=== PATIENT | male | born 1950 | race African-American/Black ===

== ENCOUNTER → 2016-12-09 | Outpatient (CLI) | payer OTHER ==
--- NOTE | 2016-12-09 14:09 | NM ---
EXAMINATION TYPE: NM bone 3 phase DATE OF EXAM: 12/09/2016 COMPARISON: NONE HISTORY: Necrotic ulcer right ankle, L 97.303 Triple phase bone scintigraphy was performed following the injection of26.1 mCi Tc 99m MDP. Immediat e images and 5.5 hours post injection images acquired. FINDINGS: Mild increased flow to the right ankle as compared to the left may be technical. Blood pool also show s asymmetric uptake to the right foot as compared to the left. Uptake within the mid tarsal regions r ight greater than left may be due to arthropathy. There is uptake in the metatarsophalangeal joint le vels of the first digits bilaterally. Uptake is also noted in the lateral aspect of the left is mild. IMPRESSION: Findings may be due to degenerative changes rather than infection within the tarsal bone regions of t he feet, first digits fifth digit. Plain film correlation may be of benefit. Consider foot MRI as ind icated.
== END | disposition home or self-care (01) ==
LOC: RADNMMAIN 07:20
PROVIDERS: ATTEND Family Medicine
DX: L97.313 Non-pressure chronic ulcer of right ankle with necrosis of muscle (principal)
CPT/HCPCS: 78315; A9503

== ENCOUNTER → 2016-12-18 | Outpatient (CLI) | payer MEDICARE, OTHER ==
--- NOTE | 2016-12-18 21:29 | US ---
EXAMINATION TYPE: US venous doppler duplex LE BI DATE OF EXAM: 12/18/2016 3:04 PM COMPARISON: 12/06/2013 CLINICAL HISTORY: M79.604, M79.605 PAIN IN RT AND LT LEG. Pain bilateral legs, wound right foot and a nkle, wound left foot LOWER EXTREMITY VENOUS INSUFFICIENCY SIDE PERFORMED: bilateral 1) Color flow is present and patency is documented in the following vessels. No DVT or SVT is noted . EIV Common Femoral Vein Deep Femoral Vein Femoral Vein Popliteal Vein Proximal Calf Veins Greater Saph Vein Upper Small Saph Vein 2) There is venous reflux noted at the following venous levels: right EIV, right CFV, right deep fe moral vein, right femoral vein mid and lower, right popliteal vein upper, mid and lower, left EIV, IMPRESSION: 1. Venous reflux within the right lower extremity and left lower extremity as discussed above.
--- NOTE | 2016-12-23 12:37 | P.ARTDOP ---
Arterial Doppler LOWER EXTREMITY ARTERIAL DOPPLER: DATE OF SERVICE: 12/18/2016 Reason for study: Bilateral foot ulcers. Doppler waveforms: Multiphasic throughout bilaterally Pulse volume recording: Normal configuration. Pressure gradients: Only at the foot level. Ankle-brachial indices: Greater than 1 bilaterally. Toe pressures: 44 on the right, 56 on the left Impression: Normal study proximally. Decreased toe pressures either related to vasoconstriction or less likely to very distal disease. Perfusion probably adequate for healing..
== END | disposition home or self-care (01) ==
LOC: RADUSWWP 14:21
PROVIDERS: ATTEND Family Medicine
DX: I87.2 Venous insufficiency (chronic) (peripheral) (principal); E13.621 Other specified diabetes mellitus with foot ulcer
CPT/HCPCS: 93923; 93970

== ENCOUNTER → 2017-11-25 | Outpatient (CLI) | payer MEDICARE, OTHER | END | disposition home or self-care (01) | LOC: LABWHC1 10:39 | PROVIDERS: ATTEND Dermatology | DX: L12.0 Bullous pemphigoid (principal) | CPT/HCPCS: 36415 ==

== ENCOUNTER 2017-12-19 11:26 | Inpatient (IN) | payer MEDICARE, OTHER ==
[2017-12-19] MEDS ORDERED: SODIUM CHLORIDE 0.9% 1,000 ML IV STA ×2 (11:46→15:12)
--- NOTE | 2017-12-19 11:51 | ED ---
General Adult HPI - General Chief complaint: Weakness Stated complaint: Weakness Time Seen by Provider: 12/19/17 11:29 Source: patient, EMS, Caregiver Mode of arrival: EMS Limitations: altered mental status - History of Present Illness Initial comments: Patient is a pleasant 67-year-old male presenting to the emergency department with weakness. Patient is a poor historian. Patient does have a caregiver who arrives who just became caregiver couple of weeks ago secondary to patient having new problems. Patient has been secretive regarding his history however did state that he had some sort of recent blood infection. Patient admits to having leg sores for the past few weeks. Patient states he does not feel well. Patient reportedly has been eating and drinking normally. Patient reportedly has not been walking around much the past couple of days. No reported emesis. - Related Data Home Medications Medication Instructions Recorded Confirmed Carvedilol [Coreg*] 12.5 mg PO BID 12/06/13 12/19/17 Doxazosin [Cardura] 4 mg PO HS 12/06/13 12/19/17 Isosorbide Mononitrate ER [Imdur] 30 mg PO DAILY 12/06/13 12/19/17 Lisinopril 40 mg PO DAILY 12/06/13 12/19/17 Torsemide [Demadex] 100 mg PO BID 12/06/13 12/19/17 Spironolact/Hydrochlorothiazid 1 tab PO DAILY 12/10/16 12/19/17 [Aldactazide 25-25 MG] Allopurinol [Zyloprim] 100 mg PO DAILY 12/19/17 12/19/17 Colchicine [Colcrys] 0.6 mg PO TID 12/19/17 12/19/17 Doxycycline Hyclate 100 mg PO BID 12/19/17 12/19/17 Niacin 500 mg PO BID 12/19/17 12/19/17 Potassium Chloride [Klor-Con 20] 20 meq PO DAILY 12/19/17 12/19/17 Allergies Allergy/AdvReac Type Severity Reaction Status Date / Time No Known Allergies Allergy Verified 12/19/17 12:28 Review of Systems ROS Statement: Those systems with pertinent positive or pertinent negative responses have been documented in the HPI. ROS Other: All systems not noted in ROS Statement are negative. Constitutional: Denies: fever Eyes: Denies: eye pain ENT: Denies: ear pain Respiratory: Denies: cough Cardiovascular: Denies: chest pain Endocrine: Reports: fatigue Gastrointestinal: Denies: abdominal pain, vomiting Genitourinary: Denies: dysuria Musculoskeletal: Denies: back pain Skin: Denies: rash Neurological: Reports: weakness. Denies: headache, confusion Past Medical History Past Medical History: Atrial Fibrillation, Heart Failure, COPD, Diabetes Mellitus, Hypertension, Renal Disease Additional Past Medical History / Comment(s): gout, CHF History of Any Multi-Drug Resistant Organisms: None Reported Past Surgical History: Appendectomy Past Psychological History: No Psychological Hx Reported Smoking Status: Never smoker Past Alcohol Use History: Occasional Past Drug Use History: None Reported - Past Family History Father Family Medical History: Diabetes Mellitus Mother History Unknown: Yes General Exam Limitations: altered mental status, physical limitation General appearance: alert, other (Patient is drowsy but easily arouses to voice. Patient is able to follow commands however limited effort.) Head exam: Present: atraumatic Eye exam: Present: normal appearance, PERRL ENT exam: Present: mucous membranes dry Neck exam: Present: normal inspection Respiratory exam: Present: normal lung sounds bilaterally Cardiovascular Exam: Present: tachycardia, irregular rhythm GI/Abdominal exam: Present: soft. Absent: tenderness Rectal exam: Present: normal inspection, other (Minimal stool is present). Absent: bloody stool Extremities exam: Present: other (Lower leg wounds) Neurological exam: Present: alert, altered Expanded Neurological exam: Present: protecting the airway Patient oriented to: Present: person, place. Absent: time Cranial nerves: EOM's Intact: Normal Motor strength exam: RUE: 5, LUE: 5, RLE: 5, LLE: 5 Eye Response: (4) open spontaneously Motor Response: (6) obeys commands Verbal Response: (4) confused conversation Psychiatric exam: Present: normal affect, normal mood Skin exam: Present: other (Patient has multiple lower leg wounds bilaterally, more so near the right foot and ankle. These appear to be bullous type lesions that have opened. There is some clear drainage.) Course Vital Signs 12/19/17 12/19/17 12/19/17 11:28 11:56 12:23 Temperature 96.4 F L Pulse Rate 131 H 122 H 114 H Respiratory 28 H 27 H 28 H Rate Blood Pressure 72/48 78/73 64/41 O2 Sat by Pulse 96 94 L Oximetry 12/19/17 12/19/17 12/19/17 13:13 13:25 13:36 Temperature Pulse Rate 121 H 115 H 115 H Respiratory 24 22 24 Rate Blood Pressure 66/44 85/40 79/41 O2 Sat by Pulse 99 99 99 Oximetry 12/19/17 12/19/17 12/19/17 13:44 13:46 14:15 Temperature Pulse Rate 109 H 113 H 115 H Respiratory 26 H 26 H 25 H Rate Blood Pressure 81/62 71/46 68/32 O2 Sat by Pulse 99 98 98 Oximetry 12/19/17 12/19/17 14:51 15:32 Temperature Pulse Rate 116 H 118 H Respiratory 25 H 25 H Rate Blood Pressure 114/53 87/60 O2 Sat by Pulse 98 98 Oximetry - Reevaluation(s) Reevaluation #1: 12/19/17 13:23 Patient does have leg wounds and there is concern for infection and sepsis. Patient does meet criteria for septic shock diagnosed at 1300. Blood culture and lactic acid and IV antibiotics have been ordered. 12/19/17 13:26 Patient was reevaluated. Sepsis evaluation completed. Case was discussed with Dr. zarate, who will admit for Dr. Oconnell. Family was updated. 12/19/17 14:48 Patient again reevaluated 12/19/17 15:18 Case was discussed in detail with Dr. Palm, who will consult. He does recommend consult with Dr. Cartagena as well. Dr. Cartagena has been paged. 12/19/17 15:52 Case was discussed with Dr. Cartagena, who will consult. EKG Findings - EKG Comments: EKG Findings:: A. fib with RVR, rate 125. QRS 158. QT 382. QTC 551. Normal axis. Left bundle branch block. Nonspecific T waves. Procedures - Central Line Placement Right SC Consent Obtained: written consent, emergent situation Time Out Performed: Yes Patient Placed on Monitor/Pulse Ox: Yes MD Prep: mask, gown, gloves Central Line Prep: Chlorhexidine scrub Amount of Anesthesia Used (mls): 2 Ultrasound Used for Placement: No Complications: none, other (Unable to fully advance guidewire and therefore procedure was not continued.) Left SC Consent Obtained: written consent, emergent situation Time Out Performed: Yes Patient Placed on Monitor/Pulse Ox: Yes MD Prep: mask, gown, gloves Central Line Prep: Chlorhexidine scrub Local Anesthesia Used: Lidocaine 1% Amount of Anesthesia Used (mls): 2 Ultrasound Used for Placement: No Central Line Lumen Inserted: triple Bloods Obtained for Lab: Yes Central Line Position: good blood return, all ports aspirated, flushed, capped, sutured in place with 3-0 nylon Dressing Applied: Tegaderm Post Procedure X-Ray: tip of catheter in good position Patient Tolerated Procedure: well, no complications Complications: none - Sepsis Sepsis Focused Exam #1 Time Sepsis Criteria Met: 13:00 Sepsis Focused Exam Date: 12/19/17 Sepsis Focused Exam Time: 13:23 Sepsis Focused Exam Complete: Yes Vital Signs & RN Notes Reviewed: Yes Capillary Refill: < 2 Seconds: Fingers, Toes Peripheral Pulses: Weak: Radial (R), Radial (L) Skin Color: Normal for Patient (Leg wounds are present) Respiratory Exam: normal lung sounds Cardiovascular Exam: tachycardia, irregular rhythm Medical Decision Making - Lab Data Result diagrams: 12/19/17 11:50 12/19/17 11:50 Lab Results 12/19/17 12/19/17 12/19/17 Range/Units 11:32 11:50 11:50 WBC 14.6 H (3.8-10.6) k/uL RBC 1.42 L (4.30-5.90) m/uL Hgb 4.0 L* (13.0-17.5) gm/dL Hct 14.0 L* (39.0-53.0) % MCV 99.1 (80.0-100.0) fL MCH 28.0 (25.0-35.0) pg MCHC 28.2 L (31.0-37.0) g/dL RDW 17.5 H (11.5-15.5) % Plt Count 220 (150-450) k/uL Neutrophils % 88 % Lymphocytes % 6 % Monocytes % 5 % Eosinophils % 0 % Basophils % 0 % Neutrophils # 12.8 H (1.3-7.7) k/uL Lymphocytes # 0.8 L (1.0-4.8) k/uL Monocytes # 0.8 (0-1.0) k/uL Eosinophils # 0.0 (0-0.7) k/uL Basophils # 0.1 (0-0.2) k/uL Hypochromasia Marked Poikilocytosis Moderate Anisocytosis Slight Macrocytosis Slight PT (9.0-12.0) sec INR (<1.2) APTT (22.0-30.0) sec Sodium (137-145) mmol/L Potassium (3.5-5.1) mmol/L Chloride (98-107) mmol/L Carbon Dioxide (22-30) mmol/L Anion Gap mmol/L BUN (9-20) mg/dL Creatinine (0.66-1.25) mg/dL Est GFR (CKD-EPI)AfAm (>60 ml/min/1.73 sqM) Est GFR (CKD-EPI)NonAf (>60 ml/min/1.73 sqM) Glucose (74-99) mg/dL POC Glucose (mg/dL) 221 H (75-99) mg/dL POC Glu Director Of [employer] Systems ID CarmenitDariela espinosa Lactic Ac Sepsis Rflx Plasma Lactic Acid [place] (0.7-2.0) mmol/L Calcium (8.4-10.2) mg/dL Magnesium (1.6-2.3) mg/dL Total Bilirubin (0.2-1.3) mg/dL AST (17-59) U/L ALT (21-72) U/L Alkaline Phosphatase (38-126) U/L Total Creatine Kinase <20 L (55-170) U/L CK-MB (CK-2) 1.7 (0.0-2.4) ng/mL CK-MB (CK-2) Rel Index Troponin I <0.012 (0.000-0.034) ng/mL Total Protein (6.3-8.2) g/dL Albumin (3.5-5.0) g/dL Urine Color Urine Appearance (Clear) Urine pH (5.0-8.0) Ur Specific [place] (1.001-1.035) Urine Protein (Negative) Urine Glucose (UA) (Negative) Urine Ketones (Negative) Urine Blood (Negative) Urine Nitrite (Negative) Urine Bilirubin (Negative) Urine Urobilinogen (<2.0) mg/dL Ur Leukocyte Esterase (Negative) Urine RBC (0-5) /hpf Ur Squamous Epith Cells (0-4) /hpf Urine Bacteria (None) /hpf Urine Mucus (None) /hpf Stool Occult Blood (Negative) Blood Type Blood Type Recheck Antibody Screen Crossmatch Spec Expiration Date 12/19/17 12/19/17 12/19/17 Range/Units 11:50 11:50 11:50 WBC (3.8-10.6) k/uL RBC (4.30-5.90) m/uL Hgb (13.0-17.5) gm/dL Hct (39.0-53.0) % MCV (80.0-100.0) fL MCH (25.0-35.0) pg MCHC (31.0-37.0) g/dL RDW (11.5-15.5) % Plt Count (150-450) k/uL Neutrophils % % Lymphocytes % % Monocytes % % Eosinophils % % Basophils % % Neutrophils # (1.3-7.7) k/uL Lymphocytes # (1.0-4.8) k/uL Monocytes # (0-1.0) k/uL Eosinophils # (0-0.7) k/uL Basophils # (0-0.2) k/uL Hypochromasia Poikilocytosis Anisocytosis Macrocytosis PT 13.2 H (9.0-12.0) sec INR 1.4 H (<1.2) APTT 23.7 (22.0-30.0) sec Sodium 138 (137-145) mmol/L Potassium 5.6 H (3.5-5.1) mmol/L Chloride 107 (98-107) mmol/L Carbon Dioxide 8 L* (22-30) mmol/L Anion Gap 23 mmol/L BUN 185 H* (9-20) mg/dL Creatinine 4.20 H (0.66-1.25) mg/dL Est GFR (CKD-EPI)AfAm 16 (>60 ml/min/1.73 sqM) Est GFR (CKD-EPI)NonAf 14 (>60 ml/min/1.73 sqM) Glucose 174 H (74-99) mg/dL POC Glucose (mg/dL) (75-99) mg/dL POC Glu Director Of Healthcare Systems ID Lactic Ac Sepsis Rflx Plasma Lactic Acid [place] 8.3 H* (0.7-2.0) mmol/L Calcium 9.0 (8.4-10.2) mg/dL Magnesium 2.6 H (1.6-2.3) mg/dL Total Bilirubin 0.4 (0.2-1.3) mg/dL AST 15 L (17-59) U/L ALT 22 (21-72) U/L Alkaline Phosphatase 56 (38-126) U/L Total Creatine Kinase (55-170) U/L CK-MB (CK-2) (0.0-2.4) ng/mL CK-MB (CK-2) Rel Index Troponin I (0.000-0.034) ng/mL Total Protein 5.3 L (6.3-8.2) g/dL Albumin 2.4 L (3.5-5.0) g/dL Urine Color Urine Appearance (Clear) Urine pH (5.0-8.0) Ur Specific [place] (1.001-1.035) Urine Protein (Negative) Urine Glucose (UA) (Negative) Urine Ketones (Negative) Urine Blood (Negative) Urine Nitrite (Negative) Urine Bilirubin (Negative) Urine Urobilinogen (<2.0) mg/dL Ur Leukocyte Esterase (Negative) Urine RBC (0-5) /hpf Ur Squamous Epith Cells (0-4) /hpf Urine Bacteria (None) /hpf Urine Mucus (None) /hpf Stool Occult Blood (Negative) Blood Type Blood Type Recheck Antibody Screen Crossmatch Spec Expiration Date 12/19/17 12/19/17 12/19/17 Range/Units 11:50 12:07 12:15 WBC (3.8-10.6) k/uL RBC (4.30-5.90) m/uL Hgb (13.0-17.5) gm/dL Hct (39.0-53.0) % MCV (80.0-100.0) fL MCH (25.0-35.0) pg MCHC (31.0-37.0) g/dL RDW (11.5-15.5) % Plt Count (150-450) k/uL Neutrophils % % Lymphocytes % % Monocytes % % Eosinophils % % Basophils % % Neutrophils # (1.3-7.7) k/uL Lymphocytes # (1.0-4.8) k/uL Monocytes # (0-1.0) k/uL Eosinophils # (0-0.7) k/uL Basophils # (0-0.2) k/uL Hypochromasia Poikilocytosis Anisocytosis Macrocytosis PT (9.0-12.0) sec INR (<1.2) APTT (22.0-30.0) sec Sodium (137-145) mmol/L Potassium (3.5-5.1) mmol/L Chloride (98-107) mmol/L Carbon Dioxide (22-30) mmol/L Anion Gap mmol/L BUN (9-20) mg/dL Creatinine (0.66-1.25) mg/dL Est GFR (CKD-EPI)AfAm (>60 ml/min/1.73 sqM) Est GFR (CKD-EPI)NonAf (>60 ml/min/1.73 sqM) Glucose (74-99) mg/dL POC Glucose (mg/dL) (75-99) mg/dL POC Glu Director Of Healthcare Systems ID Lactic Ac Sepsis Rflx Plasma Lactic Acid [place] (0.7-2.0) mmol/L Calcium (8.4-10.2) mg/dL Magnesium (1.6-2.3) mg/dL Total Bilirubin (0.2-1.3) mg/dL AST (17-59) U/L ALT (21-72) U/L Alkaline Phosphatase (38-126) U/L Total Creatine Kinase (55-170) U/L CK-MB (CK-2) (0.0-2.4) ng/mL CK-MB (CK-2) Rel Index Troponin I (0.000-0.034) ng/mL Total Protein (6.3-8.2) g/dL Albumin (3.5-5.0) g/dL Urine Color Yellow Urine Appearance Cloudy (Clear) Urine pH 5.0 (5.0-8.0) Ur Specific [place] 1.012 (1.001-1.035) Urine Protein Negative (Negative) Urine Glucose (UA) Negative (Negative) Urine Ketones Negative (Negative) Urine Blood Negative (Negative) Urine Nitrite Negative (Negative) Urine Bilirubin Negative (Negative) Urine Urobilinogen <2.0 (<2.0) mg/dL Ur Leukocyte Esterase Negative (Negative) Urine RBC 1 (0-5) /hpf Ur Squamous Epith Cells 1 (0-4) /hpf Urine Bacteria Rare H (None) /hpf Urine Mucus Rare H (None) /hpf Stool Occult Blood Positive (Negative) Blood Type O Positive Blood Type Recheck No Antibody Screen NEGATIVE Crossmatch See Detail Spec Expiration Date 12/22/2017234912/19/17 Range/Units 12:23 WBC (3.8-10.6) k/uL RBC (4.30-5.90) m/uL Hgb (13.0-17.5) gm/dL Hct (39.0-53.0) % MCV (80.0-100.0) fL MCH (25.0-35.0) pg MCHC (31.0-37.0) g/dL RDW (11.5-15.5) % Plt Count (150-450) k/uL Neutrophils % % Lymphocytes % % Monocytes % % Eosinophils % % Basophils % % Neutrophils # (1.3-7.7) k/uL Lymphocytes # (1.0-4.8) k/uL Monocytes # (0-1.0) k/uL Eosinophils # (0-0.7) k/uL Basophils # (0-0.2) k/uL Hypochromasia Poikilocytosis Anisocytosis Macrocytosis PT (9.0-12.0) sec INR (<1.2) APTT (22.0-30.0) sec Sodium (137-145) mmol/L Potassium (3.5-5.1) mmol/L Chloride (98-107) mmol/L Carbon Dioxide (22-30) mmol/L Anion Gap mmol/L BUN (9-20) mg/dL Creatinine (0.66-1.25) mg/dL Est GFR (CKD-EPI)AfAm (>60 ml/min/1.73 sqM) Est GFR (CKD-EPI)NonAf (>60 ml/min/1.73 sqM) Glucose (74-99) mg/dL POC Glucose (mg/dL) (75-99) mg/dL POC Glu Director Of Healthcare Systems ID Lactic Ac Sepsis Rflx Y Plasma Lactic Acid [place] (0.7-2.0) mmol/L Calcium (8.4-10.2) mg/dL Magnesium (1.6-2.3) mg/dL Total Bilirubin (0.2-1.3) mg/dL AST (17-59) U/L ALT (21-72) U/L Alkaline Phosphatase (38-126) U/L Total Creatine Kinase (55-170) U/L CK-MB (CK-2) (0.0-2.4) ng/mL CK-MB (CK-2) Rel Index Troponin I (0.000-0.034) ng/mL Total Protein (6.3-8.2) g/dL Albumin (3.5-5.0) g/dL Urine Color Urine Appearance (Clear) Urine pH (5.0-8.0) Ur Specific [place] (1.001-1.035) Urine Protein (Negative) Urine Glucose (UA) (Negative) Urine Ketones (Negative) Urine Blood (Negative) Urine Nitrite (Negative) Urine Bilirubin (Negative) Urine Urobilinogen (<2.0) mg/dL Ur Leukocyte Esterase (Negative) Urine RBC (0-5) /hpf Ur Squamous Epith Cells (0-4) /hpf Urine Bacteria (None) /hpf Urine Mucus (None) /hpf Stool Occult Blood (Negative) Blood Type Blood Type Recheck Antibody Screen Crossmatch Spec Expiration Date - Radiology Data Radiology results: report reviewed (Computed tomography scan of brain shows no acute abnormality. Old left infarct.), image reviewed (Chest x-ray shows cardiomegaly.) Critical Care Time Critical Care Time: Yes Total Critical Care Time: 50 Disposition Clinical Impression: Acute renal failure, Cellulitis, Septic shock, GI hemorrhage Disposition: ADMITTED IP TO THIS [facility] Condition: Critical Is patient prescribed a controlled substance at d/c from ED?: No Decision Time: 14:49
[2017-12-19 12:04] LABS: Glucose,Whole Blood 221 mg/dL (75-99)
[2017-12-19 12:04] LABS: Anisocytosis Slight; Basophils # (A) 0.1 k/uL (0-0.2); Basophils % (A) 0 %; Eosinophils % (A) 0 %; Hypochromasia Marked; Lymphocytes # (A) 0.8 k/uL (1.0-4.8); Lymphocytes % (A) 6 %; MCHC 28.2 g/dL (31.0-37.0); MCV 99.1 fL (80.0-100.0); Macrocytosis Slight; Mean Platelet Volume 8.2; Monocytes # (A) 0.8 k/uL (0-1.0); Monocytes % (A) 5 %; Neutrophils # (A) 12.8 k/uL (1.3-7.7); Neutrophils % (A) 88 %; Platelet Count 220 k/uL (150-450); Poikilocytosis Moderate; RBC 1.42 m/uL (4.30-5.90); RDW 17.5 % (11.5-15.5); WBC 14.6 k/uL (3.8-10.6)
[2017-12-19 12:11] LABS: INR 1.4 (<1.2); Partial Thromboplastin Time 23.7 sec (22.0-30.0); Prothrombin Time 13.2 sec (9.0-12.0)
[2017-12-19 12:12] LABS: Albumin 2.4 g/dL (3.5-5.0); Magnesium 2.6 mg/dL (1.6-2.3); Potassium 5.6 mmol/L (3.5-5.1); Total Bilirubin 0.4 mg/dL (0.2-1.3); Total Protein 5.3 g/dL (6.3-8.2)
[2017-12-19] MEDS ORDERED: PANTOPRAZOLE 40 MG/10 ML VIAL IVP STA (12:12)
[2017-12-19] MEDS ORDERED: SODIUM CHLORIDE 0.9% 1,000 ML IV ONE (12:18)
[2017-12-19 12:21] LABS: Creatine Kinase <20 U/L (55-170)
[2017-12-19] MEDS ORDERED: SODIUM CHLORIDE 0.9% 500 ML IV STA (12:23)
[2017-12-19 12:30] LABS: Appearance,Urine Cloudy (Clear); Bacteria,Urine Rare /hpf; Bilirubin,Urine Negative (Negative); Blood,Urine Negative (Negative); Color,Urine Yellow; Glucose,Urine (UA) Negative (Negative); Ketones,Urine Negative (Negative); Leukocyte Esterase,Urine Negative (Negative); Mucus,Urine Rare /hpf; Nitrite,Urine Negative (Negative); Protein,Urine Negative (Negative); RBC,Urine 1 /hpf (0-5); Specific Gravity,Urine 1.012 (1.001-1.035); Squamous Epithelial Cell,Urine 1 /hpf (0-4); Urobilinogen,Urine <2.0 mg/dL (<2.0)
[2017-12-19] MEDS ORDERED: PIPERACILLIN-TAZOBACTAM 3.375 GM in DEXTROSE/WATER 1 50ML.BAG IVPB STA (12:31)
[2017-12-19 12:34] LABS: Creatine Kinase MB 1.7 ng/mL (0.0-2.4); Troponin I <0.012 ng/mL (0.000-0.034)
--- NOTE | 2017-12-19 12:55 | CT ---
EXAMINATION TYPE: CT brain wo con DATE OF EXAM: 12/19/2017 COMPARISON: NONE HISTORY: weakness CT DLP: 1106.3 mGycm Automated exposure control for dose reduction was used. FINDINGS: There has been a previous left occipital infarct. There are generalized changes of sulcal prominence and ventriculomegaly, compatible with atrophic marquis nges. There is diffuse periventricular white matter lucency, compatible with chronic white matter isc hemic change. There is no acute focal lesion, mass effect or midline shift identified. I do not see e vidence of intracranial blood. Visualized portions of the paranasal sinuses and mastoids are clear. The bony calvarium is intact. IMPRESSION: 1. NO ACUTE INTRACRANIAL ABNORMALITY. 2. OLD LEFT OCCIPITAL INFARCT. 3. DEGENERATIVE CHANGE.
--- NOTE | 2017-12-19 13:01 | XR ---
EXAMINATION TYPE: XR chest 2V DATE OF EXAM: 12/19/2017 HISTORY: Weakness. REFERENCE: Previous study dated 04/24/2010. FINDINGS: There is multichamber cardiac enlargement. Lungs are clear. Pleural spaces are clear. IMPRESSION: CARDIOMEGALY.
[2017-12-19] MEDS ORDERED: NOREPINEPHRINE 16 MG in SODIUM CHLORIDE 0.9% 250 ML IV ONE (14:31)
[2017-12-19] MEDS ORDERED: LORazepam 2 MG/ML INJ IM STA (14:37)
--- NOTE | 2017-12-19 15:15 | XR ---
EXAMINATION TYPE: XR chest 1V portable DATE OF EXAM: 12/19/2017 COMPARISON: Chest radiograph 12/19/2017 HISTORY: Central line placement TECHNIQUE: Single frontal view of the chest is obtained. FINDINGS: Interval placement of a left sided subclavian central line with the distal tip residing in the mid SVC. No evidence of pneumothorax. The heart remains enlarged. There remains no evidence of fo haile consolidation or pleural effusion. Osseous structures remain intact. IMPRESSION: Interval placement of a left subclavian central line with the tip residing in the mid SVC . No pneumothorax.
[2017-12-19] MEDS ORDERED: NALOXONE 0.4 MG/ML 1 ML VIAL IV PRN (15:29)
[2017-12-19] MEDS ORDERED: VANCOMYCIN IV PER PHARMACY 1 EACH MISC MISCELLANE PRN (15:33)
[2017-12-19] MEDS ORDERED: VANCOMYCIN 1,250 MG in SODIUM CHLORIDE 0.9% 250 ML IVPB ONE (16:00)
[2017-12-19 16:27] LABS: Glucose,Whole Blood 161 mg/dL (75-99)
[2017-12-19] MEDS: NOREPINEPHRINE 16 MG in SODIUM CHLORIDE 0.9% 250 ML IV SCH (16:30)
[2017-12-19] MEDS: SODIUM CHLORIDE 0.9% 1,000 ML IV SCH (16:48)
[2017-12-19 17:35] LABS: Anisocytosis Slight; Basophils % (A) 0 %; Eosinophils % (A) 0 %; HCT 22.5 % (39.0-53.0); Hypochromasia Marked; Lymphocytes # (A) 0.7 k/uL (1.0-4.8); Lymphocytes % (A) 6 %; MCH 28.5 pg (25.0-35.0); MCHC 30.3 g/dL (31.0-37.0); MCV 94.2 fL (80.0-100.0); Mean Platelet Volume 8.2; Monocytes # (A) 0.7 k/uL (0-1.0); Monocytes % (A) 6 %; Neutrophils # (A) 11.2 k/uL (1.3-7.7); Neutrophils % (A) 88 %; Platelet Count 172 k/uL (150-450); Poikilocytosis Moderate; RBC 2.39 m/uL (4.30-5.90); RDW 16.3 % (11.5-15.5); WBC 12.8 k/uL (3.8-10.6)
[2017-12-19 17:37] LABS: HGB 6.8 gm/dL (13.0-17.5)
[2017-12-19 18:08] LABS: Albumin 2.5 g/dL (3.5-5.0); Calcium 8.6 mg/dL (8.4-10.2); Magnesium 2.4 mg/dL (1.6-2.3); Potassium 5.4 mmol/L (3.5-5.1); Total Bilirubin 0.8 mg/dL (0.2-1.3); Total Protein 5.3 g/dL (6.3-8.2)
--- NOTE | 2017-12-19 18:20 | P.CONS ---
History of Present Illness - Reason for Consult Consult date: 12/19/17 - Chief Complaint Altered mental status - History of Present Illness 67-year-old male who has altered mental status is brought to the emergency center by a caregiver who apparently has a friend because of the significant declining status that was noted. The caregiver relates that he's been secretive about his overall health. The patient however does follow with a primary care physician Dr. Oconnell and was evaluated in the office on 2017 antibiotic therapy with doxycycline was given for the problems to his legs. No evidence of any topical therapy can be found in the bags of medicine that were brought to hospital. The patient himself is agitated and has difficulty answering questions. He however on direct questioning denies headache, denies chest pain, denies abdominal pain, denies dysuria, denies diarrhea but does complain of pain to his legs. The patient's sister is present relates that although she does see her brother occasionally she does not know much about his medical history. Review of Systems ROS unobtainable: due to mental status Past Medical History Past Medical History: Atrial Fibrillation, Heart Failure, COPD, Diabetes Mellitus, Hypertension, Renal Disease Additional Past Medical History / Comment(s): gout, CHF History of Any Multi-Drug Resistant Organisms: None Reported Past Surgical History: Appendectomy Past Psychological History: No Psychological Hx Reported Additional Psychological History / Comment(s): Patient's sister relates the patient does drink alcohol likely daily, history of tobacco use. She relates that he has difficulties with his heart, diabetes that he does not control well , and gout that gives him some discomfort at times. She does not relate that he has service, travel, or animal exposures. Does utilize marijuana she is not aware of other recreational drugs. Smoking Status: Never smoker Past Alcohol Use History: Occasional Past Drug Use History: None Reported - Past Family History Father Family Medical History: Diabetes Mellitus Mother History Unknown: Yes Medications and Allergies Home Medications and Allergies Comment(s): Current Medications Piperacillin/Tazobactam/ (Dextrose 3.375 gm/ IV Solution) 50 mls @ 12.5 mls/hr IVPB Q12HR [facility] Sodium Chloride (Saline 0.9%) 1,000 mls @ 125 mls/hr IV .Q8H [facility] Last Admin: 12/19/17 16:48 Dose: 125 mls/hr Vancomycin HCl 1,000 mg/ (Sodium Chloride) 250 mls @ 125 mls/hr IVPB ONCE ONE Stop: 12/20/17 10:59 Norepinephrine Bitartrate 16 (mg/ Sodium Chloride) 250 mls @ 0 mls/hr IV .Q0M [facility]; Protocol Miscellaneous Information (Pharmacy To Dose Iv Vancomycin) 1 each MISCELLANE DIRECTED PRN PRN Reason: Per Protocol Naloxone HCl (Narcan) 0.2 mg IV Q2M PRN PRN Reason: Opioid Reversal Pantoprazole Sodium (Protonix) 40 mg IV BID [facility] Home Medications Medication Instructions Recorded Confirmed Type Carvedilol [Coreg*] 12.5 mg PO BID 12/06/13 12/19/17 History Doxazosin [Cardura] 4 mg PO HS 12/06/13 12/19/17 History Isosorbide Mononitrate ER [Imdur] 30 mg PO DAILY 12/06/13 12/19/17 History Lisinopril 40 mg PO DAILY 12/06/13 12/19/17 History Torsemide [Demadex] 100 mg PO BID 12/06/13 12/19/17 History Spironolact/Hydrochlorothiazid 1 tab PO DAILY 12/10/16 12/19/17 History [Aldactazide 25-25 MG] Allopurinol [Zyloprim] 100 mg PO DAILY 12/19/17 12/19/17 History Colchicine [Colcrys] 0.6 mg PO TID 12/19/17 12/19/17 History Doxycycline Hyclate 100 mg PO BID 12/19/17 12/19/17 History Naproxen 500 mg PO 12/19/17 History Naproxen [Naprosyn] 500 mg PO BID PRN 12/19/17 12/19/17 History Niacin 500 mg PO BID 12/19/17 12/19/17 History Potassium Chloride [Klor-Con 20] 20 meq PO DAILY 12/19/17 12/19/17 History Allergies Allergy/AdvReac Type Severity Reaction Status Date / Time No Known Allergies Allergy Verified 12/19/17 12:28 Physical Exam Vitals: Vital Signs Temp Pulse Resp BP Pulse Ox 12/19/17 17:11 24 12/19/17 17:00 115 H 22 82/51 12/19/17 16:45 121 H 29 H 68/49 12/19/17 16:30 95.1 F L 121 H 22 71/51 12/19/17 16:22 0 L 12/19/17 15:32 118 H 25 H 87/60 98 12/19/17 14:51 116 H 25 H 114/53 98 12/19/17 14:15 115 H 25 H 68/32 98 12/19/17 13:46 113 H 26 H 71/46 98 12/19/17 13:44 109 H 26 H 81/62 99 12/19/17 13:36 115 H 24 79/41 99 12/19/17 13:25 115 H 22 85/40 99 12/19/17 13:13 121 H 24 66/44 99 12/19/17 12:23 114 H 28 H 64/41 12/19/17 11:56 122 H 27 H 78/73 94 L 12/19/17 11:28 96.4 F L 131 H 28 H 72/48 96 Intake and Output 12/19/17 12/19/17 12/19/17 06:59 14:59 22:59 Intake Total 930 1250 Output Total 100 160 Balance 830 1090 Intake: IV 1250 Sodium Chloride 0.9% 1, 250 000 ml @ 125 mls/hr IV . Q8H [facility] Rx#:[id number] Sodium Chloride 0.9% 500 1000 ml @ 999 mls/hr IV .Q31M [facility] Rx#:[id number] Blood Product 930 Rc As-1 Unit 310 [id number] Rc As-1 Unit 310 [id number] Rc As-1 Unit 310 [id number] Output: Urine 100 160 Uretheral (Huang) 100 Other: Weight 68.039 kg HEENT: Anicteric conjunctiva are very pale, there is general pallor. No oral lesions or thrush but dentition is very poor Neck: The neck is supple without significant lymphadenopathy or thyromegaly. Lungs: There is symmetrical air entry with expiratory wheezes scattered no leah bronchial sounds no dullness Heart: Very tachycardic with a rate of 141 no abnormal sounds were detected Abdomen: Positive bowel sounds soft and nontender without palpable masses or organomegaly. There was no guarding or rebound. Extremities: Upper extremities are intact without lesions. Lower extremities show evidence of the chronic bilateral lower extremity edema, evidence of some dried bulla especially on the left leg are seen. Some ulcerations are seen on the right lower extremity. Nursing photography will further help define locations. There is some minimal drainage to the right leg. The legs are very tender. Neuro: The patient is awake and alert attempts to answer questions but is agitated and does not answer questions well. He overs able to easily move all extremities at this time but is guarding to his legs because they give him pain. Results CBC & Chem 7: 12/19/17 17:22 12/19/17 11:50 Labs: Abnormal Lab Results - Last 24 Hours (Table) 12/19/17 12/19/17 12/19/17 Range/Units 11:32 11:50 11:50 WBC 14.6 H (3.8-10.6) k/uL RBC 1.42 L (4.30-5.90) m/uL Hgb 4.0 L* (13.0-17.5) gm/dL Hct 14.0 L* (39.0-53.0) % MCHC 28.2 L (31.0-37.0) g/dL RDW 17.5 H (11.5-15.5) % Neutrophils # 12.8 H (1.3-7.7) k/uL Lymphocytes # 0.8 L (1.0-4.8) k/uL PT (9.0-12.0) sec INR (<1.2) Potassium (3.5-5.1) mmol/L Carbon Dioxide (22-30) mmol/L BUN (9-20) mg/dL Creatinine (0.66-1.25) mg/dL Glucose (74-99) mg/dL POC Glucose (mg/dL) 221 H (75-99) mg/dL Plasma Lactic Acid [place] (0.7-2.0) mmol/L Magnesium (1.6-2.3) mg/dL AST (17-59) U/L Total Creatine Kinase <20 L (55-170) U/L Total Protein (6.3-8.2) g/dL Albumin (3.5-5.0) g/dL Urine Bacteria (None) /hpf Urine Mucus (None) /hpf Crossmatch 08/26/18 08/26/18 08/26/18 Range/Units 11:50 11:50 11:50 WBC (3.8-10.6) k/uL RBC (4.30-5.90) m/uL Hgb (13.0-17.5) gm/dL Hct (39.0-53.0) % MCHC (31.0-37.0) g/dL RDW (11.5-15.5) % Neutrophils # (1.3-7.7) k/uL Lymphocytes # (1.0-4.8) k/uL PT 13.2 H (9.0-12.0) sec INR 1.4 H (<1.2) Potassium 5.6 H (3.5-5.1) mmol/L Carbon Dioxide 8 L* (22-30) mmol/L BUN 185 H* (9-20) mg/dL Creatinine 4.20 H (0.66-1.25) mg/dL Glucose 174 H (74-99) mg/dL POC Glucose (mg/dL) (75-99) mg/dL Plasma Lactic Acid [place] 8.3 H* (0.7-2.0) mmol/L Magnesium 2.6 H (1.6-2.3) mg/dL AST 15 L (17-59) U/L Total Creatine Kinase (55-170) U/L Total Protein 5.3 L (6.3-8.2) g/dL Albumin 2.4 L (3.5-5.0) g/dL Urine Bacteria (None) /hpf Urine Mucus (None) /hpf Crossmatch 12/19/17 12/19/17 12/19/17 Range/Units 11:50 12:07 16:23 WBC (3.8-10.6) k/uL RBC (4.30-5.90) m/uL Hgb (13.0-17.5) gm/dL Hct (39.0-53.0) % MCHC (31.0-37.0) g/dL RDW (11.5-15.5) % Neutrophils # (1.3-7.7) k/uL Lymphocytes # (1.0-4.8) k/uL PT (9.0-12.0) sec INR (<1.2) Potassium (3.5-5.1) mmol/L Carbon Dioxide (22-30) mmol/L BUN (9-20) mg/dL Creatinine (0.66-1.25) mg/dL Glucose (74-99) mg/dL POC Glucose (mg/dL) 161 H (75-99) mg/dL Plasma Lactic Acid [place] (0.7-2.0) mmol/L Magnesium (1.6-2.3) mg/dL AST (17-59) U/L Total Creatine Kinase (55-170) U/L Total Protein (6.3-8.2) g/dL Albumin (3.5-5.0) g/dL Urine Bacteria Rare H (None) /hpf Urine Mucus Rare H (None) /hpf Crossmatch See Detail 12/19/17 12/19/17 Range/Units 17:22 17:22 WBC 12.8 H (3.8-10.6) k/uL RBC 2.39 L (4.30-5.90) m/uL Hgb 6.8 L* D (13.0-17.5) gm/dL Hct 22.5 L (39.0-53.0) % MCHC 30.3 L (31.0-37.0) g/dL RDW 16.3 H (11.5-15.5) % Neutrophils # 11.2 H (1.3-7.7) k/uL Lymphocytes # 0.7 L (1.0-4.8) k/uL PT (9.0-12.0) sec INR (<1.2) Potassium (3.5-5.1) mmol/L Carbon Dioxide (22-30) mmol/L BUN (9-20) mg/dL Creatinine (0.66-1.25) mg/dL Glucose (74-99) mg/dL POC Glucose (mg/dL) (75-99) mg/dL Plasma Lactic Acid Orlando 3.9 H* (0.7-2.0) mmol/L Magnesium (1.6-2.3) mg/dL AST (17-59) U/L Total Creatine Kinase (55-170) U/L Total Protein (6.3-8.2) g/dL Albumin (3.5-5.0) g/dL Urine Bacteria (None) /hpf Urine Mucus (None) /hpf Crossmatch Microbiology - Last 24 Hours (Table) 12/19/17 11:48 Wound Culture - Preliminary Foot - Right 12/19/17 12:07 Urine Culture - Preliminary Urine,Catheterized Laboratory Results WBC 12.8 k/uL (3.8-10.6) H 12/19/17 17:22 RBC 2.39 m/uL (4.30-5.90) L 12/19/17 17:22 Hgb 6.8 gm/dL (13.0-17.5) L* D 12/19/17 17:22 Hct 22.5 % (39.0-53.0) L 12/19/17 17:22 MCV 94.2 fL (80.0-100.0) 12/19/17 17:22 MCH 28.5 pg (25.0-35.0) 12/19/17 17:22 MCHC 30.3 g/dL (31.0-37.0) L 12/19/17 17:22 RDW 16.3 % (11.5-15.5) H 12/19/17 17:22 Plt Count 172 k/uL (150-450) 12/19/17 17:22 Neutrophils % 88 % 12/19/17 17:22 Lymphocytes % 6 % 12/19/17 17:22 Monocytes % 6 % 12/19/17 17:22 Eosinophils % 0 % 12/19/17 17:22 Basophils % 0 % 12/19/17 17:22 Neutrophils # 11.2 k/uL (1.3-7.7) H 12/19/17 17:22 Lymphocytes # 0.7 k/uL (1.0-4.8) L 12/19/17 17:22 Monocytes # 0.7 k/uL (0-1.0) 12/19/17 17:22 Eosinophils # 0.0 k/uL (0-0.7) 12/19/17 17:22 Basophils # 0.0 k/uL (0-0.2) 12/19/17 17:22 Hypochromasia Marked 12/19/17 17:22 Poikilocytosis Moderate 12/19/17 17:22 Anisocytosis Slight 12/19/17 17:22 Macrocytosis Slight 12/19/17 11:50 PT 13.2 sec (9.0-12.0) H 12/19/17 11:50 INR 1.4 (<1.2) H 12/19/17 11:50 APTT 23.7 sec (22.0-30.0) 12/19/17 11:50 Sodium 139 mmol/L (137-145) 12/19/17 17:22 Potassium 5.4 mmol/L (3.5-5.1) H 12/19/17 17:22 Chloride 112 mmol/L (98-107) H 12/19/17 17:22 Carbon Dioxide 11 mmol/L (22-30) L 12/19/17 17:22 Anion Gap 16 mmol/L 12/19/17 17:22 BUN mg/dL (9-20) 12/19/17 17:22 Creatinine 3.60 mg/dL (0.66-1.25) H 12/19/17 17:22 Est GFR (CKD-EPI)AfAm 19 (>60 ml/min/1.73 sqM) 12/19/17 17:22 Est GFR (CKD-EPI)NonAf 16 (>60 ml/min/1.73 sqM) 12/19/17 17:22 Glucose 145 mg/dL (74-99) H 12/19/17 17:22 POC Glucose (mg/dL) 161 mg/dL (75-99) H 12/19/17 16:23 POC Glu Brick Tester ID Caroline Moses 12/19/17 16:23 Lactic Ac Sepsis Rflx Y 12/19/17 12:23 Plasma Lactic Acid Orlando 3.9 mmol/L (0.7-2.0) H* 12/19/17 17:22 Calcium 8.6 mg/dL (8.4-10.2) 12/19/17 17:22 Phosphorus 6.0 mg/dL (2.5-4.5) H 12/19/17 17:22 Magnesium 2.4 mg/dL (1.6-2.3) H 12/19/17 17:22 Total Bilirubin 0.8 mg/dL (0.2-1.3) 12/19/17 17:22 AST 18 U/L (17-59) 12/19/17 17:22 ALT 24 U/L (21-72) 12/19/17 17:22 Alkaline Phosphatase 55 U/L (38-126) 12/19/17 17:22 Total Creatine Kinase <20 U/L (55-170) L 12/19/17 11:50 CK-MB (CK-2) 1.7 ng/mL (0.0-2.4) 12/19/17 11:50 CK-MB (CK-2) Rel Index 12/19/17 11:50 Troponin I <0.012 ng/mL (0.000-0.034) 12/19/17 11:50 Total Protein 5.3 g/dL (6.3-8.2) L 12/19/17 17:22 Albumin 2.5 g/dL (3.5-5.0) L 12/19/17 17:22 Urine Color Yellow 12/19/17 12:07 Urine Appearance Cloudy (Clear) 12/19/17 12:07 Urine pH 5.0 (5.0-8.0) 12/19/17 12:07 Ur Specific Trent 1.012 (1.001-1.035) 12/19/17 12:07 Urine Protein Negative (Negative) 12/19/17 12:07 Urine Glucose (UA) Negative (Negative) 12/19/17 12:07 Urine Ketones Negative (Negative) 12/19/17 12:07 Urine Blood Negative (Negative) 12/19/17 12:07 Urine Nitrite Negative (Negative) 12/19/17 12:07 Urine Bilirubin Negative (Negative) 12/19/17 12:07 Urine Urobilinogen <2.0 mg/dL (<2.0) 12/19/17 12:07 Ur Leukocyte Esterase Negative (Negative) 12/19/17 12:07 Urine RBC 1 /hpf (0-5) 12/19/17 12:07 Ur Squamous Epith Cells 1 /hpf (0-4) 12/19/17 12:07 Urine Bacteria Rare /hpf (None) H 12/19/17 12:07 Urine Mucus Rare /hpf (None) H 12/19/17 12:07 Stool Occult Blood Positive (Negative) 12/19/17 12:15 Blood Type O Positive 12/19/17 11:50 Blood Type Recheck No 12/19/17 11:50 Antibody Screen NEGATIVE 12/19/17 11:50 Crossmatch See Detail 12/19/17 11:50 Spec Expiration Date 12/22/2017 1640 12/19/17 11:50 Chest x-ray: image reviewed (Cardiomegaly without volume overload) Assessment and Plan (1) Septic shock Narrative/Plan: 67-year-old male presents to Hospital with prompting of a caregiver because of altered mental status. Upon arrival to the hospital patient is evidence of hypothermia, leukocytosis, hemoglobin of 4 and evidence of shock. There is concerns of septic shock given the patient's leukocytosis and open wounds to the lower extremities. The patient's hypotension and lactic acidosis can also be complicated by his profound anemia, with hemoglobin of 4 the patient likely has some component of chronic anemia to be able to be functional at this time. Local wound care will be utilized with Silvadene cream and wraps that can be done twice a day over this will be soothing and improve his level of discomfort Critical care is following and is receiving blood transfusions to improve his oxygen transport and has hypotension Antibiotic therapy will be addressed. He has evidence of acute renal failure with his creatinine of 4.2 at admission. Would avoid further vancomycin therapy and will change to daptomycin for now. He does need gram-negative therapy and with the current profound anemia would avoid piperacillin tazobactam given the difficulties with hematochezia anemia can be caused, utilize cefepime for now . Multiple cultures are already in process will further help direct therapy. The patient was on doxycycline therapy as an outpatient. Patient does have some laboratories from earlier this month the reveal evidence of hemoglobin 11.7 and a creatinine as low as 2.05 Consequently there is evidence of acute on chronic renal failure at this time. The patient has a heart rate of 141 which appears to be directly related to his septic shock. With fluid resuscitation and further blood transfusion should improve. Patient's sister relates that there is a history of alcohol use and must be monitored closely. Current Visit: Yes Status: Acute Code(s): A41.9 - SEPSIS, UNSPECIFIED ORGANISM; R65.21 - SEVERE SEPSIS WITH SEPTIC SHOCK SNOMED Code(s): 98735939 (2) Acute on chronic blood loss anemia Current Visit: Yes Status: Acute Code(s): D60.0 - CHRONIC ACQUIRED PURE RED CELL APLASIA SNOMED Code(s): 108783353 (3) Venous stasis ulcer of both lower extremities without varicose veins Current Visit: Yes Status: Acute Code(s): I87.2 - VENOUS INSUFFICIENCY ( CHRONIC) (PERIPHERAL); L97.919 - NON-PRS CHRONIC ULC UNSP PRT OF R LOW LEG W UNSP SEVERITY; L97.929 - NON-PRS CHRONIC ULC UNSP PRT OF L LOW LEG W UNSP SEVERITY SNOMED Code(s): 302799728
[2017-12-19 18:57] LABS: Glucose,Whole Blood 182 mg/dL (75-99)
[2017-12-19 19:21] LABS: Amphetamine Screen,Urine Not Detected (NotDetected); Barbiturate Screen,Urine Not Detected (NotDetected); Benzodiazepines Screen,Urine Not Detected (NotDetected); Cocaine Screen,Urine Detected (NotDetected); Methadone Screen, Urine Not Detected (NotDetected); Opiate Screen,Urine Not Detected (NotDetected); Oxycodone Screen, Urine Not Detected (NotDetected); Phencyclidine Screen,Urine Not Detected (NotDetected); Tricyclic Antidepressant,Urine Not Detected (NotDetected); Urn Cannabinoid Scrn Not Detected (NotDetected)
[2017-12-19] MEDS: INSULIN ASPART 100 UNIT/ML 1 ML 10 ML VIAL SQ SCH (19:42)
--- NOTE | 2017-12-19 19:47 | P.HPIM ---
History of Present Illness H&P Date: 12/19/17 Chief Complaint: Altered mental status Mr. Miller is a 67-year-old male with a past medical history of atrial fibrillation, heart failure, COPD, diabetes mellitus, hypertension brought in by his friend for altered mental status changes. Patient follows with Dr. Oconnell, who is his PCP. Patient does not discuss his medical issues with any of his family members or friends. As per the history by the caregiver, the patient has been not feeling well for the past couple of days as he was not himself. The patient himself states that he has been having dark-colored stool for almost 5 weeks. He states that he takes naproxen for his gouty attacks. He also mentions that he was on antibiotics for his lower extremity ulcers recently. Patient denies having any chest pain, difficulty in breathing, abdominal pain nausea vomiting. He complains of dark-colored stools for 5 weeks. He smokes marijuana and drinks alcohol occasionally. No history of illicit drug use. Patient mentions that he has chronic bilateral lower extremity ulcers. At the time of admission - Patient was found to be hypotensive with a low hemoglobin of 4 and elevated lactic acid at 8.3. He is admitted to the ICU for further management. His sister is at the bedside, mentions that she does not know much of his medical conditions. But yesterday she was called, that he was not feeling well. Review of Systems REVIEW OF SYSTEMS: NEURO:No c/o weakness of the extremties, No facial droop, No speech abnormalities. VASCULAR: Bilateral lower extremity ulcers HEMATOLOGIC: No history of easy bleeding and bruising . No recent infections . RESPIRATORY: No cough, No SOB, No chest discomfort. OPHTHALMOLOGIC: No blurry vision and no eye discharge : No dysuria or hematuria CARDIAC: No chest pain , shortness of breath , paroxysmal nocturnal dyspnea MUSCULOSKELETAL : History of gout GI: Dark colored stool stool for 5 weeks Past Medical History Past Medical History: Atrial Fibrillation, Heart Failure, COPD, Diabetes Mellitus, Hypertension, Renal Disease Additional Past Medical History / Comment(s): gout, CHF History of Any Multi-Drug Resistant Organisms: None Reported Past Surgical History: Appendectomy Past Psychological History: No Psychological Hx Reported Additional Psychological History / Comment(s): Patient's sister relates the patient does drink alcohol likely daily, history of tobacco use. She relates that he has difficulties with his heart, diabetes that he does not control well , and gout that gives him some discomfort at times. She does not relate that he has service, travel, or animal exposures. Does utilize marijuana she is not aware of other recreational drugs. Smoking Status: Never smoker Past Alcohol Use History: Occasional Past Drug Use History: None Reported - Past Family History Father Family Medical History: Diabetes Mellitus Mother History Unknown: Yes Medications and Allergies Home Medications Medication Instructions Recorded Confirmed Type Carvedilol [Coreg*] 12.5 mg PO BID 12/06/13 12/19/17 History Doxazosin [Cardura] 4 mg PO HS 12/06/13 12/19/17 History Isosorbide Mononitrate ER [Imdur] 30 mg PO DAILY 12/06/13 12/19/17 History Lisinopril 40 mg PO DAILY 12/06/13 12/19/17 History Torsemide [Demadex] 100 mg PO BID 12/06/13 12/19/17 History Spironolact/Hydrochlorothiazid 1 tab PO DAILY 12/10/16 12/19/17 History [Aldactazide 25-25 MG] Allopurinol [Zyloprim] 100 mg PO DAILY 12/19/17 12/19/17 History Colchicine [Colcrys] 0.6 mg PO TID 12/19/17 12/19/17 History Doxycycline Hyclate 100 mg PO BID 12/19/17 12/19/17 History Naproxen 500 mg PO 12/19/17 History Naproxen [Naprosyn] 500 mg PO BID PRN 12/19/17 12/19/17 History Niacin 500 mg PO BID 12/19/17 12/19/17 History Potassium Chloride [Klor-Con 20] 20 meq PO DAILY 12/19/17 12/19/17 History Allergies Allergy/AdvReac Type Severity Reaction Status Date / Time No Known Allergies Allergy Verified 12/19/17 12:28 Physical Exam Vitals: Vital Signs Temp Pulse Resp BP Pulse Ox 12/19/17 19:00 132 H 29 H 85/49 100 12/19/17 18:45 130 H 27 H 84/55 98 12/19/17 18:30 139 H 34 H 95 12/19/17 18:15 131 H 27 H 85/59 97 12/19/17 18:00 144 H 27 H 74/56 12/19/17 17:45 129 H 15 91/56 12/19/17 17:30 127 H 29 H 79/56 12/19/17 17:15 124 H 25 H 83/54 12/19/17 17:11 24 12/19/17 17:00 115 H 22 82/51 12/19/17 16:45 121 H 29 H 68/49 12/19/17 16:30 95.1 F L 121 H 22 71/51 12/19/17 16:22 0 L 12/19/17 15:32 118 H 25 H 87/60 98 12/19/17 14:51 116 H 25 H 114/53 98 12/19/17 14:15 115 H 25 H 68/32 98 12/19/17 13:46 113 H 26 H 71/46 98 12/19/17 13:44 109 H 26 H 81/62 99 12/19/17 13:36 115 H 24 79/41 99 12/19/17 13:25 115 H 22 85/40 99 12/19/17 13:13 121 H 24 66/44 99 12/19/17 12:23 114 H 28 H 64/41 12/19/17 11:56 122 H 27 H 78/73 94 L 12/19/17 11:28 96.4 F L 131 H 28 H 72/48 96 Intake and Output 12/19/17 12/19/17 12/19/17 06:59 14:59 22:59 Intake Total 930 1550 Output Total 100 355 Balance 830 1195 Intake: IV 1550 Sodium Chloride 0.9% 1, 550 000 ml @ 150 mls/hr IV . Q6H40M [facility] Rx#:[id number] Sodium Chloride 0.9% 500 1000 ml @ 999 mls/hr IV .Q31M STA Rx#:[id number] Blood Product 930 Rc As-1 Unit 310 [id number] Rc As-1 Unit 310 [id number] Rc As-1 Unit 310 [id number] Output: Urine 100 355 Uretheral (Huang) 100 Other: Weight 68.039 kg GENERAL EXAM GEN. APPEARANCE: alert , oriented to name and place HEAD EXAM: atraumatic, normocephalic, normal inspection EYE EXAM: Positive for pallor. No icterus ENT EXAM: Mucous membranes dry NECK EXAM: normal inspection. Absent: tenderness, meningismus, full ROM, lymphadenopathy RESPIRATORY EXAM: normal lung sounds bilaterally. Bilateral wheezing CARDIOVASCULAR EXAM: Tachycardia GI/ABDOMINAL EXAM: soft, normal bowel sounds. Absent: distended, tenderness, guarding, rebound, rigid EXTREMITIES EXAM: Bilateral lower extremities ulcers in various stages of healing , right side worse than left. NEUROLOGICAL EXAM: No focal deficits Results CBC & Chem 7: 12/19/17 17:22 12/19/17 17:22 Labs: Abnormal Lab Results - Last 24 Hours (Table) 12/19/17 12/19/17 12/19/17 Range/Units 11:32 11:50 11:50 WBC 14.6 H (3.8-10.6) k/uL RBC 1.42 L (4.30-5.90) m/uL Hgb 4.0 L* (13.0-17.5) gm/dL Hct 14.0 L* (39.0-53.0) % MCHC 28.2 L (31.0-37.0) g/dL RDW 17.5 H (11.5-15.5) % Neutrophils # 12.8 H (1.3-7.7) k/uL Lymphocytes # 0.8 L (1.0-4.8) k/uL PT (9.0-12.0) sec INR (<1.2) Potassium (3.5-5.1) mmol/L Chloride (98-107) mmol/L Carbon Dioxide (22-30) mmol/L BUN (9-20) mg/dL Creatinine (0.66-1.25) mg/dL Glucose (74-99) mg/dL POC Glucose (mg/dL) 221 H (75-99) mg/dL Plasma Lactic Acid [place] (0.7-2.0) mmol/L Phosphorus (2.5-4.5) mg/dL Magnesium (1.6-2.3) mg/dL AST (17-59) U/L Total Creatine Kinase <20 L (55-170) U/L Total Protein (6.3-8.2) g/dL Albumin (3.5-5.0) g/dL Urine Bacteria (None) /hpf Urine Mucus (None) /hpf Urine Cocaine Screen (NotDetected) Crossmatch 12/19/17 12/19/17 12/19/17 Range/Units 11:50 11:50 11:50 WBC (3.8-10.6) k/uL RBC (4.30-5.90) m/uL Hgb (13.0-17.5) gm/dL Hct (39.0-53.0) % MCHC (31.0-37.0) g/dL RDW (11.5-15.5) % Neutrophils # (1.3-7.7) k/uL Lymphocytes # (1.0-4.8) k/uL PT 13.2 H (9.0-12.0) sec INR 1.4 H (<1.2) Potassium 5.6 H (3.5-5.1) mmol/L Chloride (98-107) mmol/L Carbon Dioxide 8 L* (22-30) mmol/L BUN 185 H* (9-20) mg/dL Creatinine 4.20 H (0.66-1.25) mg/dL Glucose 174 H (74-99) mg/dL POC Glucose (mg/dL) (75-99) mg/dL Plasma Lactic Acid [place] 8.3 H* (0.7-2.0) mmol/L Phosphorus (2.5-4.5) mg/dL Magnesium 2.6 H (1.6-2.3) mg/dL AST 15 L (17-59) U/L Total Creatine Kinase (55-170) U/L Total Protein 5.3 L (6.3-8.2) g/dL Albumin 2.4 L (3.5-5.0) g/dL Urine Bacteria (None) /hpf Urine Mucus (None) /hpf Urine Cocaine Screen (NotDetected) Crossmatch 12/19/17 12/19/17 12/19/17 Range/Units 11:50 12:07 16:23 WBC (3.8-10.6) k/uL RBC (4.30-5.90) m/uL Hgb (13.0-17.5) gm/dL Hct (39.0-53.0) % MCHC (31.0-37.0) g/dL RDW (11.5-15.5) % Neutrophils # (1.3-7.7) k/uL Lymphocytes # (1.0-4.8) k/uL PT (9.0-12.0) sec INR (<1.2) Potassium (3.5-5.1) mmol/L Chloride (98-107) mmol/L Carbon Dioxide (22-30) mmol/L BUN (9-20) mg/dL Creatinine (0.66-1.25) mg/dL Glucose (74-99) mg/dL POC Glucose (mg/dL) 161 H (75-99) mg/dL Plasma Lactic Acid [place] (0.7-2.0) mmol/L Phosphorus (2.5-4.5) mg/dL Magnesium (1.6-2.3) mg/dL AST (17-59) U/L Total Creatine Kinase (55-170) U/L Total Protein (6.3-8.2) g/dL Albumin (3.5-5.0) g/dL Urine Bacteria Rare H (None) /hpf Urine Mucus Rare H (None) /hpf Urine Cocaine Screen (NotDetected) Crossmatch See Detail 12/19/17 12/19/17 12/19/17 Range/Units 17:22 17:22 17:22 WBC 12.8 H (3.8-10.6) k/uL RBC 2.39 L (4.30-5.90) m/uL Hgb 6.8 L* D (13.0-17.5) gm/dL Hct 22.5 L (39.0-53.0) % MCHC 30.3 L (31.0-37.0) g/dL RDW 16.3 H (11.5-15.5) % Neutrophils # 11.2 H (1.3-7.7) k/uL Lymphocytes # 0.7 L (1.0-4.8) k/uL PT (9.0-12.0) sec INR (<1.2) Potassium 5.4 H (3.5-5.1) mmol/L Chloride 112 H (98-107) mmol/L Carbon Dioxide 11 L (22-30) mmol/L BUN 176 H* (9-20) mg/dL Creatinine 3.60 H (0.66-1.25) mg/dL Glucose 145 H (74-99) mg/dL POC Glucose (mg/dL) (75-99) mg/dL Plasma Lactic Acid [place] 3.9 H* (0.7-2.0) mmol/L Phosphorus 6.0 H (2.5-4.5) mg/dL Magnesium 2.4 H (1.6-2.3) mg/dL AST (17-59) U/L Total Creatine Kinase (55-170) U/L Total Protein 5.3 L (6.3-8.2) g/dL Albumin 2.5 L (3.5-5.0) g/dL Urine Bacteria (None) /hpf Urine Mucus (None) /hpf Urine Cocaine Screen (NotDetected) Crossmatch 12/19/17 12/19/17 Range/Units 18:50 18:55 WBC (3.8-10.6) k/uL RBC (4.30-5.90) m/uL Hgb (13.0-17.5) gm/dL Hct (39.0-53.0) % MCHC (31.0-37.0) g/dL RDW (11.5-15.5) % Neutrophils # (1.3-7.7) k/uL Lymphocytes # (1.0-4.8) k/uL PT (9.0-12.0) sec INR (<1.2) Potassium (3.5-5.1) mmol/L Chloride (98-107) mmol/L Carbon Dioxide (22-30) mmol/L BUN (9-20) mg/dL Creatinine (0.66-1.25) mg/dL Glucose (74-99) mg/dL POC Glucose (mg/dL) 182 H (75-99) mg/dL Plasma Lactic Acid [place] (0.7-2.0) mmol/L Phosphorus (2.5-4.5) mg/dL Magnesium (1.6-2.3) mg/dL AST (17-59) U/L Total Creatine Kinase (55-170) U/L Total Protein (6.3-8.2) g/dL Albumin (3.5-5.0) g/dL Urine Bacteria (None) /hpf Urine Mucus (None) /hpf Urine Cocaine Screen Detected H (NotDetected) Crossmatch Microbiology - Last 24 Hours (Table) 12/19/17 11:48 Wound Culture - Preliminary Foot - Right 12/19/17 12:07 Urine Culture - Preliminary Urine,Catheterized Assessment and Plan Assessment: ASSESSMENT Septic shock Acute on chronic blood loss anemia Anion gap metabolic acidosis - secondary to septic shock Severe malnutrition Acute kidney injury UDS positive for cocaine Elevated INR Chronic bilateral lower extremity ulcers History of diabetes mellitus Atrial fibrillation -rapid ventricular rate ? Heart failure Plan: Patient received 3 L of IV fluids but still hypotensive so started on pressor support for a MAP greater than 60. He was transfused 3 units of PRBCs and current hemoglobin is 6.8. He has been empirically started on daptomycin and cefepime pending blood, urine, wound cultures. He is on a bicarbonate drip for his acute kidney injury. Overall prognosis is guarded. Patient being monitored in the ICU. Treatment plan was discussed with the patient and his sister who is at the bedside in detail. Further recommendations to follow depending on the progress of the patient.
[2017-12-19] MEDS ORDERED: DEXTROSE 5% IV ONE (21:00)
[2017-12-19] MEDS ORDERED: SODIUM BICARB IV ONE (21:00)
[2017-12-19] MEDS ORDERED: WATER IV ONE (21:00)
[2017-12-19] MEDS ORDERED: PIPERACILLIN-TAZOBACTAM 3.375 GM in DEXTROSE/WATER 1 50ML.BAG IVPB SCH (21:00)
[2017-12-19] MEDS ORDERED: DEXTROSE 5% IN WATER 250 ML with AMIODARONE 300 MG IV ONE (21:20)
[2017-12-19] MEDS: DEXTROSE 5% IV ONE ×2 (21:30→23:37)
[2017-12-19] MEDS: SODIUM BICARB IV ONE ×2 (21:30→23:37)
[2017-12-19] MEDS: WATER IV ONE ×2 (21:30→23:37)
[2017-12-19] MEDS: CEFEPIME 2 GM in SODIUM CHLORIDE 0.9% 50 ML IVPB SCH (21:32)
[2017-12-19] MEDS: PANTOPRAZOLE 40 MG/10 ML VIAL IV SCH (21:42)
[2017-12-19] MEDS: SILVER sulfADIAZINE Cream 400 GM 1 APPLIC APPLIC TOPICAL SCH (21:43)
[2017-12-20] MEDS: SODIUM CHLORIDE 0.9% 1,000 ML IV SCH ×4 (00:39→19:30)
[2017-12-20 01:04] LABS: Glucose,Whole Blood 164 mg/dL (75-99)
[2017-12-20 01:15] LABS: Anisocytosis Slight; HCT 23.5 % (39.0-53.0); HGB 7.6 gm/dL (13.0-17.5); Hypochromasia Moderate; MCH 28.7 pg (25.0-35.0); MCHC 32.1 g/dL (31.0-37.0); Mean Platelet Volume 8.1; Platelet Count 177 k/uL (150-450); Poikilocytosis Marked; RBC 2.64 m/uL (4.30-5.90); RDW 16.5 % (11.5-15.5); WBC 15.4 k/uL (3.8-10.6)
[2017-12-20] MEDS: INSULIN ASPART 100 UNIT/ML 1 ML 10 ML VIAL SQ SCH ×5 (01:17→23:18)
[2017-12-20 01:18] LABS: MCV 89.2 fL (80.0-100.0)
[2017-12-20 01:31] LABS: Albumin 2.3 g/dL (3.5-5.0); Calcium 8.4 mg/dL (8.4-10.2); Total Bilirubin 1.1 mg/dL (0.2-1.3)
[2017-12-20 05:40] LABS: Anisocytosis Slight; Basophils % (A) 0 %; Eosinophils % (A) 0 %; HCT 23.8 % (39.0-53.0); HGB 7.8 gm/dL (13.0-17.5); Hypochromasia Moderate; Lymphocytes # (A) 0.5 k/uL (1.0-4.8); Lymphocytes % (A) 3 %; MCH 29.4 pg (25.0-35.0); MCHC 32.6 g/dL (31.0-37.0); MCV 89.9 fL (80.0-100.0); Monocytes # (A) 1.2 k/uL (0-1.0); Monocytes % (A) 7 %; Neutrophils # (A) 14.2 k/uL (1.3-7.7); Neutrophils % (A) 88 %; Platelet Count 186 k/uL (150-450); Poikilocytosis Marked; RBC 2.65 m/uL (4.30-5.90); RDW 16.8 % (11.5-15.5); WBC 16.2 k/uL (3.8-10.6)
[2017-12-20] MEDS: NOREPINEPHRINE 16 MG in SODIUM CHLORIDE 0.9% 250 ML IV SCH ×2 (05:43→18:37)
[2017-12-20 05:48] LABS: INR 1.3 (<1.2); Prothrombin Time 12.6 sec (9.0-12.0)
[2017-12-20 05:50] LABS: Albumin 2.4 g/dL (3.5-5.0); Calcium 8.7 mg/dL (8.4-10.2); Magnesium 2.2 mg/dL (1.6-2.3); Phosphorus 4.8 mg/dL (2.5-4.5); Total Protein 5.2 g/dL (6.3-8.2)
[2017-12-20 05:51] LABS: Glucose,Whole Blood 132 mg/dL (75-99)
[2017-12-20] MEDS: DAPTOmycin 500 MG in SODIUM CHLORIDE 0.9% 50 ML IVPB SCH (06:57)
[2017-12-20] MEDS: PANTOPRAZOLE 40 MG/10 ML VIAL IV SCH ×2 (08:28→20:49)
[2017-12-20] MEDS ORDERED: VANCOMYCIN 1,000 MG in SODIUM CHLORIDE 0.9% 250 ML IVPB ONE (09:00)
[2017-12-20] MEDS ORDERED: WATER IV ONE (09:55)
[2017-12-20] MEDS ORDERED: DEXTROSE 5% IV ONE (09:55)
[2017-12-20] MEDS ORDERED: AMIODARONE IV ONE (09:55)
--- NOTE | 2017-12-20 10:05 | ECHOF ---
Referral Reason:afib MEASUREMENTS -------- HEIGHT: 182.9 cm WEIGHT: 72.6 kg BP: 95/59 RVIDd: 3.2 cm (< 3.3) IVSd: 1.2 cm (0.6 - 1.1) LVIDd: 7.7 cm (3.9 - 5.3) LVPWd: 1.2 cm (0.6 - 1.1) IVSs: 1.3 cm LVIDs: 7.4 cm LVPWs: 1.5 cm LAESV Index (A-L): 117.94 ml/m Ao Diam: 3.4 cm (2.0 - 3.7) AV Cusp: 2.1 cm (1.5 - 2.6) LA Diam: 4.7 cm (2.7 - 3.8) EPSS: 2.2 cm MV E Michael: 1.45 m/s MV DecT: 101 ms MV A Michael: 0.00 m/s MV E/A Ratio: 659.80 RAP: 15.00 mmHg RVSP: 66.76 mmHg MV EF SLOPE: 202.70 mm/s (70 - 150) MV EXCURSION: 1.84 cm (> 18.000) FINDINGS -------- Atrial fibrillation. This was a technically good study. The left ventricle is severely dilated. There is mild concentric left ventricular hypertrophy. Th ere is severe global hypokinesis of LV . Overall left ventricular systolic function is severely imp aired with, an EF < 20%. The right ventricle is mildly enlarged. LA is severely dilated >40 ml/m2 The right atrium is markedly enlarged. The aortic valve is trileaflet, and appears structurally normal. No aortic stenosis or regurgitation. There is no evidence of aortic regurgitation. There is no evidence of aortic stenosis. The mitral valve leaflets are mildly thickened. Severe mitral regurgitation is present. Severe tricuspid regurgitation present. There is severe pulmonary hypertension. The right ventric ular systolic pressure, as measured by Doppler, is 66.76mmHg. Trace/mild (physiologic) pulmonic regurgitation. The aortic root size is normal. The inferior vena cava is dilated with poor inspiratory collapse which is consistent with estimated r ight atrial pressure of 20 mmHg. There is no pericardial effusion. CONCLUSIONS -------- 1. Atrial fibrillation. 2. This was a technically good study. 3. The left ventricle is severely dilated. 4. There is mild concentric left ventricular hypertrophy. 5. There is severe global hypokinesis of LV . 6. Overall left ventricular systolic function is severely impaired with, an EF < 20%. 7. The right ventricle is mildly enlarged. 8. LA is severely dilated >40 ml/m2 9. The right atrium is markedly enlarged. 10. The aortic valve is trileaflet, and appears structurally normal. No aortic stenosis or regurgitat ion. 11. The mitral valve leaflets are mildly thickened. 12. Severe mitral regurgitation is present. 13. Severe tricuspid regurgitation present. 14. There is severe pulmonary hypertension. 15. Trace/mild (physiologic) pulmonic regurgitation. 16. The aortic root size is normal. 17. The inferior vena cava is dilated with poor inspiratory collapse which is consistent with estimat ed right atrial pressure of 20 mmHg. 18. There is no pericardial effusion. SUPPORT TEAM MEMBER: Manuel Meneses RDCS
[2017-12-20] MEDS: SILVER sulfADIAZINE Cream 400 GM 1 APPLIC APPLIC TOPICAL SCH ×2 (10:22→20:49)
[2017-12-20] MEDS: AMIODARONE 450 MG in DEXTROSE 5% IN WATER 250 ML IV SCH ×4 (10:40→17:48)
[2017-12-20 11:28] LABS: Hemoglobin A1C 5.2 % (4.0-6.0)
--- NOTE | 2017-12-20 11:49 | P.CRDCN ---
History of Present Illness Consult date: 12/20/17 History of present illness: This is a 67-year-old gentleman was admitted to the hospital after he was brought to the emergency room by caregiver with complaints of altered mental status. Patient is unable to give any detailed history. Most of the information is From the Chart and Talking to the Nurses. It Appears That Patient Has Cardiac Issues in the past and Was Following with Analytical Lead, but We Don't Have Any Details. He has chronic ulcers in the leg and was hypothermic and hypotensive with a significant anemia on admission. The possibility of sepsis was considered. Patient continues to be on vasopressors. He was also extremely anemic. Hemoglobin of about 4. He received blood transfusions. His is also in atrial flutter with rapid ventricular response. He was given IV amiodarone. His heart rate is still 110 range. His echo Cardigan showed severely impaired LV function with an ejection fraction about 10 -15% with the moderate to severe mitral and tricuspid regurgitation. White count continue his amiodarone to control his heart rate. We'll continue with vasopressors for blood pressure support. Patient also has acute renal failure with creatinine of 4. We'll get consult the livestock buyer. ID is following the patient. Overall this patient's prognosis is poor Review of Systems Not obtained Past Medical History Past Medical History: Atrial Fibrillation, Heart Failure, COPD, Diabetes Mellitus, Hypertension, Renal Disease Additional Past Medical History / Comment(s): gout, CHF History of Any Multi-Drug Resistant Organisms: None Reported Past Surgical History: Appendectomy Past Psychological History: No Psychological Hx Reported Additional Psychological History / Comment(s): Patient's sister relates the patient does drink alcohol likely daily, history of tobacco use. She relates that he has difficulties with his heart, diabetes that he does not control well , and gout that gives him some discomfort at times. She does not relate that he has service, travel, or animal exposures. Does utilize marijuana she is not aware of other recreational drugs. Smoking Status: Never smoker Past Alcohol Use History: Occasional Past Drug Use History: None Reported - Past Family History Father Family Medical History: Diabetes Mellitus Mother History Unknown: Yes Medications and Allergies Home Medications Medication Instructions Recorded Confirmed Type Carvedilol [Coreg*] 12.5 mg PO BID 12/06/13 12/19/17 History Doxazosin [Cardura] 4 mg PO HS 12/06/13 12/19/17 History Isosorbide Mononitrate ER [Imdur] 30 mg PO DAILY 12/06/13 12/19/17 History Lisinopril 40 mg PO DAILY 12/06/13 12/19/17 History Torsemide [Demadex] 100 mg PO BID 12/06/13 12/19/17 History Spironolact/Hydrochlorothiazid 1 tab PO DAILY 12/10/16 12/19/17 History [Aldactazide 25-25 MG] Allopurinol [Zyloprim] 100 mg PO DAILY 12/19/17 12/19/17 History Colchicine [Colcrys] 0.6 mg PO TID 12/19/17 12/19/17 History Doxycycline Hyclate 100 mg PO BID 12/19/17 12/19/17 History Naproxen 500 mg PO 12/19/17 History Naproxen [Naprosyn] 500 mg PO BID PRN 12/19/17 12/19/17 History Niacin 500 mg PO BID 12/19/17 12/19/17 History Potassium Chloride [Klor-Con 20] 20 meq PO DAILY 12/19/17 12/19/17 History Allergies Allergy/AdvReac Type Severity Reaction Status Date / Time No Known Allergies Allergy Verified 12/19/17 12:28 Physical Exam Vitals: Vital Signs Temp Pulse Resp BP Pulse Ox 12/20/17 10:15 132 H 21 98 12/20/17 10:00 138 H 24 98 12/20/17 09:45 133 H 27 H 96 12/20/17 09:30 140 H 25 H 97 12/20/17 09:15 132 H 25 H 94 L 12/20/17 09:00 133 H 29 H 97 12/20/17 08:45 122 H 24 100 12/20/17 08:30 126 H 23 93 L 12/20/17 08:15 128 H 22 92 L 12/20/17 08:00 98.7 F 132 H 23 100 12/20/17 07:45 130 H 22 98 12/20/17 07:30 130 H 22 99 12/20/17 06:30 146 H 34 H 96 12/20/17 06:00 113 H 22 98 12/20/17 05:00 136 H 23 95/63 100 12/20/17 04:00 97.7 F 137 H 23 95/63 98 12/20/17 03:00 135 H 30 H 99 12/20/17 02:00 131 H 28 H 97 12/20/17 01:00 134 H 31 H 87/59 100 12/20/17 00:00 97.9 F 135 H 31 H 87/59 100 12/19/17 23:22 124 H 32 H 100 12/19/17 23:00 135 H 28 H 100 12/19/17 22:24 97.8 F 135 H 22 96/35 12/19/17 22:00 135 H 28 H 83/70 12/19/17 21:00 133 H 26 H 83/70 12/19/17 20:28 98.0 F 132 H 28 H 103/68 100 12/19/17 20:00 97.9 F 154 H 24 103/59 12/19/17 19:58 97.9 F 152 H 22 93/70 12/19/17 19:48 142 H 26 H 103/59 90 L 12/19/17 19:44 98.1 F 133 H 30 H 97/75 99 12/19/17 19:00 132 H 29 H 85/49 100 12/19/17 18:45 130 H 27 H 84/55 98 12/19/17 18:30 139 H 34 H 95 12/19/17 18:15 131 H 27 H 85/59 97 12/19/17 18:00 144 H 27 H 74/56 12/19/17 17:45 129 H 15 91/56 12/19/17 17:30 127 H 29 H 79/56 12/19/17 17:15 124 H 25 H 83/54 12/19/17 17:11 24 12/19/17 17:00 115 H 22 82/51 12/19/17 16:45 121 H 29 H 68/49 12/19/17 16:30 95.1 F L 121 H 22 71/51 12/19/17 16:22 0 L 12/19/17 15:32 118 H 25 H 87/60 98 12/19/17 14:51 116 H 25 H 114/53 98 12/19/17 14:15 115 H 25 H 68/32 98 12/19/17 13:46 113 H 26 H 71/46 98 12/19/17 13:44 109 H 26 H 81/62 99 12/19/17 13:36 115 H 24 79/41 99 12/19/17 13:25 115 H 22 85/40 99 12/19/17 13:13 121 H 24 66/44 99 12/19/17 12:23 114 H 28 H 64/41 12/19/17 11:56 122 H 27 H 78/73 94 L Intake and Output 12/19/17 12/20/17 12/20/17 22:59 06:59 14:59 Intake Total 2565.444 1777.806 450 Output Total 725 760 435 Balance 0085.127 5227.806 15 Intake: IV 2150 1300 450 Cefepime 2 gm In Sodium 50 Chloride 0.9% 50 ml @ 100 mls/hr IVPB DAILY@2000 [facility] Rx#:[id number] Dextrose 5% in Water 100 100 100 ml @ 150 mls/hr IV .Q1H ONE with Sodium Bicarb (1 Meq/ml) 50 ml Rx#: [id number] Sodium Chloride 0.9% 1, 1000 1200 450 000 ml @ 150 mls/hr IV . Q6H40M [facility] Rx#:[id number] Sodium Chloride 0.9% 500 1000 ml @ 999 mls/hr IV .Q31M [facility] Rx#:[id number] Intake, IV Titration 105.444 167.806 Amount Norepinephrine 16 mg In 105.444 167.806 Sodium Chloride 0.9% 250 ml @ Titrate IV .Q0M [facility] Rx#:[id number] Blood Product 310 310 Rc As-1 Unit 310 [id number] Output: Urine 725 760 435 Uretheral (Huang) 100 Other: Voiding Method Indwelling Catheter Indwelling Catheter Indwelling Catheter # Emeses 1 Weight 68.039 kg 73 kg ABP, PAP, CO, CI - Last 8 Hours Arterial Blood Pressure 92/56 Arterial Blood Pressure 103/59 Arterial Blood Pressure 89/52 Arterial Blood Pressure 99/60 Arterial Blood Pressure 97/59 Arterial Blood Pressure 101/55 Arterial Blood Pressure 103/55 Arterial Blood Pressure 95/59 Arterial Blood Pressure 99/57 Arterial Blood Pressure 95/61 Arterial Blood Pressure 102/58 Arterial Blood Pressure 98/60 Arterial Blood Pressure 102/65 Arterial Blood Pressure 101/57 Arterial Blood Pressure 94/56 Arterial Blood Pressure 97/56 GENERAL EXAM: Patient is alert but unable to give any meaningful history. HEENT: Normocephalic. Normal reaction of pupils, equal size, normal range of extraocular motion. No erythema or exudates in the throat. NECK: No masses, no nuchal rigidity. CHEST: No chest wall deformity. LUNGS: Equal air entry with no crackles or wheeze. HEART: S1 and S2 normal with no audible mumurs or gallops. Regular rhythm, femorals equal on both sides.. ABDOMEN: Soft SKIN: No rashes CENTRAL NERVOUS SYSTEM: Deferred EXTREMITIES: Chronic ulcers Results 12/20/17 05:10 12/20/17 05:10 Cardiac Enzymes 12/19/17 12/19/17 12/19/17 Range/Units 11:50 11:50 17:22 AST 15 L 18 (17-59) U/L CK-MB (CK-2) 1.7 (0.0-2.4) ng/mL Troponin I <0.012 (0.000-0.034) ng/mL 12/20/17 12/20/17 Range/Units 00:55 05:10 AST 24 26 (17-59) U/L CK-MB (CK-2) (0.0-2.4) ng/mL Troponin I (0.000-0.034) ng/mL Coagulation 12/19/17 12/20/17 Range/Units 11:50 05:10 PT 13.2 H 12.6 H (9.0-12.0) sec APTT 23.7 24.0 (22.0-30.0) sec CBC 12/19/17 12/19/17 12/20/17 Range/Units 11:50 17:22 00:55 WBC 14.6 H 12.8 H 15.4 H (3.8-10.6) k/uL RBC 1.42 L 2.39 L 2.64 L (4.30-5.90) m/uL Hgb 4.0 L* 6.8 L* D 7.6 L (13.0-17.5) gm/dL Hct 14.0 L* 22.5 L 23.5 L (39.0-53.0) % Plt Count 220 172 177 (150-450) k/uL 12/20/17 Range/Units 05:10 WBC 16.2 H (3.8-10.6) k/uL RBC 2.65 L (4.30-5.90) m/uL Hgb 7.8 L (13.0-17.5) gm/dL Hct 23.8 L (39.0-53.0) % Plt Count 186 (150-450) k/uL Comprehensive Metabolic Panel 12/19/17 12/19/17 12/20/17 Range/Units 11:50 17:22 00:55 Sodium 138 139 139 (137-145) mmol/L Potassium 5.6 H 5.4 H 5.0 (3.5-5.1) mmol/L Chloride 107 112 H 115 H (98-107) mmol/L Carbon Dioxide 8 L* 11 L 14 L (22-30) mmol/L BUN 185 H* 176 H* 165 H* (9-20) mg/dL Creatinine 4.20 H 3.60 H 3.20 H (0.66-1.25) mg/dL Glucose 174 H 145 H 155 H (74-99) mg/dL Calcium 9.0 8.6 8.4 (8.4-10.2) mg/dL AST 15 L 18 24 (17-59) U/L ALT 22 24 28 (21-72) U/L Alkaline Phosphatase 56 55 46 (38-126) U/L Total Protein 5.3 L 5.3 L 5.0 L (6.3-8.2) g/dL Albumin 2.4 L 2.5 L 2.3 L (3.5-5.0) g/dL 12/20/17 Range/Units 05:10 Sodium 141 (137-145) mmol/L Potassium 5.0 (3.5-5.1) mmol/L Chloride 116 H (98-107) mmol/L Carbon Dioxide 13 L (22-30) mmol/L BUN 161 H* (9-20) mg/dL Creatinine 3.30 H (0.66-1.25) mg/dL Glucose 127 H (74-99) mg/dL Calcium 8.7 (8.4-10.2) mg/dL AST 26 (17-59) U/L ALT 26 (21-72) U/L Alkaline Phosphatase 47 (38-126) U/L Total Protein 5.2 L (6.3-8.2) g/dL Albumin 2.4 L (3.5-5.0) g/dL Current Medications Generic Name Dose Route Start Last Admin Trade Name Freq PRN Reason Stop Dose Admin Sodium Chloride 1,000 mls @ 150 mls/hr 12/19/17 15:30 12/20/17 05:55 Saline 0.9% IV 150 mls/hr .Q6H40M [facility] Administration Norepinephrine Bitartrate 16 250 mls @ 0 mls/hr 12/19/17 17:15 12/20/17 06:45 mg/ Sodium Chloride IV 22 mcg/min .Q0M [facility] 20.62 mls/hr Titration Protocol Titrate Cefepime HCl 2 gm/ Sodium 50 mls @ 100 mls/hr 12/19/17 20:00 12/19/17 21:32 Chloride IVPB 100 mls/hr DAILY@1999 [facility] Administration Daptomycin 500 mg/ Sodium 50 mls @ 100 mls/hr 12/20/17 07:00 12/20/17 06:57 Chloride IVPB 100 mls/hr Q48H [facility] Administration Protocol Amiodarone HCl 450 mg/ 250 mls @ 33.33 mls/hr 12/20/17 09:56 12/20/17 10:40 Dextrose/Water IV 12/21/17 09:56 1 mg/min .Q7H31M [facility] 33.33 mls/hr Administration Protocol 1 MG/MIN Insulin Aspart 0 unit 12/19/17 19:00 12/20/17 05:52 Novolog SQ 1 unit Q6HR [facility] Administration Protocol Naloxone HCl 0.2 mg 12/19/17 15:29 Narcan IV Q2M PRN Opioid Reversal Pantoprazole Sodium 40 mg 12/19/17 21:00 12/20/17 08:28 Protonix IV 40 mg BID [facility] Administration Silver Sulfadiazine 1 applic 12/19/17 21:00 12/20/17 10:22 Silvadene Cream TOPICAL 1 applic BID [facility] Administration Intake and Output 12/19/17 12/20/17 12/20/17 22:59 06:59 14:59 Intake Total 2565.444 1777.806 450 Output Total 725 760 435 Balance 6097.535 5056.806 15 Intake: IV 2150 1300 450 Cefepime 2 gm In Sodium 50 Chloride 0.9% 50 ml @ 100 mls/hr IVPB DAILY@1999 [facility] Rx#:[id number] Dextrose 5% in Water 100 100 100 ml @ 150 mls/hr IV .Q1H ONE with Sodium Bicarb (1 Meq/ml) 50 ml Rx#: [id number] Sodium Chloride 0.9% 1, 1000 1200 450 000 ml @ 150 mls/hr IV . Q6H40M [facility] Rx#:[id number] Sodium Chloride 0.9% 500 1000 ml @ 999 mls/hr IV .Q31M [facility] Rx#:[id number] Intake, IV Titration 105.444 167.806 Amount Norepinephrine 16 mg In 105.444 167.806 Sodium Chloride 0.9% 250 ml @ Titrate IV .Q0M [facility] Rx#:[id number] Blood Product 310 310 Rc As-1 Unit 310 [id number] Output: Urine 725 760 435 Uretheral (Huang) 100 Other: Voiding Method Indwelling Catheter Indwelling Catheter Indwelling Catheter # Emeses 1 Weight 68.039 kg 73 kg 12/20/17 05:10 12/20/17 05:10 EKG Interpretations (text) Atrial fibrillation with a left bundle branch block pattern Assessment and Plan (1) Atrial fibrillation with RVR Current Visit: Yes Status: Acute Code(s): I48.91 - UNSPECIFIED ATRIAL FIBRILLATION SNOMED Code(s): 764331384146478 (2) Acute on chronic blood loss anemia Current Visit: Yes Status: Acute Code(s): D60.0 - CHRONIC ACQUIRED PURE RED CELL APLASIA SNOMED Code(s): 088712625 (3) Acute renal failure Current Visit: Yes Status: Acute Code(s): N17.9 - ACUTE KIDNEY FAILURE, UNSPECIFIED SNOMED Code(s): 12528354 (4) GI hemorrhage Current Visit: Yes Status: Acute Code(s): K92.2 - GASTROINTESTINAL HEMORRHAGE, UNSPECIFIED SNOMED Code(s): 68351855 (5) Venous stasis ulcer of both lower extremities without varicose veins Current Visit: Yes Status: Acute Code(s): I87.2 - VENOUS INSUFFICIENCY ( CHRONIC) (PERIPHERAL); L97.919 - NON-PRS CHRONIC ULC UNSP PRT OF R LOW LEG W UNSP SEVERITY; L97.929 - NON-PRS CHRONIC ULC UNSP PRT OF L LOW LEG W UNSP SEVERITY SNOMED Code(s): 390165833 (6) Cardiomyopathy Current Visit: Yes Status: Acute Code(s): I42.9 - CARDIOMYOPATHY, UNSPECIFIED SNOMED Code(s): 40450529 (7) Chronic systolic CHF (congestive heart failure) Current Visit: Yes Status: Acute Code(s): I50.22 - CHRONIC SYSTOLIC ( CONGESTIVE) HEART FAILURE SNOMED Code(s): 424196741 Plan: Continue with vasopressors. We'll continue with IV amiodarone for rate control. Nephrology consult and ID consult. Overall prognosis is guarded. Once patient blood pressure stable we'll switch to beta blockers, diuretics and probably hydralazine. Prognosis is poor
[2017-12-20 12:08] LABS: Glucose,Whole Blood 163 mg/dL (75-99)
--- NOTE | 2017-12-20 12:51 | P.CNPUL ---
History of Present Illness Consult date: 12/20/17 Requesting physician: Carmelita Che Reason for consult: other (Acute sepsis and septic shock, profound anemia and GI bleeding) Chief complaint: Altered mental status History of present illness: This is a 67-year-old white male with history of multiple medical problems including chronic atrial fibrillation, COPD, congestive heart failure, diabetes , patient was brought in by his caregiver who is a friend of his, and he has been noticing significant decline in his status. Patient has been very secretive about his overall health condition, does not share his health issues with any of his friends or family members. Apparently he normally sees Dr. Oconnell and has been treated recently with doxycycline for what seems to be significant areas of cellulitis involving both legs. Patient was brought into the ER mostly with chief complaint of altered mental status, and has been noticing dark colored stools for the last 5 weeks. Patient is normally on Naprosyn for gout, and has been taking doxycycline for ulcers involving his legs. The patient himself is a very poor historian, much of the information was obtained from the chart. Upon arrival to the ER, patient was noted to be hypotensive, his lactic acid was elevated, and his hemoglobin was only 4. Patient was given so far at least 4 units of packed RBCs, and his hemoglobin now is 7.8. He was also given significant amount of fluid boluses, and his lactic acid came down from 8-0.8 to this morning. His renal profile is showing slight improvement with BUN coming down from 176-161 and his creatinine coming down from 3.60-3.30. Patient was empirically placed on antibiotics by Dr. Cartagena, and his urine was positive for cocaine. Chest x-ray showed no evidence of active disease. Patient was also noted to have atrial fibrillation with RVR , hypotensive on 20 g of norepinephrine, he was seen by cardiology, and his echocardiogram showed a significantly impaired left ventricle, ejection fraction of less than 20%. His atrial fibrillation is being treated with amiodarone. Nephrology was consulted for his renal failure. The patient himself is a very poor historian, and he seems to be quite slow with definite altered mental status. Review of Systems ROS unobtainable: due to mental status Past Medical History Past Medical History: Atrial Fibrillation, Heart Failure, COPD, Diabetes Mellitus, Hypertension, Renal Disease Additional Past Medical History / Comment(s): gout, CHF History of Any Multi-Drug Resistant Organisms: None Reported Past Surgical History: Appendectomy Past Psychological History: No Psychological Hx Reported Additional Psychological History / Comment(s): Patient's sister relates the patient does drink alcohol likely daily, history of tobacco use. She relates that he has difficulties with his heart, diabetes that he does not control well , and gout that gives him some discomfort at times. She does not relate that he has service, travel, or animal exposures. Does utilize marijuana she is not aware of other recreational drugs. Smoking Status: Never smoker Past Alcohol Use History: Occasional Past Drug Use History: None Reported - Past Family History Father Family Medical History: Diabetes Mellitus Mother History Unknown: Yes Medications and Allergies Home Medications Medication Instructions Recorded Confirmed Type Carvedilol [Coreg*] 12.5 mg PO BID 12/06/13 12/19/17 History Doxazosin [Cardura] 4 mg PO HS 12/06/13 12/19/17 History Isosorbide Mononitrate ER [Imdur] 30 mg PO DAILY 12/06/13 12/19/17 History Lisinopril 40 mg PO DAILY 12/06/13 12/19/17 History Torsemide [Demadex] 100 mg PO BID 12/06/13 12/19/17 History Spironolact/Hydrochlorothiazid 1 tab PO DAILY 12/10/16 12/19/17 History [Aldactazide 25-25 MG] Allopurinol [Zyloprim] 100 mg PO DAILY 12/19/17 12/19/17 History Colchicine [Colcrys] 0.6 mg PO TID 12/19/17 12/19/17 History Doxycycline Hyclate 100 mg PO BID 12/19/17 12/19/17 History Naproxen 500 mg PO 12/19/17 History Naproxen [Naprosyn] 500 mg PO BID PRN 12/19/17 12/19/17 History Niacin 500 mg PO BID 12/19/17 12/19/17 History Potassium Chloride [Klor-Con 20] 20 meq PO DAILY 12/19/17 12/19/17 History Allergies Allergy/AdvReac Type Severity Reaction Status Date / Time No Known Allergies Allergy Verified 12/19/17 12:28 Physical Exam Vitals: Vital Signs Temp Pulse Resp BP Pulse Ox 12/20/17 11:45 123 H 19 99 12/20/17 11:30 124 H 21 94 L 12/20/17 11:15 139 H 26 H 98 12/20/17 11:00 134 H 27 H 97 12/20/17 10:45 137 H 23 100 12/20/17 10:30 127 H 26 H 100 12/20/17 10:15 132 H 21 98 12/20/17 10:00 138 H 24 98 12/20/17 09:45 133 H 27 H 96 12/20/17 09:30 140 H 25 H 97 12/20/17 09:15 132 H 25 H 94 L 12/20/17 09:00 133 H 29 H 97 12/20/17 08:45 122 H 24 100 12/20/17 08:30 126 H 23 93 L 12/20/17 08:15 128 H 22 92 L 12/20/17 08:00 98.7 F 132 H 23 100 12/20/17 07:45 130 H 22 98 12/20/17 07:30 130 H 22 99 12/20/17 06:30 146 H 34 H 96 12/20/17 06:00 113 H 22 98 12/20/17 05:00 136 H 23 95/63 100 12/20/17 04:00 97.7 F 137 H 23 95/63 98 12/20/17 03:00 135 H 30 H 99 12/20/17 02:00 131 H 28 H 97 12/20/17 01:00 134 H 31 H 87/59 100 12/20/17 00:00 97.9 F 135 H 31 H 87/59 100 12/19/17 23:22 124 H 32 H 100 12/19/17 23:00 135 H 28 H 100 12/19/17 22:24 97.8 F 135 H 22 96/35 12/19/17 22:00 135 H 28 H 83/70 12/19/17 21:00 133 H 26 H 83/70 12/19/17 20:28 98.0 F 132 H 28 H 103/68 100 12/19/17 20:00 97.9 F 154 H 24 103/59 12/19/17 19:58 97.9 F 152 H 22 93/70 12/19/17 19:48 142 H 26 H 103/59 90 L 12/19/17 19:44 98.1 F 133 H 30 H 97/75 99 12/19/17 19:00 132 H 29 H 85/49 100 12/19/17 18:45 130 H 27 H 84/55 98 12/19/17 18:30 139 H 34 H 95 12/19/17 18:15 131 H 27 H 85/59 97 12/19/17 18:00 144 H 27 H 74/56 12/19/17 17:45 129 H 15 91/56 12/19/17 17:30 127 H 29 H 79/56 12/19/17 17:15 124 H 25 H 83/54 12/19/17 17:11 24 12/19/17 17:00 115 H 22 82/51 12/19/17 16:45 121 H 29 H 68/49 12/19/17 16:30 95.1 F L 121 H 22 71/51 12/19/17 16:22 0 L 12/19/17 15:32 118 H 25 H 87/60 98 12/19/17 14:51 116 H 25 H 114/53 98 12/19/17 14:15 115 H 25 H 68/32 98 12/19/17 13:46 113 H 26 H 71/46 98 12/19/17 13:44 109 H 26 H 81/62 99 12/19/17 13:36 115 H 24 79/41 99 12/19/17 13:25 115 H 22 85/40 99 12/19/17 13:13 121 H 24 66/44 99 Intake and Output 12/19/17 12/20/17 12/20/17 22:59 06:59 14:59 Intake Total 2565.444 1777.806 600 Output Total 725 760 490 Balance 5166.797 0337.806 110 Intake: IV 2150 1300 600 Cefepime 2 gm In Sodium 50 Chloride 0.9% 50 ml @ 100 mls/hr IVPB DAILY@2000 [facility] Rx#:[id number] Dextrose 5% in Water 100 100 100 ml @ 150 mls/hr IV .Q1H ONE with Sodium Bicarb (1 Meq/ml) 50 ml Rx#: [id number] Sodium Chloride 0.9% 1, 1000 1200 600 000 ml @ 150 mls/hr IV . Q6H40M [facility] Rx#:[id number] Sodium Chloride 0.9% 500 1000 ml @ 999 mls/hr IV .Q31M [facility] Rx#:[id number] Intake, IV Titration 105.444 167.806 Amount Norepinephrine 16 mg In 105.444 167.806 Sodium Chloride 0.9% 250 ml @ Titrate IV .Q0M [facility] Rx#:[id number] Blood Product 310 310 Rc As-1 Unit 310 [id number] Output: Urine 725 760 490 Uretheral (Huang) 100 Other: Voiding Method Indwelling Catheter Indwelling Catheter Indwelling Catheter # Emeses 1 Weight 68.039 kg 73 kg ABP, PAP, CO, CI - Last 8 Hours Arterial Blood Pressure 102/55 Arterial Blood Pressure 101/62 Arterial Blood Pressure 107/62 Arterial Blood Pressure 88/55 Arterial Blood Pressure 87/50 Arterial Blood Pressure 94/56 Arterial Blood Pressure 92/56 Arterial Blood Pressure 103/59 Arterial Blood Pressure 89/52 Arterial Blood Pressure 99/60 Arterial Blood Pressure 97/59 Arterial Blood Pressure 101/55 Arterial Blood Pressure 103/55 Arterial Blood Pressure 95/59 Arterial Blood Pressure 99/57 Arterial Blood Pressure 95/61 Arterial Blood Pressure 102/58 Arterial Blood Pressure 98/60 Arterial Blood Pressure 102/65 Arterial Blood Pressure 101/57 Arterial Blood Pressure 94/56 GEN. APPEARANCE: Physical exam revealed a 67-year-old male in no distress, seems to be confused, but oriented to place only. HEAD EXAM: atraumatic, normocephalic, normal inspection EYE EXAM: Positive for pallor. No icterus. PERRLA, EOMI. ENT EXAM: Mucous membranes dry NECK EXAM: normal inspection. Absent: tenderness, meningismus, full ROM, no evidence of lymphadenopathy. RESPIRATORY EXAM: normal lung sounds bilaterally. Diminished breath sounds at the bases, no crackles or rhonchi or wheezes. CARDIOVASCULAR EXAM: Tachycardia. Normal S1 and S2, regular rhythm. 2/6 systolic murmur throughout the precordium. GI/ABDOMINAL EXAM: soft, normal bowel sounds. Absent: distended, tenderness, guarding, rebound, rigid EXTREMITIES EXAM: Bilateral lower extremities ulcers in various stages of healing , right side worse than left. NEUROLOGICAL EXAM: Confused, unable to give an adequate history, and quite slow. Otherwise no gross focal deficit. Results - Laboratory Findings CBC and BMP: 12/20/17 05:10 12/20/17 05:10 PT/INR, D-dimer PT 12.6 sec (9.0-12.0) H 12/20/17 05:10 INR 1.3 (<1.2) H 12/20/17 05:10 Abnormal lab findings: Abnormal Labs 12/19/17 12/19/17 12/19/17 11:32 11:50 11:50 WBC 14.6 H RBC 1.42 L Hgb 4.0 L* Hct 14.0 L* MCHC 28.2 L RDW 17.5 H Neutrophils # 12.8 H Lymphocytes # 0.8 L Monocytes # PT INR Potassium Chloride Carbon Dioxide BUN Creatinine Glucose POC Glucose (mg/dL) 221 H Plasma Lactic Acid [place] Phosphorus Magnesium AST Total Creatine Kinase <20 L Total Protein Albumin Urine Bacteria Urine Mucus Urine Cocaine Screen Crossmatch 12/19/17 12/19/17 12/19/17 11:50 11:50 11:50 WBC RBC Hgb Hct MCHC RDW Neutrophils # Lymphocytes # Monocytes # PT 13.2 H INR 1.4 H Potassium 5.6 H Chloride Carbon Dioxide 8 L* BUN 185 H* Creatinine 4.20 H Glucose 174 H POC Glucose (mg/dL) Plasma Lactic Acid [place] 8.3 H* Phosphorus Magnesium 2.6 H AST 15 L Total Creatine Kinase Total Protein 5.3 L Albumin 2.4 L Urine Bacteria Urine Mucus Urine Cocaine Screen Crossmatch 12/19/17 12/19/17 12/19/17 11:50 12:07 16:23 WBC RBC Hgb Hct MCHC RDW Neutrophils # Lymphocytes # Monocytes # PT INR Potassium Chloride Carbon Dioxide BUN Creatinine Glucose POC Glucose (mg/dL) 161 H Plasma Lactic Acid [place] Phosphorus Magnesium AST Total Creatine Kinase Total Protein Albumin Urine Bacteria Rare H Urine Mucus Rare H Urine Cocaine Screen Crossmatch See Detail 12/19/17 12/19/17 12/19/17 17:22 17:22 17:22 WBC 12.8 H RBC 2.39 L Hgb 6.8 L* D Hct 22.5 L MCHC 30.3 L RDW 16.3 H Neutrophils # 11.2 H Lymphocytes # 0.7 L Monocytes # PT INR Potassium 5.4 H Chloride 112 H Carbon Dioxide 11 L BUN 176 H* Creatinine 3.60 H Glucose 145 H POC Glucose (mg/dL) Plasma Lactic Acid [place] 3.9 H* Phosphorus 6.0 H Magnesium 2.4 H AST Total Creatine Kinase Total Protein 5.3 L Albumin 2.5 L Urine Bacteria Urine Mucus Urine Cocaine Screen Crossmatch 12/19/17 12/19/17 12/20/17 18:50 18:55 00:55 WBC RBC Hgb Hct MCHC RDW Neutrophils # Lymphocytes # Monocytes # PT INR Potassium Chloride 115 H Carbon Dioxide 14 L BUN 165 H* Creatinine 3.20 H Glucose 155 H POC Glucose (mg/dL) 182 H Plasma Lactic Acid [place] Phosphorus Magnesium AST Total Creatine Kinase Total Protein 5.0 L Albumin 2.3 L Urine Bacteria Urine Mucus Urine Cocaine Screen Detected H Crossmatch 12/20/17 12/20/17 12/20/17 00:55 01:01 05:10 WBC 15.4 H 16.2 H RBC 2.64 L 2.65 L Hgb 7.6 L 7.8 L Hct 23.5 L 23.8 L MCHC RDW 16.5 H 16.8 H Neutrophils # 14.2 H Lymphocytes # 0.5 L Monocytes # 1.2 H PT INR Potassium Chloride Carbon Dioxide BUN Creatinine Glucose POC Glucose (mg/dL) 164 H Plasma Lactic Acid [place] Phosphorus Magnesium AST Total Creatine Kinase Total Protein Albumin Urine Bacteria Urine Mucus Urine Cocaine Screen Crossmatch 12/20/17 12/20/17 12/20/17 05:10 05:10 05:49 WBC RBC Hgb Hct MCHC RDW Neutrophils # Lymphocytes # Monocytes # PT 12.6 H INR 1.3 H Potassium Chloride 116 H Carbon Dioxide 13 L BUN 161 H* Creatinine 3.30 H Glucose 127 H POC Glucose (mg/dL) 132 H Plasma Lactic Acid [place] Phosphorus 4.8 H Magnesium AST Total Creatine Kinase Total Protein 5.2 L Albumin 2.4 L Urine Bacteria Urine Mucus Urine Cocaine Screen Crossmatch 12/20/17 11:40 WBC RBC Hgb Hct MCHC RDW Neutrophils # Lymphocytes # Monocytes # PT INR Potassium Chloride Carbon Dioxide BUN Creatinine Glucose POC Glucose (mg/dL) 163 H Plasma Lactic Acid [place] Phosphorus Magnesium AST Total Creatine Kinase Total Protein Albumin Urine Bacteria Urine Mucus Urine Cocaine Screen Crossmatch - Diagnostic Findings Chest x-ray: image reviewed (Cardiomegaly, no evidence of active disease.) Assessment and Plan Assessment: Impression: 1 acute septic shock, most likely source is his cellulitis. 2 chronic cellulitis, and lower extremities ulcers 3 acute on iron gap metabolic acidosis secondary to sepsis. And secondary to septic shock. 4 acute kidney injury secondary to sepsis and suspect acute tubular necrosis. 5 severe cardiomyopathy and LV dysfunction 6 atrial fibrillation with RVR 7 acute GI bleeding, likely upper GI in nature secondary to gastritis or gastric ulcer disease most likely secondary to Naprosyn. And the use of nonsteroidal anti-inflammatory drugs. 8 history of diabetes. Recommendation: Fully agree with the present treatment plan including antibiotics, blood transfusion, amiodarone to control his atrial fibrillation, patient would have to be monitored closely for developing congestive heart failure. We'll continue to monitor in the ICU. Many consultants on seeing the patient including nephrology, infectious disease, gastroenterology, we will continue to follow. Critical care time is 45 minutes. Time with Patient: Greater than 30
[2017-12-20 14:44] LABS: Anisocytosis Slight; HCT 24.5 % (39.0-53.0); HGB 7.7 gm/dL (13.0-17.5); Hypochromasia Marked; MCH 28.9 pg (25.0-35.0); MCHC 31.3 g/dL (31.0-37.0); MCV 92.3 fL (80.0-100.0); Mean Platelet Volume 8.1; Platelet Count 185 k/uL (150-450); Poikilocytosis Marked; RBC 2.65 m/uL (4.30-5.90); RDW 17.1 % (11.5-15.5); WBC 20.2 k/uL (3.8-10.6)
--- NOTE | 2017-12-20 16:35 | P.CONS ---
History of Present Illness - Reason for Consult Consult date: 12/20/17 Anemia, stool positive for occult blood Requesting physician: Tommy Oconnell - Chief Complaint Altered mental status - History of Present Illness The patient is a 67-year-old male with multiple medical comorbidities including COPD, diabetes mellitus, hypertension, COPD and gout who presents to the emergency department due to complaints of altered mental status. Of note that he history has been taken in conversation with the patient, the ICU nursing team as well as on examination of the EMR as the patient is a poor historian. Per the history the patient had been not feeling well over the past few days and family had noticed a change in his mental status. The patient was brought to the emergency department where he was found to have RM on CKD, was hypotensive with a significant lactic acidosis and found to be in atrial fibrillation with RVR. In addition the patient was found on admission to have a hemoglobin of 4 which was subsequently transfused to 7.6 and is stable today at 7.8. The patient was found to be FOBT positive. He reports noticing darker stool over the past 5 weeks. He has been taking naproxen one to 2 times daily. He denies any prior history of peptic ulcer disease. He denies any previous endoscopic evaluation. Per discussion with the nursing staff the patient had an episode of vomiting after presentation which was significant for bright red blood. Since that time the patient has had no further nausea or vomiting and has had no bowel movements. Seen in the ICU this morning the patient is still on pressor support, continues to be in atrial fibrillation with RVR currently being treated with amiodarone. He is been seen by the pulmonology service, the cardiology service, and the nephrology service. Past endoscopic history: Denies any previous EGD or colonoscopy. Social history: History of tobacco abuse, patient does drink alcohol daily. Does use marijuana and cocaine found on drug screen. Family history: Positive for diabetes mellitus in the patient's father. Review of Systems REVIEW OF SYSTEMS: CARDIOPULMONARY: Denies chest pain or shortness of breath. GENITOURINARY: No dysuria or hematuria currently the patient has a Huang catheter in place. MUSCULOSKELETAL: Patient does report overall weakness. SKIN: Denies any new rashes or lesions, jaundice or pallor, but the patient has chronic ulcerations of his legs which are being treated at this time with antibiotics. PSYCHIATRIC: Denies any depression or anxiety. NEUROLOGY: Denies headache, denies any new focal deficits. EARS: No tinnitus, discharge or new hearing loss. NOSE: No discharge or congestion. EYES: No pain in eyes or change in vision. CONSTITUTIONAL: No recent weight loss. Lying in bed comfortably. No acute distress. Past Medical History Past Medical History: Atrial Fibrillation, Heart Failure, COPD, Diabetes Mellitus, Hypertension, Renal Disease Additional Past Medical History / Comment(s): gout, CHF History of Any Multi-Drug Resistant Organisms: None Reported Past Surgical History: Appendectomy Past Psychological History: No Psychological Hx Reported Additional Psychological History / Comment(s): Patient's sister relates the patient does drink alcohol likely daily, history of tobacco use. She relates that he has difficulties with his heart, diabetes that he does not control well , and gout that gives him some discomfort at times. She does not relate that he has service, travel, or animal exposures. Does utilize marijuana she is not aware of other recreational drugs. Smoking Status: Never smoker Past Alcohol Use History: Occasional Past Drug Use History: None Reported - Past Family History Father Family Medical History: Diabetes Mellitus Mother History Unknown: Yes Medications and Allergies Home Medications Medication Instructions Recorded Confirmed Type Carvedilol [Coreg*] 12.5 mg PO BID 12/06/13 12/19/17 History Doxazosin [Cardura] 4 mg PO HS 12/06/13 12/19/17 History Isosorbide Mononitrate ER [Imdur] 30 mg PO DAILY 12/06/13 12/19/17 History Lisinopril 40 mg PO DAILY 12/06/13 12/19/17 History Torsemide [Demadex] 100 mg PO BID 12/06/13 12/19/17 History Spironolact/Hydrochlorothiazid 1 tab PO DAILY 12/10/16 12/19/17 History [Aldactazide 25-25 MG] Allopurinol [Zyloprim] 100 mg PO DAILY 12/19/17 12/19/17 History Colchicine [Colcrys] 0.6 mg PO TID 12/19/17 12/19/17 History Doxycycline Hyclate 100 mg PO BID 12/19/17 12/19/17 History Naproxen 500 mg PO 12/19/17 History Naproxen [Naprosyn] 500 mg PO BID PRN 12/19/17 12/19/17 History Niacin 500 mg PO BID 12/19/17 12/19/17 History Potassium Chloride [Klor-Con 20] 20 meq PO DAILY 12/19/17 12/19/17 History Allergies Allergy/AdvReac Type Severity Reaction Status Date / Time No Known Allergies Allergy Verified 12/19/17 12:28 Physical Exam Vitals: Vital Signs Temp Pulse Resp BP Pulse Ox 12/20/17 16:00 98.4 F 124 H 22 94 L 12/20/17 15:45 119 H 24 97 12/20/17 15:30 127 H 21 98 12/20/17 15:15 121 H 20 97 12/20/17 15:00 138 H 22 96 12/20/17 14:45 124 H 24 93 L 12/20/17 14:30 122 H 28 H 95 12/20/17 14:15 125 H 25 H 93 L 12/20/17 14:00 133 H 26 H 95 12/20/17 13:45 123 H 25 H 94 L 12/20/17 13:30 113 H 23 90 L 12/20/17 13:15 121 H 23 94 L 12/20/17 13:00 130 H 27 H 94 L 12/20/17 12:45 130 H 22 98 12/20/17 12:30 139 H 25 H 97 12/20/17 12:15 130 H 23 97 12/20/17 12:00 98.1 F 124 H 27 H 96 12/20/17 11:45 123 H 19 99 12/20/17 11:30 124 H 21 94 L 12/20/17 11:15 139 H 26 H 98 12/20/17 11:00 134 H 27 H 97 12/20/17 10:45 137 H 23 100 12/20/17 10:30 127 H 26 H 100 12/20/17 10:15 132 H 21 98 12/20/17 10:00 138 H 24 98 12/20/17 09:45 133 H 27 H 96 12/20/17 09:30 140 H 25 H 97 12/20/17 09:15 132 H 25 H 94 L 12/20/17 09:00 133 H 29 H 97 12/20/17 08:45 122 H 24 100 12/20/17 08:30 126 H 23 93 L 12/20/17 08:15 128 H 22 92 L 12/20/17 08:00 98.7 F 132 H 23 100 12/20/17 07:45 130 H 22 98 12/20/17 07:30 130 H 22 99 12/20/17 06:30 146 H 34 H 96 12/20/17 06:00 113 H 22 98 12/20/17 05:00 136 H 23 95/63 100 12/20/17 04:00 97.7 F 137 H 23 95/63 98 12/20/17 03:00 135 H 30 H 99 12/20/17 02:00 131 H 28 H 97 12/20/17 01:00 134 H 31 H 87/59 100 12/20/17 00:00 97.9 F 135 H 31 H 87/59 100 12/19/17 23:22 124 H 32 H 100 12/19/17 23:00 135 H 28 H 100 12/19/17 22:24 97.8 F 135 H 22 96/35 12/19/17 22:00 135 H 28 H 83/70 12/19/17 21:00 133 H 26 H 83/70 12/19/17 20:28 98.0 F 132 H 28 H 103/68 100 12/19/17 20:00 97.9 F 154 H 24 103/59 12/19/17 19:58 97.9 F 152 H 22 93/70 12/19/17 19:48 142 H 26 H 103/59 90 L 12/19/17 19:44 98.1 F 133 H 30 H 97/75 99 12/19/17 19:00 132 H 29 H 85/49 100 12/19/17 18:45 130 H 27 H 84/55 98 12/19/17 18:30 139 H 34 H 95 12/19/17 18:15 131 H 27 H 85/59 97 12/19/17 18:00 144 H 27 H 74/56 12/19/17 17:45 129 H 15 91/56 12/19/17 17:30 127 H 29 H 79/56 12/19/17 17:15 124 H 25 H 83/54 12/19/17 17:11 24 12/19/17 17:00 115 H 22 82/51 12/19/17 16:45 121 H 29 H 68/49 12/19/17 16:30 95.1 F L 121 H 22 71/51 08/26/18 16:22 0 L Intake and Output 12/20/17 12/20/17 12/20/17 06:59 14:59 22:59 Intake Total 7891.409 8070.212 296.875 Output Total 760 725 75 Balance 1017.806 354.212 221.875 Intake: IV 1300 1050 150 Dextrose 5% in Water 100 100 ml @ 150 mls/hr IV .Q1H ONE with Sodium Bicarb (1 Meq/ml) 50 ml Rx#: [id number] Sodium Chloride 0.9% 1, 1200 1050 150 000 ml @ 150 mls/hr IV . Q6H40M [facility] Rx#:[id number] Intake, IV Titration 167.806 29.212 146.875 Amount Norepinephrine 16 mg In 167.806 29.212 146.875 Sodium Chloride 0.9% 250 ml @ Titrate IV .Q0M [facility] Rx#:[id number] Blood Product 310 Output: Urine 760 725 75 Other: Voiding Method Indwelling Catheter Indwelling Catheter Indwelling Catheter Weight 73 kg ABP, PAP, CO, CI - Last 8 Hours Arterial Blood Pressure 100/59 Arterial Blood Pressure 107/64 Arterial Blood Pressure 101/62 Arterial Blood Pressure 110/70 Arterial Blood Pressure 106/54 Arterial Blood Pressure 94/56 Arterial Blood Pressure 99/64 Arterial Blood Pressure 94/59 Arterial Blood Pressure 98/60 Arterial Blood Pressure 97/61 Arterial Blood Pressure 99/52 Arterial Blood Pressure 90/55 Arterial Blood Pressure 93/52 Arterial Blood Pressure 96/53 Arterial Blood Pressure 95/60 Arterial Blood Pressure 98/56 Arterial Blood Pressure 98/55 Arterial Blood Pressure 102/55 Arterial Blood Pressure 101/62 Arterial Blood Pressure 107/62 Arterial Blood Pressure 88/55 Arterial Blood Pressure 87/50 Arterial Blood Pressure 94/56 Arterial Blood Pressure 92/56 Arterial Blood Pressure 103/59 Arterial Blood Pressure 89/52 Arterial Blood Pressure 99/60 Arterial Blood Pressure 97/59 Arterial Blood Pressure 101/55 Arterial Blood Pressure 103/55 Arterial Blood Pressure 95/59 On physical examination, patient appears comfortable in no apparent distress. HEAD: Normocephalic, atraumatic. EYES: No scleral icterus. No conjunctival injection. MOUTH: No lesions, tongue midline, mucous membranes dry. NECK: Trachea midline, no gross abnormalities. CHEST: Decreased air entry in all lung hooker with no wheezing appreciated. HEART: Tachycardic with irregular rhythm. ABDOMEN: Soft. Bowel sounds are positive. No organomegaly. No guarding or rigidity. EXTREMITIES: Minimal pedal edema with bilateral ulcerations of the lower extremities. SKIN: No rashes, no jaundice, ulcerations as above. NEUROLOGIC: Alert and oriented to person. No focal deficits. Results CBC & Chem 7: 12/20/17 13:54 12/20/17 05:10 Labs: Abnormal Lab Results - Last 24 Hours (Table) 12/19/17 12/19/17 12/19/17 Range/Units 11:50 16:23 17:22 WBC (3.8-10.6) k/uL RBC (4.30-5.90) m/uL Hgb (13.0-17.5) gm/dL Hct (39.0-53.0) % MCHC (31.0-37.0) g/dL RDW (11.5-15.5) % Neutrophils # (1.3-7.7) k/uL Lymphocytes # (1.0-4.8) k/uL Monocytes # (0-1.0) k/uL PT (9.0-12.0) sec INR (<1.2) Potassium (3.5-5.1) mmol/L Chloride (98-107) mmol/L Carbon Dioxide (22-30) mmol/L BUN (9-20) mg/dL Creatinine (0.66-1.25) mg/dL Glucose (74-99) mg/dL POC Glucose (mg/dL) 161 H (75-99) mg/dL Plasma Lactic Acid Orlando 3.9 H* (0.7-2.0) mmol/L Phosphorus (2.5-4.5) mg/dL Magnesium (1.6-2.3) mg/dL Total Protein (6.3-8.2) g/dL Albumin (3.5-5.0) g/dL Urine Cocaine Screen (NotDetected) Crossmatch See Detail 12/19/17 12/19/17 12/19/17 Range/Units 17:22 17:22 18:50 WBC 12.8 H (3.8-10.6) k/uL RBC 2.39 L (4.30-5.90) m/uL Hgb 6.8 L* D (13.0-17.5) gm/dL Hct 22.5 L (39.0-53.0) % MCHC 30.3 L (31.0-37.0) g/dL RDW 16.3 H (11.5-15.5) % Neutrophils # 11.2 H (1.3-7.7) k/uL Lymphocytes # 0.7 L (1.0-4.8) k/uL Monocytes # (0-1.0) k/uL PT (9.0-12.0) sec INR (<1.2) Potassium 5.4 H (3.5-5.1) mmol/L Chloride 112 H (98-107) mmol/L Carbon Dioxide 11 L (22-30) mmol/L BUN 176 H* (9-20) mg/dL Creatinine 3.60 H (0.66-1.25) mg/dL Glucose 145 H (74-99) mg/dL POC Glucose (mg/dL) (75-99) mg/dL Plasma Lactic Acid [place] (0.7-2.0) mmol/L Phosphorus 6.0 H (2.5-4.5) mg/dL Magnesium 2.4 H (1.6-2.3) mg/dL Total Protein 5.3 L (6.3-8.2) g/dL Albumin 2.5 L (3.5-5.0) g/dL Urine Cocaine Screen Detected H (NotDetected) Crossmatch 12/19/17 12/20/17 12/20/17 Range/Units 18:55 00:55 00:55 WBC 15.4 H (3.8-10.6) k/uL RBC 2.64 L (4.30-5.90) m/uL Hgb 7.6 L (13.0-17.5) gm/dL Hct 23.5 L (39.0-53.0) % MCHC (31.0-37.0) g/dL RDW 16.5 H (11.5-15.5) % Neutrophils # (1.3-7.7) k/uL Lymphocytes # (1.0-4.8) k/uL Monocytes # (0-1.0) k/uL PT (9.0-12.0) sec INR (<1.2) Potassium (3.5-5.1) mmol/L Chloride 115 H (98-107) mmol/L Carbon Dioxide 14 L (22-30) mmol/L BUN 165 H* (9-20) mg/dL Creatinine 3.20 H (0.66-1.25) mg/dL Glucose 155 H (74-99) mg/dL POC Glucose (mg/dL) 182 H (75-99) mg/dL Plasma Lactic Acid [place] (0.7-2.0) mmol/L Phosphorus (2.5-4.5) mg/dL Magnesium (1.6-2.3) mg/dL Total Protein 5.0 L (6.3-8.2) g/dL Albumin 2.3 L (3.5-5.0) g/dL Urine Cocaine Screen (NotDetected) Crossmatch 12/20/17 12/20/17 12/20/17 Range/Units 01:01 05:10 05:10 WBC 16.2 H (3.8-10.6) k/uL RBC 2.65 L (4.30-5.90) m/uL Hgb 7.8 L (13.0-17.5) gm/dL Hct 23.8 L (39.0-53.0) % MCHC (31.0-37.0) g/dL RDW 16.8 H (11.5-15.5) % Neutrophils # 14.2 H (1.3-7.7) k/uL Lymphocytes # 0.5 L (1.0-4.8) k/uL Monocytes # 1.2 H (0-1.0) k/uL PT (9.0-12.0) sec INR (<1.2) Potassium (3.5-5.1) mmol/L Chloride 116 H (98-107) mmol/L Carbon Dioxide 13 L (22-30) mmol/L BUN 161 H* (9-20) mg/dL Creatinine 3.30 H (0.66-1.25) mg/dL Glucose 127 H (74-99) mg/dL POC Glucose (mg/dL) 164 H (75-99) mg/dL Plasma Lactic Acid [place] (0.7-2.0) mmol/L Phosphorus 4.8 H (2.5-4.5) mg/dL Magnesium (1.6-2.3) mg/dL Total Protein 5.2 L (6.3-8.2) g/dL Albumin 2.4 L (3.5-5.0) g/dL Urine Cocaine Screen (NotDetected) Crossmatch 12/20/17 12/20/17 12/20/17 Range/Units 05:10 05:49 11:40 WBC (3.8-10.6) k/uL RBC (4.30-5.90) m/uL Hgb (13.0-17.5) gm/dL Hct (39.0-53.0) % MCHC (31.0-37.0) g/dL RDW (11.5-15.5) % Neutrophils # (1.3-7.7) k/uL Lymphocytes # (1.0-4.8) k/uL Monocytes # (0-1.0) k/uL PT 12.6 H (9.0-12.0) sec INR 1.3 H (<1.2) Potassium (3.5-5.1) mmol/L Chloride (98-107) mmol/L Carbon Dioxide (22-30) mmol/L BUN (9-20) mg/dL Creatinine (0.66-1.25) mg/dL Glucose (74-99) mg/dL POC Glucose (mg/dL) 132 H 163 H (75-99) mg/dL Plasma Lactic Acid [place] (0.7-2.0) mmol/L Phosphorus (2.5-4.5) mg/dL Magnesium (1.6-2.3) mg/dL Total Protein (6.3-8.2) g/dL Albumin (3.5-5.0) g/dL Urine Cocaine Screen (NotDetected) Crossmatch 12/20/17 Range/Units 13:54 WBC 20.2 H (3.8-10.6) k/uL RBC 2.65 L (4.30-5.90) m/uL Hgb 7.7 L (13.0-17.5) gm/dL Hct 24.5 L (39.0-53.0) % MCHC (31.0-37.0) g/dL RDW 17.1 H (11.5-15.5) % Neutrophils # (1.3-7.7) k/uL Lymphocytes # (1.0-4.8) k/uL Monocytes # (0-1.0) k/uL PT (9.0-12.0) sec INR (<1.2) Potassium (3.5-5.1) mmol/L Chloride (98-107) mmol/L Carbon Dioxide (22-30) mmol/L BUN (9-20) mg/dL Creatinine (0.66-1.25) mg/dL Glucose (74-99) mg/dL POC Glucose (mg/dL) (75-99) mg/dL Plasma Lactic Acid [place] (0.7-2.0) mmol/L Phosphorus (2.5-4.5) mg/dL Magnesium (1.6-2.3) mg/dL Total Protein (6.3-8.2) g/dL Albumin (3.5-5.0) g/dL Urine Cocaine Screen (NotDetected) Crossmatch Microbiology - Last 24 Hours (Table) 12/19/17 11:50 Blood Culture - Preliminary Blood No Growth after 24 hours 12/19/17 12:07 Urine Culture - Preliminary Urine,Catheterized Group D Enterococcus 12/19/17 11:48 Gram Stain - Preliminary Foot - Right Wound Culture - Preliminary Gram Neg Bacilli CT Scan - head: report reviewed (No acute intracranial abnormality.) Assessment and Plan (1) GI hemorrhage Narrative/Plan: Patient presenting with altered mental status found to be anemic with a hemoglobin of 4 on presentation subsequently transfused to 7.6 and stable today at 7.8. The patient had FOBT positive, and reports dark stools over the past few weeks. In addition after admission to ICU he had 1 episode of hematemesis. No further episodes of hematemesis, coffee-ground emesis or vomiting. The patient has not had a bowel movement today. Hemoglobin has been stable. Current Visit: Yes Status: Acute Code(s): K92.2 - GASTROINTESTINAL HEMORRHAGE, UNSPECIFIED SNOMED Code(s): 16091709 (2) Normocytic anemia Narrative/Plan: Likely multifactorial secondary to anemia of chronic disease and blood loss. Current Visit: Yes Status: Acute Code(s): D64.9 - ANEMIA, UNSPECIFIED SNOMED Code(s): 937836767 Plan: Supportive care Continue ICU management Continue IV Protonix Nothing by mouth, okay for ice chips and meds with sips of water Appreciate recommendations from nephrology and cardiology Continue to monitor hemoglobin every 8 hours and transfuse as needed Plan on endoscopic evaluation when patient is stable from a cardiac and medical standpoint Thank you for allowing us to participate in the care of this patient, we will continue to follow
[2017-12-20 17:20] LABS: Glucose,Whole Blood 181 mg/dL (75-99)
--- NOTE | 2017-12-20 19:10 | P.NPCON ---
History of Present Illness - Reason for Consult Consult date: 12/20/17 acute renal failure - Chief Complaint Acute renal failure, chronic kidney disease with severe anemia and shock - History of Present Illness Mr. Miller is a 67-year-old male seen in consultation because of acute kidney injury and chronic kidney disease. His creatinine has been up in 2013 at 2.05, went up to 4.9 as of 12/21/2016 a year ago. He came in with a creatinine of 4.2. He came in with severe anemia hemoglobin was 4. He is a poor historian therefore is difficult to obtain any history from him. According to the history and physical dictated by the admitting physician, he is known with a past medical history of atrial fibrillation, heart failure, COPD, diabetes mellitus, hypertension brought in by his friend for altered mental status changes. Patient follows with Dr. Oconnell, who is his PCP. Patient does not discuss his medical issues with any of his family members or friends. As per the history by the caregiver, the patient has been not feeling well for the past couple of days as he was not himself. The patient himself states that he has been having dark-colored stool for almost 5 weeks. He states that he takes naproxen for his gouty attacks. He also mentions that he was on antibiotics for his lower extremity ulcers recently. Patient denies having any chest pain, difficulty in breathing, abdominal pain nausea vomiting. He complains of dark-colored stools for 5 weeks. He smokes marijuana and drinks alcohol occasionally. No history of illicit drug use. Patient mentions that he has chronic bilateral lower extremity ulcers. At the time of admission - Patient was found to be hypotensive with a low hemoglobin of 4 and elevated lactic acid at 8.3. He is admitted to the ICU for further management. His sister is at the bedside, mentions that she does not know much of his medical conditions. But yesterday she was called, that he was not feeling well. Past Medical History Past Medical History: Atrial Fibrillation, Heart Failure, COPD, Diabetes Mellitus, Hypertension, Renal Disease Additional Past Medical History / Comment(s): gout, CHF History of Any Multi-Drug Resistant Organisms: None Reported Past Surgical History: Appendectomy Past Psychological History: No Psychological Hx Reported Additional Psychological History / Comment(s): Patient's sister relates the patient does drink alcohol likely daily, history of tobacco use. She relates that he has difficulties with his heart, diabetes that he does not control well , and gout that gives him some discomfort at times. She does not relate that he has service, travel, or animal exposures. Does utilize marijuana she is not aware of other recreational drugs. Smoking Status: Never smoker Past Alcohol Use History: Occasional Past Drug Use History: None Reported - Past Family History Father Family Medical History: Diabetes Mellitus Mother History Unknown: Yes Medications and Allergies Home Medications Medication Instructions Recorded Confirmed Type Carvedilol [Coreg*] 12.5 mg PO BID 12/06/13 12/19/17 History Doxazosin [Cardura] 4 mg PO HS 12/06/13 12/19/17 History Isosorbide Mononitrate ER [Imdur] 30 mg PO DAILY 12/06/13 12/19/17 History Lisinopril 40 mg PO DAILY 12/06/13 12/19/17 History Torsemide [Demadex] 100 mg PO BID 12/06/13 12/19/17 History Spironolact/Hydrochlorothiazid 1 tab PO DAILY 12/10/16 12/19/17 History [Aldactazide 25-25 MG] Allopurinol [Zyloprim] 100 mg PO DAILY 12/19/17 12/19/17 History Colchicine [Colcrys] 0.6 mg PO TID 12/19/17 12/19/17 History Doxycycline Hyclate 100 mg PO BID 12/19/17 12/19/17 History Naproxen 500 mg PO 12/19/17 History Naproxen [Naprosyn] 500 mg PO BID PRN 12/19/17 12/19/17 History Niacin 500 mg PO BID 12/19/17 12/19/17 History Potassium Chloride [Klor-Con 20] 20 meq PO DAILY 12/19/17 12/19/17 History Allergies Allergy/AdvReac Type Severity Reaction Status Date / Time No Known Allergies Allergy Verified 12/19/17 12:28 Physical Exam Vitals: Vital Signs Temp Pulse Resp BP Pulse Ox 12/20/17 18:00 111 H 21 94 L 12/20/17 17:45 109 H 20 90 L 12/20/17 17:30 119 H 23 12/20/17 17:15 112 H 27 H 12/20/17 17:00 117 H 24 12/20/17 16:45 108 H 24 12/20/17 16:30 122 H 26 H 12/20/17 16:15 128 H 28 H 12/20/17 16:00 98.4 F 124 H 22 94 L 12/20/17 15:45 119 H 24 97 12/20/17 15:30 127 H 21 98 12/20/17 15:15 121 H 20 97 12/20/17 15:00 138 H 22 96 12/20/17 14:45 124 H 24 93 L 12/20/17 14:30 122 H 28 H 95 12/20/17 14:15 125 H 25 H 93 L 12/20/17 14:00 133 H 26 H 95 12/20/17 13:45 123 H 25 H 94 L 12/20/17 13:30 113 H 23 90 L 12/20/17 13:15 121 H 23 94 L 12/20/17 13:00 130 H 27 H 94 L 12/20/17 12:45 130 H 22 98 12/20/17 12:30 139 H 25 H 97 12/20/17 12:15 130 H 23 97 12/20/17 12:00 98.1 F 124 H 27 H 96 12/20/17 11:45 123 H 19 99 12/20/17 11:30 124 H 21 94 L 12/20/17 11:15 139 H 26 H 98 12/20/17 11:00 134 H 27 H 97 12/20/17 10:45 137 H 23 100 12/20/17 10:30 127 H 26 H 100 12/20/17 10:15 132 H 21 98 12/20/17 10:00 138 H 24 98 12/20/17 09:45 133 H 27 H 96 12/20/17 09:30 140 H 25 H 97 12/20/17 09:15 132 H 25 H 94 L 12/20/17 09:00 133 H 29 H 97 12/20/17 08:45 122 H 24 100 12/20/17 08:30 126 H 23 93 L 12/20/17 08:15 128 H 22 92 L 12/20/17 08:00 98.7 F 132 H 23 100 12/20/17 07:45 130 H 22 98 12/20/17 07:30 130 H 22 99 12/20/17 06:30 146 H 34 H 96 12/20/17 06:00 113 H 22 98 12/20/17 05:00 136 H 23 95/63 100 12/20/17 04:00 97.7 F 137 H 23 95/63 98 12/20/17 03:00 135 H 30 H 99 12/20/17 02:00 131 H 28 H 97 12/20/17 01:00 134 H 31 H 87/59 100 12/20/17 00:00 97.9 F 135 H 31 H 87/59 100 12/19/17 23:22 124 H 32 H 100 12/19/17 23:00 135 H 28 H 100 12/19/17 22:24 97.8 F 135 H 22 96/35 12/19/17 22:00 135 H 28 H 83/70 12/19/17 21:00 133 H 26 H 83/70 12/19/17 20:28 98.0 F 132 H 28 H 103/68 100 12/19/17 20:00 97.9 F 154 H 24 103/59 12/19/17 19:58 97.9 F 152 H 22 93/70 12/19/17 19:48 142 H 26 H 103/59 90 L 12/19/17 19:44 98.1 F 133 H 30 H 97/75 99 12/19/17 19:00 132 H 29 H 85/49 100 Intake and Output 12/20/17 12/20/17 12/20/17 06:59 14:59 22:59 Intake Total 4488.567 2269.212 1027.896 Output Total 760 725 570 Balance 1017.806 354.212 457.896 Intake: IV 1300 1050 600 Dextrose 5% in Water 100 100 ml @ 150 mls/hr IV .Q1H ONE with Sodium Bicarb (1 Meq/ml) 50 ml Rx#: [id number] Sodium Chloride 0.9% 1, 1200 1050 600 000 ml @ 150 mls/hr IV . Q6H40M [facility] Rx#:[id number] Intake, IV Titration 167.806 29.212 427.896 Amount Amiodarone 450 mg In 235.531 Dextrose 5% in Water 250 ml @ 1 MG/MIN 33.33 mls/ hr IV .Q7H31M [facility] Rx#: [id number] Norepinephrine 16 mg In 167.806 29.212 192.365 Sodium Chloride 0.9% 250 ml @ Titrate IV .Q0M [facility] Rx#:[id number] Blood Product 310 Output: Urine 760 725 570 Other: Voiding Method Indwelling Catheter Indwelling Catheter Indwelling Catheter Weight 73 kg ABP, PAP, CO, CI - Last 8 Hours Arterial Blood Pressure 94/53 Arterial Blood Pressure 97/58 Arterial Blood Pressure 98/40 Arterial Blood Pressure 99/57 Arterial Blood Pressure 96/60 Arterial Blood Pressure 103/64 Arterial Blood Pressure 104/66 Arterial Blood Pressure 100/59 Arterial Blood Pressure 100/59 Arterial Blood Pressure 107/64 Arterial Blood Pressure 101/62 Arterial Blood Pressure 110/70 Arterial Blood Pressure 106/54 Arterial Blood Pressure 94/56 Arterial Blood Pressure 99/64 Arterial Blood Pressure 94/59 Arterial Blood Pressure 98/60 Arterial Blood Pressure 97/61 Arterial Blood Pressure 99/52 Arterial Blood Pressure 90/55 Arterial Blood Pressure 93/52 Arterial Blood Pressure 96/53 Arterial Blood Pressure 95/60 Arterial Blood Pressure 98/56 Arterial Blood Pressure 98/55 Arterial Blood Pressure 102/55 Arterial Blood Pressure 101/62 Arterial Blood Pressure 107/62 Arterial Blood Pressure 88/55 His awake alert. Follows commands but has very poor memory off events. HEENT exam JVP is elevated, no lymph nodes, thyroid. No carotid bruit neck is supple no facial asymmetry Lungs are clear to auscultation good air entry bilaterally Heart sounds are remarkable for atrial fibrillation with a past medical response. Abdomen soft nontender no organomegaly status masses Extremity exam was both legs are wrapped in Jassi wraps up to the thighs there is some edema noted in his feet distally just outside of the bandages. Neurologically awake alert and oriented, follows commands but has poor memory. Results - Lab Results Most recent lab results Calcium 8.7 mg/dL (8.4-10.2) 12/20/17 05:10 Phosphorus 4.8 mg/dL (2.5-4.5) H 12/20/17 05:10 Magnesium 2.2 mg/dL (1.6-2.3) 12/20/17 05:10 12/20/17 13:54 12/20/17 05:10 Assessment and Plan Assessment: Impression 1. Acute kidney injury secondary to prerenal from severe anemia and hypotension. Creatinine is improved from 4.2 on admission to 3.3 with hydration. Part of the acute kidney injury could be from cocaine 2. Chronic kidney disease, urinalysis is no proteinuria therefore unlikely diabetic nephropathy likely nephrosclerosis possibility of renovascular disease is considered. 3. Cocaine abuse. 4. Severe anemia GI bleed likely, admitting hemoglobin was 4 has been transfused 4 units. Blood pressure remains low. 5. Atrial fibrillation on amiodarone. 6. Hyperkalemia secondary acute kidney injury and possible GI bleed resolved, admitting potassium was 5.6 currently is 5. 7. Severe gap acidosis secondary to lactic acidosis and acute kidney injury. Admitting bicarb was 8 and anion gap 23. Delta bicarb is 16 and delta gap is 11. Is an element of non-gap acidosis as well. This is all from renal failure and hypotension and lactic acidosis which is slightly better, with bicarb of 13 and gap is 12 which is completely reversed. 8. Hypotension on levo fed 9. Group B enterococcal b growing in urine but urinalysis has no wbc's therefore unlikely to be cystitis. This is basically colonization 10. Ulcers on his feet, possible ostial Recommendation. 1.. Agree with hydration with normal saline at 150 an hour. 2. Start sodium bicarb, we can start oral bicarb 650 mg, 4 times a day and see how he responds. he has large bicarbonate deficit that will not correct itself as there are no anion to convert to bicarb. 3. Will get ultrasound of the kidney. 4. Maintain blood pressure map at about 65, currently on levo fed
--- NOTE | 2017-12-20 20:16 | P.PN ---
Subjective Progress Note Date: 12/20/17 67-year-old male who has altered mental status is brought to the emergency center by a caregiver who apparently has a friend because of the significant declining status that was noted. The caregiver relates that he's been secretive about his overall health. The patient however does follow with a primary care physician Dr. Oconnell and was evaluated in the office on 2017 antibiotic therapy with doxycycline was given for the problems to his legs. No evidence of any topical therapy can be found in the bags of medicine that were brought to hospital. The patient himself is agitated and has difficulty answering questions. He however on direct questioning denies headache, denies chest pain, denies abdominal pain, denies dysuria, denies diarrhea but does complain of pain to his legs. The patient's sister is present relates that although she does see her brother occasionally she does not know much about his medical history. 12/20/2017 patient is improved today after the 4 units of PRBC some GI bleeding is noted and has been by gastroenterology. Once he is his vasopressor therapy will be taking the endoscopy suite for evaluation of therapeutic intervention. The patient is much more comfortable today. 2 sisters are present, relate that they do not know much about his health care because he does not relate to them. Patient is educated about his current level of the extensive illness including profound anemia, as well as shock that he has a infectious component to it. His response to this was " when do I get to go home.' Objective - Vital Signs Vital signs: Vital Signs Temp 98.4 F 12/20/17 16:00 Pulse 115 H 12/20/17 19:00 Resp 25 H 12/20/17 19:00 BP 95/63 12/20/17 05:00 Pulse Ox 94 L 12/20/17 18:00 Intake & Output 12/20/17 12/20/17 12/21/17 06:59 18:59 06:59 Intake Total 2925.219 2107.108 150 Output Total 1250 1295 100 Balance 1675.219 812.108 50 Weight 73 kg Intake: IV 2049 1650 150 Cefepime 2 gm In Sodium 50 Chloride 0.9% 50 ml @ 100 mls/hr IVPB DAILY@1999 [facility] Rx#:[id number] Dextrose 5% in Water 100 200 ml @ 150 mls/hr IV .Q1H ONE with Sodium Bicarb (1 Meq/ml) 50 ml Rx#: [id number] Sodium Chloride 0.9% 1, 1800 1650 150 000 ml @ 150 mls/hr IV . Q6H40M [facility] Rx#:[id number] Intake, IV Titration 255.219 457.108 Amount Amiodarone 450 mg In 235.531 Dextrose 5% in Water 250 ml @ 1 MG/MIN 33.33 mls/ hr IV .Q7H31M [facility] Rx#: [id number] Norepinephrine 16 mg In 255.219 221.577 Sodium Chloride 0.9% 250 ml @ Titrate IV .Q0M [facility] Rx#:[id number] Blood Product 620 Rc As-1 Unit 310 [id number] Output: Urine 1250 1295 100 Uretheral (Huang) 100 Other: Voiding Method Indwelling Catheter Indwelling Catheter # Emeses 1 ABP, PAP, CO, CI - Last Documented Arterial Blood Pressure 98/60 - Exam HEENT: Anicteric conjunctiva are less pale, improvement of the general pallor. No oral lesions or thrush but dentition is very poor Neck: The neck is supple without significant lymphadenopathy or thyromegaly. Lungs: There is symmetrical air entry with expiratory wheezes scattered no leah bronchial sounds no dullness Heart: Very tachycardic with a rate of 141 no abnormal sounds were detected Abdomen: Positive bowel sounds soft and nontender without palpable masses or organomegaly. There was no guarding or rebound. Extremities: Upper extremities are intact without lesions. Lower extremities show evidence of the chronic bilateral lower extremity edema, evidence of some dried bulla especially on the left leg are seen. Some ulcerations are seen on the right lower extremity. Nursing photography will further help define locations. There is some minimal drainage to the right leg. The legs are very tender. Neuro: The patient is awake and alert attempts to answer questions but is agitated and does not answer questions well. He overs able to easily move all extremities at this time but is guarding to his legs because they give him pain. - Labs CBC & Chem 7: 12/20/17 13:54 12/20/17 05:10 Labs: Abnormal Lab Results - Last 24 Hours (Table) 12/19/17 12/20/17 12/20/17 Range/Units 11:50 00:55 00:55 WBC 15.4 H (3.8-10.6) k/uL RBC 2.64 L (4.30-5.90) m/uL Hgb 7.6 L (13.0-17.5) gm/dL Hct 23.5 L (39.0-53.0) % RDW 16.5 H (11.5-15.5) % Neutrophils # (1.3-7.7) k/uL Lymphocytes # (1.0-4.8) k/uL Monocytes # (0-1.0) k/uL PT (9.0-12.0) sec INR (<1.2) Chloride 115 H (98-107) mmol/L Carbon Dioxide 14 L (22-30) mmol/L BUN 165 H* (9-20) mg/dL Creatinine 3.20 H (0.66-1.25) mg/dL Glucose 155 H (74-99) mg/dL POC Glucose (mg/dL) (75-99) mg/dL Phosphorus (2.5-4.5) mg/dL Total Protein 5.0 L (6.3-8.2) g/dL Albumin 2.3 L (3.5-5.0) g/dL Crossmatch See Detail 12/20/17 12/20/17 12/20/17 Range/Units 01:01 05:10 05:10 WBC 16.2 H (3.8-10.6) k/uL RBC 2.65 L (4.30-5.90) m/uL Hgb 7.8 L (13.0-17.5) gm/dL Hct 23.8 L (39.0-53.0) % RDW 16.8 H (11.5-15.5) % Neutrophils # 14.2 H (1.3-7.7) k/uL Lymphocytes # 0.5 L (1.0-4.8) k/uL Monocytes # 1.2 H (0-1.0) k/uL PT (9.0-12.0) sec INR (<1.2) Chloride 116 H (98-107) mmol/L Carbon Dioxide 13 L (22-30) mmol/L BUN 161 H* (9-20) mg/dL Creatinine 3.30 H (0.66-1.25) mg/dL Glucose 127 H (74-99) mg/dL POC Glucose (mg/dL) 164 H (75-99) mg/dL Phosphorus 4.8 H (2.5-4.5) mg/dL Total Protein 5.2 L (6.3-8.2) g/dL Albumin 2.4 L (3.5-5.0) g/dL Crossmatch 12/20/17 12/20/17 12/20/17 Range/Units 05:10 05:49 11:40 WBC (3.8-10.6) k/uL RBC (4.30-5.90) m/uL Hgb (13.0-17.5) gm/dL Hct (39.0-53.0) % RDW (11.5-15.5) % Neutrophils # (1.3-7.7) k/uL Lymphocytes # (1.0-4.8) k/uL Monocytes # (0-1.0) k/uL PT 12.6 H (9.0-12.0) sec INR 1.3 H (<1.2) Chloride (98-107) mmol/L Carbon Dioxide (22-30) mmol/L BUN (9-20) mg/dL Creatinine (0.66-1.25) mg/dL Glucose (74-99) mg/dL POC Glucose (mg/dL) 132 H 163 H (75-99) mg/dL Phosphorus (2.5-4.5) mg/dL Total Protein (6.3-8.2) g/dL Albumin (3.5-5.0) g/dL Crossmatch 12/20/17 12/20/17 Range/Units 13:54 17:18 WBC 20.2 H (3.8-10.6) k/uL RBC 2.65 L (4.30-5.90) m/uL Hgb 7.7 L (13.0-17.5) gm/dL Hct 24.5 L (39.0-53.0) % RDW 17.1 H (11.5-15.5) % Neutrophils # (1.3-7.7) k/uL Lymphocytes # (1.0-4.8) k/uL Monocytes # (0-1.0) k/uL PT (9.0-12.0) sec INR (<1.2) Chloride (98-107) mmol/L Carbon Dioxide (22-30) mmol/L BUN (9-20) mg/dL Creatinine (0.66-1.25) mg/dL Glucose (74-99) mg/dL POC Glucose (mg/dL) 181 H (75-99) mg/dL Phosphorus (2.5-4.5) mg/dL Total Protein (6.3-8.2) g/dL Albumin (3.5-5.0) g/dL Crossmatch Microbiology - Last 24 Hours (Table) 12/19/17 11:50 Blood Culture - Preliminary Blood No Growth after 24 hours 12/19/17 12:07 Urine Culture - Preliminary Urine,Catheterized Group D Enterococcus 12/19/17 11:48 Gram Stain - Preliminary Foot - Right Wound Culture - Preliminary Gram Neg Bacilli Laboratory Results WBC 20.2 k/uL (3.8-10.6) H 12/20/17 13:54 RBC 2.65 m/uL (4.30-5.90) L 12/20/17 13:54 Hgb 7.7 gm/dL (13.0-17.5) L 12/20/17 13:54 Hct 24.5 % (39.0-53.0) L 12/20/17 13:54 MCV 92.3 fL (80.0-100.0) 12/20/17 13:54 MCH 28.9 pg (25.0-35.0) 12/20/17 13:54 MCHC 31.3 g/dL (31.0-37.0) 12/20/17 13:54 RDW 17.1 % (11.5-15.5) H 12/20/17 13:54 Plt Count 185 k/uL (150-450) 12/20/17 13:54 Neutrophils % 88 % 12/20/17 05:10 Lymphocytes % 3 % 12/20/17 05:10 Monocytes % 7 % 12/20/17 05:10 Eosinophils % 0 % 12/20/17 05:10 Basophils % 0 % 12/20/17 05:10 Neutrophils # 14.2 k/uL (1.3-7.7) H 12/20/17 05:10 Lymphocytes # 0.5 k/uL (1.0-4.8) L 12/20/17 05:10 Monocytes # 1.2 k/uL (0-1.0) H 12/20/17 05:10 Eosinophils # 0.0 k/uL (0-0.7) 12/20/17 05:10 Basophils # 0.0 k/uL (0-0.2) 12/20/17 05:10 Hypochromasia Marked 12/20/17 13:54 Poikilocytosis Marked 12/20/17 13:54 Anisocytosis Slight 12/20/17 13:54 Macrocytosis Slight 12/19/17 11:50 PT 12.6 sec (9.0-12.0) H 12/20/17 05:10 INR 1.3 (<1.2) H 12/20/17 05:10 APTT 24.0 sec (22.0-30.0) 12/20/17 05:10 Sodium 141 mmol/L (137-145) 12/20/17 05:10 Potassium 5.0 mmol/L (3.5-5.1) 12/20/17 05:10 Chloride 116 mmol/L (98-107) H 12/20/17 05:10 Carbon Dioxide 13 mmol/L (22-30) L 12/20/17 05:10 Anion Gap 12 mmol/L 12/20/17 05:10 BUN 161 mg/dL (9-20) H* 12/20/17 05:10 Creatinine 3.30 mg/dL (0.66-1.25) H 12/20/17 05:10 Est GFR (CKD-EPI)AfAm 21 (>60 ml/min/1.73 sqM) 12/20/17 05:10 Est GFR (CKD-EPI)NonAf 18 (>60 ml/min/1.73 sqM) 12/20/17 05:10 Glucose 127 mg/dL (74-99) H 12/20/17 05:10 POC Glucose (mg/dL) 181 mg/dL (75-99) H 12/20/17 17:18 POC Glu Territory Account Executive ID 12/20/17 17:[address] Glu mg/dL 103 12/19/17 17:22 Hemoglobin A1c 5.2 % (4.0-6.0) 12/19/17 17:22 Lactic Ac Sepsis Rflx Y 12/19/17 12:23 Plasma Lactic Acid [place] 0.8 mmol/L (0.7-2.0) 12/19/17 22:29 Calcium 8.7 mg/dL (8.4-10.2) 12/20/17 05:10 Phosphorus 4.8 mg/dL (2.5-4.5) H 12/20/17 05:10 Magnesium 2.2 mg/dL (1.6-2.3) 12/20/17 05:10 Total Bilirubin 1.0 mg/dL (0.2-1.3) 12/20/17 05:10 AST 26 U/L (17-59) 12/20/17 05:10 ALT 26 U/L (21-72) 12/20/17 05:10 Alkaline Phosphatase 47 U/L (38-126) 12/20/17 05:10 Total Creatine Kinase <20 U/L (55-170) L 12/19/17 11:50 CK-MB (CK-2) 1.7 ng/mL (0.0-2.4) 12/19/17 11:50 CK-MB (CK-2) Rel Index 12/19/17 11:50 Troponin I <0.012 ng/mL (0.000-0.034) 12/19/17 11:50 Total Protein 5.2 g/dL (6.3-8.2) L 12/20/17 05:10 Albumin 2.4 g/dL (3.5-5.0) L 12/20/17 05:10 Urine Color Yellow 12/19/17 12:07 Urine Appearance Cloudy (Clear) 12/19/17 12:07 Urine pH 5.0 (5.0-8.0) 12/19/17 12:07 Ur Specific [place] 1.012 (1.001-1.035) 12/19/17 12:07 Urine Protein Negative (Negative) 12/19/17 12:07 Urine Glucose (UA) Negative (Negative) 12/19/17 12:07 Urine Ketones Negative (Negative) 12/19/17 12:07 Urine Blood Negative (Negative) 12/19/17 12:07 Urine Nitrite Negative (Negative) 12/19/17 12:07 Urine Bilirubin Negative (Negative) 12/19/17 12:07 Urine Urobilinogen <2.0 mg/dL (<2.0) 12/19/17 12:07 Ur Leukocyte Esterase Negative (Negative) 12/19/17 12:07 Urine RBC 1 /hpf (0-5) 12/19/17 12:07 Ur Squamous Epith Cells 1 /hpf (0-4) 12/19/17 12:07 Urine Bacteria Rare /hpf (None) H 12/19/17 12:07 Urine Mucus Rare /hpf (None) H 12/19/17 12:07 Stool Occult Blood Positive (Negative) 12/19/17 12:15 Urine Opiates Screen Not Detected (NotDetected) 12/19/17 18:50 Ur Oxycodone Screen Not Detected (NotDetected) 12/19/17 18:50 Urine Methadone Screen Not Detected (NotDetected) 12/19/17 18:50 Ur Propoxyphene Screen Not Detected (NotDetected) 12/19/17 18:50 Ur Barbiturates Screen Not Detected (NotDetected) 12/19/17 18:50 U Tricyclic Antidepress Not Detected (NotDetected) 12/19/17 18:50 Ur Phencyclidine Scrn Not Detected (NotDetected) 12/19/17 18:50 Ur Amphetamines Screen Not Detected (NotDetected) 12/19/17 18:50 U Methamphetamines Scrn Not Detected (NotDetected) 12/19/17 18:50 U Benzodiazepines Scrn Not Detected (NotDetected) 12/19/17 18:50 Urine Cocaine Screen Detected (NotDetected) H 12/19/17 18:50 U Marijuana (THC) Screen Not Detected (NotDetected) 12/19/17 18:50 Blood Type O Positive 12/19/17 11:50 Blood Type Recheck No 12/19/17 11:50 Antibody Screen NEGATIVE 12/19/17 11:50 Crossmatch See Detail 12/19/17 11:50 Spec Expiration Date 12/22/2017 - 79812/19/17 11:50 Microbiology 12/19/17 11:50 Blood Blood Culture - Preliminary No Growth after 24 hours 12/19/17 12:07 Urine,Catheterized Urine Culture - Preliminary Group D Enterococcus 12/19/17 11:48 Foot - Right Gram Stain - Preliminary 12/19/17 11:48 Foot - Right Wound Culture - Preliminary Gram Neg Bacilli Assessment and Plan (1) Septic shock Narrative/Plan: 67-year-old male presents to Hospital with prompting of a caregiver because of altered mental status. Upon arrival to the hospital patient is evidence of hypothermia, leukocytosis, hemoglobin of 4 and evidence of shock. There is concerns of septic shock given the patient's leukocytosis and open wounds to the lower extremities. The patient's hypotension and lactic acidosis can also be complicated by his profound anemia, with hemoglobin of 4 the patient likely has some component of chronic anemia to be able to be functional at this time. Local wound care will be utilized with Silvadene cream and wraps that can be done twice a day over this will be soothing and improve his level of discomfort Critical care is following and is receiving blood transfusions to improve his oxygen transport and has hypotension Antibiotic therapy will be addressed. He has evidence of acute renal failure with his creatinine of 4.2 at admission. Would avoid further vancomycin therapy and will change to daptomycin for now. He does need gram-negative therapy and with the current profound anemia would avoid piperacillin tazobactam given the difficulties with hematochezia anemia can be caused, utilize cefepime for now . Multiple cultures are already in process will further help direct therapy. The patient was on doxycycline therapy as an outpatient. Patient does have some laboratories from earlier this month the reveal evidence of hemoglobin 11.7 and a creatinine as low as 2.05 Consequently there is evidence of acute on chronic renal failure at this time. The patient has a heart rate of 141 which appears to be directly related to his septic shock. With fluid resuscitation and further blood transfusion should improve. Patient's sister relates that there is a history of alcohol use and must be monitored closely. 12/20/2017 reveals the patient to be improved from yesterday. Has received 4 units of packed red cells and this is allowing an improvement of his functional status. His profound pallor is improved. His energy level is also improved. Did have evidence of shock with sepsis as well as acute blood loss anemia. Antibiotic therapy has been utilize this point in time we'll cultures are in process and there is evidence of the gram-negative bacilli at the ulcer, and evidence of enterococcus in the urine for which current antibiotic therapy should be effective while we await the final susceptibility data. Continue with local wound care to the lower extremities with Silvadene wrap for now When he is more stable will be taken to the endoscopy suite for evaluation of gastrointestinal bleed Cultures are being monitored, leukocytosis has increased on the bases of significant cellulitis and sepsis in the lower extremities. Current Visit: Yes Status: Acute Code(s): A41.9 - SEPSIS, UNSPECIFIED ORGANISM; R65.21 - SEVERE SEPSIS WITH SEPTIC SHOCK SNOMED Code(s): 71178464 (2) Acute on chronic blood loss anemia Current Visit: Yes Status: Acute Code(s): D60.0 - CHRONIC ACQUIRED PURE RED CELL APLASIA SNOMED Code(s): 461221198 (3) Venous stasis ulcer of both lower extremities without varicose veins Current Visit: Yes Status: Acute Code(s): I87.2 - VENOUS INSUFFICIENCY ( CHRONIC) (PERIPHERAL); L97.919 - NON-PRS CHRONIC ULC UNSP PRT OF R LOW LEG W UNSP SEVERITY; L97.929 - NON-PRS CHRONIC ULC UNSP PRT OF L LOW LEG W UNSP SEVERITY SNOMED Code(s): 824425157
[2017-12-20] MEDS: CEFEPIME 2 GM in SODIUM CHLORIDE 0.9% 50 ML IVPB SCH (20:48)
[2017-12-20] MEDS: SODIUM BICARBONATE TAB 650 MG TAB PO SCH ×2 (22:14→23:06)
[2017-12-20 22:18] LABS: Anisocytosis Slight; HCT 24.5 % (39.0-53.0); HGB 7.6 gm/dL (13.0-17.5); Hypochromasia Marked; MCH 28.5 pg (25.0-35.0); Mean Platelet Volume 8.7; Platelet Count 169 k/uL (150-450); Poikilocytosis Marked; RBC 2.66 m/uL (4.30-5.90); RDW 17.4 % (11.5-15.5); WBC 20.4 k/uL (3.8-10.6)
[2017-12-20 23:15] LABS: Glucose,Whole Blood 180 mg/dL (75-99)
[2017-12-21] MEDS: AMIODARONE 450 MG in DEXTROSE 5% IN WATER 250 ML IV SCH ×4 (01:04→08:00)
[2017-12-21] MEDS: SODIUM CHLORIDE 0.9% 1,000 ML IV SCH ×2 (02:15→08:00)
[2017-12-21 04:23] LABS: Anisocytosis Slight; HCT 23.6 % (39.0-53.0); HGB 7.4 gm/dL (13.0-17.5); Hypochromasia Marked; MCH 29.3 pg (25.0-35.0); MCHC 31.6 g/dL (31.0-37.0); MCV 92.6 fL (80.0-100.0); Mean Platelet Volume 8.6; Platelet Count 162 k/uL (150-450); Poikilocytosis Marked; RBC 2.54 m/uL (4.30-5.90); RDW 17.5 % (11.5-15.5); WBC 18.8 k/uL (3.8-10.6)
[2017-12-21 04:37] LABS: Albumin 2.4 g/dL (3.5-5.0); Calcium 9.4 mg/dL (8.4-10.2); Magnesium 2.4 mg/dL (1.6-2.3); Phosphorus 4.8 mg/dL (2.5-4.5); Potassium 4.1 mmol/L (3.5-5.1); Total Bilirubin 0.8 mg/dL (0.2-1.3); Total Protein 5.3 g/dL (6.3-8.2)
[2017-12-21 05:40] LABS: Glucose,Whole Blood 175 mg/dL (75-99)
[2017-12-21] MEDS: INSULIN ASPART 100 UNIT/ML 1 ML 10 ML VIAL SQ SCH ×3 (05:51→18:08)
[2017-12-21] MEDS: SODIUM BICARBONATE TAB 650 MG TAB PO SCH ×4 (08:03→22:11)
[2017-12-21] MEDS: PANTOPRAZOLE 40 MG/10 ML VIAL IV SCH ×2 (08:03→20:09)
--- NOTE | 2017-12-21 08:16 | XR ---
EXAMINATION TYPE: XR chest 1V portable DATE OF EXAM: 12/21/2017 COMPARISON: Prior chest 12/19/2017 HISTORY: Cardiomegaly TECHNIQUE: Single frontal view of the chest is obtained. FINDINGS: The heart remains enlarged. No pneumothorax evident. There is some blunting of right costo phrenic angle. Pulmonary vascularity and sabine not significantly changed, question some prominence of interstitium. Left clavian central venous catheter is present with the distal tip over the superior v tony cava. IMPRESSION: There may be a component of pulmonary venous hypertension and interstitial edema. Possib le small effusion. Persistent cardiomegaly.
[2017-12-21] MEDS: SILVER sulfADIAZINE Cream 400 GM 1 APPLIC APPLIC TOPICAL SCH ×2 (09:16→20:09)
[2017-12-21] MEDS: LACTATED RINGERS 1,000 ML IV SCH ×2 (10:04→20:08)
--- NOTE | 2017-12-21 10:51 | US ---
EXAMINATION TYPE: US renals and bladder DATE OF EXAM: 12/21/2017 COMPARISON: NONE CLINICAL HISTORY: renal failure. Renal failure, exam done portable in ICU. EXAM MEASUREMENTS: Right Kidney: 9.5 x 3.9 x 4.5 cm Left Kidney: 9.1 x 4.2 x 4.6 cm Right Kidney: 0.7cm hyperechoic focus mid pole, 0.8cm hyperechoic focus superior pole Left Kidney: very limited visualization due to rib shadowing and overlying bowel gas, visualized port ions appear wnl Bladder: not fully distended, garcía catheter Small amount of fluid seen in Morison's pouch Right kidney shows cortical thinning. Left kidney is poorly visualized. No evident hydronephrosis. IMPRESSION: There may be underlying medical renal disease. Difficult to exclude nephrolithiasis or possible angio myolipoma within the right kidney, limitations as described.
[2017-12-21] MEDS: AMIODARONE 200 MG TAB PO SCH ×2 (11:06→20:08)
--- NOTE | 2017-12-21 11:07 | P.PN ---
Subjective Progress Note Date: 12/21/17 Principal diagnosis: Acute septic shock, profound anemia and GI bleeding This is a 67-year-old white male with history of multiple medical problems including chronic atrial fibrillation, COPD, congestive heart failure, diabetes , patient was brought in by his caregiver who is a friend of his, and he has been noticing significant decline in his status. Patient has been very secretive about his overall health condition, does not share his health issues with any of his friends or family members. Apparently he normally sees Dr. Oconnell and has been treated recently with doxycycline for what seems to be significant areas of cellulitis involving both legs. Patient was brought into the ER mostly with chief complaint of altered mental status, and has been noticing dark colored stools for the last 5 weeks. Patient is normally on Naprosyn for gout, and has been taking doxycycline for ulcers involving his legs. The patient himself is a very poor historian, much of the information was obtained from the chart. Upon arrival to the ER, patient was noted to be hypotensive, his lactic acid was elevated, and his hemoglobin was only 4. Patient was given so far at least 4 units of packed RBCs, and his hemoglobin now is 7.8. He was also given significant amount of fluid boluses, and his lactic acid came down from 8-0.8 to this morning. His renal profile is showing slight improvement with BUN coming down from 176-161 and his creatinine coming down from 3.60-3.30. Patient was empirically placed on antibiotics by Dr. Cartagena, and his urine was positive for cocaine. Chest x-ray showed no evidence of active disease. Patient was also noted to have atrial fibrillation with RVR , hypotensive on 20 g of norepinephrine, he was seen by cardiology, and his echocardiogram showed a significantly impaired left ventricle, ejection fraction of less than 20%. His atrial fibrillation is being treated with amiodarone. Nephrology was consulted for his renal failure. The patient himself is a very poor historian, and he seems to be quite slow with definite altered mental status. Patient was reevaluated today on 12/21/2017, seems to be more awake and more appropriate today. Hemodynamically stable, he was earlier on 5 g of norepinephrine, and I would likely discontinue the norepinephrine today since the blood pressure is holding and his main is in the high 70s. Urine output is excellent. Renal functioning is improving. BUN is down to 138 creatinine is down to 2.90 patient continues to have non-anion gap hyperchloremic metabolic acidosis. He is receiving bicarb orally. WBC count is down to 18.8 hemoglobin is holding at 7.4. Had few episodes of coffee-ground emesis, cash surrender calculator following, may consider endoscopy today. Patient is presently nothing by mouth. He did receive a total of 4 units of packed RBCs for low hemoglobin on presentation. Blood cultures are negative so far, however his urine culture was positive for group D enterococcus. And his wound cultures are negative for gram-negative bacilli. Patient is presently on daptomycin and on cefepime which is appropriate coverage for what we have so far. Patient is definitely more appropriate today, and he seems to be oriented 3. Patient was placed on lactated Ringer's at 100 mL/h, continues to have excellent urine output, and he is not developing any congestive heart failure findings although his ejection fraction was noted to be quite low. Ultrasound of the right and left kidney was noted. Seems to be consistent with underlying medical renal disease. Objective - Vital Signs Vital signs: Vital Signs Temp 98.1 F 12/21/17 08:00 Pulse 122 H 12/21/17 10:00 Resp 28 H 12/21/17 10:00 BP 95/63 12/20/17 05:00 Pulse Ox 97 12/21/17 10:00 Intake & Output 12/20/17 12/21/17 12/21/17 18:59 06:59 18:59 Intake Total 2107.108 2272.142 578.226 Output Total 1295 1190 350 Balance 747.429 7382.142 228.226 Weight 74 kg Intake: IV 1650 1999 450 Cefepime 2 gm In Sodium 50 Chloride 0.9% 50 ml @ 100 mls/hr IVPB DAILY@2000 [facility] Rx#:[id number] Sodium Chloride 0.9% 1, 1650 1950 450 000 ml @ 150 mls/hr IV . Q6H40M [facility] Rx#:[id number] Intake, IV Titration 457.108 272.142 128.226 Amount Amiodarone 450 mg In 235.531 121.063 115.509 Dextrose 5% in Water 250 ml @ 1 MG/MIN 33.33 mls/ hr IV .Q7H31M [facility] Rx#: [id number] Norepinephrine 16 mg In 221.577 151.079 12.717 Sodium Chloride 0.9% 250 ml @ Titrate IV .Q0M [facility] Rx#:[id number] Output: Urine 1295 1190 350 Other: Voiding Method Indwelling Catheter Indwelling Catheter Indwelling Catheter ABP, PAP, CO, CI - Last Documented Arterial Blood Pressure 112/71 - Exam GEN. APPEARANCE: Physical exam revealed a 67-year-old male in no distress, more appropriate and less confused today. HEAD EXAM: atraumatic, normocephalic, normal inspection EYE EXAM: Positive for pallor. No icterus. PERRLA, EOMI. ENT EXAM: Mucous membranes dry NECK EXAM: normal inspection. Absent: tenderness, meningismus, full ROM, no evidence of lymphadenopathy. RESPIRATORY EXAM: normal lung sounds bilaterally. Diminished breath sounds at the bases, no crackles or rhonchi or wheezes. CARDIOVASCULAR EXAM: Tachycardia. Normal S1 and S2, regular rhythm. 2/6 systolic murmur throughout the precordium. GI/ABDOMINAL EXAM: soft, normal bowel sounds. Absent: distended, tenderness, guarding, rebound, rigid EXTREMITIES EXAM: Bilateral lower extremities ulcers in various stages of healing , right side worse than left. NEUROLOGICAL EXAM: Alert oriented 3, but seems to be quite slow. - Labs CBC & Chem 7: 12/21/17 04:07 12/21/17 04:07 Labs: Abnormal Lab Results - Last 24 Hours (Table) 12/20/17 12/20/17 12/20/17 Range/Units 11:40 13:54 17:18 WBC 20.2 H (3.8-10.6) k/uL RBC 2.65 L (4.30-5.90) m/uL Hgb 7.7 L (13.0-17.5) gm/dL Hct 24.5 L (39.0-53.0) % RDW 17.1 H (11.5-15.5) % Chloride (98-107) mmol/L Carbon Dioxide (22-30) mmol/L BUN (9-20) mg/dL Creatinine (0.66-1.25) mg/dL Glucose (74-99) mg/dL POC Glucose (mg/dL) 163 H 181 H (75-99) mg/dL Phosphorus (2.5-4.5) mg/dL Magnesium (1.6-2.3) mg/dL Total Protein (6.3-8.2) g/dL Albumin (3.5-5.0) g/dL 12/20/17 12/20/17 12/21/17 Range/Units 22:10 23:14 04:07 WBC 20.4 H (3.8-10.6) k/uL RBC 2.66 L (4.30-5.90) m/uL Hgb 7.6 L (13.0-17.5) gm/dL Hct 24.5 L (39.0-53.0) % RDW 17.4 H (11.5-15.5) % Chloride 122 H* (98-107) mmol/L Carbon Dioxide 13 L (22-30) mmol/L BUN 138 H* (9-20) mg/dL Creatinine 2.90 H (0.66-1.25) mg/dL Glucose 164 H (74-99) mg/dL POC Glucose (mg/dL) 180 H (75-99) mg/dL Phosphorus 4.8 H (2.5-4.5) mg/dL Magnesium 2.4 H (1.6-2.3) mg/dL Total Protein 5.3 L (6.3-8.2) g/dL Albumin 2.4 L (3.5-5.0) g/dL 12/21/17 12/21/17 Range/Units 04:07 05:38 WBC 18.8 H (3.8-10.6) k/uL RBC 2.54 L (4.30-5.90) m/uL Hgb 7.4 L (13.0-17.5) gm/dL Hct 23.6 L (39.0-53.0) % RDW 17.5 H (11.5-15.5) % Chloride (98-107) mmol/L Carbon Dioxide (22-30) mmol/L BUN (9-20) mg/dL Creatinine (0.66-1.25) mg/dL Glucose (74-99) mg/dL POC Glucose (mg/dL) 175 H (75-99) mg/dL Phosphorus (2.5-4.5) mg/dL Magnesium (1.6-2.3) mg/dL Total Protein (6.3-8.2) g/dL Albumin (3.5-5.0) g/dL Microbiology - Last 24 Hours (Table) 12/19/17 11:50 Blood Culture - Preliminary Blood No Growth after 24 hours 12/19/17 12:07 Urine Culture - Preliminary Urine,Catheterized Group D Enterococcus 12/19/17 11:48 Gram Stain - Preliminary Foot - Right Wound Culture - Preliminary Gram Neg Bacilli Assessment and Plan Assessment: Impression: 1 acute septic shock, most likely source is his cellulitis. Could also be from urinary tract infection secondary to group D enterococcus. 2 chronic cellulitis, and lower extremities ulcers, cultures positive for gram- negative bacilli. Final culture is pending. 3 acute non-anion gap hyperchloremic metabolic acidosis secondary to sepsis. And secondary to septic shock. 4 acute kidney injury secondary to sepsis and suspect acute tubular necrosis. Renal functioning seems to be steadily improving. 5 severe cardiomyopathy and LV dysfunction 6 atrial fibrillation with RVR, rate seems to be better controlled, and the patient is hemodynamically stable, will discontinue norepinephrine today. 7 acute GI bleeding, likely upper GI in nature secondary to gastritis or gastric ulcer disease most likely secondary to Naprosyn. And the use of nonsteroidal anti-inflammatory drugs. 8 history of diabetes. Recommendation: Continue present supportive care measures, including antibiotics , will discontinue pressors, continue GI and DVT prophylaxis, patient will need to remain in the ICU today, gastroenterology to address his anemia and GI bleeding we'll address his diet once GI evaluates the patient. Patient remains critically ill, and we will continue to monitor in the ICU. Critical care time is 35 minutes. Time with Patient: Greater than 30
[2017-12-21 12:01] LABS: Glucose,Whole Blood 130 mg/dL (75-99)
--- NOTE | 2017-12-21 14:41 | CDI ---
Last Revision, March 2017 Documentation Clarification Form Date: 12/21/2017 2:28:41 PM From: Davina Phan RN, CCDS Admit Date: 12/19/2017 3:29:00 PM Patient Name: Juancarlos Miller Visit Number: [id number] ATTENTION: The Clinical Documentation Specialists (CDI) and [facility] Coding Staff appreciate your assistance in clarifying documentation. Please respond to the clarification below the line at the bottom and electronically sign. The CDI & [facility] Coding staff will review the response and follow-up if needed. Please note: Queries are made part of the Legal Health Record. If you have any questions, please contact the author of this message via ITS. Tommy Bell MD History/Risk Factors: a/c blood loss anemia, chronic bilateral lower extremity pressure ulcers, DM, CHF, Sepsis w/ septic shock this admission Clinical Indicators: 12/20 ID Consult and progress note: "Patient does have some laboratories from earlier this month the reveal evidence of hemoglobin 11.7 and a creatinine as low as 2.05 Consequently there is evidence of acute on chronic renal failure at this time." Current BUN: 176/161/138 CR: 3.6/3.3/2.9 GFR: / Patients Baseline: BUN: 116 CR: 4.9 GFR: 12 Treatment: D5W w/ HCO3 @ 150 cc/hr LR @ 100 cc/hr Norepinephrine gtt titrate for B/P 4.5L IVF Bolus In order to capture the severity of condition, please clarify if the condition signifies: CKD Stage 1 (GFR > 90) CKD Stage 2 (GFR 60-89) CKD Stage 3 (GFR 30-59) CKD Stage 4 (GFR 15-29) CKD Stage 5 (GFR <15) ESRD Other, please specify Unable to determine Please continue to document in your progress notes and discharge summary in order to capture severity of illness and risk of mortality. Include clinical findings that support your diagnosis. MTDD
--- NOTE | 2017-12-21 14:47 | PN ---
PROGRESS NOTE Patient is seen for followup for acute kidney injury. His renal function has improved significantly with creatinine going down to 2.9 from 4.2 on initial admission. The patient remains acidotic, however, it is improved with bicarb up to 13 from 8 on initial admission. PHYSICAL EXAMINATION: On examination today, blood pressure is 106/68, heart rate 125 per minute. He is afebrile. Examination of the heart: S1, S2. Examination of the lungs: Bilateral breath sounds are heard. Abdomen is soft, nontender. Examination lower extremity shows trace edema bilaterally. LAB: Show sodium 145, potassium 4.1, chloride 122, CO2 is 13, BUN 138, serum creatinine 2.9, hemoglobin 7.4 g/dL. ASSESSMENT: 1. Acute kidney injury, currently improving. The patient is nonoliguric. Etiology was hypotension hypoperfusion. 2. CKD, likely secondary to underlying nephrosclerosis. 3. Atrial fibrillation. Amiodarone drip is currently on hold. The patient will be switched to p.o. 4. Severe metabolic acidosis secondary to renal failure and lactic acidosis, currently on oral sodium bicarb, which we can change to IV bicarb if his acidosis is not better tomorrow. 5. Hypotension, currently improved off of pressors. PLAN: Continue with oral sodium bicarb, to be switched to IV bicarb tomorrow if not improved. Continue with IV fluids of lactated Ringer's. MMODL / IJN: [id number] /
--- NOTE | 2017-12-21 15:22 | P.PN ---
Subjective Progress Note Date: 12/21/17 This is a 67-year-old gentleman with known cardiomyopathy and congestive heart failure who was admitted with a severe anemia, possible sepsis and infected ulcers in the leg. Patient received blood transfusions and was on vasopressors. His blood pressure stabilized around 100. Patient is also in atrial fibrillation with rapid ventricular response. Patient is on amiodarone therapy IV. We will switch to by mouth amiodarone and start him on small dose of beta patrice. His urine output is fair. He is being treated for infection with antibiotics. We'll continue current medical therapy. Prognosis is guarded Objective - Vital Signs Vital signs: Vital Signs Temp 98.2 F 12/21/17 12:00 Pulse 125 H 12/21/17 13:00 Resp 25 H 12/21/17 13:00 BP 95/63 12/20/17 05:00 Pulse Ox 94 L 12/21/17 13:00 Intake & Output 12/20/17 12/21/17 12/21/17 18:59 06:59 18:59 Intake Total 2107.108 2272.142 878.226 Output Total 1295 1190 655 Balance 468.597 4596.142 223.226 Weight 74 kg Intake: IV 1650 1999 450 Cefepime 2 gm In Sodium 50 Chloride 0.9% 50 ml @ 100 mls/hr IVPB DAILY@2000 [facility] Rx#:[id number] Sodium Chloride 0.9% 1, 1650 1950 450 000 ml @ 150 mls/hr IV . Q6H40M [facility] Rx#:[id number] Intake, IV Titration 457.108 272.142 428.226 Amount Amiodarone 450 mg In 235.531 121.063 115.509 Dextrose 5% in Water 250 ml @ 1 MG/MIN 33.33 mls/ hr IV .Q7H31M [facility] Rx#: [id number] Lactated Ringers 1,000 ml 300 @ 100 mls/hr IV .Q10H [facility] Rx#:[id number] Norepinephrine 16 mg In 221.577 151.079 12.717 Sodium Chloride 0.9% 250 ml @ Titrate IV .Q0M [facility] Rx#:[id number] Output: Urine 1295 1190 655 Other: Voiding Method Indwelling Catheter Indwelling Catheter Indwelling Catheter ABP, PAP, CO, CI - Last Documented Arterial Blood Pressure 106/68 - Exam GENERAL EXAM: Patient is alert but weak and lethargic HEENT: Normocephalic. Normal reaction of pupils, equal size, normal range of extraocular motion. No erythema or exudates in the throat. NECK: No masses, no nuchal rigidity. CHEST: No chest wall deformity. LUNGS: Diminished breath sounds at bases HEART: S1 and S2 normal. Irregular heart sounds ABDOMEN: No hepatosplenomegaly, normal bowel sounds, no guarding or rigidity. SKIN: No rashes CENTRAL NERVOUS SYSTEM: Deferred EXTREMITIES: No cyanosis, clubbing or edema. - Labs CBC & Chem 7: 12/21/17 04:07 12/21/17 04:07 Labs: Abnormal Lab Results - Last 24 Hours (Table) 12/20/17 12/20/17 12/20/17 Range/Units 17:18 22:10 23:14 WBC 20.4 H (3.8-10.6) k/uL RBC 2.66 L (4.30-5.90) m/uL Hgb 7.6 L (13.0-17.5) gm/dL Hct 24.5 L (39.0-53.0) % RDW 17.4 H (11.5-15.5) % Chloride (98-107) mmol/L Carbon Dioxide (22-30) mmol/L BUN (9-20) mg/dL Creatinine (0.66-1.25) mg/dL Glucose (74-99) mg/dL POC Glucose (mg/dL) 181 H 180 H (75-99) mg/dL Phosphorus (2.5-4.5) mg/dL Magnesium (1.6-2.3) mg/dL Total Protein (6.3-8.2) g/dL Albumin (3.5-5.0) g/dL 12/21/17 12/21/17 12/21/17 Range/Units 04:07 04:07 05:38 WBC 18.8 H (3.8-10.6) k/uL RBC 2.54 L (4.30-5.90) m/uL Hgb 7.4 L (13.0-17.5) gm/dL Hct 23.6 L (39.0-53.0) % RDW 17.5 H (11.5-15.5) % Chloride 122 H* (98-107) mmol/L Carbon Dioxide 13 L (22-30) mmol/L BUN 138 H* (9-20) mg/dL Creatinine 2.90 H (0.66-1.25) mg/dL Glucose 164 H (74-99) mg/dL POC Glucose (mg/dL) 175 H (75-99) mg/dL Phosphorus 4.8 H (2.5-4.5) mg/dL Magnesium 2.4 H (1.6-2.3) mg/dL Total Protein 5.3 L (6.3-8.2) g/dL Albumin 2.4 L (3.5-5.0) g/dL 12/21/17 Range/Units 12:00 WBC (3.8-10.6) k/uL RBC (4.30-5.90) m/uL Hgb (13.0-17.5) gm/dL Hct (39.0-53.0) % RDW (11.5-15.5) % Chloride (98-107) mmol/L Carbon Dioxide (22-30) mmol/L BUN (9-20) mg/dL Creatinine (0.66-1.25) mg/dL Glucose (74-99) mg/dL POC Glucose (mg/dL) 130 H (75-99) mg/dL Phosphorus (2.5-4.5) mg/dL Magnesium (1.6-2.3) mg/dL Total Protein (6.3-8.2) g/dL Albumin (3.5-5.0) g/dL Microbiology - Last 24 Hours (Table) 12/19/17 11:48 Gram Stain - Final Foot - Right Wound Culture - Final 12/19/17 11:50 Blood Culture - Preliminary Blood No Growth after 48 hours 12/19/17 12:07 Urine Culture - Preliminary Urine,Catheterized Group D Enterococcus Assessment and Plan (1) Atrial fibrillation with RVR Current Visit: Yes Status: Acute Code(s): I48.91 - UNSPECIFIED ATRIAL FIBRILLATION SNOMED Code(s): 206587384654087 (2) Acute on chronic blood loss anemia Current Visit: Yes Status: Acute Code(s): D60.0 - CHRONIC ACQUIRED PURE RED CELL APLASIA SNOMED Code(s): 055481693 (3) Acute renal failure Current Visit: Yes Status: Acute Code(s): N17.9 - ACUTE KIDNEY FAILURE, UNSPECIFIED SNOMED Code(s): 65167398 (4) GI hemorrhage Current Visit: Yes Status: Acute Code(s): K92.2 - GASTROINTESTINAL HEMORRHAGE, UNSPECIFIED SNOMED Code(s): 61008330 (5) Venous stasis ulcer of both lower extremities without varicose veins Current Visit: Yes Status: Acute Code(s): I87.2 - VENOUS INSUFFICIENCY ( CHRONIC) (PERIPHERAL); L97.919 - NON-PRS CHRONIC ULC UNSP PRT OF R LOW LEG W UNSP SEVERITY; L97.929 - NON-PRS CHRONIC ULC UNSP PRT OF L LOW LEG W UNSP SEVERITY SNOMED Code(s): 050422219 (6) Cardiomyopathy Current Visit: Yes Status: Acute Code(s): I42.9 - CARDIOMYOPATHY, UNSPECIFIED SNOMED Code(s): 94907221 (7) Chronic systolic CHF (congestive heart failure) Current Visit: Yes Status: Acute Code(s): I50.22 - CHRONIC SYSTOLIC ( CONGESTIVE) HEART FAILURE SNOMED Code(s): 909813101 Plan: Continue with current management. Change to by mouth amiodarone. Had have by mouth beta patrice. Increase the dose as tolerated. Continue current antibiotics
[2017-12-21 17:54] LABS: Glucose,Whole Blood 159 mg/dL (75-99)
[2017-12-21] MEDS: CEFEPIME 2 GM in SODIUM CHLORIDE 0.9% 50 ML IVPB SCH (20:08)
[2017-12-21] MEDS: METOPROLOL TARTRATE 12.5 MG TAB PO SCH (20:08)
--- NOTE | 2017-12-21 20:23 | PN ---
PROGRESS NOTE DATE OF SERVICE: 12/20/2017 CHIEF COMPLAINT: Septic shock, renal failure, congestive heart failure, cardiomyopathy. HISTORY OF PRESENT ILLNESS: This gentleman remains in critical condition. He is lethargic and mentation is not clear. He has no focal neurologic deficits. PHYSICAL EXAM: Blood pressure is 108/56 with a pulse of 136 and irregularly irregular. BUN is under 76. He is pale. Breath sounds are heard bilaterally. He has a irregularly irregular tachycardia and extremities are dressed. IMPRESSION: 1. Septic shock. 2. Cardiomyopathy. 3. Alcoholism. 4. Chronic renal failure. 5. Infected ulcerations of lower extremities. PLAN: Continue to follow with Renal, Infectious Disease and Intensive Medicine. MMODL / IJN: [id number] /
--- NOTE | 2017-12-21 20:29 | PN ---
PROGRESS NOTE DATE OF SERVICE: 12/21/2017. CHIEF COMPLAINT: Septic shock, renal failure, cardiomyopathy with congestive heart failure, alcoholism and history of drug abuse. HISTORY OF PRESENT ILLNESS: This gentleman is remains more or less stable. He is still being followed by Med Renal. He is still somewhat lethargic. PHYSICAL EXAM: Breath sounds are heard on both sides. Cardiac exam demonstrates atrial fibrillation with rapid ventricular response. Abdomen is soft. Extremities are still dressed. IMPRESSION: 1. Septic shock. 2. Renal failure. 3. Encephalopathy. 4. Alcoholism. 5. Cardiomyopathy. 6. Congestive heart failure. 7. History of substance abuse. PLAN: Continue with supportive care. The prognosis is poor. MMODL / IJN: [id number] /
--- NOTE | 2017-12-21 23:43 | P.PN ---
Subjective Progress Note Date: 12/21/17 Principal diagnosis: Hematemesis, anemia, melena No melena reported per nursing staff. The patient has been able to tolerate liquids. No abdominal pain reported. The patient's tachycardia has improved. The patient is no longer requiring pressor support. Objective - Vital Signs Vital signs: Vital Signs Temp 97.5 F L 12/21/17 20:00 Pulse 86 12/21/17 22:00 Resp 23 12/21/17 22:00 BP 95/63 12/20/17 05:00 Pulse Ox 95 12/21/17 22:00 Intake & Output 12/21/17 12/21/17 12/22/17 06:59 18:59 06:59 Intake Total 2272.142 1478.226 300 Output Total 1190 1035 225 Balance 1082.142 443.226 75 Weight 74 kg Intake: IV 2000 450 300 Cefepime 2 gm In Sodium 50 100 Chloride 0.9% 50 ml @ 100 mls/hr IVPB DAILY@1999 [facility] Rx#:[id number] Lactated Ringers 1,000 ml 200 @ 100 mls/hr IV .Q10H [facility] Rx#:[id number] Sodium Chloride 0.9% 1, 1950 450 000 ml @ 150 mls/hr IV . Q6H40M [facility] Rx#:[id number] Intake, IV Titration 312.575 9725.226 Amount Amiodarone 450 mg In 121.063 115.509 Dextrose 5% in Water 250 ml @ 1 MG/MIN 33.33 mls/ hr IV .Q7H31M [facility] Rx#: [id number] Lactated Ringers 1,000 ml 900 @ 100 mls/hr IV .Q10H [facility] Rx#:[id number] Norepinephrine 16 mg In 151.079 12.717 Sodium Chloride 0.9% 250 ml @ Titrate IV .Q0M [facility] Rx#:[id number] Output: Urine 1190 1035 225 Other: Voiding Method Indwelling Catheter Indwelling Catheter Indwelling Catheter # Bowel Movements 1 ABP, PAP, CO, CI - Last Documented Arterial Blood Pressure 96/59 - Exam Constitutional: Lying in bed in no apparent distress Head: normocephalic/atraumatic Eyes: No icterus, no injection Mouth: Moist mucous membranes, poor dentition Nose: No discharge noted Neck: Trachea midline Lungs: Normal air entry in all lung hooker, no wheezing appreciated Abdomen: Soft, nontender, nondistended, normal bowel sounds. No guarding or rigidity Skin: No jaundice, bilateral wrappings of leg secondary to ulcerations Neuro: Awake alert, no focal deficits - Labs CBC & Chem 7: 12/21/17 04:07 12/21/17 04:07 Labs: Abnormal Lab Results - Last 24 Hours (Table) 12/21/17 12/21/17 12/21/17 Range/Units 04:07 04:07 05:38 WBC 18.8 H (3.8-10.6) k/uL RBC 2.54 L (4.30-5.90) m/uL Hgb 7.4 L (13.0-17.5) gm/dL Hct 23.6 L (39.0-53.0) % RDW 17.5 H (11.5-15.5) % Chloride 122 H* (98-107) mmol/L Carbon Dioxide 13 L (22-30) mmol/L BUN 138 H* (9-20) mg/dL Creatinine 2.90 H (0.66-1.25) mg/dL Glucose 164 H (74-99) mg/dL POC Glucose (mg/dL) 175 H (75-99) mg/dL Phosphorus 4.8 H (2.5-4.5) mg/dL Magnesium 2.4 H (1.6-2.3) mg/dL Total Protein 5.3 L (6.3-8.2) g/dL Albumin 2.4 L (3.5-5.0) g/dL 12/21/17 12/21/17 Range/Units 12:00 17:53 WBC (3.8-10.6) k/uL RBC (4.30-5.90) m/uL Hgb (13.0-17.5) gm/dL Hct (39.0-53.0) % RDW (11.5-15.5) % Chloride (98-107) mmol/L Carbon Dioxide (22-30) mmol/L BUN (9-20) mg/dL Creatinine (0.66-1.25) mg/dL Glucose (74-99) mg/dL POC Glucose (mg/dL) 130 H 159 H (75-99) mg/dL Phosphorus (2.5-4.5) mg/dL Magnesium (1.6-2.3) mg/dL Total Protein (6.3-8.2) g/dL Albumin (3.5-5.0) g/dL Microbiology - Last 24 Hours (Table) 12/19/17 12:07 Urine Culture - Final Urine,Catheterized Enterococcus faecalis 12/19/17 11:48 Gram Stain - Final Foot - Right Wound Culture - Final 12/19/17 11:50 Blood Culture - Preliminary Blood No Growth after 48 hours Assessment and Plan (1) GI hemorrhage Narrative/Plan: Patient presenting with altered mental status found to be anemic with a hemoglobin of 4 on presentation subsequently transfused to 7.6 and stable today at 7.8. The patient had FOBT positive, and reports dark stools over the past few weeks. In addition after admission to ICU he had 1 episode of hematemesis. No further episodes of hematemesis, coffee-ground emesis or vomiting. The patient has not had a bowel movement today. Hemoglobin has been stable. Current Visit: Yes Status: Acute Code(s): K92.2 - GASTROINTESTINAL HEMORRHAGE, UNSPECIFIED SNOMED Code(s): 83985799 (2) Normocytic anemia Narrative/Plan: Likely multifactorial secondary to anemia of chronic disease and blood loss. Current Visit: Yes Status: Acute Code(s): D64.9 - ANEMIA, UNSPECIFIED SNOMED Code(s): 177637325 Plan: Supportive care Continue ICU management Continue IV Protonix Okay for liquid diet Appreciate recommendations from nephrology and cardiology Continue to monitor hemoglobin every 12 hours and transfuse as needed Plan on endoscopic evaluation when patient is stable from a cardiac and medical standpoint Thank you for allowing us to participate in the care of this patient, we will continue to follow
[2017-12-21 23:48] LABS: Glucose,Whole Blood 157 mg/dL (75-99)
[2017-12-22] MEDS: INSULIN ASPART 100 UNIT/ML 1 ML 10 ML VIAL SQ SCH ×5 (00:57→23:43)
[2017-12-22 04:50] LABS: Albumin 2.2 g/dL (3.5-5.0); Calcium 9.1 mg/dL (8.4-10.2); Magnesium 2.5 mg/dL (1.6-2.3); Phosphorus 3.7 mg/dL (2.5-4.5); Total Bilirubin 0.7 mg/dL (0.2-1.3)
[2017-12-22 04:51] LABS: Anisocytosis Slight; Hypochromasia Marked; MCV 96.7 fL (80.0-100.0); Macrocytosis Slight; Mean Platelet Volume 8.4; Platelet Count 142 k/uL (150-450); Poikilocytosis Moderate; RBC 2.38 m/uL (4.30-5.90); RDW 18.5 % (11.5-15.5); WBC 15.1 k/uL (3.8-10.6)
[2017-12-22 04:53] LABS: HGB 6.9 gm/dL (13.0-17.5)
[2017-12-22] MEDS: LACTATED RINGERS 1,000 ML IV SCH (05:45)
[2017-12-22 06:39] LABS: Glucose,Whole Blood 115 mg/dL (75-99)
[2017-12-22] MEDS: DAPTOmycin 500 MG in SODIUM CHLORIDE 0.9% 50 ML IVPB SCH (06:55)
--- NOTE | 2017-12-22 07:48 | XR ---
EXAMINATION TYPE: XR chest 1V portable DATE OF EXAM: 12/22/2017 COMPARISON: 12/21/2017 HISTORY: Cardiomegaly, cardiac workup TECHNIQUE: Single frontal view of the chest is obtained. FINDINGS: Heart remains enlarged. Pulmonary vascularity and sabine not significantly changed. Left sub clavian central venous catheter shows the distal tip over the superior vena cava. No evident pneumoth orax or pleural effusion, there are overlying cardiac leads. No focal airspace disease. IMPRESSION: Stable cardiomegaly.
[2017-12-22] MEDS: DEXTROSE 5% IN WATER 1,000 ML with SODIUM BICARB (1 MEQ/ML) 100 ML IV SCH ×3 (08:45→23:25)
[2017-12-22] MEDS: SODIUM BICARBONATE TAB 650 MG TAB PO SCH ×4 (08:45→22:41)
[2017-12-22] MEDS: METOPROLOL TARTRATE 12.5 MG TAB PO SCH ×2 (08:45→20:28)
[2017-12-22] MEDS: AMIODARONE 200 MG TAB PO SCH ×2 (08:46→20:28)
[2017-12-22] MEDS: PANTOPRAZOLE 40 MG/10 ML VIAL IV SCH ×2 (08:46→20:23)
--- NOTE | 2017-12-22 11:18 | CDI ---
Last Revision, March 2017 Documentation Clarification Form 2nd Request Date: 12/21/2017 2:28:41 PM From: Davina Phan RN, CCDS Admit Date: 12/19/2017 3:29:00 PM Patient Name: Juancarlos Miller Visit Number: [id number] ATTENTION: The Clinical Documentation Specialists (CDI) and [employer] Coding Staff appreciate your assistance in clarifying documentation. Please respond to the clarification below the line at the bottom and electronically sign. The CDI & [employer] Coding staff will review the response and follow-up if needed. Please note: Queries are made part of the Legal Health Record. If you have any questions, please contact the author of this message via ITS. Tommy Bell MD History/Risk Factors: a/c blood loss anemia, chronic bilateral lower extremity pressure ulcers, DM, CHF, Sepsis w/ septic shock this admission Clinical Indicators: 12/20 ID Consult and progress note: "Patient does have some laboratories from earlier this month the reveal evidence of hemoglobin 11.7 and a creatinine as low as 2.05 Consequently there is evidence of acute on chronic renal failure at this time." Current BUN: 176/161/138 CR: 3.6/3.3/2.9 GFR: // Patients Baseline: BUN: 116 CR: 4.9 GFR: 12 Treatment: D5W w/ HCO3 @ 150 cc/hr LR @ 100 cc/hr Norepinephrine Gtt titrate for B/P 4.5L IVF Bolus In order to capture the severity of condition, please clarify if the condition signifies: CKD Stage 1 (GFR > 90) CKD Stage 2 (GFR 60-89) CKD Stage 3 (GFR 30-59) CKD Stage 4 (GFR 15-29) CKD Stage 5 (GFR <15) ESRD Other, please specify Unable to determine Please continue to document in your progress notes and discharge summary in order to capture severity of illness and risk of mortality. Include clinical findings that support your diagnosis. MTDD
--- NOTE | 2017-12-22 11:30 | P.PN ---
Subjective Progress Note Date: 12/22/17 Principal diagnosis: Acute septic shock, profound anemia and GI bleeding This is a 67-year-old white male with history of multiple medical problems including chronic atrial fibrillation, COPD, congestive heart failure, diabetes , patient was brought in by his caregiver who is a friend of his, and he has been noticing significant decline in his status. Patient has been very secretive about his overall health condition, does not share his health issues with any of his friends or family members. Apparently he normally sees Dr. Oconnell and has been treated recently with doxycycline for what seems to be significant areas of cellulitis involving both legs. Patient was brought into the ER mostly with chief complaint of altered mental status, and has been noticing dark colored stools for the last 5 weeks. Patient is normally on Naprosyn for gout, and has been taking doxycycline for ulcers involving his legs. The patient himself is a very poor historian, much of the information was obtained from the chart. Upon arrival to the ER, patient was noted to be hypotensive, his lactic acid was elevated, and his hemoglobin was only 4. Patient was given so far at least 4 units of packed RBCs, and his hemoglobin now is 7.8. He was also given significant amount of fluid boluses, and his lactic acid came down from 8-0.8 to this morning. His renal profile is showing slight improvement with BUN coming down from 176-161 and his creatinine coming down from 3.60-3.30. Patient was empirically placed on antibiotics by Dr. Cartagena, and his urine was positive for cocaine. Chest x-ray showed no evidence of active disease. Patient was also noted to have atrial fibrillation with RVR , hypotensive on 20 g of norepinephrine, he was seen by cardiology, and his echocardiogram showed a significantly impaired left ventricle, ejection fraction of less than 20%. His atrial fibrillation is being treated with amiodarone. Nephrology was consulted for his renal failure. The patient himself is a very poor historian, and he seems to be quite slow with definite altered mental status. Patient was reevaluated today on 12/21/2017, seems to be more awake and more appropriate today. Hemodynamically stable, he was earlier on 5 g of norepinephrine, and I would likely discontinue the norepinephrine today since the blood pressure is holding and his main is in the high 70s. Urine output is excellent. Renal functioning is improving. BUN is down to 138 creatinine is down to 2.90 patient continues to have non-anion gap hyperchloremic metabolic acidosis. He is receiving bicarb orally. WBC count is down to 18.8 hemoglobin is holding at 7.4. Had few episodes of coffee-ground emesis, mileage clerk following, may consider endoscopy today. Patient is presently nothing by mouth. He did receive a total of 4 units of packed RBCs for low hemoglobin on presentation. Blood cultures are negative so far, however his urine culture was positive for group D enterococcus. And his wound cultures are negative for gram-negative bacilli. Patient is presently on daptomycin and on cefepime which is appropriate coverage for what we have so far. Patient is definitely more appropriate today, and he seems to be oriented 3. Patient was placed on lactated Ringer's at 100 mL/h, continues to have excellent urine output, and he is not developing any congestive heart failure findings although his ejection fraction was noted to be quite low. Ultrasound of the right and left kidney was noted. Seems to be consistent with underlying medical renal disease. On 12/22/2017, patient is basically about the same, however we have noticed a drop in his hemoglobin today, and the patient is now receiving a fifth unit of packed RBCs since admission. Hemoglobin this morning was 6.9, gastroenterology is planning EGD on this patient sometime today. Patient is complaining of being thirsty, otherwise he denies any specific complaints. No nausea no vomiting no abdominal pain no chest pain no shortness of breath. All his labs were reviewed, sodium is elevated, 149, potassium is 4.0 bicarb remains low at 15, BUN is improving down to 110 and creatinine is down to 2.30, and that is all being addressed by nephrology on the case. Objective - Vital Signs Vital signs: Vital Signs Temp 97.5 F L 12/22/17 09:59 Pulse 107 H 12/22/17 11:00 Resp 42 H 12/22/17 11:00 BP 90/68 12/22/17 11:00 Pulse Ox 95 12/22/17 07:00 Intake & Output 12/21/17 12/22/17 12/22/17 18:59 06:59 18:59 Intake Total 8399.711 5723 550 Output Total 1035 1170 680 Balance 443.226 30 -130 Weight 75 kg Intake: IV 450 1200 550 Blood 200 Cefepime 2 gm In Sodium 100 Chloride 0.9% 50 ml @ 100 mls/hr IVPB DAILY@2000 [facility] Rx#:[id number] DAPTOmycin 500 mg In 50 Sodium Chloride 0.9% 50 ml @ 100 mls/hr IVPB Q48H [facility] Rx#:[id number] Lactated Ringers 1,000 ml 1100 300 @ 100 mls/hr IV .Q10H [facility] Rx#:[id number] Sodium Chloride 0.9% 1, 450 000 ml @ 150 mls/hr IV . Q6H40M [facility] Rx#:[id number] Intake, IV Titration 1028.226 Amount Amiodarone 450 mg In 115.509 Dextrose 5% in Water 250 ml @ 1 MG/MIN 33.33 mls/ hr IV .Q7H31M [facility] Rx#: [id number] Lactated Ringers 1,000 ml 900 @ 100 mls/hr IV .Q10H [facility] Rx#:[id number] Norepinephrine 16 mg In 12.717 Sodium Chloride 0.9% 250 ml @ Titrate IV .Q0M [facility] Rx#:[id number] Blood Product 0 Rc As-3 Unit 0 [id number] Output: Urine 1035 1170 680 Other: Voiding Method Indwelling Catheter Indwelling Catheter Indwelling Catheter # Bowel Movements 1 ABP, PAP, CO, CI - Last Documented Arterial Blood Pressure 107/71 - Exam GEN. APPEARANCE: Physical exam revealed a 67-year-old male in no distress, appropriate, complaining of being thirsty. HEAD EXAM: atraumatic, normocephalic, normal inspection EYE EXAM: Positive for pallor. No icterus. PERRLA, EOMI. ENT EXAM: Mucous membranes dry NECK EXAM: normal inspection. Absent: tenderness, meningismus, full ROM, no evidence of lymphadenopathy. RESPIRATORY EXAM: normal lung sounds bilaterally. Diminished breath sounds at the bases, no crackles or rhonchi or wheezes. CARDIOVASCULAR EXAM: Tachycardia. Normal S1 and S2, regular rhythm. 2/6 systolic murmur throughout the precordium. GI/ABDOMINAL EXAM: soft, normal bowel sounds. Absent: distended, tenderness, guarding, rebound, rigid EXTREMITIES EXAM: Bilateral lower extremities ulcers in various stages of healing , right side worse than left. All wrapped with sterile dressings. NEUROLOGICAL EXAM: Alert oriented 3, but seems to be quite slow. - Labs CBC & Chem 7: 12/22/17 04:35 12/22/17 04:35 Labs: Abnormal Lab Results - Last 24 Hours (Table) 12/19/17 12/21/17 12/21/17 Range/Units 11:50 12:00 17:53 WBC (3.8-10.6) k/uL RBC (4.30-5.90) m/uL Hgb (13.0-17.5) gm/dL Hct (39.0-53.0) % MCHC (31.0-37.0) g/dL RDW (11.5-15.5) % Plt Count (150-450) k/uL Sodium (137-145) mmol/L Chloride (98-107) mmol/L Carbon Dioxide (22-30) mmol/L BUN (9-20) mg/dL Creatinine (0.66-1.25) mg/dL Glucose (74-99) mg/dL POC Glucose (mg/dL) 130 H 159 H (75-99) mg/dL Magnesium (1.6-2.3) mg/dL Total Protein (6.3-8.2) g/dL Albumin (3.5-5.0) g/dL Crossmatch See Detail 12/21/17 12/22/17 12/22/17 Range/Units 23:45 04:35 04:35 WBC 15.1 H (3.8-10.6) k/uL RBC 2.38 L (4.30-5.90) m/uL Hgb 6.9 L* (13.0-17.5) gm/dL Hct 23.0 L (39.0-53.0) % MCHC 30.0 L (31.0-37.0) g/dL RDW 18.5 H (11.5-15.5) % Plt Count 142 L (150-450) k/uL Sodium 149 H (137-145) mmol/L Chloride 126 H* (98-107) mmol/L Carbon Dioxide 15 L (22-30) mmol/L BUN 110 H* (9-20) mg/dL Creatinine 2.30 H (0.66-1.25) mg/dL Glucose 108 H (74-99) mg/dL POC Glucose (mg/dL) 157 H (75-99) mg/dL Magnesium 2.5 H (1.6-2.3) mg/dL Total Protein 5.0 L (6.3-8.2) g/dL Albumin 2.2 L (3.5-5.0) g/dL Crossmatch 12/22/17 Range/Units 06:37 WBC (3.8-10.6) k/uL RBC (4.30-5.90) m/uL Hgb (13.0-17.5) gm/dL Hct (39.0-53.0) % MCHC (31.0-37.0) g/dL RDW (11.5-15.5) % Plt Count (150-450) k/uL Sodium (137-145) mmol/L Chloride (98-107) mmol/L Carbon Dioxide (22-30) mmol/L BUN (9-20) mg/dL Creatinine (0.66-1.25) mg/dL Glucose (74-99) mg/dL POC Glucose (mg/dL) 115 H (75-99) mg/dL Magnesium (1.6-2.3) mg/dL Total Protein (6.3-8.2) g/dL Albumin (3.5-5.0) g/dL Crossmatch Microbiology - Last 24 Hours (Table) 12/19/17 12:07 Urine Culture - Final Urine,Catheterized Enterococcus faecalis 12/19/17 11:48 Gram Stain - Final Foot - Right Wound Culture - Final 12/19/17 11:50 Blood Culture - Preliminary Blood No Growth after 48 hours Assessment and Plan Assessment: Impression: 1 acute septic shock, most likely source is his cellulitis. Could also be from urinary tract infection secondary to group D enterococcus. 2 chronic cellulitis, and lower extremities ulcers, cultures are nondiagnostic since there was evidence of multi-microbial growth. 3 acute non-anion gap hyperchloremic metabolic acidosis secondary to sepsis. And secondary to septic shock. 4 acute kidney injury secondary to sepsis and suspect acute tubular necrosis. Renal functioning seems to be steadily improving. 5 severe cardiomyopathy and LV dysfunction 6 atrial fibrillation with RVR, rate seems to be better controlled, and the patient is hemodynamically stable, off norepinephrine 7 acute GI bleeding, likely upper GI in nature secondary to gastritis or gastric ulcer disease most likely secondary to Naprosyn. And the use of nonsteroidal anti-inflammatory drugs. 8 history of diabetes. Recommendation: Continue present supportive care measures, including antibiotics , continue GI and DVT prophylaxis, patient will need to remain in the ICU today , gastroenterology to address his anemia and GI bleeding we'll address his diet once GI evaluates the patient. Patient remains critically ill, and we will continue to monitor in the ICU. At least for today, and based on the GI findings, further recommendations will follow. Time with Patient: Less than 30
[2017-12-22] MEDS: SILVER sulfADIAZINE Cream 400 GM 1 APPLIC APPLIC TOPICAL SCH (11:48)
[2017-12-22 12:04] LABS: Glucose,Whole Blood 98 mg/dL (75-99)
--- NOTE | 2017-12-22 12:14 | P.PN ---
Subjective Progress Note Date: 12/22/17 This is a 67-year-old gentleman with known cardiomyopathy and congestive heart failure who was admitted with a severe anemia, possible sepsis and infected ulcers in the leg. Patient received blood transfusions and was on vasopressors. His blood pressure stabilized around 100. Patient is also in atrial fibrillation with rapid ventricular response. Patient is on amiodarone therapy IV. We will switch to by mouth amiodarone and start him on small dose of beta patrice. His urine output is fair. He is being treated for infection with antibiotics. We'll continue current medical therapy. Prognosis is guarded. 12/22/2017:. Patient seemed to be hemodynamically more stable. He is off pressors and maintaining a systolic blood pressure performed 100. Heart rate is in the 90s. He is on by mouth amiodarone and also small dose of beta patrice. His urine output is fair. She is going to have upper endoscopy today. Objective - Vital Signs Vital signs: Vital Signs Temp 97.5 F L 12/22/17 11:56 Pulse 110 H 12/22/17 11:56 Resp 22 12/22/17 11:56 BP 105/70 12/22/17 11:56 Pulse Ox 95 12/22/17 07:00 Intake & Output 12/21/17 12/22/17 12/22/17 18:59 06:59 18:59 Intake Total 2195.573 6187 860 Output Total 1035 1170 680 Balance 443.226 30 180 Weight 75 kg Intake: IV 450 1200 550 Blood 200 Cefepime 2 gm In Sodium 100 Chloride 0.9% 50 ml @ 100 mls/hr IVPB DAILY@2000 [facility] Rx#:[id number] DAPTOmycin 500 mg In 50 Sodium Chloride 0.9% 50 ml @ 100 mls/hr IVPB Q48H [facility] Rx#:[id number] Lactated Ringers 1,000 ml 1100 300 @ 100 mls/hr IV .Q10H [facility] Rx#:[id number] Sodium Chloride 0.9% 1, 450 000 ml @ 150 mls/hr IV . Q6H40M [facility] Rx#:[id number] Intake, IV Titration 1028.226 Amount Amiodarone 450 mg In 115.509 Dextrose 5% in Water 250 ml @ 1 MG/MIN 33.33 mls/ hr IV .Q7H31M [facility] Rx#: [id number] Lactated Ringers 1,000 ml 900 @ 100 mls/hr IV .Q10H [facility] Rx#:[id number] Norepinephrine 16 mg In 12.717 Sodium Chloride 0.9% 250 ml @ Titrate IV .Q0M [facility] Rx#:[id number] Blood Product 310 Rc As-3 Unit 310 [id number] Output: Urine 1035 1170 680 Other: Voiding Method Indwelling Catheter Indwelling Catheter Indwelling Catheter # Bowel Movements 1 ABP, PAP, CO, CI - Last Documented Arterial Blood Pressure 107/71 - Exam GENERAL EXAM: Patient is alert but weak and lethargic HEENT: Normocephalic. Normal reaction of pupils, equal size, normal range of extraocular motion. No erythema or exudates in the throat. NECK: No masses, no nuchal rigidity. CHEST: No chest wall deformity. LUNGS: Diminished breath sounds at bases HEART: S1 and S2 normal. Irregular heart sounds ABDOMEN: No hepatosplenomegaly, normal bowel sounds, no guarding or rigidity. SKIN: No rashes CENTRAL NERVOUS SYSTEM: Deferred EXTREMITIES: No cyanosis, clubbing or edema. - Labs CBC & Chem 7: 12/22/17 04:35 12/22/17 04:35 Labs: Abnormal Lab Results - Last 24 Hours (Table) 12/19/17 12/21/17 12/21/17 Range/Units 11:50 17:53 23:45 WBC (3.8-10.6) k/uL RBC (4.30-5.90) m/uL Hgb (13.0-17.5) gm/dL Hct (39.0-53.0) % MCHC (31.0-37.0) g/dL RDW (11.5-15.5) % Plt Count (150-450) k/uL Sodium (137-145) mmol/L Chloride (98-107) mmol/L Carbon Dioxide (22-30) mmol/L BUN (9-20) mg/dL Creatinine (0.66-1.25) mg/dL Glucose (74-99) mg/dL POC Glucose (mg/dL) 159 H 157 H (75-99) mg/dL Magnesium (1.6-2.3) mg/dL Total Protein (6.3-8.2) g/dL Albumin (3.5-5.0) g/dL Crossmatch See Detail 12/22/17 12/22/17 12/22/17 Range/Units 04:35 04:35 06:37 WBC 15.1 H (3.8-10.6) k/uL RBC 2.38 L (4.30-5.90) m/uL Hgb 6.9 L* (13.0-17.5) gm/dL Hct 23.0 L (39.0-53.0) % MCHC 30.0 L (31.0-37.0) g/dL RDW 18.5 H (11.5-15.5) % Plt Count 142 L (150-450) k/uL Sodium 149 H (137-145) mmol/L Chloride 126 H* (98-107) mmol/L Carbon Dioxide 15 L (22-30) mmol/L BUN 110 H* (9-20) mg/dL Creatinine 2.30 H (0.66-1.25) mg/dL Glucose 108 H (74-99) mg/dL POC Glucose (mg/dL) 115 H (75-99) mg/dL Magnesium 2.5 H (1.6-2.3) mg/dL Total Protein 5.0 L (6.3-8.2) g/dL Albumin 2.2 L (3.5-5.0) g/dL Crossmatch Microbiology - Last 24 Hours (Table) 12/19/17 12:07 Urine Culture - Final Urine,Catheterized Enterococcus faecalis 12/19/17 11:48 Gram Stain - Final Foot - Right Wound Culture - Final 12/19/17 11:50 Blood Culture - Preliminary Blood No Growth after 48 hours Assessment and Plan (1) Atrial fibrillation with RVR Current Visit: Yes Status: Acute Code(s): I48.91 - UNSPECIFIED ATRIAL FIBRILLATION SNOMED Code(s): 650739614487142 (2) Acute on chronic blood loss anemia Current Visit: Yes Status: Acute Code(s): D60.0 - CHRONIC ACQUIRED PURE RED CELL APLASIA SNOMED Code(s): 629621510 (3) Acute renal failure Current Visit: Yes Status: Acute Code(s): N17.9 - ACUTE KIDNEY FAILURE, UNSPECIFIED SNOMED Code(s): 04020365 (4) GI hemorrhage Current Visit: Yes Status: Acute Code(s): K92.2 - GASTROINTESTINAL HEMORRHAGE, UNSPECIFIED SNOMED Code(s): 23212060 (5) Venous stasis ulcer of both lower extremities without varicose veins Current Visit: Yes Status: Acute Code(s): I87.2 - VENOUS INSUFFICIENCY ( CHRONIC) (PERIPHERAL); L97.919 - NON-PRS CHRONIC ULC UNSP PRT OF R LOW LEG W UNSP SEVERITY; L97.929 - NON-PRS CHRONIC ULC UNSP PRT OF L LOW LEG W UNSP SEVERITY SNOMED Code(s): 160958646 (6) Cardiomyopathy Current Visit: Yes Status: Acute Code(s): I42.9 - CARDIOMYOPATHY, UNSPECIFIED SNOMED Code(s): 42704421 (7) Chronic systolic CHF (congestive heart failure) Current Visit: Yes Status: Acute Code(s): I50.22 - CHRONIC SYSTOLIC ( CONGESTIVE) HEART FAILURE SNOMED Code(s): 198017473 Plan: Patient seemed to be overall feeling better. Hemodynamically more stable. Tolerating small dose of beta patrice. Patient is going to have upper endoscopy
[2017-12-22] MEDS ORDERED: HYDROcodone/APAP 5-325MG 1 EACH TAB PO PRN (12:37)
[2017-12-22 12:46] LABS: Glucose,Whole Blood 112 mg/dL (75-99)
--- NOTE | 2017-12-22 13:00 | MISC ---
MISCELLANOUS REPORT QUERY It is a stage 4 CKD. MMODL / IJN: [id number] /
[2017-12-22] MEDS: HYDROcodone/APAP 5-325MG 1 EACH TAB PO PRN ×2 (13:07→23:31)
--- NOTE | 2017-12-22 16:06 | PN ---
PROGRESS NOTE CHIEF COMPLAINT: Septic shock. HISTORY OF PRESENT ILLNESS: This gentleman's condition continues without a great deal of change. Dressings are being changed frequently. He is a little bit more alert. He has had quite a bit of discomfort in the legs. PHYSICAL EXAM: Vital signs are unchanged. He is off pressors. Chest is clear. Breath sounds are heard on both sides. Cardiac exam is unchanged with his atrial fibrillation. The abdomen seems soft. IMPRESSION: 1. Septic shock. 2. Renal failure. 3. Alcoholism. 4. Cardiomyopathy. 5. Stasis ulcers of the lower extremities. 6. Gout with tophi. PLAN: Continue current treatment and follow with intensive medicine, cardiology and Med Renal. MMODL / IJN: [id number] /
[2017-12-22 17:48] LABS: Glucose,Whole Blood 135 mg/dL (75-99)
[2017-12-22 20:25] LABS: Anisocytosis Slight; HCT 26.1 % (39.0-53.0); Hypochromasia Marked; MCH 28.8 pg (25.0-35.0); MCHC 30.7 g/dL (31.0-37.0); MCV 93.8 fL (80.0-100.0); Macrocytosis Slight; Mean Platelet Volume 8.4; Platelet Count 139 k/uL (150-450); Poikilocytosis Moderate; RBC 2.78 m/uL (4.30-5.90); RDW 19.1 % (11.5-15.5); WBC 17.1 k/uL (3.8-10.6)
[2017-12-22] MEDS: CEFEPIME 2 GM in SODIUM CHLORIDE 0.9% 50 ML IVPB SCH (20:28)
--- NOTE | 2017-12-22 20:45 | PN ---
PROGRESS NOTE The patient is seen for followup for acute kidney injury. He is maintained on IV fluids. Renal function continues to improve. EXAMINATION: This morning, blood pressure was 109/70, heart rate 111 per minute. He is afebrile. HEART: S1, S2. LUNGS: Bilateral breath sounds are heard. Abdomen is soft, nontender. Lower extremities show edema 1+ bilaterally. LABS: Show sodium 149, potassium 4.0, chloride 126, CO2 is 15, BUN 110, creatinine 2.30. Hemoglobin 6.9 g/dL. ASSESSMENT: 1. Acute kidney injury secondary to hypotension, hypoperfusion, currently improving. 2. Non gap metabolic acidosis secondary to renal failure and lactic acidosis, maintained on oral sodium bicarbonate. I will switch the IV fluids to IV bicarbonate. 3. Hypernatremia secondary to free water deficit. We will switch IV fluids to D5W with sodium bicarbonate. 4. Atrial fibrillation with controlled ventricular response. Patient is off of the amiodarone. PLAN: Switch IV fluids IV bicarb, repeat labs in a.m. MMODL / IJN: [id number] /
--- NOTE | 2017-12-22 22:53 | P.PN ---
Subjective Progress Note Date: 12/22/17 67-year-old male who has altered mental status is brought to the emergency center by a caregiver who apparently has a friend because of the significant declining status that was noted. The caregiver relates that he's been secretive about his overall health. The patient however does follow with a primary care physician Dr. Oconnell and was evaluated in the office on 2017 antibiotic therapy with doxycycline was given for the problems to his legs. No evidence of any topical therapy can be found in the bags of medicine that were brought to hospital. The patient himself is agitated and has difficulty answering questions. He however on direct questioning denies headache, denies chest pain, denies abdominal pain, denies dysuria, denies diarrhea but does complain of pain to his legs. The patient's sister is present relates that although she does see her brother occasionally she does not know much about his medical history. 12/20/2017 patient is improved today after the 4 units of PRBC some GI bleeding is noted and has been by gastroenterology. Once he is his vasopressor therapy will be taking the endoscopy suite for evaluation of therapeutic intervention. The patient is much more comfortable today. 2 sisters are present, relate that they do not know much about his health care because he does not relate to them. Patient is educated about his current level of the extensive illness including profound anemia, as well as shock that he has a infectious component to it. His response to this was " when do I get to go home.' 12/22/2017 the patient is being evaluated by gastroenterology and potentially will have endoscopy tomorrow to evaluate the gastrointestinal bleeding. He had extensive symptomatic gastric intestinal bleeding admission complicated by sepsis. He seems to be doing somewhat better at this time and hopefully will tolerate the procedure well in the morning. Objective - Vital Signs Vital signs: Vital Signs Temp 98.4 F 12/22/17 20:00 Pulse 111 H 12/22/17 22:00 Resp 26 H 12/22/17 22:00 BP 103/73 12/22/17 22:00 Pulse Ox 90 L 12/22/17 22:00 Intake & Output 12/22/17 12/22/17 12/23/17 06:59 18:59 06:59 Intake Total 1200 1660 350 Output Total 1170 1335 275 Balance 30 325 75 Weight 75 kg Intake: IV 1200 650 350 Blood 200 Cefepime 2 gm In Sodium 100 50 Chloride 0.9% 50 ml @ 100 mls/hr IVPB DAILY@2000 [facility] Rx#:[id number] DAPTOmycin 500 mg In 50 Sodium Chloride 0.9% 50 ml @ 100 mls/hr IVPB Q48H [facility] Rx#:[id number] Dextrose 5% in Water 1, 300 000 ml @ 100 mls/hr IV . Q11H CATALINO with Sodium Bicarb (1 Meq/ml) 100 ml Rx#:[id number] Lactated Ringers 1,000 ml 1100 400 @ 100 mls/hr IV .Q10H [facility] Rx#:[id number] Intake, IV Titration 700 Amount DAPTOmycin 500 mg In 100 Sodium Chloride 0.9% 50 ml @ 100 mls/hr IVPB DAILY [facility] Rx#:[id number] Dextrose 5% in Water 1, 600 000 ml @ 100 mls/hr IV . Q11H [facility] with Sodium Bicarb (1 Meq/ml) 100 ml Rx#:[id number] Blood Product 310 Rc As-3 Unit 310 [id number] Output: Urine 1170 1335 275 Other: Voiding Method Indwelling Catheter Indwelling Catheter ABP, PAP, CO, CI - Last Documented Arterial Blood Pressure 110/54 - Exam HEENT: Anicteric conjunctiva are less pale, improvement of the general pallor. No oral lesions or thrush but dentition is very poor Neck: The neck is supple without significant lymphadenopathy or thyromegaly. Lungs: There is symmetrical air entry with expiratory wheezes scattered no leah bronchial sounds no dullness Heart: Very tachycardic with a rate of 141 no abnormal sounds were detected Abdomen: Positive bowel sounds soft and nontender without palpable masses or organomegaly. There was no guarding or rebound. Extremities: Upper extremities are intact without lesions. Lower extremities show evidence of the chronic bilateral lower extremity edema, evidence of some dried bulla especially on the left leg are seen. Some ulcerations are seen on the right lower extremity. Nursing photography will further help define locations. There is some minimal drainage to the right leg. The legs are very tender. Neuro: The patient is awake and alert attempts to answer questions but is agitated and does not answer questions well. He overs able to easily move all extremities at this time but is guarding to his legs because they give him pain. - Labs CBC & Chem 7: 12/22/17 20:10 12/22/17 04:35 Labs: Abnormal Lab Results - Last 24 Hours (Table) 12/19/17 12/21/17 12/22/17 Range/Units 11:50 23:45 04:35 WBC (3.8-10.6) k/uL RBC (4.30-5.90) m/uL Hgb (13.0-17.5) gm/dL Hct (39.0-53.0) % MCHC (31.0-37.0) g/dL RDW (11.5-15.5) % Plt Count (150-450) k/uL Sodium 149 H (137-145) mmol/L Chloride 126 H* (98-107) mmol/L Carbon Dioxide 15 L (22-30) mmol/L BUN 110 H* (9-20) mg/dL Creatinine 2.30 H (0.66-1.25) mg/dL Glucose 108 H (74-99) mg/dL POC Glucose (mg/dL) 157 H (75-99) mg/dL Magnesium 2.5 H (1.6-2.3) mg/dL Total Protein 5.0 L (6.3-8.2) g/dL Albumin 2.2 L (3.5-5.0) g/dL Crossmatch See Detail 12/22/17 12/22/17 12/22/17 Range/Units 04:35 06:37 12:45 WBC 15.1 H (3.8-10.6) k/uL RBC 2.38 L (4.30-5.90) m/uL Hgb 6.9 L* (13.0-17.5) gm/dL Hct 23.0 L (39.0-53.0) % MCHC 30.0 L (31.0-37.0) g/dL RDW 18.5 H (11.5-15.5) % Plt Count 142 L (150-450) k/uL Sodium (137-145) mmol/L Chloride (98-107) mmol/L Carbon Dioxide (22-30) mmol/L BUN (9-20) mg/dL Creatinine (0.66-1.25) mg/dL Glucose (74-99) mg/dL POC Glucose (mg/dL) 115 H 112 H (75-99) mg/dL Magnesium (1.6-2.3) mg/dL Total Protein (6.3-8.2) g/dL Albumin (3.5-5.0) g/dL Crossmatch 12/22/17 12/22/17 Range/Units 17:46 20:10 WBC 17.1 H (3.8-10.6) k/uL RBC 2.78 L (4.30-5.90) m/uL Hgb 8.0 L (13.0-17.5) gm/dL Hct 26.1 L (39.0-53.0) % MCHC 30.7 L (31.0-37.0) g/dL RDW 19.1 H (11.5-15.5) % Plt Count 139 L (150-450) k/uL Sodium (137-145) mmol/L Chloride (98-107) mmol/L Carbon Dioxide (22-30) mmol/L BUN (9-20) mg/dL Creatinine (0.66-1.25) mg/dL Glucose (74-99) mg/dL POC Glucose (mg/dL) 135 H (75-99) mg/dL Magnesium (1.6-2.3) mg/dL Total Protein (6.3-8.2) g/dL Albumin (3.5-5.0) g/dL Crossmatch Microbiology - Last 24 Hours (Table) 12/19/17 11:50 Blood Culture - Preliminary Blood No Growth after 72 hours Laboratory Results WBC 17.1 k/uL (3.8-10.6) H 12/22/17 20:10 RBC 2.78 m/uL (4.30-5.90) L 12/22/17 20:10 Hgb 8.0 gm/dL (13.0-17.5) L 12/22/17 20:10 Hct 26.1 % (39.0-53.0) L 12/22/17 20:10 MCV 93.8 fL (80.0-100.0) 12/22/17 20:10 MCH 28.8 pg (25.0-35.0) 12/22/17 20:10 MCHC 30.7 g/dL (31.0-37.0) L 12/22/17 20:10 RDW 19.1 % (11.5-15.5) H 12/22/17 20:10 Plt Count 139 k/uL (150-450) L 12/22/17 20:10 Neutrophils % 88 % 12/20/17 05:10 Lymphocytes % 3 % 12/20/17 05:10 Monocytes % 7 % 12/20/17 05:10 Eosinophils % 0 % 12/20/17 05:10 Basophils % 0 % 12/20/17 05:10 Neutrophils # 14.2 k/uL (1.3-7.7) H 12/20/17 05:10 Lymphocytes # 0.5 k/uL (1.0-4.8) L 12/20/17 05:10 Monocytes # 1.2 k/uL (0-1.0) H 12/20/17 05:10 Eosinophils # 0.0 k/uL (0-0.7) 12/20/17 05:10 Basophils # 0.0 k/uL (0-0.2) 12/20/17 05:10 Hypochromasia Marked 12/22/17 20:10 Poikilocytosis Moderate 12/22/17 20:10 Anisocytosis Slight 12/22/17 20:10 Macrocytosis Slight 12/22/17 20:10 PT 12.6 sec (9.0-12.0) H 12/20/17 05:10 INR 1.3 (<1.2) H 12/20/17 05:10 APTT 24.0 sec (22.0-30.0) 12/20/17 05:10 Sodium 149 mmol/L (137-145) H 12/22/17 04:35 Potassium 4.0 mmol/L (3.5-5.1) 12/22/17 04:35 Chloride 126 mmol/L (98-107) H* 12/22/17 04:35 Carbon Dioxide 15 mmol/L (22-30) L 12/22/17 04:35 Anion Gap 8 mmol/L 12/22/17 04:35 BUN 110 mg/dL (9-20) H* 12/22/17 04:35 Creatinine 2.30 mg/dL (0.66-1.25) H 12/22/17 04:35 Est GFR (CKD-EPI)AfAm 33 (>60 ml/min/1.73 sqM) 12/22/17 04:35 Est GFR (CKD-EPI)NonAf 28 (>60 ml/min/1.73 sqM) 12/22/17 04:35 Glucose 108 mg/dL (74-99) H 12/22/17 04:35 POC Glucose (mg/dL) 135 mg/dL (75-99) H 12/22/17 17:46 POC Glu Manager E Learning ID Caroline Mary 12/22/17 17:[address] Glu mg/dL 103 12/19/17 17:22 Hemoglobin A1c 5.2 % (4.0-6.0) 12/19/17 17:22 Lactic Ac Sepsis Rflx Y 12/19/17 12:23 Plasma Lactic Acid [place] 0.8 mmol/L (0.7-2.0) 12/19/17 22:29 Calcium 9.1 mg/dL (8.4-10.2) 12/22/17 04:35 Phosphorus 3.7 mg/dL (2.5-4.5) 12/22/17 04:35 Magnesium 2.5 mg/dL (1.6-2.3) H 12/22/17 04:35 Total Bilirubin 0.7 mg/dL (0.2-1.3) 12/22/17 04:35 AST 18 U/L (17-59) 12/22/17 04:35 ALT 29 U/L (21-72) 12/22/17 04:35 Alkaline Phosphatase 46 U/L (38-126) 12/22/17 04:35 Total Creatine Kinase <20 U/L (55-170) L 12/19/17 11:50 CK-MB (CK-2) 1.7 ng/mL (0.0-2.4) 12/19/17 11:50 CK-MB (CK-2) Rel Index 12/19/17 11:50 Troponin I <0.012 ng/mL (0.000-0.034) 12/19/17 11:50 Total Protein 5.0 g/dL (6.3-8.2) L 12/22/17 04:35 Albumin 2.2 g/dL (3.5-5.0) L 12/22/17 04:35 Urine Color Yellow 12/19/17 12:07 Urine Appearance Cloudy (Clear) 12/19/17 12:07 Urine pH 5.0 (5.0-8.0) 12/19/17 12:07 Ur Specific [place] 1.012 (1.001-1.035) 12/19/17 12:07 Urine Protein Negative (Negative) 12/19/17 12:07 Urine Glucose (UA) Negative (Negative) 12/19/17 12:07 Urine Ketones Negative (Negative) 12/19/17 12:07 Urine Blood Negative (Negative) 12/19/17 12:07 Urine Nitrite Negative (Negative) 12/19/17 12:07 Urine Bilirubin Negative (Negative) 12/19/17 12:07 Urine Urobilinogen <2.0 mg/dL (<2.0) 12/19/17 12:07 Ur Leukocyte Esterase Negative (Negative) 12/19/17 12:07 Urine RBC 1 /hpf (0-5) 12/19/17 12:07 Ur Squamous Epith Cells 1 /hpf (0-4) 12/19/17 12:07 Urine Bacteria Rare /hpf (None) H 12/19/17 12:07 Urine Mucus Rare /hpf (None) H 12/19/17 12:07 Stool Occult Blood Positive (Negative) 12/19/17 12:15 Urine Opiates Screen Not Detected (NotDetected) 12/19/17 18:50 Ur Oxycodone Screen Not Detected (NotDetected) 12/19/17 18:50 Urine Methadone Screen Not Detected (NotDetected) 12/19/17 18:50 Ur Propoxyphene Screen Not Detected (NotDetected) 12/19/17 18:50 Ur Barbiturates Screen Not Detected (NotDetected) 12/19/17 18:50 U Tricyclic Antidepress Not Detected (NotDetected) 12/19/17 18:50 Ur Phencyclidine Scrn Not Detected (NotDetected) 12/19/17 18:50 Ur Amphetamines Screen Not Detected (NotDetected) 12/19/17 18:50 U Methamphetamines Scrn Not Detected (NotDetected) 12/19/17 18:50 U Benzodiazepines Scrn Not Detected (NotDetected) 12/19/17 18:50 Urine Cocaine Screen Detected (NotDetected) H 12/19/17 18:50 U Marijuana (THC) Screen Not Detected (NotDetected) 12/19/17 18:50 Blood Type O Positive 12/19/17 11:50 Blood Type Recheck No 12/19/17 11:50 Antibody Screen NEGATIVE 12/19/17 11:50 Crossmatch See Detail 12/19/17 11:50 Spec Expiration Date 12/22/2017 - 234912/19/17 11:50 Microbiology 12/19/17 11:50 Blood Blood Culture - Preliminary No Growth after 72 hours 12/19/17 12:07 Urine,Catheterized Urine Culture - Final Enterococcus faecalis 12/19/17 11:48 Foot - Right Gram Stain - Final 12/19/17 11:48 Foot - Right Wound Culture - Final Assessment and Plan (1) Septic shock Narrative/Plan: 67-year-old male presents to Hospital with prompting of a caregiver because of altered mental status. Upon arrival to the hospital patient is evidence of hypothermia, leukocytosis, hemoglobin of 4 and evidence of shock. There is concerns of septic shock given the patient's leukocytosis and open wounds to the lower extremities. The patient's hypotension and lactic acidosis can also be complicated by his profound anemia, with hemoglobin of 4 the patient likely has some component of chronic anemia to be able to be functional at this time. Local wound care will be utilized with Silvadene cream and wraps that can be done twice a day over this will be soothing and improve his level of discomfort Critical care is following and is receiving blood transfusions to improve his oxygen transport and has hypotension Antibiotic therapy will be addressed. He has evidence of acute renal failure with his creatinine of 4.2 at admission. Would avoid further vancomycin therapy and will change to daptomycin for now. He does need gram-negative therapy and with the current profound anemia would avoid piperacillin tazobactam given the difficulties with hematochezia anemia can be caused, utilize cefepime for now . Multiple cultures are already in process will further help direct therapy. The patient was on doxycycline therapy as an outpatient. Patient does have some laboratories from earlier this month the reveal evidence of hemoglobin 11.7 and a creatinine as low as 2.05 Consequently there is evidence of acute on chronic renal failure at this time. The patient has a heart rate of 141 which appears to be directly related to his septic shock. With fluid resuscitation and further blood transfusion should improve. Patient's sister relates that there is a history of alcohol use and must be monitored closely. 12/20/2017 reveals the patient to be improved from yesterday. Has received 4 units of packed red cells and this is allowing an improvement of his functional status. His profound pallor is improved. His energy level is also improved. Did have evidence of shock with sepsis as well as acute blood loss anemia. Antibiotic therapy has been utilize this point in time we'll cultures are in process and there is evidence of the gram-negative bacilli at the ulcer, and evidence of enterococcus in the urine for which current antibiotic therapy should be effective while we await the final susceptibility data. Continue with local wound care to the lower extremities with Silvadene wrap for now When he is more stable will be taken to the endoscopy suite for evaluation of gastrointestinal bleed Cultures are being monitored, leukocytosis has increased on the bases of significant cellulitis and sepsis in the lower extremities. 12/22/2017 the patient is improved. He has received the packed red cell transfusions and his hemoglobin is now stable around 8. He's been noticed to have some coffee-ground emesis and melanotic stool. He's been seen by gastroenterology and endoscopy is planned for the morning. The renal failure has stabilized and his leukocytosis has improved. Wound culture had several pathogens including gram-negative bacilli and urine culture has Enterococcus faecalis. Continue antibiotic therapy and monitor progress after the endoscopy. Current Visit: Yes Status: Acute Code(s): A41.9 - SEPSIS, UNSPECIFIED ORGANISM; R65.21 - SEVERE SEPSIS WITH SEPTIC SHOCK SNOMED Code(s): 88124987 (2) Acute on chronic blood loss anemia Current Visit: Yes Status: Acute Code(s): D60.0 - CHRONIC ACQUIRED PURE RED CELL APLASIA SNOMED Code(s): 581739327 (3) Venous stasis ulcer of both lower extremities without varicose veins Current Visit: Yes Status: Acute Code(s): I87.2 - VENOUS INSUFFICIENCY ( CHRONIC) (PERIPHERAL); L97.919 - NON-PRS CHRONIC ULC UNSP PRT OF R LOW LEG W UNSP SEVERITY; L97.929 - NON-PRS CHRONIC ULC UNSP PRT OF L LOW LEG W UNSP SEVERITY SNOMED Code(s): 311884391
[2017-12-22 23:40] LABS: Glucose,Whole Blood 175 mg/dL (75-99)
--- NOTE | 2017-12-22 23:46 | P.PN ---
Subjective Progress Note Date: 12/22/17 Principal diagnosis: Hematemesis, anemia, melena Nursing staff reports dark bowel movements. The patient has been able to tolerate follow liquids. No abdominal pain reported. The patient's tachycardia has improved. The patient is no longer requiring pressor support. Objective - Vital Signs Vital signs: Vital Signs Temp 98.4 F 12/22/17 20:00 Pulse 111 H 12/22/17 22:00 Resp 26 H 12/22/17 22:00 BP 103/73 12/22/17 22:00 Pulse Ox 90 L 12/22/17 22:00 Intake & Output 12/22/17 12/22/17 12/23/17 06:59 18:59 06:59 Intake Total 1200 1660 350 Output Total 1170 1335 275 Balance 30 325 75 Weight 75 kg Intake: IV 1200 650 350 Blood 200 Cefepime 2 gm In Sodium 100 50 Chloride 0.9% 50 ml @ 100 mls/hr IVPB DAILY@2000 [facility] Rx#:[id number] DAPTOmycin 500 mg In 50 Sodium Chloride 0.9% 50 ml @ 100 mls/hr IVPB Q48H [facility] Rx#:[id number] Dextrose 5% in Water 1, 300 000 ml @ 100 mls/hr IV . Q11H [facility] with Sodium Bicarb (1 Meq/ml) 100 ml Rx#:[id number] Lactated Ringers 1,000 ml 1100 400 @ 100 mls/hr IV .Q10H [facility] Rx#:[id number] Intake, IV Titration 700 Amount DAPTOmycin 500 mg In 100 Sodium Chloride 0.9% 50 ml @ 100 mls/hr IVPB DAILY [facility] Rx#:[id number] Dextrose 5% in Water 1, 600 000 ml @ 100 mls/hr IV . Q11H [facility] with Sodium Bicarb (1 Meq/ml) 100 ml Rx#:[id number] Blood Product 310 Rc As-3 Unit 310 [id number] Output: Urine 1170 1335 275 Other: Voiding Method Indwelling Catheter Indwelling Catheter Indwelling Catheter ABP, PAP, CO, CI - Last Documented Arterial Blood Pressure 110/54 - Exam Constitutional: Lying in bed in no apparent distress Head: normocephalic/atraumatic Eyes: No icterus, no injection Mouth: Moist mucous membranes, poor dentition Nose: No discharge noted Neck: Trachea midline Lungs: Normal air entry in all lung hooker, no wheezing appreciated Abdomen: Soft, nontender, nondistended, normal bowel sounds. No guarding or rigidity Skin: No jaundice, bilateral wrappings of leg secondary to ulcerations Neuro: Awake alert, no focal deficits - Labs CBC & Chem 7: 12/22/17 20:10 12/22/17 04:35 Labs: Abnormal Lab Results - Last 24 Hours (Table) 12/19/17 12/21/17 12/22/17 Range/Units 11:50 23:45 04:35 WBC (3.8-10.6) k/uL RBC (4.30-5.90) m/uL Hgb (13.0-17.5) gm/dL Hct (39.0-53.0) % MCHC (31.0-37.0) g/dL RDW (11.5-15.5) % Plt Count (150-450) k/uL Sodium 149 H (137-145) mmol/L Chloride 126 H* (98-107) mmol/L Carbon Dioxide 15 L (22-30) mmol/L BUN 110 H* (9-20) mg/dL Creatinine 2.30 H (0.66-1.25) mg/dL Glucose 108 H (74-99) mg/dL POC Glucose (mg/dL) 157 H (75-99) mg/dL Magnesium 2.5 H (1.6-2.3) mg/dL Total Protein 5.0 L (6.3-8.2) g/dL Albumin 2.2 L (3.5-5.0) g/dL Crossmatch See Detail 12/22/17 12/22/17 12/22/17 Range/Units 04:35 06:37 12:45 WBC 15.1 H (3.8-10.6) k/uL RBC 2.38 L (4.30-5.90) m/uL Hgb 6.9 L* (13.0-17.5) gm/dL Hct 23.0 L (39.0-53.0) % MCHC 30.0 L (31.0-37.0) g/dL RDW 18.5 H (11.5-15.5) % Plt Count 142 L (150-450) k/uL Sodium (137-145) mmol/L Chloride (98-107) mmol/L Carbon Dioxide (22-30) mmol/L BUN (9-20) mg/dL Creatinine (0.66-1.25) mg/dL Glucose (74-99) mg/dL POC Glucose (mg/dL) 115 H 112 H (75-99) mg/dL Magnesium (1.6-2.3) mg/dL Total Protein (6.3-8.2) g/dL Albumin (3.5-5.0) g/dL Crossmatch 12/22/17 12/22/17 12/22/17 Range/Units 17:46 20:10 23:38 WBC 17.1 H (3.8-10.6) k/uL RBC 2.78 L (4.30-5.90) m/uL Hgb 8.0 L (13.0-17.5) gm/dL Hct 26.1 L (39.0-53.0) % MCHC 30.7 L (31.0-37.0) g/dL RDW 19.1 H (11.5-15.5) % Plt Count 139 L (150-450) k/uL Sodium (137-145) mmol/L Chloride (98-107) mmol/L Carbon Dioxide (22-30) mmol/L BUN (9-20) mg/dL Creatinine (0.66-1.25) mg/dL Glucose (74-99) mg/dL POC Glucose (mg/dL) 135 H 175 H (75-99) mg/dL Magnesium (1.6-2.3) mg/dL Total Protein (6.3-8.2) g/dL Albumin (3.5-5.0) g/dL Crossmatch Microbiology - Last 24 Hours (Table) 12/19/17 11:50 Blood Culture - Preliminary Blood No Growth after 72 hours Assessment and Plan (1) GI hemorrhage Narrative/Plan: Patient presenting with altered mental status found to be anemic with a hemoglobin of 4 on presentation subsequently transfused to 7.6. The patient had FOBT positive, and reports dark stools over the past few weeks. In addition after admission to ICU he had 1 episode of hematemesis. No further episodes of hematemesis, coffee-ground emesis or vomiting. The patient has not had a bowel movement today. Hemoglobin 6.9 from 7.4 yesterday. Current Visit: Yes Status: Acute Code(s): K92.2 - GASTROINTESTINAL HEMORRHAGE, UNSPECIFIED SNOMED Code(s): 86287173 (2) Normocytic anemia Narrative/Plan: Likely multifactorial secondary to anemia of chronic disease and blood loss. Current Visit: Yes Status: Acute Code(s): D64.9 - ANEMIA, UNSPECIFIED SNOMED Code(s): 307394860 Plan: Supportive care Continue ICU management Continue IV Protonix Nothing by mouth for procedure Appreciate recommendations from nephrology and cardiology Continue to monitor hemoglobin every 12 hours and transfuse as needed Plan on endoscopic evaluation tomorrow Thank you for allowing us to participate in the care of this patient, we will continue to follow
[2017-12-23] MEDS: SILVER sulfADIAZINE Cream 400 GM 1 APPLIC APPLIC TOPICAL SCH ×4 (00:55→23:16)
[2017-12-23 05:29] LABS: Anisocytosis Slight; HGB 7.9 gm/dL (13.0-17.5); Hypochromasia Marked; MCH 28.7 pg (25.0-35.0); MCHC 30.4 g/dL (31.0-37.0); MCV 94.7 fL (80.0-100.0); Macrocytosis Slight; Mean Platelet Volume 8.4; Platelet Count 149 k/uL (150-450); Poikilocytosis Moderate; RBC 2.74 m/uL (4.30-5.90); Reticulocyte % 4.1 % (0.5-2.0); WBC 17.1 k/uL (3.8-10.6)
[2017-12-23 05:49] LABS: Albumin 2.3 g/dL (3.5-5.0); Magnesium 2.5 mg/dL (1.6-2.3); Phosphorus 3.1 mg/dL (2.5-4.5); Potassium 3.9 mmol/L (3.5-5.1); Total Bilirubin 1.2 mg/dL (0.2-1.3); Total Protein 5.2 g/dL (6.3-8.2)
[2017-12-23 06:14] LABS: Glucose,Whole Blood 127 mg/dL (75-99)
[2017-12-23] MEDS: INSULIN ASPART 100 UNIT/ML 1 ML 10 ML VIAL SQ SCH ×3 (06:14→17:52)
[2017-12-23] MEDS: POTASSIUM CHLORIDE 10 MEQ in WATER FOR INJECTION 1 100ML.BAG IVPB SCH ×2 (06:59→08:18)
[2017-12-23] MEDS: SODIUM BICARBONATE TAB 650 MG TAB PO SCH ×4 (08:18→21:03)
[2017-12-23] MEDS: AMIODARONE 200 MG TAB PO SCH ×2 (08:18→21:03)
[2017-12-23] MEDS: PANTOPRAZOLE 40 MG/10 ML VIAL IV SCH ×2 (08:18→20:53)
[2017-12-23] MEDS: METOPROLOL TARTRATE 12.5 MG TAB PO SCH ×2 (08:18→22:07)
--- NOTE | 2017-12-23 08:38 | XR ---
EXAMINATION TYPE: XR chest 1V portable DATE OF EXAM: 12/23/2017 COMPARISON: 12/22/2017 HISTORY: Shortness of breath TECHNIQUE: Single frontal view of the chest is obtained. FINDINGS: Marked cardiomegaly seen with bilateral consolidation small effusion. Central interstitial pattern seen. Biapical pleural thickening. IMPRESSION: Correlate for CHF.
[2017-12-23] MEDS: DAPTOmycin 500 MG in SODIUM CHLORIDE 0.9% 50 ML IVPB SCH (09:26)
--- NOTE | 2017-12-23 09:27 | P.PN ---
Subjective Patient is seen in follow-up for acute kidney injury. Renal function is improving with creatinine down to 1.9 today. Patient's hemoglobin was 6.9 yesterday for which she did receive 1 unit of blood transition. Hemoglobin 7.9 this morning. Sodium level stable at 149. Currently maintained on D5 W with 2 episodes of bicarbonate running at 100 mL an hour. He schedule for EGD today. He is nonoliguric. Patient has systolic CHF with ejection fraction of less than 20% with severe mitral regurgitation and pulmonary hypertension. Vital signs are stable. General: The patient appeared well nourished and normally developed. HEENT: Head exam is unremarkable. Neck is without jugular venous distension. LUNGS: Lungs are clear to auscultation and percussion. Breath sounds decreased. HEART: Rate and Rhythm are regular. First and second heart sounds normal. No murmurs, rubs or gallops. ABDOMEN: Abdominal exam reveals normal bowel sounds. Non-tender and non- distended. No evidence of peritonitis. EXTREMITITES: No clubbing, cyanosis, or edema. Objective - Vital Signs Vital signs: Vital Signs Temp 97.7 F 12/23/17 08:00 Pulse 106 H 12/23/17 08:00 Resp 25 H 12/23/17 08:00 BP 92/65 12/23/17 08:00 Pulse Ox 100 12/23/17 08:00 Intake & Output 12/22/17 12/23/17 12/23/17 18:59 06:59 18:59 Intake Total 1660 1500 200 Output Total 1335 1425 150 Balance 325 75 50 Weight 78.6 kg Intake: IV 650 1250 200 Blood 200 Cefepime 2 gm In Sodium 50 Chloride 0.9% 50 ml @ 100 mls/hr IVPB DAILY@1999 [facility] Rx#:[id number] DAPTOmycin 500 mg In 50 Sodium Chloride 0.9% 50 ml @ 100 mls/hr IVPB Q48H [facility] Rx#:[id number] Dextrose 5% in Water 1, 1200 100 000 ml @ 100 mls/hr IV . Q11H [facility] with Sodium Bicarb (1 Meq/ml) 100 ml Rx#:[id number] Lactated Ringers 1,000 ml 400 @ 100 mls/hr IV .Q10H [facility] Rx#:[id number] Potassium Chloride 10 meq 100 In Water For Injection 1 100ml.bag @ 100 mls/hr IVPB Q1H [facility] Rx#: [id number] Intake, IV Titration 700 Amount DAPTOmycin 500 mg In 100 Sodium Chloride 0.9% 50 ml @ 100 mls/hr IVPB DAILY [facility] Rx#:[id number] Dextrose 5% in Water 1, 600 000 ml @ 100 mls/hr IV . Q11H [facility] with Sodium Bicarb (1 Meq/ml) 100 ml Rx#:[id number] Oral 250 Blood Product 310 Rc As-3 Unit 310 [id number] Output: Urine 1335 1425 150 Other: Voiding Method Indwelling Catheter Indwelling Catheter ABP, PAP, CO, CI - Last Documented Arterial Blood Pressure 99/54 - Labs CBC & Chem 7: 12/23/17 05:20 12/23/17 05:20 Labs: Abnormal Lab Results - Last 24 Hours (Table) 12/19/17 12/22/17 12/22/17 Range/Units 11:50 12:45 17:46 WBC (3.8-10.6) k/uL RBC (4.30-5.90) m/uL Hgb (13.0-17.5) gm/dL Hct (39.0-53.0) % MCHC (31.0-37.0) g/dL RDW (11.5-15.5) % Plt Count (150-450) k/uL Retic Count (0.5-2.0) % Sodium (137-145) mmol/L Chloride (98-107) mmol/L Carbon Dioxide (22-30) mmol/L BUN (9-20) mg/dL Creatinine (0.66-1.25) mg/dL Glucose (74-99) mg/dL POC Glucose (mg/dL) 112 H 135 H (75-99) mg/dL Magnesium (1.6-2.3) mg/dL Total Protein (6.3-8.2) g/dL Albumin (3.5-5.0) g/dL Crossmatch See Detail 12/22/17 12/22/17 12/23/17 Range/Units 20:10 23:38 05:20 WBC 17.1 H (3.8-10.6) k/uL RBC 2.78 L (4.30-5.90) m/uL Hgb 8.0 L (13.0-17.5) gm/dL Hct 26.1 L (39.0-53.0) % MCHC 30.7 L (31.0-37.0) g/dL RDW 19.1 H (11.5-15.5) % Plt Count 139 L (150-450) k/uL Retic Count (0.5-2.0) % Sodium 149 H (137-145) mmol/L Chloride 123 H* (98-107) mmol/L Carbon Dioxide 21 L (22-30) mmol/L BUN 88 H* (9-20) mg/dL Creatinine 1.90 H (0.66-1.25) mg/dL Glucose 125 H (74-99) mg/dL POC Glucose (mg/dL) 175 H (75-99) mg/dL Magnesium 2.5 H (1.6-2.3) mg/dL Total Protein 5.2 L (6.3-8.2) g/dL Albumin 2.3 L (3.5-5.0) g/dL Crossmatch 12/23/17 12/23/17 Range/Units 05:20 06:13 WBC 17.1 H (3.8-10.6) k/uL RBC 2.74 L (4.30-5.90) m/uL Hgb 7.9 L (13.0-17.5) gm/dL Hct 26.0 L (39.0-53.0) % MCHC 30.4 L (31.0-37.0) g/dL RDW 19.0 H (11.5-15.5) % Plt Count 149 L (150-450) k/uL Retic Count 4.1 H (0.5-2.0) % Sodium (137-145) mmol/L Chloride (98-107) mmol/L Carbon Dioxide (22-30) mmol/L BUN (9-20) mg/dL Creatinine (0.66-1.25) mg/dL Glucose (74-99) mg/dL POC Glucose (mg/dL) 127 H (75-99) mg/dL Magnesium (1.6-2.3) mg/dL Total Protein (6.3-8.2) g/dL Albumin (3.5-5.0) g/dL Crossmatch Microbiology - Last 24 Hours (Table) 12/19/17 11:50 Blood Culture - Preliminary Blood No Growth after 72 hours Assessment and Plan Plan: assessment: 1. Nonoliguric acute kidney injury secondary to ATN secondary to hypotension and anemia. Renal function improving with creatinine down to 1.9 today. 2. Metabolic acidosis currently on hypotonic bicarbonate drip. Improving. 3. Hyponatremia secondary to lack of oral water intake. 4. Systolic CHF with ejection fraction of less than 20% with severe mitral regurgitation and pulmonary hypertension. 5. Acute anemia secondary to GI bleed scheduled for EGD today. 6. Atrial fibrillation maintained on oral amiodarone. 7. Chronic kidney disease. Creatinine was 2 in 2013 and 3 in 2017. Etiology is nephrosclerosis and cardiorenal syndrome. He does have cortical thinning noted on renal ultrasound suggestive of underlying chronic kidney disease. Plan: I will change IV fluids to D5W with 1 amp of bicarbonate to be run at 100 mL an hour. Avoid nephrotoxic agents and hypotensive episodes. Monitor hemoglobin and transfuse as needed. GI following. EGD today. Continue to monitor renal function and urine output.
[2017-12-23] MEDS ORDERED: DEXTROSE 5%-0.9% NACL 1,000 ML IV SCH (09:30)
[2017-12-23] MEDS ORDERED: DEXTROSE 5% IN WATER 1,000 ML IV ONE (09:33)
--- NOTE | 2017-12-23 09:56 | P.PN ---
Subjective Progress Note Date: 12/23/17 This is a 67-year-old gentleman with known cardiomyopathy and congestive heart failure who was admitted with a severe anemia, possible sepsis and infected ulcers in the leg. Patient received blood transfusions and was on vasopressors. His blood pressure stabilized around 100. Patient is also in atrial fibrillation with rapid ventricular response. Patient is on amiodarone therapy IV. We will switch to by mouth amiodarone and start him on small dose of beta patrice. His urine output is fair. He is being treated for infection with antibiotics. We'll continue current medical therapy. Prognosis is guarded. 12/22/2017:. Patient seemed to be hemodynamically more stable. He is off pressors and maintaining a systolic blood pressure performed 100. Heart rate is in the 90s. He is on by mouth amiodarone and also small dose of beta patrice. His urine output is fair. She is going to have upper endoscopy today. 12/23/2017: This patient is admitted with GI bleeding and anemia. He received 1 unit of blood yesterday. His blood pressure is marginal. He is on oral amiodarone and beta patrice for rate control. His ejection fraction about 20%. He also had acute renal failure that seemed to be gradually improving. Patient sodium levels are high and IV fluids have been changed to D5W. He is going to have endoscopy today. He doesn't appear to be in acute distress. He urine output is fair Objective - Vital Signs Vital signs: Vital Signs Temp 97.7 F 12/23/17 08:00 Pulse 106 H 12/23/17 08:00 Resp 25 H 12/23/17 08:00 BP 92/65 12/23/17 08:00 Pulse Ox 100 12/23/17 08:00 Intake & Output 12/22/17 12/23/17 12/23/17 18:59 06:59 18:59 Intake Total 1660 1500 300 Output Total 1335 1425 275 Balance 325 75 25 Weight 78.6 kg Intake: IV 650 1250 300 Blood 200 Cefepime 2 gm In Sodium 50 Chloride 0.9% 50 ml @ 100 mls/hr IVPB DAILY@2000 [facility] Rx#:[id number] DAPTOmycin 500 mg In 50 Sodium Chloride 0.9% 50 ml @ 100 mls/hr IVPB Q48H [facility] Rx#:[id number] Dextrose 5% in Water 1, 1200 200 000 ml @ 100 mls/hr IV . Q11H [facility] with Sodium Bicarb (1 Meq/ml) 100 ml Rx#:[id number] Lactated Ringers 1,000 ml 400 @ 100 mls/hr IV .Q10H [facility] Rx#:[id number] Potassium Chloride 10 meq 100 In Water For Injection 1 100ml.bag @ 100 mls/hr IVPB Q1H [facility] Rx#: [id number] Intake, IV Titration 700 Amount DAPTOmycin 500 mg In 100 Sodium Chloride 0.9% 50 ml @ 100 mls/hr IVPB DAILY [facility] Rx#:[id number] Dextrose 5% in Water 1, 600 000 ml @ 100 mls/hr IV . Q11H [facility] with Sodium Bicarb (1 Meq/ml) 100 ml Rx#:[id number] Oral 250 Blood Product 310 Rc As-3 Unit 310 [id number] Output: Urine 1335 1425 275 Other: Voiding Method Indwelling Catheter Indwelling Catheter ABP, PAP, CO, CI - Last Documented Arterial Blood Pressure 99/54 - Exam GENERAL EXAM: Patient is alert but weak and lethargic HEENT: Normocephalic. Normal reaction of pupils, equal size, normal range of extraocular motion. No erythema or exudates in the throat. NECK: No masses, no nuchal rigidity. CHEST: No chest wall deformity. LUNGS: Diminished breath sounds at bases HEART: S1 and S2 normal. Irregular heart sounds ABDOMEN: No hepatosplenomegaly, normal bowel sounds, no guarding or rigidity. SKIN: No rashes CENTRAL NERVOUS SYSTEM: Deferred EXTREMITIES: No cyanosis, clubbing or edema. - Labs CBC & Chem 7: 12/23/17 05:20 12/23/17 05:20 Labs: Abnormal Lab Results - Last 24 Hours (Table) 12/19/17 12/22/17 12/22/17 Range/Units 11:50 12:45 17:46 WBC (3.8-10.6) k/uL RBC (4.30-5.90) m/uL Hgb (13.0-17.5) gm/dL Hct (39.0-53.0) % MCHC (31.0-37.0) g/dL RDW (11.5-15.5) % Plt Count (150-450) k/uL Retic Count (0.5-2.0) % Sodium (137-145) mmol/L Chloride (98-107) mmol/L Carbon Dioxide (22-30) mmol/L BUN (9-20) mg/dL Creatinine (0.66-1.25) mg/dL Glucose (74-99) mg/dL POC Glucose (mg/dL) 112 H 135 H (75-99) mg/dL Magnesium (1.6-2.3) mg/dL Total Protein (6.3-8.2) g/dL Albumin (3.5-5.0) g/dL Crossmatch See Detail 12/22/17 12/22/17 12/23/17 Range/Units 20:10 23:38 05:20 WBC 17.1 H (3.8-10.6) k/uL RBC 2.78 L (4.30-5.90) m/uL Hgb 8.0 L (13.0-17.5) gm/dL Hct 26.1 L (39.0-53.0) % MCHC 30.7 L (31.0-37.0) g/dL RDW 19.1 H (11.5-15.5) % Plt Count 139 L (150-450) k/uL Retic Count (0.5-2.0) % Sodium 149 H (137-145) mmol/L Chloride 123 H* (98-107) mmol/L Carbon Dioxide 21 L (22-30) mmol/L BUN 88 H* (9-20) mg/dL Creatinine 1.90 H (0.66-1.25) mg/dL Glucose 125 H (74-99) mg/dL POC Glucose (mg/dL) 175 H (75-99) mg/dL Magnesium 2.5 H (1.6-2.3) mg/dL Total Protein 5.2 L (6.3-8.2) g/dL Albumin 2.3 L (3.5-5.0) g/dL Crossmatch 12/23/17 12/23/17 Range/Units 05:20 06:13 WBC 17.1 H (3.8-10.6) k/uL RBC 2.74 L (4.30-5.90) m/uL Hgb 7.9 L (13.0-17.5) gm/dL Hct 26.0 L (39.0-53.0) % MCHC 30.4 L (31.0-37.0) g/dL RDW 19.0 H (11.5-15.5) % Plt Count 149 L (150-450) k/uL Retic Count 4.1 H (0.5-2.0) % Sodium (137-145) mmol/L Chloride (98-107) mmol/L Carbon Dioxide (22-30) mmol/L BUN (9-20) mg/dL Creatinine (0.66-1.25) mg/dL Glucose (74-99) mg/dL POC Glucose (mg/dL) 127 H (75-99) mg/dL Magnesium (1.6-2.3) mg/dL Total Protein (6.3-8.2) g/dL Albumin (3.5-5.0) g/dL Crossmatch Microbiology - Last 24 Hours (Table) 12/19/17 11:50 Blood Culture - Preliminary Blood No Growth after 72 hours Assessment and Plan (1) Atrial fibrillation with RVR Current Visit: Yes Status: Acute Code(s): I48.91 - UNSPECIFIED ATRIAL FIBRILLATION SNOMED Code(s): 260087250289771 (2) Acute on chronic blood loss anemia Current Visit: Yes Status: Acute Code(s): D60.0 - CHRONIC ACQUIRED PURE RED CELL APLASIA SNOMED Code(s): 811063582 (3) Acute renal failure Current Visit: Yes Status: Acute Code(s): N17.9 - ACUTE KIDNEY FAILURE, UNSPECIFIED SNOMED Code(s): 83161579 (4) GI hemorrhage Current Visit: Yes Status: Acute Code(s): K92.2 - GASTROINTESTINAL HEMORRHAGE, UNSPECIFIED SNOMED Code(s): 87188505 (5) Venous stasis ulcer of both lower extremities without varicose veins Current Visit: Yes Status: Acute Code(s): I87.2 - VENOUS INSUFFICIENCY ( CHRONIC) (PERIPHERAL); L97.919 - NON-PRS CHRONIC ULC UNSP PRT OF R LOW LEG W UNSP SEVERITY; L97.929 - NON-PRS CHRONIC ULC UNSP PRT OF L LOW LEG W UNSP SEVERITY SNOMED Code(s): 346220323 (6) Cardiomyopathy Current Visit: Yes Status: Acute Code(s): I42.9 - CARDIOMYOPATHY, UNSPECIFIED SNOMED Code(s): 49853557 (7) Chronic systolic CHF (congestive heart failure) Current Visit: Yes Status: Acute Code(s): I50.22 - CHRONIC SYSTOLIC ( CONGESTIVE) HEART FAILURE SNOMED Code(s): 328055803 Plan: Patient seemed to be overall feeling better. Hemodynamically more stable. Tolerating small dose of beta patrice. Patient is going to have upper endoscopy and 12/23/2017: This patient is relatively stable. Drowsy but communicative. Sodium is high, which is being corrected. Lungs appeared to be clear. Heart rate in the 90s. Patient is going for EGD today. Prognosis still guarded
[2017-12-23 11:46] LABS: Glucose,Whole Blood 121 mg/dL (75-99)
[2017-12-23] MEDS ORDERED: KETAMINE 10 MG/ML 20 ML VIAL ONE (13:19)
[2017-12-23] MEDS ORDERED: LIDOCAINE 1% INJ 10MG/ML (20 ML MDV) ONE (13:19)
[2017-12-23] MEDS ORDERED: MIDAZOLAM 2 MG/2 ML VIAL ONE (13:19)
[2017-12-23] MEDS ORDERED: IV FLUID CONTINUATION 1,000 ML IV ONE (13:22)
--- NOTE | 2017-12-23 13:55 | P.PN ---
Subjective Progress Note Date: 12/23/17 Principal diagnosis: Acute septic shock, profound anemia and GI bleeding This is a 67-year-old white male with history of multiple medical problems including chronic atrial fibrillation, COPD, congestive heart failure, diabetes , patient was brought in by his caregiver who is a friend of his, and he has been noticing significant decline in his status. Patient has been very secretive about his overall health condition, does not share his health issues with any of his friends or family members. Apparently he normally sees Dr. Oconnell and has been treated recently with doxycycline for what seems to be significant areas of cellulitis involving both legs. Patient was brought into the ER mostly with chief complaint of altered mental status, and has been noticing dark colored stools for the last 5 weeks. Patient is normally on Naprosyn for gout, and has been taking doxycycline for ulcers involving his legs. The patient himself is a very poor historian, much of the information was obtained from the chart. Upon arrival to the ER, patient was noted to be hypotensive, his lactic acid was elevated, and his hemoglobin was only 4. Patient was given so far at least 4 units of packed RBCs, and his hemoglobin now is 7.8. He was also given significant amount of fluid boluses, and his lactic acid came down from 8-0.8 to this morning. His renal profile is showing slight improvement with BUN coming down from 176-161 and his creatinine coming down from 3.60-3.30. Patient was empirically placed on antibiotics by Dr. Cartagena, and his urine was positive for cocaine. Chest x-ray showed no evidence of active disease. Patient was also noted to have atrial fibrillation with RVR , hypotensive on 20 g of norepinephrine, he was seen by cardiology, and his echocardiogram showed a significantly impaired left ventricle, ejection fraction of less than 20%. His atrial fibrillation is being treated with amiodarone. Nephrology was consulted for his renal failure. The patient himself is a very poor historian, and he seems to be quite slow with definite altered mental status. Patient was reevaluated today on 12/21/2017, seems to be more awake and more appropriate today. Hemodynamically stable, he was earlier on 5 g of norepinephrine, and I would likely discontinue the norepinephrine today since the blood pressure is holding and his main is in the high 70s. Urine output is excellent. Renal functioning is improving. BUN is down to 138 creatinine is down to 2.90 patient continues to have non-anion gap hyperchloremic metabolic acidosis. He is receiving bicarb orally. WBC count is down to 18.8 hemoglobin is holding at 7.4. Had few episodes of coffee-ground emesis, tool repairer following, may consider endoscopy today. Patient is presently nothing by mouth. He did receive a total of 4 units of packed RBCs for low hemoglobin on presentation. Blood cultures are negative so far, however his urine culture was positive for group D enterococcus. And his wound cultures are negative for gram-negative bacilli. Patient is presently on daptomycin and on cefepime which is appropriate coverage for what we have so far. Patient is definitely more appropriate today, and he seems to be oriented 3. Patient was placed on lactated Ringer's at 100 mL/h, continues to have excellent urine output, and he is not developing any congestive heart failure findings although his ejection fraction was noted to be quite low. Ultrasound of the right and left kidney was noted. Seems to be consistent with underlying medical renal disease. On 12/22/2017, patient is basically about the same, however we have noticed a drop in his hemoglobin today, and the patient is now receiving a fifth unit of packed RBCs since admission. Hemoglobin this morning was 6.9, gastroenterology is planning EGD on this patient sometime today. Patient is complaining of being thirsty, otherwise he denies any specific complaints. No nausea no vomiting no abdominal pain no chest pain no shortness of breath. All his labs were reviewed, sodium is elevated, 149, potassium is 4.0 bicarb remains low at 15, BUN is improving down to 110 and creatinine is down to 2.30, and that is all being addressed by nephrology on the case. Patient was reevaluated today on , scheduled to undergo EGD today, for some reason it was not done yesterday mostly because of his A. fib/RVR according to the tool repairer on the case. Patient is nothing by mouth for today, and would likely have endoscopy done around 1 PM today. Patient is relatively asymptomatic, doing well overall compared to how he presented. Hemoglobin is holding at 7.9. Patient received a total of 5 units of packed RBCs since admission. His sodium was noted to be elevated, and his bicarb was correcting nicely, hence I have discontinued his bicarb drip. Patient denies any shortness of breath no cough no wheezing. Although her chest x-ray did show cardiomegaly and interstitial edema, right lower lobe infiltrate is not entirely ruled out. Objective - Vital Signs Vital signs: Vital Signs Temp 97.9 F 12/23/17 12:00 Pulse 100 12/23/17 12:00 Resp 42 H 12/23/17 12:00 BP 90/71 12/23/17 12:00 Pulse Ox 96 12/23/17 12:00 Intake & Output 12/22/17 12/23/17 12/23/17 18:59 06:59 18:59 Intake Total 1660 1500 500 Output Total 1335 1425 600 Balance 325 75 -100 Weight 78.6 kg 78.6 kg Intake: IV 650 1250 500 Blood 200 Cefepime 2 gm In Sodium 50 Chloride 0.9% 50 ml @ 100 mls/hr IVPB DAILY@2000 [facility] Rx#:[id number] DAPTOmycin 500 mg In 50 Sodium Chloride 0.9% 50 ml @ 100 mls/hr IVPB Q48H [facility] Rx#:[id number] Dextrose 5% in Water 1, 1200 200 000 ml @ 100 mls/hr IV . Q11H [facility] with Sodium Bicarb (1 Meq/ml) 100 ml Rx#:[id number] Dextrose 5% in Water 1, 200 000 ml @ 50 mls/hr IV . Q20H [facility] Rx#:[id number] Lactated Ringers 1,000 ml 400 @ 100 mls/hr IV .Q10H [facility] Rx#:[id number] Potassium Chloride 10 meq 100 In Water For Injection 1 100ml.bag @ 100 mls/hr IVPB Q1H [facility] Rx#: [id number] Intake, IV Titration 700 Amount DAPTOmycin 500 mg In 100 Sodium Chloride 0.9% 50 ml @ 100 mls/hr IVPB DAILY [facility] Rx#:[id number] Dextrose 5% in Water 1, 600 000 ml @ 100 mls/hr IV . Q11H [facility] with Sodium Bicarb (1 Meq/ml) 100 ml Rx#:[id number] Oral 250 Blood Product 310 Rc As-3 Unit 310 [id number] Output: Urine 1335 1425 600 Other: Voiding Method Indwelling Catheter Indwelling Catheter Indwelling Catheter ABP, PAP, CO, CI - Last Documented Arterial Blood Pressure 109/60 - Exam GEN. APPEARANCE: Physical exam revealed a 67-year-old male in no distress, appropriate, . HEAD EXAM: atraumatic, normocephalic, normal inspection EYE EXAM: Positive for pallor. No icterus. PERRLA, EOMI. ENT EXAM: Mucous membranes dry NECK EXAM: normal inspection. Absent: tenderness, meningismus, full ROM, no evidence of lymphadenopathy. RESPIRATORY EXAM: normal lung sounds bilaterally. Diminished breath sounds at the bases, no crackles or rhonchi or wheezes. CARDIOVASCULAR EXAM: Tachycardia. Normal S1 and S2, regular rhythm. 2/6 systolic murmur throughout the precordium. GI/ABDOMINAL EXAM: soft, normal bowel sounds. Absent: distended, tenderness, guarding, rebound, rigid EXTREMITIES EXAM: Bilateral lower extremities ulcers in various stages of healing , right side worse than left. All wrapped with sterile dressings. NEUROLOGICAL EXAM: Alert oriented 3, but seems to be quite slow. - Labs CBC & Chem 7: 12/23/17 05:20 12/23/17 05:20 Labs: Abnormal Lab Results - Last 24 Hours (Table) 12/22/17 12/22/17 12/22/17 Range/Units 17:46 20:10 23:38 WBC 17.1 H (3.8-10.6) k/uL RBC 2.78 L (4.30-5.90) m/uL Hgb 8.0 L (13.0-17.5) gm/dL Hct 26.1 L (39.0-53.0) % MCHC 30.7 L (31.0-37.0) g/dL RDW 19.1 H (11.5-15.5) % Plt Count 139 L (150-450) k/uL Retic Count (0.5-2.0) % Sodium (137-145) mmol/L Chloride (98-107) mmol/L Carbon Dioxide (22-30) mmol/L BUN (9-20) mg/dL Creatinine (0.66-1.25) mg/dL Glucose (74-99) mg/dL POC Glucose (mg/dL) 135 H 175 H (75-99) mg/dL Magnesium (1.6-2.3) mg/dL Total Protein (6.3-8.2) g/dL Albumin (3.5-5.0) g/dL 12/23/17 12/23/17 12/23/17 Range/Units 05:20 05:20 06:13 WBC 17.1 H (3.8-10.6) k/uL RBC 2.74 L (4.30-5.90) m/uL Hgb 7.9 L (13.0-17.5) gm/dL Hct 26.0 L (39.0-53.0) % MCHC 30.4 L (31.0-37.0) g/dL RDW 19.0 H (11.5-15.5) % Plt Count 149 L (150-450) k/uL Retic Count 4.1 H (0.5-2.0) % Sodium 149 H (137-145) mmol/L Chloride 123 H* (98-107) mmol/L Carbon Dioxide 21 L (22-30) mmol/L BUN 88 H* (9-20) mg/dL Creatinine 1.90 H (0.66-1.25) mg/dL Glucose 125 H (74-99) mg/dL POC Glucose (mg/dL) 127 H (75-99) mg/dL Magnesium 2.5 H (1.6-2.3) mg/dL Total Protein 5.2 L (6.3-8.2) g/dL Albumin 2.3 L (3.5-5.0) g/dL 12/23/17 Range/Units 11:44 WBC (3.8-10.6) k/uL RBC (4.30-5.90) m/uL Hgb (13.0-17.5) gm/dL Hct (39.0-53.0) % MCHC (31.0-37.0) g/dL RDW (11.5-15.5) % Plt Count (150-450) k/uL Retic Count (0.5-2.0) % Sodium (137-145) mmol/L Chloride (98-107) mmol/L Carbon Dioxide (22-30) mmol/L BUN (9-20) mg/dL Creatinine (0.66-1.25) mg/dL Glucose (74-99) mg/dL POC Glucose (mg/dL) 121 H (75-99) mg/dL Magnesium (1.6-2.3) mg/dL Total Protein (6.3-8.2) g/dL Albumin (3.5-5.0) g/dL Microbiology - Last 24 Hours (Table) 12/19/17 11:50 Blood Culture - Preliminary Blood No Growth after 72 hours Assessment and Plan Assessment: Impression: 1 acute septic shock, most likely source is his cellulitis. Could also be from urinary tract infection secondary to group D enterococcus. 2 chronic cellulitis, and lower extremities ulcers, cultures are nondiagnostic since there was evidence of multi-microbial growth. 3 acute non-anion gap hyperchloremic metabolic acidosis secondary to sepsis. And secondary to septic shock. 4 acute kidney injury secondary to sepsis and suspect acute tubular necrosis. Renal functioning seems to be steadily improving. 5 severe cardiomyopathy and LV dysfunction 6 atrial fibrillation with RVR, rate seems to be better controlled, and the patient is hemodynamically stable, off norepinephrine 7 acute GI bleeding, likely upper GI in nature secondary to gastritis or gastric ulcer disease most likely secondary to Naprosyn. And the use of nonsteroidal anti-inflammatory drugs. 8 history of diabetes. Recommendation: Continue present supportive care measures, including antibiotics , continue GI and DVT prophylaxis, patient will undergo EGD today, we'll likely transfer out of the ICU to a monitor bed on selective today. That will depend on the EGD findings, we'll continue to monitor his cardiac issues patient was noted to have severe cardiomyopathy and LV dysfunction. Overall long-term prognosis remains poor and guarded. We'll continue to follow. Time with Patient: Less than 30
--- NOTE | 2017-12-23 14:14 | P.PCN ---
Date of Procedure: 12/23/17 Description of Procedure: BRIEF HISTORY: Patient is a 67-year-old, pleasant, male who is currently being treated in the ICU for sepsis, bilateral lower extremity ulcers and with a known history of congestive heart failure who had 1 episode of hematemesis after presentation and reported seeing black bowel movements for weeks prior to his hospitalization. The patient was found to be anemic and his hemoglobin has hovered around the 7 mary during his stay. PROCEDURE PERFORMED: Esophagogastroduodenoscopy with cold biopsy. PREOPERATIVE DIAGNOSIS: Hematemesis, melena, normocytic anemia. IV sedation per anesthesia. PROCEDURE: After informed consent was obtained, the patient was brought into the endoscopy unit. IV sedation was administered by Anesthesia under continuous monitoring. Initially the Olympus GIF-190 video endoscope was inserted into the mouth. Esophagus intubated without any difficulty. It was gradually advanced into the stomach and duodenum and carefully examined. The bulb and the second part of the duodenum appeared normal. Intubation of the duodenum was difficult secondary to hypermotility of the stomach. The scope at this time was withdrawn to the stomach, adequately insufflated with air, and upon careful examination, mucosa of the antrum, body, cardia and the fundus. A large cratered 2 cm ulcer was found in the antrum of the stomach with no signs of active bleeding or high risk stigmata of bleeding. Biopsies were taken. Smaller superficial ulcerations were also found in the antrum surrounding the large cratered ulcer. The scope was then withdrawn into the esophagus. The GE junction was located at 45 cm from the incisors. The esophagus appeared normal. A small hiatal hernia was noted. IMPRESSION: 1. Multiple antral ulcers, with 1 large 2 cm cratered ulcer noted without any evidence of active bleeding or high risk stigmata. Biopsies taken. 2. Small hiatal hernia. RECOMMENDATIONS: The findings of this examination were discussed with the patient in the ICU nursing team. Continue IV Protonix 40 mg twice a day. Would keep the patient on a full liquid diet indefinitely, can add dietary supplementation as needed. Patient will need follow-up EGD in 6-8 weeks to ensure healing of the ulcer. No plan for repeat EGD while the patient is hospitalized, unless patient has further symptoms to suggest rebleed. Given the size and cratered nature of the ulcer should be noted that if any signs or symptoms to suggest perforation occur surgical service should be consulted.
[2017-12-23] MEDS: HYDROcodone/APAP 5-325MG 1 EACH TAB PO PRN (15:27)
--- NOTE | 2017-12-23 17:49 | PN ---
PROGRESS NOTE DATE OF SERVICE: 12/23/2017 CHIEF COMPLAINT: 1. Septic shock. 2. Cardiomyopathy. 3. Alcoholism. 4. Chronic obstructive pulmonary disease. 5. Infected stasis ulcers of the lower extremities. 6. Renal failure. HISTORY OF PRESENT ILLNESS: This gentleman is more or less the same. He is becoming a little bit more alert. His BUN and creatinine have dropped slightly. PHYSICAL EXAM: Chest is fairly clear. Cardiac is unchanged from his atrial fibrillation. The abdomen is soft and nontender. Extremities are dressed. Neurologically, he seems to be improving in terms of cognition. IMPRESSION: 1. Septic shock with hypotension. 2. Chronic renal failure with acute exacerbation. 3. Atrial fibrillation. 4. Cardiomyopathy. 5. Congestive heart failure. 6. Alcoholism. 7. Substance abuse. PLAN: Continue to follow as he slowly improves. MMODL / IJN: [id number] /
[2017-12-23 17:53] LABS: Glucose,Whole Blood 118 mg/dL (75-99)
[2017-12-23] MEDS: CEFEPIME 2 GM in SODIUM CHLORIDE 0.9% 50 ML IVPB SCH (20:48)
[2017-12-23 23:42] LABS: Glucose,Whole Blood 121 mg/dL (75-99)
[2017-12-24] MEDS: INSULIN ASPART 100 UNIT/ML 1 ML 10 ML VIAL SQ SCH ×4 (02:08→18:10)
[2017-12-24] MEDS: HYDROcodone/APAP 5-325MG 1 EACH TAB PO PRN ×3 (02:08→19:17)
[2017-12-24 05:08] LABS: Anisocytosis Slight; HCT 30.9 % (39.0-53.0); Hypochromasia Marked; MCH 28.6 pg (25.0-35.0); MCHC 29.1 g/dL (31.0-37.0); MCV 98.3 fL (80.0-100.0); Macrocytosis Slight; Mean Platelet Volume 7.7; Platelet Count 196 k/uL (150-450); Poikilocytosis Moderate; RBC 3.15 m/uL (4.30-5.90); RDW 18.5 % (11.5-15.5); WBC 21.5 k/uL (3.8-10.6)
[2017-12-24 05:24] LABS: Albumin 2.5 g/dL (3.5-5.0); Calcium 9.3 mg/dL (8.4-10.2); Potassium 4.2 mmol/L (3.5-5.1); Total Bilirubin 1.2 mg/dL (0.2-1.3); Total Protein 5.8 g/dL (6.3-8.2)
[2017-12-24 05:57] LABS: Glucose,Whole Blood 131 mg/dL (75-99)
--- NOTE | 2017-12-24 08:19 | P.PN ---
Subjective Patient is seen in follow-up for acute kidney injury. Renal function is improving with creatinine down to 1.8 today. Hemoglobin improved to 9.0 this morning. Patient underwent EGD in December 23 which revealed antral ulcers that were biopsied. He is on a full liquid diet now. Sodium level is 150. Currently maintained on D5 W with 1 amp of bicarbonate running at 100 mL an hour. He is nonoliguric. Patient has systolic CHF with ejection fraction of less than 20% with severe mitral regurgitation and pulmonary hypertension. Vital signs are stable. General: The patient appeared well nourished and normally developed. HEENT: Head exam is unremarkable. Neck is without jugular venous distension. LUNGS: Lungs are clear to auscultation and percussion. Breath sounds decreased. HEART: Rate and Rhythm are regular. First and second heart sounds normal. No murmurs, rubs or gallops. ABDOMEN: Abdominal exam reveals normal bowel sounds. Non-tender and non- distended. No evidence of peritonitis. EXTREMITITES: No clubbing, cyanosis, or edema. Objective - Vital Signs Vital signs: Vital Signs Temp 99.8 F H 12/24/17 04:00 Pulse 118 H 12/24/17 07:00 Resp 29 H 12/24/17 07:00 BP 103/71 12/24/17 05:00 Pulse Ox 99 12/24/17 07:00 Intake & Output 12/23/17 12/24/17 12/24/17 18:59 06:59 18:59 Intake Total 900 800 Output Total 1125 650 Balance -225 150 Weight 78.6 kg 77.2 kg Intake: IV 900 300 Dextrose 5% in Water 1, 200 000 ml @ 100 mls/hr IV . Q11H CATALINO with Sodium Bicarb (1 Meq/ml) 100 ml Rx#:[id number] Dextrose 5% in Water 1, 400 300 000 ml @ 50 mls/hr IV . Q20H ONE Rx#:[id number] Potassium Chloride 10 meq 100 In Water For Injection 1 100ml.bag @ 100 mls/hr IVPB Q1H CATALINO Rx#: [id number] Oral 500 Output: Urine 1125 650 Other: Voiding Method Indwelling Catheter Indwelling Catheter # Bowel Movements 1 ABP, PAP, CO, CI - Last Documented Arterial Blood Pressure 102/51 - Labs CBC & Chem 7: 12/24/17 04:26 12/24/17 04:26 Labs: Abnormal Lab Results - Last 24 Hours (Table) 12/23/17 12/23/17 12/23/17 Range/Units 11:44 17:51 23:40 WBC (3.8-10.6) k/uL RBC (4.30-5.90) m/uL Hgb (13.0-17.5) gm/dL Hct (39.0-53.0) % MCHC (31.0-37.0) g/dL RDW (11.5-15.5) % Sodium (137-145) mmol/L Chloride (98-107) mmol/L Carbon Dioxide (22-30) mmol/L BUN (9-20) mg/dL Creatinine (0.66-1.25) mg/dL Glucose (74-99) mg/dL POC Glucose (mg/dL) 121 H 118 H 121 H (75-99) mg/dL AST (17-59) U/L Total Protein (6.3-8.2) g/dL Albumin (3.5-5.0) g/dL 12/24/17 12/24/17 12/24/17 Range/Units 04:26 04:26 05:44 WBC 21.5 H (3.8-10.6) k/uL RBC 3.15 L (4.30-5.90) m/uL Hgb 9.0 L (13.0-17.5) gm/dL Hct 30.9 L (39.0-53.0) % MCHC 29.1 L (31.0-37.0) g/dL RDW 18.5 H (11.5-15.5) % Sodium 150 H (137-145) mmol/L Chloride 122 H* (98-107) mmol/L Carbon Dioxide 20 L (22-30) mmol/L BUN 74 H (9-20) mg/dL Creatinine 1.80 H (0.66-1.25) mg/dL Glucose 139 H (74-99) mg/dL POC Glucose (mg/dL) 131 H (75-99) mg/dL AST 105 H (17-59) U/L Total Protein 5.8 L (6.3-8.2) g/dL Albumin 2.5 L (3.5-5.0) g/dL Microbiology - Last 24 Hours (Table) 12/19/17 11:50 Blood Culture - Preliminary Blood No Growth after 96 hours Assessment and Plan Plan: assessment: 1. Nonoliguric acute kidney injury secondary to ATN secondary to hypotension and anemia. Renal function improving with creatinine down to 1.8 today. 2. Metabolic acidosis currently on hypotonic bicarbonate drip. Stable. 3. Hypernatremia secondary to lack of oral water intake. 4. Systolic CHF with ejection fraction of less than 20% with severe mitral regurgitation and pulmonary hypertension. 5. Acute anemia secondary to GI bleed status post EGD on December 23 which revealed antral ulcers that were biopsied. 6. Atrial fibrillation maintained on oral amiodarone. 7. Chronic kidney disease. Creatinine was 2 in 2013 and 3 in 2017. Etiology is nephrosclerosis and cardiorenal syndrome. He does have cortical thinning noted on renal ultrasound suggestive of underlying chronic kidney disease. Plan: I will change IV fluids to D5W to be run at 200 mL an hour. Repeat sodium level at 6 PM today. Avoid nephrotoxic agents and hypotensive episodes. Monitor hemoglobin and transfuse as needed. Maintain oral sodium bicarbonate. Continue to monitor renal function and urine output.
[2017-12-24] MEDS: DEXTROSE 5% IN WATER 1,000 ML IV SCH ×2 (08:20→18:07)
[2017-12-24] MEDS: DAPTOmycin 500 MG in SODIUM CHLORIDE 0.9% 50 ML IVPB SCH (08:30)
[2017-12-24] MEDS: METOPROLOL TARTRATE 12.5 MG TAB PO SCH ×2 (08:30→22:37)
[2017-12-24] MEDS: SODIUM BICARBONATE TAB 650 MG TAB PO SCH ×4 (08:30→22:37)
[2017-12-24] MEDS: AMIODARONE 200 MG TAB PO SCH ×2 (08:30→22:37)
[2017-12-24] MEDS: PANTOPRAZOLE 40 MG/10 ML VIAL IV SCH ×2 (08:30→22:38)
--- NOTE | 2017-12-24 09:10 | P.PN ---
Subjective Progress Note Date: 12/24/17 This is a 67-year-old gentleman with known cardiomyopathy and congestive heart failure who was admitted with a severe anemia, possible sepsis and infected ulcers in the leg. Patient received blood transfusions and was on vasopressors. His blood pressure stabilized around 100. Patient is also in atrial fibrillation with rapid ventricular response. Patient is on amiodarone therapy IV. We will switch to by mouth amiodarone and start him on small dose of beta patrice. His urine output is fair. He is being treated for infection with antibiotics. We'll continue current medical therapy. Prognosis is guarded. 12/22/2017:. Patient seemed to be hemodynamically more stable. He is off pressors and maintaining a systolic blood pressure performed 100. Heart rate is in the 90s. He is on by mouth amiodarone and also small dose of beta patrice. His urine output is fair. She is going to have upper endoscopy today. 12/23/2017: This patient is admitted with GI bleeding and anemia. He received 1 unit of blood yesterday. His blood pressure is marginal. He is on oral amiodarone and beta patrice for rate control. His ejection fraction about 20%. He also had acute renal failure that seemed to be gradually improving. Patient sodium levels are high and IV fluids have been changed to D5W. He is going to have endoscopy today. He doesn't appear to be in acute distress. He urine output is fair. 12/24/2017: This patient with history of severe cardiomyopathy, severe mitral regurgitation and chronic systolic heart failure was admitted to the hospital with GI bleeding, anemia, infected ulcers on the leg and possible sepsis. Patient was very hypotensive requiring blood transfusion and also Levophed. Currently he is off Levophed and maintaining blood pressure in the 90s to 100 systolic. He is also limited on for rate control of atrial fibrillation. Patient is hyponatremic and is currently getting D5W. His creatinine is 1.8. His hemoglobin is maintained. Upper endoscopy showed peptic ulcer with crater without any significant bleeding at this time. Conservative medical management is suggested. Overall, patient seems to frail. Denies the chest pain. Denies any shortness of breath. Prognosis is guarded Objective - Vital Signs Vital signs: Vital Signs Temp 98.4 F 12/24/17 08:00 Pulse 119 H 12/24/17 09:00 Resp 18 12/24/17 09:00 BP 101/70 12/24/17 08:00 Pulse Ox 100 12/24/17 09:00 Intake & Output 12/23/17 12/24/17 12/24/17 18:59 06:59 18:59 Intake Total 900 800 Output Total 1125 650 Balance -225 150 Weight 78.6 kg 77.2 kg Intake: IV 900 300 Dextrose 5% in Water 1, 200 000 ml @ 100 mls/hr IV . Q11H CATALINO with Sodium Bicarb (1 Meq/ml) 100 ml Rx#:[id number] Dextrose 5% in Water 1, 400 300 000 ml @ 50 mls/hr IV . Q20H ONE Rx#:[id number] Potassium Chloride 10 meq 100 In Water For Injection 1 100ml.bag @ 100 mls/hr IVPB Q1H CATALINO Rx#: [id number] Oral 500 Output: Urine 1125 650 Other: Voiding Method Indwelling Catheter Indwelling Catheter Indwelling Catheter # Bowel Movements 1 ABP, PAP, CO, CI - Last Documented Arterial Blood Pressure 102/51 - Exam GENERAL EXAM: Patient is alert but weak and lethargic HEENT: Normocephalic. Normal reaction of pupils, equal size, normal range of extraocular motion. No erythema or exudates in the throat. NECK: No masses, no nuchal rigidity. CHEST: No chest wall deformity. LUNGS: Diminished breath sounds at bases HEART: S1 and S2 normal. Irregular heart sounds ABDOMEN: No hepatosplenomegaly, normal bowel sounds, no guarding or rigidity. SKIN: No rashes CENTRAL NERVOUS SYSTEM: Deferred EXTREMITIES: No cyanosis, clubbing or edema. - Labs CBC & Chem 7: 12/24/17 04:26 12/24/17 04:26 Labs: Abnormal Lab Results - Last 24 Hours (Table) 12/23/17 12/23/17 12/23/17 Range/Units 11:44 17:51 23:40 WBC (3.8-10.6) k/uL RBC (4.30-5.90) m/uL Hgb (13.0-17.5) gm/dL Hct (39.0-53.0) % MCHC (31.0-37.0) g/dL RDW (11.5-15.5) % Sodium (137-145) mmol/L Chloride (98-107) mmol/L Carbon Dioxide (22-30) mmol/L BUN (9-20) mg/dL Creatinine (0.66-1.25) mg/dL Glucose (74-99) mg/dL POC Glucose (mg/dL) 121 H 118 H 121 H (75-99) mg/dL AST (17-59) U/L Total Protein (6.3-8.2) g/dL Albumin (3.5-5.0) g/dL 12/24/17 12/24/17 12/24/17 Range/Units 04:26 04:26 05:44 WBC 21.5 H (3.8-10.6) k/uL RBC 3.15 L (4.30-5.90) m/uL Hgb 9.0 L (13.0-17.5) gm/dL Hct 30.9 L (39.0-53.0) % MCHC 29.1 L (31.0-37.0) g/dL RDW 18.5 H (11.5-15.5) % Sodium 150 H (137-145) mmol/L Chloride 122 H* (98-107) mmol/L Carbon Dioxide 20 L (22-30) mmol/L BUN 74 H (9-20) mg/dL Creatinine 1.80 H (0.66-1.25) mg/dL Glucose 139 H (74-99) mg/dL POC Glucose (mg/dL) 131 H (75-99) mg/dL AST 105 H (17-59) U/L Total Protein 5.8 L (6.3-8.2) g/dL Albumin 2.5 L (3.5-5.0) g/dL Microbiology - Last 24 Hours (Table) 12/19/17 11:50 Blood Culture - Preliminary Blood No Growth after 96 hours Assessment and Plan (1) Atrial fibrillation with RVR Current Visit: Yes Status: Acute Code(s): I48.91 - UNSPECIFIED ATRIAL FIBRILLATION SNOMED Code(s): 021773268775977 (2) Acute on chronic blood loss anemia Current Visit: Yes Status: Acute Code(s): D60.0 - CHRONIC ACQUIRED PURE RED CELL APLASIA SNOMED Code(s): 099640652 (3) Acute renal failure Current Visit: Yes Status: Acute Code(s): N17.9 - ACUTE KIDNEY FAILURE, UNSPECIFIED SNOMED Code(s): 17784081 (4) GI hemorrhage Current Visit: Yes Status: Acute Code(s): K92.2 - GASTROINTESTINAL HEMORRHAGE, UNSPECIFIED SNOMED Code(s): 88747055 (5) Venous stasis ulcer of both lower extremities without varicose veins Current Visit: Yes Status: Acute Code(s): I87.2 - VENOUS INSUFFICIENCY ( CHRONIC) (PERIPHERAL); L97.919 - NON-PRS CHRONIC ULC UNSP PRT OF R LOW LEG W UNSP SEVERITY; L97.929 - NON-PRS CHRONIC ULC UNSP PRT OF L LOW LEG W UNSP SEVERITY SNOMED Code(s): 629466841 (6) Cardiomyopathy Current Visit: Yes Status: Acute Code(s): I42.9 - CARDIOMYOPATHY, UNSPECIFIED SNOMED Code(s): 73818275 (7) Chronic systolic CHF (congestive heart failure) Current Visit: Yes Status: Acute Code(s): I50.22 - CHRONIC SYSTOLIC ( CONGESTIVE) HEART FAILURE SNOMED Code(s): 685206485 Plan: Patient seemed to be overall feeling better. Hemodynamically more stable. Tolerating small dose of beta patrice. Patient is going to have upper endoscopy and 12/23/2017: This patient is relatively stable. Drowsy but communicative. Sodium is high, which is being corrected. Lungs appeared to be clear. Heart rate in the 90s. Patient is going for EGD today. Prognosis still guarded. 12/24/2017: Patient is remains frail and weak. His sodium remains high. Hemoglobin is stable. He'll continue current medical therapy. Prognosis is guarded
[2017-12-24] MEDS: SILVER sulfADIAZINE Cream 400 GM 1 APPLIC APPLIC TOPICAL SCH ×2 (12:20→22:38)
[2017-12-24 12:55] LABS: Glucose,Whole Blood 145 mg/dL (75-99)
--- NOTE | 2017-12-24 13:57 | P.PN ---
Subjective Progress Note Date: 12/24/17 Principal diagnosis: Acute septic shock, profound anemia and GI bleeding This is a 67-year-old white male with history of multiple medical problems including chronic atrial fibrillation, COPD, congestive heart failure, diabetes , patient was brought in by his caregiver who is a friend of his, and he has been noticing significant decline in his status. Patient has been very secretive about his overall health condition, does not share his health issues with any of his friends or family members. Apparently he normally sees Dr. Oconnell and has been treated recently with doxycycline for what seems to be significant areas of cellulitis involving both legs. Patient was brought into the ER mostly with chief complaint of altered mental status, and has been noticing dark colored stools for the last 5 weeks. Patient is normally on Naprosyn for gout, and has been taking doxycycline for ulcers involving his legs. The patient himself is a very poor historian, much of the information was obtained from the chart. Upon arrival to the ER, patient was noted to be hypotensive, his lactic acid was elevated, and his hemoglobin was only 4. Patient was given so far at least 4 units of packed RBCs, and his hemoglobin now is 7.8. He was also given significant amount of fluid boluses, and his lactic acid came down from 8-0.8 to this morning. His renal profile is showing slight improvement with BUN coming down from 176-161 and his creatinine coming down from 3.60-3.30. Patient was empirically placed on antibiotics by Dr. Cartagena, and his urine was positive for cocaine. Chest x-ray showed no evidence of active disease. Patient was also noted to have atrial fibrillation with RVR , hypotensive on 20 g of norepinephrine, he was seen by cardiology, and his echocardiogram showed a significantly impaired left ventricle, ejection fraction of less than 20%. His atrial fibrillation is being treated with amiodarone. Nephrology was consulted for his renal failure. The patient himself is a very poor historian, and he seems to be quite slow with definite altered mental status. Patient was reevaluated today on 12/21/2017, seems to be more awake and more appropriate today. Hemodynamically stable, he was earlier on 5 g of norepinephrine, and I would likely discontinue the norepinephrine today since the blood pressure is holding and his main is in the high 70s. Urine output is excellent. Renal functioning is improving. BUN is down to 138 creatinine is down to 2.90 patient continues to have non-anion gap hyperchloremic metabolic acidosis. He is receiving bicarb orally. WBC count is down to 18.8 hemoglobin is holding at 7.4. Had few episodes of coffee-ground emesis, child specialist following, may consider endoscopy today. Patient is presently nothing by mouth. He did receive a total of 4 units of packed RBCs for low hemoglobin on presentation. Blood cultures are negative so far, however his urine culture was positive for group D enterococcus. And his wound cultures are negative for gram-negative bacilli. Patient is presently on daptomycin and on cefepime which is appropriate coverage for what we have so far. Patient is definitely more appropriate today, and he seems to be oriented 3. Patient was placed on lactated Ringer's at 100 mL/h, continues to have excellent urine output, and he is not developing any congestive heart failure findings although his ejection fraction was noted to be quite low. Ultrasound of the right and left kidney was noted. Seems to be consistent with underlying medical renal disease. On 12/22/2017, patient is basically about the same, however we have noticed a drop in his hemoglobin today, and the patient is now receiving a fifth unit of packed RBCs since admission. Hemoglobin this morning was 6.9, gastroenterology is planning EGD on this patient sometime today. Patient is complaining of being thirsty, otherwise he denies any specific complaints. No nausea no vomiting no abdominal pain no chest pain no shortness of breath. All his labs were reviewed, sodium is elevated, 149, potassium is 4.0 bicarb remains low at 15, BUN is improving down to 110 and creatinine is down to 2.30, and that is all being addressed by nephrology on the case. Patient was reevaluated today on 12/23/2017, scheduled to undergo EGD today, for some reason it was not done yesterday mostly because of his A. fib/RVR according to the child specialist on the case. Patient is nothing by mouth for today, and would likely have endoscopy done around 1 PM today. Patient is relatively asymptomatic, doing well overall compared to how he presented. Hemoglobin is holding at 7.9. Patient received a total of 5 units of packed RBCs since admission. His sodium was noted to be elevated, and his bicarb was correcting nicely, hence I have discontinued his bicarb drip. Patient denies any shortness of breath no cough no wheezing. Although her chest x-ray did show cardiomegaly and interstitial edema, right lower lobe infiltrate is not entirely ruled out. Patient was reevaluated today on , underwent EGD yesterday, and he was found to have a gastric ulcer, biopsies done, was not actively bleeding. Patient is a selective overflow in the ICU today, doing well overall, no active GI bleeding, mentation seems to be slightly improving, but remains overall slow which is probably his baseline. Renal functioning seems to be improving, creatinine is down to 1.8. Sodium remains elevated at 150, being addressed by nephrology on the case. Patient denies any cough no wheezing no shortness of breath, no chest pain, and he is tolerating oral feeding well. Objective - Vital Signs Vital signs: Vital Signs Temp 98.4 F 12/24/17 08:00 Pulse 117 H 12/24/17 13:00 Resp 16 12/24/17 13:00 BP 110/74 12/24/17 12:00 Pulse Ox 100 12/24/17 13:00 Intake & Output 12/23/17 12/24/17 12/24/17 18:59 06:59 18:59 Intake Total 900 800 400 Output Total 1125 650 800 Balance -225 150 -400 Weight 78.6 kg 77.2 kg 77.2 kg Intake: IV 900 300 400 Dextrose 5% in Water 1, 200 000 ml @ 100 mls/hr IV . Q11H CATALINO with Sodium Bicarb (1 Meq/ml) 100 ml Rx#:[id number] Dextrose 5% in Water 1, 400 300 400 000 ml @ 50 mls/hr IV . Q20H ONE Rx#:[id number] Potassium Chloride 10 meq 100 In Water For Injection 1 100ml.bag @ 100 mls/hr IVPB Q1H CATALINO Rx#: [id number] Oral 500 Output: Urine 1125 650 800 Other: Voiding Method Indwelling Catheter Indwelling Catheter Indwelling Catheter # Bowel Movements 1 ABP, PAP, CO, CI - Last Documented Arterial Blood Pressure 102/51 - Exam GEN. APPEARANCE: Physical exam revealed a 67-year-old male in no distress, appropriate, . HEAD EXAM: atraumatic, normocephalic, normal inspection EYE EXAM: Positive for pallor. No icterus. PERRLA, EOMI. ENT EXAM: Mucous membranes dry NECK EXAM: normal inspection. Absent: tenderness, meningismus, full ROM, no evidence of lymphadenopathy. RESPIRATORY EXAM: normal lung sounds bilaterally. Diminished breath sounds at the bases, no crackles or rhonchi or wheezes. CARDIOVASCULAR EXAM: Tachycardia. Normal S1 and S2, regular rhythm. 2/6 systolic murmur throughout the precordium. GI/ABDOMINAL EXAM: soft, normal bowel sounds. Absent: distended, tenderness, guarding, rebound, rigid EXTREMITIES EXAM: Bilateral lower extremities ulcers in various stages of healing , right side worse than left. All wrapped with sterile dressings. NEUROLOGICAL EXAM: Alert oriented 3, but seems to be quite slow. - Labs CBC & Chem 7: 12/24/17 04:26 12/24/17 04:26 Labs: Abnormal Lab Results - Last 24 Hours (Table) 12/23/17 12/23/17 12/24/17 Range/Units 17:51 23:40 04:26 WBC 21.5 H (3.8-10.6) k/uL RBC 3.15 L (4.30-5.90) m/uL Hgb 9.0 L (13.0-17.5) gm/dL Hct 30.9 L (39.0-53.0) % MCHC 29.1 L (31.0-37.0) g/dL RDW 18.5 H (11.5-15.5) % Sodium (137-145) mmol/L Chloride (98-107) mmol/L Carbon Dioxide (22-30) mmol/L BUN (9-20) mg/dL Creatinine (0.66-1.25) mg/dL Glucose (74-99) mg/dL POC Glucose (mg/dL) 118 H 121 H (75-99) mg/dL AST (17-59) U/L Total Protein (6.3-8.2) g/dL Albumin (3.5-5.0) g/dL 12/24/17 12/24/17 12/24/17 Range/Units 04:26 05:44 12:53 WBC (3.8-10.6) k/uL RBC (4.30-5.90) m/uL Hgb (13.0-17.5) gm/dL Hct (39.0-53.0) % MCHC (31.0-37.0) g/dL RDW (11.5-15.5) % Sodium 150 H (137-145) mmol/L Chloride 122 H* (98-107) mmol/L Carbon Dioxide 20 L (22-30) mmol/L BUN 74 H (9-20) mg/dL Creatinine 1.80 H (0.66-1.25) mg/dL Glucose 139 H (74-99) mg/dL POC Glucose (mg/dL) 131 H 145 H (75-99) mg/dL AST 105 H (17-59) U/L Total Protein 5.8 L (6.3-8.2) g/dL Albumin 2.5 L (3.5-5.0) g/dL Microbiology - Last 24 Hours (Table) 12/19/17 11:50 Blood Culture - Preliminary Blood No Growth after 96 hours Assessment and Plan Assessment: Impression: 1 acute septic shock, most likely source is his cellulitis. Could also be from urinary tract infection secondary to group D enterococcus. 2 chronic cellulitis, and lower extremities ulcers, cultures are nondiagnostic since there was evidence of multi-microbial growth. 3 acute non-anion gap hyperchloremic metabolic acidosis secondary to sepsis. And secondary to septic shock. 4 acute kidney injury secondary to sepsis and suspect acute tubular necrosis. Renal functioning seems to be steadily improving. 5 severe cardiomyopathy and LV dysfunction 6 atrial fibrillation with RVR, rate seems to be better controlled, and the patient is hemodynamically stable, off norepinephrine 7 acute GI bleeding, secondary to antral gastric ulcer. Status post EGD and biopsy postoperative day #1 8 history of diabetes. Recommendation: Continue present supportive care measures, including antibiotics , continue GI and DVT prophylaxis, patient could be transferred out of the ICU once a bed is available on selective. We'll continue to follow. Time with Patient: Less than 30
--- NOTE | 2017-12-24 17:44 | PN ---
PROGRESS NOTE DATE OF SERVICE: 12/24/2017. CHIEF COMPLAINT: Septic shock. HISTORY OF PRESENT ILLNESS: This patient is just about the same. He is improving, but only very slowly. PHYSICAL EXAM: He is still lethargic. Breath sounds are heard on both sides. Cardiac is unchanged with atrial fibrillation. The abdomen is soft. IMPRESSION: 1. Septic shock. 2. Renal failure. 3. Alcoholism. 4. Alcoholic cardiomyopathy. 5. Chronic congestive heart failure. 6. Renal failure. 7. Stasis ulcers of the lower extremities. PLAN: I have nothing new to offer regarding his patient's management. MMODL / IJN: [id number] /
[2017-12-24 18:11] LABS: Glucose,Whole Blood 113 mg/dL (75-99)
--- NOTE | 2017-12-24 20:01 | P.PN ---
Subjective Progress Note Date: 12/24/17 Principal diagnosis: Hematemesis, anemia, melena, gastric ulcer No blood per rectum or melena today per patient. He has been tolerating his full liquid diet. No abdominal pain reported. Objective - Vital Signs Vital signs: Vital Signs Temp 98.0 F 12/24/17 16:00 Pulse 107 H 12/24/17 16:00 Resp 30 H 12/24/17 16:00 BP 83/66 12/24/17 16:00 Pulse Ox 92 L 12/24/17 16:00 Intake & Output 12/24/17 12/24/17 12/25/17 06:59 18:59 06:59 Intake Total 800 1260 Output Total 650 1400 Balance 150 -140 Weight 77.2 kg 77.2 kg Intake: IV 300 800 Dextrose 5% in Water 1, 300 800 000 ml @ 50 mls/hr IV . Q20H ONE Rx#:[id number] Oral 500 460 Output: Urine 650 1400 Other: Voiding Method Indwelling Catheter Indwelling Catheter # Bowel Movements 1 ABP, PAP, CO, CI - Last Documented Arterial Blood Pressure 102/51 - Exam Constitutional: Lying in bed in no apparent distress Head: normocephalic/atraumatic Eyes: No icterus, no injection Mouth: Moist mucous membranes, poor dentition Nose: No discharge noted Neck: Trachea midline Lungs: Normal air entry in all lung hooker, no wheezing appreciated Abdomen: Soft, nontender, nondistended, normal bowel sounds. No guarding or rigidity Skin: No jaundice, bilateral wrappings of leg secondary to ulcerations Neuro: Awake alert, no focal deficits - Labs CBC & Chem 7: 12/24/17 04:26 12/24/17 18:21 Labs: Abnormal Lab Results - Last 24 Hours (Table) 12/23/17 12/24/17 12/24/17 Range/Units 23:40 04:26 04:26 WBC 21.5 H (3.8-10.6) k/uL RBC 3.15 L (4.30-5.90) m/uL Hgb 9.0 L (13.0-17.5) gm/dL Hct 30.9 L (39.0-53.0) % MCHC 29.1 L (31.0-37.0) g/dL RDW 18.5 H (11.5-15.5) % Sodium 150 H (137-145) mmol/L Chloride 122 H* (98-107) mmol/L Carbon Dioxide 20 L (22-30) mmol/L BUN 74 H (9-20) mg/dL Creatinine 1.80 H (0.66-1.25) mg/dL Glucose 139 H (74-99) mg/dL POC Glucose (mg/dL) 121 H (75-99) mg/dL AST 105 H (17-59) U/L Total Protein 5.8 L (6.3-8.2) g/dL Albumin 2.5 L (3.5-5.0) g/dL 12/24/17 12/24/17 12/24/17 Range/Units 05:44 12:53 18:09 WBC (3.8-10.6) k/uL RBC (4.30-5.90) m/uL Hgb (13.0-17.5) gm/dL Hct (39.0-53.0) % MCHC (31.0-37.0) g/dL RDW (11.5-15.5) % Sodium (137-145) mmol/L Chloride (98-107) mmol/L Carbon Dioxide (22-30) mmol/L BUN (9-20) mg/dL Creatinine (0.66-1.25) mg/dL Glucose (74-99) mg/dL POC Glucose (mg/dL) 131 H 145 H 113 H (75-99) mg/dL AST (17-59) U/L Total Protein (6.3-8.2) g/dL Albumin (3.5-5.0) g/dL 12/24/17 Range/Units 18:21 WBC (3.8-10.6) k/uL RBC (4.30-5.90) m/uL Hgb (13.0-17.5) gm/dL Hct (39.0-53.0) % MCHC (31.0-37.0) g/dL RDW (11.5-15.5) % Sodium 150 H (137-145) mmol/L Chloride (98-107) mmol/L Carbon Dioxide (22-30) mmol/L BUN (9-20) mg/dL Creatinine (0.66-1.25) mg/dL Glucose (74-99) mg/dL POC Glucose (mg/dL) (75-99) mg/dL AST (17-59) U/L Total Protein (6.3-8.2) g/dL Albumin (3.5-5.0) g/dL Microbiology - Last 24 Hours (Table) 12/19/17 11:50 Blood Culture - Preliminary Blood No Growth after 120 hours Assessment and Plan (1) GI hemorrhage Narrative/Plan: Patient presenting with witnessed episode of hematemesis and reporting multiple episodes of melena prior to presentation. He was found to be anemic on presentation and was subsequently taken for an EGD yesterday which showed a large cratered gastric ulcer. Other gastric ulcer was also noted on examination Current Visit: Yes Status: Acute Code(s): K92.2 - GASTROINTESTINAL HEMORRHAGE, UNSPECIFIED SNOMED Code(s): 88746693 (2) Normocytic anemia Narrative/Plan: Likely multifactorial secondary to anemia of chronic disease and blood loss. Current Visit: Yes Status: Acute Code(s): D64.9 - ANEMIA, UNSPECIFIED SNOMED Code(s): 979802635 (3) Gastric ulcer Narrative/Plan: Large 2 cm cratered gastric ulcer noted on EGD. Smaller ulcers also noted in the same region surrounding the primary ulcer. Current Visit: Yes Status: Acute Code(s): K25.9 - GASTRIC ULCER, UNSP ACUTE OR CHRONIC, W/O HEMOR OR PERF SNOMED Code(s): 303724258 Plan: Supportive care Continue ICU management Continue IV Protonix Would keep the patient on full liquid diet for now Appreciate recommendations from nephrology and cardiology Continue to monitor hemoglobin every 12 hours and transfuse as needed Patient will need repeat EGD in 6-8 weeks to ensure ulcer healing The patient develops any signs of peritonitis or change in clinical status consider stat x-ray abdomen to rule out gastric perforation Thank you for allowing us to participate in the care of this patient, we will continue to follow
[2017-12-24] MEDS: CEFEPIME 2 GM in SODIUM CHLORIDE 0.9% 50 ML IVPB SCH (20:12)
[2017-12-24 23:57] LABS: Glucose,Whole Blood 116 mg/dL (75-99)
[2017-12-25] MEDS: INSULIN ASPART 100 UNIT/ML 1 ML 10 ML VIAL SQ SCH ×5 (00:19→23:58)
[2017-12-25] MEDS: HYDROcodone/APAP 5-325MG 1 EACH TAB PO PRN ×3 (00:20→22:52)
[2017-12-25] MEDS: DEXTROSE 5% IN WATER 1,000 ML IV SCH ×3 (04:45→20:52)
[2017-12-25 06:52] LABS: Anisocytosis Slight; Basophils % (A) 0 %; Eosinophils # (A) 0.5 k/uL (0-0.7); Eosinophils % (A) 3 %; HCT 28.5 % (39.0-53.0); HGB 8.4 gm/dL (13.0-17.5); Hypochromasia Marked; Lymphocytes # (A) 0.7 k/uL (1.0-4.8); Lymphocytes % (A) 3 %; MCH 28.7 pg (25.0-35.0); MCHC 29.4 g/dL (31.0-37.0); MCV 97.5 fL (80.0-100.0); Macrocytosis Slight; Mean Platelet Volume 7.7; Monocytes # (A) 0.9 k/uL (0-1.0); Monocytes % (A) 5 %; Neutrophils # (A) 17.6 k/uL (1.3-7.7); Neutrophils % (A) 88 %; Platelet Count 224 k/uL (150-450); Poikilocytosis Moderate; RBC 2.92 m/uL (4.30-5.90)
[2017-12-25 06:53] LABS: Glucose,Whole Blood 84 mg/dL (75-99)
[2017-12-25 06:57] LABS: Calcium 9.1 mg/dL (8.4-10.2); Magnesium 2.6 mg/dL (1.6-2.3); Potassium 4.4 mmol/L (3.5-5.1)
--- NOTE | 2017-12-25 08:24 | P.PN ---
Subjective Patient is seen in follow-up for acute kidney injury. Renal function is improving with creatinine down to 1.68 today. Hemoglobin 8.4 this morning. Patient underwent EGD in December 23 which revealed antral ulcers that were biopsied. He is on a full liquid diet now. Sodium level is down to 147. Currently maintained on D5W at 125 mL an hour. He is nonoliguric. Patient has systolic CHF with ejection fraction of less than 20% with severe mitral regurgitation and pulmonary hypertension. Vital signs are stable. General: The patient appeared well nourished and normally developed. HEENT: Head exam is unremarkable. Neck is without jugular venous distension. LUNGS: Lungs are clear to auscultation and percussion. Breath sounds decreased. HEART: Rate and Rhythm are regular. First and second heart sounds normal. No murmurs, rubs or gallops. ABDOMEN: Abdominal exam reveals normal bowel sounds. Non-tender and non- distended. No evidence of peritonitis. EXTREMITITES: No clubbing, cyanosis, or edema. Objective - Vital Signs Vital signs: Vital Signs Temp 98.1 F 12/25/17 04:00 Pulse 120 H 12/25/17 07:00 Resp 28 H 12/25/17 07:00 BP 94/68 12/25/17 04:00 Pulse Ox 100 12/25/17 07:00 Intake & Output 12/24/17 12/25/17 12/25/17 18:59 06:59 18:59 Intake Total 1260 640 Output Total 1400 550 Balance -140 90 Weight 77.2 kg 78.1 kg Intake: IV 800 400 Dextrose 5% in Water 1, 800 400 000 ml @ 50 mls/hr IV . Q20H ONE Rx#:[id number] Oral 460 240 Output: Urine 1400 550 Other: Voiding Method Indwelling Catheter Indwelling Catheter ABP, PAP, CO, CI - Last Documented Arterial Blood Pressure 102/51 - Labs CBC & Chem 7: 12/25/17 06:16 12/25/17 06:16 Labs: Abnormal Lab Results - Last 24 Hours (Table) 12/24/17 12/24/17 12/24/17 Range/Units 12:53 18:09 18:21 WBC (3.8-10.6) k/uL RBC (4.30-5.90) m/uL Hgb (13.0-17.5) gm/dL Hct (39.0-53.0) % MCHC (31.0-37.0) g/dL RDW (11.5-15.5) % Neutrophils # (1.3-7.7) k/uL Lymphocytes # (1.0-4.8) k/uL Sodium 150 H (137-145) mmol/L Chloride (98-107) mmol/L BUN (9-20) mg/dL Creatinine (0.66-1.25) mg/dL Glucose (74-99) mg/dL POC Glucose (mg/dL) 145 H 113 H (75-99) mg/dL Magnesium (1.6-2.3) mg/dL 12/24/17 12/25/17 12/25/17 Range/Units 23:55 06:16 06:16 WBC 20.0 H (3.8-10.6) k/uL RBC 2.92 L (4.30-5.90) m/uL Hgb 8.4 L (13.0-17.5) gm/dL Hct 28.5 L (39.0-53.0) % MCHC 29.4 L (31.0-37.0) g/dL RDW 18.0 H (11.5-15.5) % Neutrophils # 17.6 H (1.3-7.7) k/uL Lymphocytes # 0.7 L (1.0-4.8) k/uL Sodium 147 H (137-145) mmol/L Chloride 119 H (98-107) mmol/L BUN 62 H (9-20) mg/dL Creatinine 1.68 H (0.66-1.25) mg/dL Glucose 113 H (74-99) mg/dL POC Glucose (mg/dL) 116 H (75-99) mg/dL Magnesium 2.6 H (1.6-2.3) mg/dL Microbiology - Last 24 Hours (Table) 12/19/17 11:50 Blood Culture - Preliminary Blood No Growth after 120 hours Assessment and Plan Plan: assessment: 1. Nonoliguric acute kidney injury secondary to ATN secondary to hypotension and anemia. Renal function improving with creatinine down to 1.68 today. 2. Metabolic acidosis secondary to RM. 3. Hypernatremia secondary to lack of oral water intake. 4. Systolic CHF with ejection fraction of less than 20% with severe mitral regurgitation and pulmonary hypertension. 5. Acute anemia secondary to GI bleed status post EGD on December 23 which revealed antral ulcers that were biopsied. 6. Atrial fibrillation maintained on oral amiodarone. 7. Chronic kidney disease. Creatinine was 2 in 2013 and 3 in 2017. Etiology is nephrosclerosis and cardiorenal syndrome. He does have cortical thinning noted on renal ultrasound suggestive of underlying chronic kidney disease. Plan: Continue D5W at 125 cc/hr. Repeat sodium level at 6 PM today. Avoid nephrotoxic agents and hypotensive episodes. Monitor hemoglobin and transfuse as needed. Maintain oral sodium bicarbonate. Continue to monitor renal function and urine output.
[2017-12-25] MEDS: AMIODARONE 200 MG TAB PO SCH ×2 (08:56→20:47)
[2017-12-25] MEDS: SODIUM BICARBONATE TAB 650 MG TAB PO SCH ×4 (08:56→21:01)
[2017-12-25] MEDS: METOPROLOL TARTRATE 12.5 MG TAB PO SCH ×2 (08:56→20:51)
[2017-12-25] MEDS: DAPTOmycin 500 MG in SODIUM CHLORIDE 0.9% 50 ML IVPB SCH (08:56)
[2017-12-25] MEDS: PANTOPRAZOLE 40 MG/10 ML VIAL IV SCH (08:57)
--- NOTE | 2017-12-25 10:53 | P.PN ---
Subjective Progress Note Date: 12/25/17 Principal diagnosis: Acute septic shock, profound anemia and GI bleeding This is a 67-year-old white male with history of multiple medical problems including chronic atrial fibrillation, COPD, congestive heart failure, diabetes , patient was brought in by his caregiver who is a friend of his, and he has been noticing significant decline in his status. Patient has been very secretive about his overall health condition, does not share his health issues with any of his friends or family members. Apparently he normally sees Dr. Oconnell and has been treated recently with doxycycline for what seems to be significant areas of cellulitis involving both legs. Patient was brought into the ER mostly with chief complaint of altered mental status, and has been noticing dark colored stools for the last 5 weeks. Patient is normally on Naprosyn for gout, and has been taking doxycycline for ulcers involving his legs. The patient himself is a very poor historian, much of the information was obtained from the chart. Upon arrival to the ER, patient was noted to be hypotensive, his lactic acid was elevated, and his hemoglobin was only 4. Patient was given so far at least 4 units of packed RBCs, and his hemoglobin now is 7.8. He was also given significant amount of fluid boluses, and his lactic acid came down from 8-0.8 to this morning. His renal profile is showing slight improvement with BUN coming down from 176-161 and his creatinine coming down from 3.60-3.30. Patient was empirically placed on antibiotics by Dr. Cartagena, and his urine was positive for cocaine. Chest x-ray showed no evidence of active disease. Patient was also noted to have atrial fibrillation with RVR , hypotensive on 20 g of norepinephrine, he was seen by cardiology, and his echocardiogram showed a significantly impaired left ventricle, ejection fraction of less than 20%. His atrial fibrillation is being treated with amiodarone. Nephrology was consulted for his renal failure. The patient himself is a very poor historian, and he seems to be quite slow with definite altered mental status. Patient was reevaluated today on 12/21/2017, seems to be more awake and more appropriate today. Hemodynamically stable, he was earlier on 5 g of norepinephrine, and I would likely discontinue the norepinephrine today since the blood pressure is holding and his main is in the high 70s. Urine output is excellent. Renal functioning is improving. BUN is down to 138 creatinine is down to 2.90 patient continues to have non-anion gap hyperchloremic metabolic acidosis. He is receiving bicarb orally. WBC count is down to 18.8 hemoglobin is holding at 7.4. Had few episodes of coffee-ground emesis, software development engineer following, may consider endoscopy today. Patient is presently nothing by mouth. He did receive a total of 4 units of packed RBCs for low hemoglobin on presentation. Blood cultures are negative so far, however his urine culture was positive for group D enterococcus. And his wound cultures are negative for gram-negative bacilli. Patient is presently on daptomycin and on cefepime which is appropriate coverage for what we have so far. Patient is definitely more appropriate today, and he seems to be oriented 3. Patient was placed on lactated Ringer's at 100 mL/h, continues to have excellent urine output, and he is not developing any congestive heart failure findings although his ejection fraction was noted to be quite low. Ultrasound of the right and left kidney was noted. Seems to be consistent with underlying medical renal disease. On 12/22/2017, patient is basically about the same, however we have noticed a drop in his hemoglobin today, and the patient is now receiving a fifth unit of packed RBCs since admission. Hemoglobin this morning was 6.9, gastroenterology is planning EGD on this patient sometime today. Patient is complaining of being thirsty, otherwise he denies any specific complaints. No nausea no vomiting no abdominal pain no chest pain no shortness of breath. All his labs were reviewed, sodium is elevated, 149, potassium is 4.0 bicarb remains low at 15, BUN is improving down to 110 and creatinine is down to 2.30, and that is all being addressed by nephrology on the case. Patient was reevaluated today on 12/23/2017, scheduled to undergo EGD today, for some reason it was not done yesterday mostly because of his A. fib/RVR according to the software development engineer on the case. Patient is nothing by mouth for today, and would likely have endoscopy done around 1 PM today. Patient is relatively asymptomatic, doing well overall compared to how he presented. Hemoglobin is holding at 7.9. Patient received a total of 5 units of packed RBCs since admission. His sodium was noted to be elevated, and his bicarb was correcting nicely, hence I have discontinued his bicarb drip. Patient denies any shortness of breath no cough no wheezing. Although her chest x-ray did show cardiomegaly and interstitial edema, right lower lobe infiltrate is not entirely ruled out. Patient was reevaluated today on , underwent EGD yesterday, and he was found to have a gastric ulcer, biopsies done, was not actively bleeding. Patient is a selective overflow in the ICU today, doing well overall, no active GI bleeding, mentation seems to be slightly improving, but remains overall slow which is probably his baseline. Renal functioning seems to be improving, creatinine is down to 1.8. Sodium remains elevated at 150, being addressed by nephrology on the case. Patient denies any cough no wheezing no shortness of breath, no chest pain, and he is tolerating oral feeding well. Patient was reevaluated today on 12/25/2017, seems to be doing much better, he is still a selective overflow. His hemoglobin is stable, his renal functioning is improving, it is 1.68 creatinine today. And global is 8.4 today. He is ready on full liquid diet, sodium is down to 147, and he remains on D5W at 1 25 mL per hour. I ordered a chest x-ray since the patient is known to have LV dysfunction with ejection fraction of 20%, but he is maintained on room air, and O2 saturation is in the 90s. He is in atrial fibrillation with RVR which is being addressed by cardiology on the case. Chest x-ray is showing improved congestive heart failure, questionable infiltrate noted in the right lower lobe , but I am suspecting that it is mostly fluid related, and pulmonary edema related. Echo dated to systolic congestive heart failure. Objective - Vital Signs Vital signs: Vital Signs Temp 98 F 12/25/17 08:00 Pulse 119 H 12/25/17 08:00 Resp 20 12/25/17 08:00 BP 101/80 12/25/17 08:00 Pulse Ox 100 12/25/17 08:00 Intake & Output 12/24/17 12/25/17 12/25/17 18:59 06:59 18:59 Intake Total 1260 640 550 Output Total 1400 550 250 Balance -140 90 300 Weight 77.2 kg 78.1 kg Intake: IV 800 400 550 DAPTOmycin 500 mg In 50 Sodium Chloride 0.9% 50 ml @ 100 mls/hr IVPB DAILY [facility] Rx#:[id number] Dextrose 5% in Water 1, 500 000 ml @ 125 mls/hr IV . Q8H [facility] Rx#:[id number] Dextrose 5% in Water 1, 800 400 000 ml @ 50 mls/hr IV . Q20H [facility] Rx#:[id number] Oral 460 240 Output: Urine 1400 550 250 Other: Voiding Method Indwelling Catheter Indwelling Catheter Indwelling Catheter ABP, PAP, CO, CI - Last Documented Arterial Blood Pressure 102/51 - Exam GEN. APPEARANCE: Physical exam revealed a 67-year-old male in no distress, appropriate, . HEAD EXAM: atraumatic, normocephalic, normal inspection EYE EXAM: Positive for pallor. No icterus. PERRLA, EOMI. ENT EXAM: Mucous membranes dry NECK EXAM: normal inspection. Absent: tenderness, meningismus, full ROM, no evidence of lymphadenopathy. RESPIRATORY EXAM: normal lung sounds bilaterally. Diminished breath sounds at the bases, minimal fine crackles at the right base. CARDIOVASCULAR EXAM: Tachycardia. Irregular irregular rhythm Normal S1 and S2, 2/6 systolic murmur throughout the precordium. GI/ABDOMINAL EXAM: soft, normal bowel sounds. Absent: distended, tenderness, guarding, rebound, rigid EXTREMITIES EXAM: Bilateral lower extremities ulcers in various stages of healing , right side worse than left. All wrapped with sterile dressings. NEUROLOGICAL EXAM: Alert oriented 3, but seems to be quite slow. - Labs CBC & Chem 7: 12/25/17 06:16 12/25/17 06:16 Labs: Abnormal Lab Results - Last 24 Hours (Table) 12/24/17 12/24/17 12/24/17 Range/Units 12:53 18:09 18:21 WBC (3.8-10.6) k/uL RBC (4.30-5.90) m/uL Hgb (13.0-17.5) gm/dL Hct (39.0-53.0) % MCHC (31.0-37.0) g/dL RDW (11.5-15.5) % Neutrophils # (1.3-7.7) k/uL Lymphocytes # (1.0-4.8) k/uL Sodium 150 H (137-145) mmol/L Chloride (98-107) mmol/L BUN (9-20) mg/dL Creatinine (0.66-1.25) mg/dL Glucose (74-99) mg/dL POC Glucose (mg/dL) 145 H 113 H (75-99) mg/dL Magnesium (1.6-2.3) mg/dL 12/24/17 12/25/17 12/25/17 Range/Units 23:55 06:16 06:16 WBC 20.0 H (3.8-10.6) k/uL RBC 2.92 L (4.30-5.90) m/uL Hgb 8.4 L (13.0-17.5) gm/dL Hct 28.5 L (39.0-53.0) % MCHC 29.4 L (31.0-37.0) g/dL RDW 18.0 H (11.5-15.5) % Neutrophils # 17.6 H (1.3-7.7) k/uL Lymphocytes # 0.7 L (1.0-4.8) k/uL Sodium 147 H (137-145) mmol/L Chloride 119 H (98-107) mmol/L BUN 62 H (9-20) mg/dL Creatinine 1.68 H (0.66-1.25) mg/dL Glucose 113 H (74-99) mg/dL POC Glucose (mg/dL) 116 H (75-99) mg/dL Magnesium 2.6 H (1.6-2.3) mg/dL Microbiology - Last 24 Hours (Table) 12/19/17 11:50 Blood Culture - Preliminary Blood No Growth after 120 hours Assessment and Plan Assessment: Impression: 1 acute septic shock, most likely source is his cellulitis. Could also be from urinary tract infection secondary to group D enterococcus. 2 chronic cellulitis, and lower extremities ulcers, cultures are nondiagnostic since there was evidence of multi-microbial growth. 3 acute non-anion gap hyperchloremic metabolic acidosis secondary to sepsis. And secondary to septic shock. 4 acute kidney injury secondary to sepsis and suspect acute tubular necrosis. Renal functioning seems to be steadily improving. 5 severe cardiomyopathy and LV dysfunction 6 atrial fibrillation with RVR, rate seems to be better controlled, and the patient is hemodynamically stable, off norepinephrine 7 acute GI bleeding, secondary to antral gastric ulcer. Status post EGD and biopsy postoperative day #2 8 history of diabetes. Recommendation: Continue present supportive care measures, including antibiotics , continue GI and DVT prophylaxis, patient could be transferred out of the ICU once a bed is available on selective. We'll continue to follow. Time with Patient: Less than 30
--- NOTE | 2017-12-25 11:42 | XR ---
EXAMINATION TYPE: XR chest 1V portable DATE OF EXAM: 12/25/2017 Comparison: 12/23/2017 Clinical History: 67-year-old male 67-year-old male with CHF Findings: Heart mildly moderately enlarged. Mild diffuse interstitial prominence persists. Small effusions may be increased from prior. Hazy right basilar opacity persists. Impression: 1. Mild to moderate cardiomegaly and interstitial changes persist. Correlate for mild CHF. 2. Small effusions may be slightly increased. Persistent hazy right basilar density that could repres ent atelectasis or infiltrate.
--- NOTE | 2017-12-25 12:03 | PN ---
PROGRESS NOTE DATE OF SERVICE: 12/25/2017 Patient is a 67-year-old white male admitted to the hospital with acute upper GI bleed. He received total of 5 units of blood transfusion. He underwent an upper endoscopy by Dr. Mejia 2 days ago and he was noted to have a large gastric ulcer. The patient has been in the intensive care unit, being monitored closely. He denies further episodes of bleeding for the last 48 hours. Last hemoglobin from this morning was 8.4 g/dL. He remains on a clear liquid diet, tolerating well. PHYSICAL EXAMINATION: On physical examination, appears comfortable, no apparent distress. Vital signs are stable. Blood pressure is 101/80, pulse rate 119, temperature 98.1. HEENT EXAMINATION: Unremarkable. Conjunctivae pink. Sclerae anicteric. Oral cavity no lesions. NECK: No JVD or lymph node enlargement. Chest was clear to auscultation. HEART: Regular rate and rhythm. ABDOMEN: Soft. It was nondistended, nontender. Bowel sounds are positive. EXTREMITIES: No pedal edema. SKIN: No rashes. NEURO: Alert and oriented x3. No focal deficits. LABS: Labs from today WBC 20,000, hemoglobin is 8.4, platelets are 224. BUN is 62, creatinine 1.8. IMPRESSION: Acute upper gastrointestinal bleed, status post upper endoscopy by Dr. Mejia 2 days ago was noted to have large gastric ulcer with no active bleeding. Presently on IV Protonix 40 mg q.12 hours. No further bleeding for the last 48 hours. Hemoglobin remains stable at 8.4 g/dL. RECOMMENDATIONS: 1. Keep him on a clear liquid diet. 2. Continue with Protonix 40 mg q.12 hours. 3. CBC every 12 hours and transfuse as needed. At this time we will follow him closely during his hospital stay. Thank you for this consultation. MMODL / IJN: [id number] /
[2017-12-25 12:22] LABS: Glucose,Whole Blood 107 mg/dL (75-99)
[2017-12-25] MEDS ORDERED: DEXTROSE 5% IN WATER 100 ML with AMIODARONE 150 MG IV ONE (12:48)
[2017-12-25] MEDS ORDERED: FUROSEMIDE 10 MG/ML 2 ML VIAL IV ONE (12:48)
[2017-12-25] MEDS: AMIODARONE 450 MG in DEXTROSE 5% IN WATER 250 ML IV SCH ×4 (14:00→20:53)
[2017-12-25] MEDS: SILVER sulfADIAZINE Cream 400 GM 1 APPLIC APPLIC TOPICAL SCH ×2 (14:01→20:52)
[2017-12-25 18:01] LABS: Glucose,Whole Blood 119 mg/dL (75-99)
[2017-12-25] MEDS: PANTOPRAZOLE 40 MG TABLET PO SCH (18:27)
--- NOTE | 2017-12-25 20:30 | PN ---
PROGRESS NOTE This patient is admitted with upper GI bleeding ulcer and shortness of breath. The patient has a cardiomyopathy with severely impaired left ventricular systolic function. The patient at present is comfortable. Mild respiratory distress is noted. The patient's heart rate remains in the range of 100-120, blood pressure is 85/71 mmHg. First and second heart sounds are normal. Lungs reveal clinically clear to auscultation and percussion. The patient's hemoglobin is 8.2 and creatinine 1.68. ASSESSMENT AND PLAN: The patient's gastrointestinal bleeding is stable. The patient has atrial fibrillation with a moderately rapid ventricular response IV amiodarone to control the rate. MMODL / IJN: [id number] /
[2017-12-25] MEDS: CEFEPIME 2 GM in SODIUM CHLORIDE 0.9% 50 ML IVPB SCH (20:55)
[2017-12-25 23:52] LABS: Glucose,Whole Blood 166 mg/dL (75-99)
[2017-12-26 05:00] LABS: Anisocytosis Slight; Basophils # (A) 0.1 k/uL (0-0.2); Basophils % (A) 0 %; Eosinophils # (A) 0.6 k/uL (0-0.7); Eosinophils % (A) 3 %; HGB 9.1 gm/dL (13.0-17.5); Hypochromasia Marked; Lymphocytes # (A) 0.8 k/uL (1.0-4.8); Lymphocytes % (A) 4 %; MCH 28.9 pg (25.0-35.0); MCHC 30.4 g/dL (31.0-37.0); MCV 95.1 fL (80.0-100.0); Macrocytosis Slight; Monocytes # (A) 0.9 k/uL (0-1.0); Monocytes % (A) 5 %; Neutrophils # (A) 16.4 k/uL (1.3-7.7); Neutrophils % (A) 85 %; Platelet Count 256 k/uL (150-450); Poikilocytosis Slight; RBC 3.15 m/uL (4.30-5.90); RDW 17.6 % (11.5-15.5); WBC 19.2 k/uL (3.8-10.6)
[2017-12-26 05:09] LABS: Magnesium 2.6 mg/dL (1.6-2.3); Phosphorus 3.4 mg/dL (2.5-4.5); Potassium 4.7 mmol/L (3.5-5.1)
[2017-12-26 07:12] LABS: Glucose,Whole Blood 57 mg/dL (75-99)
[2017-12-26 07:12] LABS: Glucose,Whole Blood 62 mg/dL (75-99)
[2017-12-26] MEDS ORDERED: DEXTROSE 50%-WATER 50 ML SYRINGE IVP ONE (07:21)
[2017-12-26] MEDS: INSULIN ASPART 100 UNIT/ML 1 ML 10 ML VIAL SQ SCH ×3 (07:25→17:45)
[2017-12-26 07:30] LABS: Glucose,Whole Blood 284 mg/dL (75-99)
[2017-12-26] MEDS ORDERED: FUROSEMIDE 10 MG/ML 4 ML VIAL IV STA (07:59)
--- NOTE | 2017-12-26 08:00 | P.PN ---
Subjective Patient is seen in follow-up for acute kidney injury. Renal function worsened with creatinine up to 2.04 which is related to hypotension. Patient was in atrial fibrillation with RVR in the systolic blood pressure was as low as 72/61 yesterday. He is currently maintained on amiodarone drip. Hemoglobin 9.1 this morning. Patient underwent EGD in December 23 which revealed antral ulcers that were biopsied. He is on a full liquid diet now. Sodium level is down to 143. Currently maintained on D5W at 100 mL an hour. He is nonoliguric. Patient has systolic CHF with ejection fraction of less than 20% with severe mitral regurgitation and pulmonary hypertension. Patient appears dyspneic. Vital signs are stable. General: The patient appeared well nourished and normally developed. HEENT: Head exam is unremarkable. Neck is without jugular venous distension. LUNGS: Scattered rhonchi. Breath sounds decreased. HEART: Rate and Rhythm are regular. First and second heart sounds normal. No murmurs, rubs or gallops. ABDOMEN: Abdominal exam reveals normal bowel sounds. Non-tender and non- distended. No evidence of peritonitis. EXTREMITITES: No clubbing, cyanosis, or edema. Objective - Vital Signs Vital signs: Vital Signs Temp 97.7 F 12/26/17 04:00 Pulse 122 H 12/26/17 06:46 Resp 22 12/26/17 06:46 BP 115/82 12/26/17 06:46 Pulse Ox 98 12/26/17 06:46 Intake & Output 12/25/17 12/26/17 12/26/17 18:59 06:59 18:59 Intake Total 1550 912.681 259 Output Total 830 235 Balance 720 677.681 259 Weight 78.2 kg Intake: IV 1550 675 Cefepime 2 gm In Sodium 50 Chloride 0.9% 50 ml @ 100 mls/hr IVPB DAILY@2000 [facility] Rx#:[id number] DAPTOmycin 500 mg In 50 Sodium Chloride 0.9% 50 ml @ 100 mls/hr IVPB DAILY [facility] Rx#:[id number] Dextrose 5% in Water 1, 1500 625 000 ml @ 125 mls/hr IV . Q8H [facility] Rx#:[id number] Intake, IV Titration 237.681 259 Amount Amiodarone 450 mg In 237.681 259 Dextrose 5% in Water 250 ml @ 1 MG/MIN 34.53 mls/ hr IV .[id number] [facility] Rx#: [id number] Output: Urine 830 235 Other: Voiding Method Indwelling Catheter Indwelling Catheter ABP, PAP, CO, CI - Last Documented Arterial Blood Pressure 102/51 - Labs CBC & Chem 7: 12/26/17 04:28 12/26/17 04:28 Labs: Abnormal Lab Results - Last 24 Hours (Table) 12/25/17 12/25/17 12/25/17 Range/Units 12:20 17:59 23:50 WBC (3.8-10.6) k/uL RBC (4.30-5.90) m/uL Hgb (13.0-17.5) gm/dL Hct (39.0-53.0) % MCHC (31.0-37.0) g/dL RDW (11.5-15.5) % Neutrophils # (1.3-7.7) k/uL Lymphocytes # (1.0-4.8) k/uL Chloride (98-107) mmol/L Carbon Dioxide (22-30) mmol/L BUN (9-20) mg/dL Creatinine (0.66-1.25) mg/dL Glucose (74-99) mg/dL POC Glucose (mg/dL) 107 H 119 H 166 H (75-99) mg/dL Magnesium (1.6-2.3) mg/dL 12/26/17 12/26/17 12/26/17 Range/Units 04:28 04:28 06:49 WBC 19.2 H (3.8-10.6) k/uL RBC 3.15 L (4.30-5.90) m/uL Hgb 9.1 L (13.0-17.5) gm/dL Hct 30.0 L (39.0-53.0) % MCHC 30.4 L (31.0-37.0) g/dL RDW 17.6 H (11.5-15.5) % Neutrophils # 16.4 H (1.3-7.7) k/uL Lymphocytes # 0.8 L (1.0-4.8) k/uL Chloride 113 H (98-107) mmol/L Carbon Dioxide 20 L (22-30) mmol/L BUN 64 H (9-20) mg/dL Creatinine 2.04 H (0.66-1.25) mg/dL Glucose 108 H (74-99) mg/dL POC Glucose (mg/dL) 62 L (75-99) mg/dL Magnesium 2.6 H (1.6-2.3) mg/dL 12/26/17 12/26/17 Range/Units 07:10 07:28 WBC (3.8-10.6) k/uL RBC (4.30-5.90) m/uL Hgb (13.0-17.5) gm/dL Hct (39.0-53.0) % MCHC (31.0-37.0) g/dL RDW (11.5-15.5) % Neutrophils # (1.3-7.7) k/uL Lymphocytes # (1.0-4.8) k/uL Chloride (98-107) mmol/L Carbon Dioxide (22-30) mmol/L BUN (9-20) mg/dL Creatinine (0.66-1.25) mg/dL Glucose (74-99) mg/dL POC Glucose (mg/dL) 57 L 284 H (75-99) mg/dL Magnesium (1.6-2.3) mg/dL Microbiology - Last 24 Hours (Table) 12/19/17 11:50 Blood Culture - Final Blood No Growth after 144 hours Assessment and Plan Plan: assessmen 1. Nonoliguric acute kidney injury secondary to ATN secondary to hypotension and anemia. Renal function worse today with creatinine up to 2.04. 2. Metabolic acidosis secondary to RM. 3. Hypernatremia secondary to lack of oral water intake. Improved. 4. Systolic CHF with ejection fraction of less than 20% with severe mitral regurgitation and pulmonary hypertension. 5. Acute anemia secondary to GI bleed status post EGD on December 23 which revealed antral ulcers that were biopsied. 6. Atrial fibrillation maintained on IV amiodarone. 7. Chronic kidney disease. Creatinine was 2 in 2013 and 3 in 2017. Etiology is nephrosclerosis and cardiorenal syndrome. He does have cortical thinning noted on renal ultrasound suggestive of underlying chronic kidney disease. 8. Hypotension related to atrial fibrillation with RVR. Plan: Decrease D5W to 70 mL an hour. Lasix 40 mg IV once today. Avoid nephrotoxic agents and hypotensive episodes. Monitor hemoglobin and transfuse as needed. Maintain oral sodium bicarbonate. Continue to monitor renal function and urine output.
[2017-12-26] MEDS: DEXTROSE 5% IN WATER 1,000 ML IV SCH ×2 (08:26→17:48)
[2017-12-26] MEDS: METOPROLOL TARTRATE 12.5 MG TAB PO SCH ×2 (08:28→20:35)
[2017-12-26] MEDS: PANTOPRAZOLE 40 MG TABLET PO SCH ×2 (08:28→17:48)
[2017-12-26] MEDS: AMIODARONE 200 MG TAB PO SCH ×3 (08:28→21:18)
[2017-12-26] MEDS: AMIODARONE 450 MG in DEXTROSE 5% IN WATER 250 ML IV SCH ×4 (08:29→13:59)
[2017-12-26] MEDS: DAPTOmycin 500 MG in SODIUM CHLORIDE 0.9% 50 ML IVPB SCH (08:29)
--- NOTE | 2017-12-26 10:13 | PN ---
PROGRESS NOTE DATE OF SERVICE: December 26, 2017 Patient is a 67-year-old male admitted to the hospital with acute upper GI bleed. He underwent an upper endoscopy 3 days ago and was noted to have a large 2 cm gastric antral ulcer and small adjacent ulcers. The patient has received 5 units of blood transfusion. He was transferred from the intensive care unit yesterday. He has no nausea, vomiting. No abdominal pain. No melena. PHYSICAL EXAMINATION: He appears comfortable. No apparent distress. Vital signs stable. Blood pressure 92/77, pulse rate 106, afebrile. HEENT examination unremarkable. Conjunctivae pink. Sclerae anicteric. Oral cavity no lesions. Neck no jugular venous distention or lymph node enlargement. Chest was clear to auscultation. HEART: Regular rate and rhythm. ABDOMEN: Soft. Bowel sounds are positive. No organomegaly. Extremities: No pedal edema. Neurological: He is alert and oriented x3. No focal deficits. LABS: From this morning: Hemoglobin is 9.9, WBC 19.2, and platelets are normal. BUN is 64, creatinine 2.04. IMPRESSION: 1. Acute upper gastrointestinal bleed secondary to gastric antral ulcer, status post EGD 3 days ago. The patient hemodynamically stable. No further bleeding for the last 3 days. He is status post 5 units of blood transfusion since being admitted to the hospital. 2. Atrial fibrillation. Presently on IV amiodarone and following by Cardiology closely. 3. Acute kidney injury with elevated BUN, creatinine, which are gradually improving. Nephrology following the patient closely. RECOMMENDATIONS: 1. Advance to renal diet. 2. Continue Protonix 40 mg q.12 hours. 3. CBC in the morning and we will follow him closely during his hospital stay. MMODL / IJN: [id number] /
[2017-12-26] MEDS: SODIUM BICARBONATE TAB 650 MG TAB PO SCH ×4 (11:03→20:37)
[2017-12-26] MEDS: SILVER sulfADIAZINE Cream 400 GM 1 APPLIC APPLIC TOPICAL SCH ×2 (11:03→20:37)
--- NOTE | 2017-12-26 11:43 | P.PN ---
Subjective Progress Note Date: 12/26/17 Principal diagnosis: Acute septic shock, profound anemia and GI bleeding This is a 67-year-old white male with history of multiple medical problems including chronic atrial fibrillation, COPD, congestive heart failure, diabetes , patient was brought in by his caregiver who is a friend of his, and he has been noticing significant decline in his status. Patient has been very secretive about his overall health condition, does not share his health issues with any of his friends or family members. Apparently he normally sees Dr. Oconnell and has been treated recently with doxycycline for what seems to be significant areas of cellulitis involving both legs. Patient was brought into the ER mostly with chief complaint of altered mental status, and has been noticing dark colored stools for the last 5 weeks. Patient is normally on Naprosyn for gout, and has been taking doxycycline for ulcers involving his legs. The patient himself is a very poor historian, much of the information was obtained from the chart. Upon arrival to the ER, patient was noted to be hypotensive, his lactic acid was elevated, and his hemoglobin was only 4. Patient was given so far at least 4 units of packed RBCs, and his hemoglobin now is 7.8. He was also given significant amount of fluid boluses, and his lactic acid came down from 8-0.8 to this morning. His renal profile is showing slight improvement with BUN coming down from 176-161 and his creatinine coming down from 3.60-3.30. Patient was empirically placed on antibiotics by Dr. Cartagena, and his urine was positive for cocaine. Chest x-ray showed no evidence of active disease. Patient was also noted to have atrial fibrillation with RVR , hypotensive on 20 g of norepinephrine, he was seen by cardiology, and his echocardiogram showed a significantly impaired left ventricle, ejection fraction of less than 20%. His atrial fibrillation is being treated with amiodarone. Nephrology was consulted for his renal failure. The patient himself is a very poor historian, and he seems to be quite slow with definite altered mental status. Patient was reevaluated today on 12/21/2017, seems to be more awake and more appropriate today. Hemodynamically stable, he was earlier on 5 g of norepinephrine, and I would likely discontinue the norepinephrine today since the blood pressure is holding and his main is in the high 70s. Urine output is excellent. Renal functioning is improving. BUN is down to 138 creatinine is down to 2.90 patient continues to have non-anion gap hyperchloremic metabolic acidosis. He is receiving bicarb orally. WBC count is down to 18.8 hemoglobin is holding at 7.4. Had few episodes of coffee-ground emesis, personal financial planner following, may consider endoscopy today. Patient is presently nothing by mouth. He did receive a total of 4 units of packed RBCs for low hemoglobin on presentation. Blood cultures are negative so far, however his urine culture was positive for group D enterococcus. And his wound cultures are negative for gram-negative bacilli. Patient is presently on daptomycin and on cefepime which is appropriate coverage for what we have so far. Patient is definitely more appropriate today, and he seems to be oriented 3. Patient was placed on lactated Ringer's at 100 mL/h, continues to have excellent urine output, and he is not developing any congestive heart failure findings although his ejection fraction was noted to be quite low. Ultrasound of the right and left kidney was noted. Seems to be consistent with underlying medical renal disease. On 12/22/2017, patient is basically about the same, however we have noticed a drop in his hemoglobin today, and the patient is now receiving a fifth unit of packed RBCs since admission. Hemoglobin this morning was 6.9, gastroenterology is planning EGD on this patient sometime today. Patient is complaining of being thirsty, otherwise he denies any specific complaints. No nausea no vomiting no abdominal pain no chest pain no shortness of breath. All his labs were reviewed, sodium is elevated, 149, potassium is 4.0 bicarb remains low at 15, BUN is improving down to 110 and creatinine is down to 2.30, and that is all being addressed by nephrology on the case. Patient was reevaluated today on 12/23/2017, scheduled to undergo EGD today, for some reason it was not done yesterday mostly because of his A. fib/RVR according to the personal financial planner on the case. Patient is nothing by mouth for today, and would likely have endoscopy done around 1 PM today. Patient is relatively asymptomatic, doing well overall compared to how he presented. Hemoglobin is holding at 7.9. Patient received a total of 5 units of packed RBCs since admission. His sodium was noted to be elevated, and his bicarb was correcting nicely, hence I have discontinued his bicarb drip. Patient denies any shortness of breath no cough no wheezing. Although her chest x-ray did show cardiomegaly and interstitial edema, right lower lobe infiltrate is not entirely ruled out. Patient was reevaluated today on , underwent EGD yesterday, and he was found to have a gastric ulcer, biopsies done, was not actively bleeding. Patient is a selective overflow in the ICU today, doing well overall, no active GI bleeding, mentation seems to be slightly improving, but remains overall slow which is probably his baseline. Renal functioning seems to be improving, creatinine is down to 1.8. Sodium remains elevated at 150, being addressed by nephrology on the case. Patient denies any cough no wheezing no shortness of breath, no chest pain, and he is tolerating oral feeding well. Patient was reevaluated today on 12/25/2017, seems to be doing much better, he is still a selective overflow. His hemoglobin is stable, his renal functioning is improving, it is 1.68 creatinine today. And global is 8.4 today. He is ready on full liquid diet, sodium is down to 147, and he remains on D5W at 1 25 mL per hour. I ordered a chest x-ray since the patient is known to have LV dysfunction with ejection fraction of 20%, but he is maintained on room air, and O2 saturation is in the 90s. He is in atrial fibrillation with RVR which is being addressed by cardiology on the case. Chest x-ray is showing improved congestive heart failure, questionable infiltrate noted in the right lower lobe , but I am suspecting that it is mostly fluid related, and pulmonary edema related. Echo dated to systolic congestive heart failure. Reevaluated today on 12/26/2017, patient is basically about the same, blood pressure remains marginal, patient does have atrial fibrillation, and he does have cardiomyopathy with LV dysfunction, ejection fraction of 20%. Labs today showed improved sodium, down to 143. His creatinine seems to be a bit worse today, probably related to his low blood pressure and cardiorenal syndrome with poor LV function. This is being addressed by nephrology on the case, patient remains on D5W at 100 mL per hour. Chest x-ray from yesterday showed cardiomegaly, and mild congestive heart failure changes. The right lower lobe opacity may represent atelectasis or infiltrate. However the patient remains on antibiotics. Objective - Vital Signs Vital signs: Vital Signs Temp 98.1 F 12/26/17 08:15 Pulse 116 H 12/26/17 08:15 Resp 20 12/26/17 08:15 BP 98/68 12/26/17 08:15 Pulse Ox 97 12/26/17 08:15 Intake & Output 12/25/17 12/26/17 12/26/17 18:59 06:59 18:59 Intake Total 1550 912.681 439 Output Total 830 235 Balance 720 677.681 439 Weight 78.2 kg Intake: IV 1550 675 Cefepime 2 gm In Sodium 50 Chloride 0.9% 50 ml @ 100 mls/hr IVPB DAILY@2000 [facility] Rx#:[id number] DAPTOmycin 500 mg In 50 Sodium Chloride 0.9% 50 ml @ 100 mls/hr IVPB DAILY [facility] Rx#:[id number] Dextrose 5% in Water 1, 1500 625 000 ml @ 125 mls/hr IV . Q8H [facility] Rx#:[id number] Intake, IV Titration 237.681 259 Amount Amiodarone 450 mg In 237.681 259 Dextrose 5% in Water 250 ml @ 1 MG/MIN 34.53 mls/ hr IV .Q7H31M [facility] Rx#: [id number] Oral 180 Output: Urine 830 235 Other: Voiding Method Indwelling Catheter Indwelling Catheter ABP, PAP, CO, CI - Last Documented Arterial Blood Pressure 102/51 - Exam GEN. APPEARANCE: Physical exam revealed a 67-year-old male in no distress, appropriate, . HEAD EXAM: atraumatic, normocephalic, normal inspection EYE EXAM: Positive for pallor. No icterus. PERRLA, EOMI. ENT EXAM: Mucous membranes dry NECK EXAM: normal inspection. Absent: tenderness, meningismus, full ROM, no evidence of lymphadenopathy. RESPIRATORY EXAM: normal lung sounds bilaterally. Diminished breath sounds at the bases, minimal fine crackles at the right base. CARDIOVASCULAR EXAM: Tachycardia. Irregular irregular rhythm Normal S1 and S2, 2/6 systolic murmur throughout the precordium. GI/ABDOMINAL EXAM: soft, normal bowel sounds. Absent: distended, tenderness, guarding, rebound, rigid EXTREMITIES EXAM: Bilateral lower extremities ulcers in various stages of healing , right side worse than left. All wrapped with sterile dressings. NEUROLOGICAL EXAM: Alert oriented 3, but seems to be quite slow. - Labs CBC & Chem 7: 12/26/17 04:28 12/26/17 04:28 Labs: Abnormal Lab Results - Last 24 Hours (Table) 12/25/17 12/25/17 12/25/17 Range/Units 12:20 17:59 23:50 WBC (3.8-10.6) k/uL RBC (4.30-5.90) m/uL Hgb (13.0-17.5) gm/dL Hct (39.0-53.0) % MCHC (31.0-37.0) g/dL RDW (11.5-15.5) % Neutrophils # (1.3-7.7) k/uL Lymphocytes # (1.0-4.8) k/uL Chloride (98-107) mmol/L Carbon Dioxide (22-30) mmol/L BUN (9-20) mg/dL Creatinine (0.66-1.25) mg/dL Glucose (74-99) mg/dL POC Glucose (mg/dL) 107 H 119 H 166 H (75-99) mg/dL Magnesium (1.6-2.3) mg/dL 12/26/17 12/26/17 12/26/17 Range/Units 04:28 04:28 06:49 WBC 19.2 H (3.8-10.6) k/uL RBC 3.15 L (4.30-5.90) m/uL Hgb 9.1 L (13.0-17.5) gm/dL Hct 30.0 L (39.0-53.0) % MCHC 30.4 L (31.0-37.0) g/dL RDW 17.6 H (11.5-15.5) % Neutrophils # 16.4 H (1.3-7.7) k/uL Lymphocytes # 0.8 L (1.0-4.8) k/uL Chloride 113 H (98-107) mmol/L Carbon Dioxide 20 L (22-30) mmol/L BUN 64 H (9-20) mg/dL Creatinine 2.04 H (0.66-1.25) mg/dL Glucose 108 H (74-99) mg/dL POC Glucose (mg/dL) 62 L (75-99) mg/dL Magnesium 2.6 H (1.6-2.3) mg/dL 12/26/17 12/26/17 Range/Units 07:10 07:28 WBC (3.8-10.6) k/uL RBC (4.30-5.90) m/uL Hgb (13.0-17.5) gm/dL Hct (39.0-53.0) % MCHC (31.0-37.0) g/dL RDW (11.5-15.5) % Neutrophils # (1.3-7.7) k/uL Lymphocytes # (1.0-4.8) k/uL Chloride (98-107) mmol/L Carbon Dioxide (22-30) mmol/L BUN (9-20) mg/dL Creatinine (0.66-1.25) mg/dL Glucose (74-99) mg/dL POC Glucose (mg/dL) 57 L 284 H (75-99) mg/dL Magnesium (1.6-2.3) mg/dL Microbiology - Last 24 Hours (Table) 12/19/17 11:50 Blood Culture - Final Blood No Growth after 144 hours Assessment and Plan Assessment: Impression: 1 acute septic shock, most likely source is his cellulitis. Could also be from urinary tract infection secondary to group D enterococcus. 2 chronic cellulitis, and lower extremities ulcers, cultures are nondiagnostic since there was evidence of multi-microbial growth. 3 acute non-anion gap hyperchloremic metabolic acidosis secondary to sepsis. And secondary to septic shock. 4 acute kidney injury secondary to sepsis and suspect acute tubular necrosis. Renal functioning seems to be steadily improving. 5 severe cardiomyopathy and LV dysfunction 6 atrial fibrillation with RVR, rate seems to be better controlled, and the patient is hemodynamically stable, off norepinephrine 7 acute GI bleeding, secondary to antral gastric ulcer. Status post EGD 8 history of diabetes. Recommendation: Continue present supportive care measures, including antibiotics , continue GI and DVT prophylaxis, overall prognosis remains poor and extremely guarded. Time with Patient: Less than 30
[2017-12-26] MEDS: HYDROcodone/APAP 5-325MG 1 EACH TAB PO PRN ×2 (13:42→20:37)
[2017-12-26 16:20] LABS: Glucose,Whole Blood 164 mg/dL (75-99)
[2017-12-26 18:15] LABS: Glucose,Whole Blood 160 mg/dL (75-99)
[2017-12-26] MEDS: CEFEPIME 2 GM in SODIUM CHLORIDE 0.9% 50 ML IVPB SCH (21:18)
[2017-12-27 00:19] LABS: Glucose,Whole Blood 106 mg/dL (75-99)
[2017-12-27] MEDS: INSULIN ASPART 100 UNIT/ML 1 ML 10 ML VIAL SQ SCH ×4 (00:47→17:44)
[2017-12-27 06:18] LABS: Glucose,Whole Blood 110 mg/dL (75-99)
[2017-12-27] MEDS: DEXTROSE 5% IN WATER 1,000 ML IV SCH (06:19)
[2017-12-27] MEDS: PANTOPRAZOLE 40 MG TABLET PO SCH ×2 (06:20→16:06)
[2017-12-27 06:27] LABS: Calcium 8.8 mg/dL (8.4-10.2); Potassium 5.3 mmol/L (3.5-5.1)
--- NOTE | 2017-12-27 08:02 | P.PN ---
Subjective Patient is seen in follow-up for acute kidney injury. Renal function worsened with creatinine up to 2.63 which is related to hypotension and urinary retention. Patient's blood pressure was in the 70s 2 days ago and he was on amiodarone drip which has been transitioned over to oral now. Patient required to straight catheterizations yesterday for urinary retention. Patient underwent EGD in December 23 which revealed antral ulcers that were biopsied. He is on a renal diet now. Sodium level is down to 1437. Currently maintained on D5W at 70 mL an hour. He is nonoliguric. Patient has systolic CHF with ejection fraction of less than 20% with severe mitral regurgitation and pulmonary hypertension. Patient was complaining of shortness of breath yesterday and received Lasix 40 mg IV once. Vital signs are stable. General: The patient appeared well nourished and normally developed. HEENT: Head exam is unremarkable. Neck is without jugular venous distension. LUNGS: Breath sounds decreased. HEART: Rate and Rhythm are regular. First and second heart sounds normal. No murmurs, rubs or gallops. ABDOMEN: Abdominal exam reveals normal bowel sounds. Non-tender and non- distended. No evidence of peritonitis. EXTREMITITES: No clubbing, cyanosis, or edema. Objective - Vital Signs Vital signs: Vital Signs Temp 98 F 12/27/17 04:00 Pulse 105 H 12/27/17 04:00 Resp 20 12/27/17 04:00 BP 101/70 12/27/17 04:00 Pulse Ox 95 12/27/17 04:00 Intake & Output 12/26/17 12/27/17 12/27/17 18:59 06:59 18:59 Intake Total 1141 Output Total 300 425 Balance 841 -425 Weight 81 kg Intake: Intake, IV Titration 259 Amount Amiodarone 450 mg In 259 Dextrose 5% in Water 250 ml @ 1 MG/MIN 34.53 mls/ hr IV .Q7H31M [facility] Rx#: [id number] Oral 882 Output: Urine 300 425 Straight 300 Other: Voiding Method Indwelling Catheter Urinal Diaper # Voids 1 # Bowel Movements 1 ABP, PAP, CO, CI - Last Documented Arterial Blood Pressure 102/51 - Labs CBC & Chem 7: 12/26/17 04:28 12/27/17 05:53 Labs: Abnormal Lab Results - Last 24 Hours (Table) 12/26/17 12/26/17 12/27/17 Range/Units 11:52 16:17 00:18 Potassium (3.5-5.1) mmol/L Chloride (98-107) mmol/L Carbon Dioxide (22-30) mmol/L BUN (9-20) mg/dL Creatinine (0.66-1.25) mg/dL Glucose (74-99) mg/dL POC Glucose (mg/dL) 160 H 164 H 106 H (75-99) mg/dL 12/27/17 12/27/17 Range/Units 05:53 06:16 Potassium 5.3 H (3.5-5.1) mmol/L Chloride 109 H (98-107) mmol/L Carbon Dioxide 18 L (22-30) mmol/L BUN 71 H (9-20) mg/dL Creatinine 2.63 H (0.66-1.25) mg/dL Glucose 100 H (74-99) mg/dL POC Glucose (mg/dL) 110 H (75-99) mg/dL Assessment and Plan Plan: assessmen 1. Nonoliguric acute kidney injury secondary to ATN secondary to hypotension and urinary retention. Renal function worse today with creatinine up to 2.63. 2. Metabolic acidosis secondary to RM. 3. Hypernatremia secondary to lack of oral water intake. Improved. 4. Systolic CHF with ejection fraction of less than 20% with severe mitral regurgitation and pulmonary hypertension. 5. Acute anemia secondary to GI bleed status post EGD on December 23 which revealed antral ulcers that were biopsied. 6. Atrial fibrillation maintained on oral amiodarone. 7. Chronic kidney disease. Creatinine was 2 in 2013 and 3 in 2017. Etiology is nephrosclerosis and cardiorenal syndrome. He does have cortical thinning noted on renal ultrasound suggestive of underlying chronic kidney disease. 8. Hypotension related to underlying cardiac status. Plan: Hep-Lock IV fluids. Hold diuretics today. Add midodrine 10 mg 3 times daily. Insert Huang catheter. Avoid nephrotoxic agents and hypotensive episodes. Monitor hemoglobin and transfuse as needed. Change bicarb to 1300 mg bid. Continue to monitor renal function and urine output - if no improvement, will discuss with cardiology to add inotrope.
--- NOTE | 2017-12-27 08:20 | CONS ---
CONSULTATION This patient has a history of cardiomyopathy, cardiac ablation with rapid ventricular response the patient was admitted with anemia and antral ulcer. He is feeling better. Patient has been mildly short of breath. The heart rate now is about 100-105, respirations are not labored. Blood pressure is 90/62 mmHg. First and second heart sounds are heard. Lungs reveal a few basal rales. Abdomen is soft. The patient has good hemoglobin is stable. Creatinine is 2.0. The patient is going to receive 1 dose of IV Lasix today. Chest x-ray done yesterday did not show any significant heart failure. Once the patient's IV bolus of amiodarone is finished, we will start the patient on amiodarone 200 mg 3 times a day. Patient's sodium is 143. MMODL / IJN: [id number] /
[2017-12-27] MEDS: METOPROLOL TARTRATE 12.5 MG TAB PO SCH ×2 (09:10→20:17)
[2017-12-27] MEDS: AMIODARONE 200 MG TAB PO SCH ×3 (09:10→20:17)
[2017-12-27] MEDS: DAPTOmycin 500 MG in SODIUM CHLORIDE 0.9% 50 ML IVPB SCH (09:10)
[2017-12-27] MEDS: HYDROcodone/APAP 5-325MG 1 EACH TAB PO PRN ×3 (09:10→20:17)
[2017-12-27] MEDS: SODIUM BICARBONATE TAB 650 MG TAB PO SCH ×2 (09:11→20:18)
[2017-12-27] MEDS: SILVER sulfADIAZINE Cream 400 GM 1 APPLIC APPLIC TOPICAL SCH ×2 (09:11→20:15)
--- NOTE | 2017-12-27 10:55 | P.PN ---
Subjective Progress Note Date: 12/27/17 Principal diagnosis: Acute septic shock, profound anemia and GI bleeding This is a 67-year-old white male with history of multiple medical problems including chronic atrial fibrillation, COPD, congestive heart failure, diabetes , patient was brought in by his caregiver who is a friend of his, and he has been noticing significant decline in his status. Patient has been very secretive about his overall health condition, does not share his health issues with any of his friends or family members. Apparently he normally sees Dr. Oconnell and has been treated recently with doxycycline for what seems to be significant areas of cellulitis involving both legs. Patient was brought into the ER mostly with chief complaint of altered mental status, and has been noticing dark colored stools for the last 5 weeks. Patient is normally on Naprosyn for gout, and has been taking doxycycline for ulcers involving his legs. The patient himself is a very poor historian, much of the information was obtained from the chart. Upon arrival to the ER, patient was noted to be hypotensive, his lactic acid was elevated, and his hemoglobin was only 4. Patient was given so far at least 4 units of packed RBCs, and his hemoglobin now is 7.8. He was also given significant amount of fluid boluses, and his lactic acid came down from 8-0.8 to this morning. His renal profile is showing slight improvement with BUN coming down from 176-161 and his creatinine coming down from 3.60-3.30. Patient was empirically placed on antibiotics by Dr. Cartagena, and his urine was positive for cocaine. Chest x-ray showed no evidence of active disease. Patient was also noted to have atrial fibrillation with RVR , hypotensive on 20 g of norepinephrine, he was seen by cardiology, and his echocardiogram showed a significantly impaired left ventricle, ejection fraction of less than 20%. His atrial fibrillation is being treated with amiodarone. Nephrology was consulted for his renal failure. The patient himself is a very poor historian, and he seems to be quite slow with definite altered mental status. Patient was reevaluated today on 12/21/2017, seems to be more awake and more appropriate today. Hemodynamically stable, he was earlier on 5 g of norepinephrine, and I would likely discontinue the norepinephrine today since the blood pressure is holding and his main is in the high 70s. Urine output is excellent. Renal functioning is improving. BUN is down to 138 creatinine is down to 2.90 patient continues to have non-anion gap hyperchloremic metabolic acidosis. He is receiving bicarb orally. WBC count is down to 18.8 hemoglobin is holding at 7.4. Had few episodes of coffee-ground emesis, electrotyper helper following, may consider endoscopy today. Patient is presently nothing by mouth. He did receive a total of 4 units of packed RBCs for low hemoglobin on presentation. Blood cultures are negative so far, however his urine culture was positive for group D enterococcus. And his wound cultures are negative for gram-negative bacilli. Patient is presently on daptomycin and on cefepime which is appropriate coverage for what we have so far. Patient is definitely more appropriate today, and he seems to be oriented 3. Patient was placed on lactated Ringer's at 100 mL/h, continues to have excellent urine output, and he is not developing any congestive heart failure findings although his ejection fraction was noted to be quite low. Ultrasound of the right and left kidney was noted. Seems to be consistent with underlying medical renal disease. On 12/22/2017, patient is basically about the same, however we have noticed a drop in his hemoglobin today, and the patient is now receiving a fifth unit of packed RBCs since admission. Hemoglobin this morning was 6.9, gastroenterology is planning EGD on this patient sometime today. Patient is complaining of being thirsty, otherwise he denies any specific complaints. No nausea no vomiting no abdominal pain no chest pain no shortness of breath. All his labs were reviewed, sodium is elevated, 149, potassium is 4.0 bicarb remains low at 15, BUN is improving down to 110 and creatinine is down to 2.30, and that is all being addressed by nephrology on the case. Patient was reevaluated today on 12/23/2017, scheduled to undergo EGD today, for some reason it was not done yesterday mostly because of his A. fib/RVR according to the electrotyper helper on the case. Patient is nothing by mouth for today, and would likely have endoscopy done around 1 PM today. Patient is relatively asymptomatic, doing well overall compared to how he presented. Hemoglobin is holding at 7.9. Patient received a total of 5 units of packed RBCs since admission. His sodium was noted to be elevated, and his bicarb was correcting nicely, hence I have discontinued his bicarb drip. Patient denies any shortness of breath no cough no wheezing. Although her chest x-ray did show cardiomegaly and interstitial edema, right lower lobe infiltrate is not entirely ruled out. Patient was reevaluated today on , underwent EGD yesterday, and he was found to have a gastric ulcer, biopsies done, was not actively bleeding. Patient is a selective overflow in the ICU today, doing well overall, no active GI bleeding, mentation seems to be slightly improving, but remains overall slow which is probably his baseline. Renal functioning seems to be improving, creatinine is down to 1.8. Sodium remains elevated at 150, being addressed by nephrology on the case. Patient denies any cough no wheezing no shortness of breath, no chest pain, and he is tolerating oral feeding well. Patient was reevaluated today on 12/25/2017, seems to be doing much better, he is still a selective overflow. His hemoglobin is stable, his renal functioning is improving, it is 1.68 creatinine today. And global is 8.4 today. He is ready on full liquid diet, sodium is down to 147, and he remains on D5W at 1 25 mL per hour. I ordered a chest x-ray since the patient is known to have LV dysfunction with ejection fraction of 20%, but he is maintained on room air, and O2 saturation is in the 90s. He is in atrial fibrillation with RVR which is being addressed by cardiology on the case. Chest x-ray is showing improved congestive heart failure, questionable infiltrate noted in the right lower lobe , but I am suspecting that it is mostly fluid related, and pulmonary edema related. Echo dated to systolic congestive heart failure. Reevaluated today on 12/26/2017, patient is basically about the same, blood pressure remains marginal, patient does have atrial fibrillation, and he does have cardiomyopathy with LV dysfunction, ejection fraction of 20%. Labs today showed improved sodium, down to 143. His creatinine seems to be a bit worse today, probably related to his low blood pressure and cardiorenal syndrome with poor LV function. This is being addressed by nephrology on the case, patient remains on D5W at 100 mL per hour. Chest x-ray from yesterday showed cardiomegaly, and mild congestive heart failure changes. The right lower lobe opacity may represent atelectasis or infiltrate. However the patient remains on antibiotics. Reevaluated today on 12/27/2017, patient is relatively asymptomatic, denies any shortness of breath, no cough, no wheezing, labs were reviewed, continues to have significant renal abnormality, improved compared to baseline, and continues to be followed by nephrology. Continues to have leukocytosis of 19.2 , hemoglobin is 9.1. And continues to have abnormal chest x-ray suggestive of mild congestive heart failure and questionable right lower lobe infiltrate. Or atelectasis. Objective - Vital Signs Vital signs: Vital Signs Temp 98.2 F 12/27/17 09:00 Pulse 58 L 12/27/17 09:00 Resp 18 12/27/17 09:00 BP 107/76 12/27/17 09:00 Pulse Ox 99 12/27/17 09:00 Intake & Output 12/26/17 12/27/17 12/27/17 18:59 06:59 18:59 Intake Total 1141 120 Output Total 300 425 Balance 841 -425 120 Weight 81 kg Intake: Intake, IV Titration 259 Amount Amiodarone 450 mg In 259 Dextrose 5% in Water 250 ml @ 1 MG/MIN 34.53 mls/ hr IV .[id number] [facility] Rx#: [id number] Oral 882 120 Output: Urine 300 425 Straight 300 Other: Voiding Method Indwelling Catheter Urinal Urinal Diaper Diaper # Voids 1 # Bowel Movements 1 ABP, PAP, CO, CI - Last Documented Arterial Blood Pressure 102/51 - Exam GEN. APPEARANCE: Physical exam revealed a 67-year-old male in no distress, appropriate, . HEAD EXAM: atraumatic, normocephalic, normal inspection EYE EXAM: Positive for pallor. No icterus. PERRLA, EOMI. ENT EXAM: Mucous membranes dry NECK EXAM: normal inspection. Absent: tenderness, meningismus, full ROM, no evidence of lymphadenopathy. RESPIRATORY EXAM: normal lung sounds bilaterally. Diminished breath sounds at the bases, minimal fine crackles at the right base. CARDIOVASCULAR EXAM: Tachycardia. Irregular irregular rhythm Normal S1 and S2, 2/6 systolic murmur throughout the precordium. GI/ABDOMINAL EXAM: soft, normal bowel sounds. Absent: distended, tenderness, guarding, rebound, rigid EXTREMITIES EXAM: Bilateral lower extremities ulcers in various stages of healing , right side worse than left. All wrapped with sterile dressings. NEUROLOGICAL EXAM: Alert oriented 3, but seems to be quite slow. - Labs CBC & Chem 7: 12/26/17 04:28 12/27/17 05:53 Labs: Abnormal Lab Results - Last 24 Hours (Table) 12/26/17 12/26/17 12/27/17 Range/Units 11:52 16:17 00:18 Potassium (3.5-5.1) mmol/L Chloride (98-107) mmol/L Carbon Dioxide (22-30) mmol/L BUN (9-20) mg/dL Creatinine (0.66-1.25) mg/dL Glucose (74-99) mg/dL POC Glucose (mg/dL) 160 H 164 H 106 H (75-99) mg/dL 12/27/17 12/27/17 Range/Units 05:53 06:16 Potassium 5.3 H (3.5-5.1) mmol/L Chloride 109 H (98-107) mmol/L Carbon Dioxide 18 L (22-30) mmol/L BUN 71 H (9-20) mg/dL Creatinine 2.63 H (0.66-1.25) mg/dL Glucose 100 H (74-99) mg/dL POC Glucose (mg/dL) 110 H (75-99) mg/dL Assessment and Plan Assessment: Impression: 1 acute septic shock, most likely source is his cellulitis. Could also be from urinary tract infection secondary to group D enterococcus. 2 chronic cellulitis, and lower extremities ulcers, cultures are nondiagnostic since there was evidence of multi-microbial growth. 3 acute non-anion gap hyperchloremic metabolic acidosis secondary to sepsis. And secondary to septic shock. 4 acute kidney injury secondary to sepsis and suspect acute tubular necrosis. Renal functioning seems to be steadily improving. 5 severe cardiomyopathy and LV dysfunction 6 atrial fibrillation with RVR, rate seems to be better controlled, and the patient is hemodynamically stable, off norepinephrine 7 acute GI bleeding, secondary to antral gastric ulcer. Status post EGD 8 history of diabetes. Recommendation: Continue present supportive care measures, including antibiotics , continue GI and DVT prophylaxis, overall prognosis remains poor and extremely guarded. We will request follow-up chest x-ray in a.m. Time with Patient: Less than 30
[2017-12-27] MEDS: MIDODRINE 5 MG TAB PO SCH ×2 (11:49→16:06)
[2017-12-27 11:54] LABS: Glucose,Whole Blood 114 mg/dL (75-99)
[2017-12-27] MEDS ORDERED: FUROSEMIDE 10 MG/ML 4 ML VIAL IV STA (14:44)
[2017-12-27 17:05] LABS: Glucose,Whole Blood 147 mg/dL (75-99)
[2017-12-27] MEDS: CEFEPIME 2 GM in SODIUM CHLORIDE 0.9% 50 ML IVPB SCH (20:25)
[2017-12-27 20:58] LABS: Glucose,Whole Blood 105 mg/dL (75-99)
--- NOTE | 2017-12-27 21:08 | PN ---
PROGRESS NOTE DATE OF SERVICE: 12/25/2017 CHIEF COMPLAINT: Septic shock and renal failure. HISTORY OF PRESENT ILLNESS: This patient's condition is not significantly changed. He remains lethargic and renal function is not improving very quickly. He is short of breath. PHYSICAL EXAM: Breath sounds are diminished and scattered rales. Cardiac exam demonstrates arrhythmia. Abdomen is soft. Extremities are still dressed. IMPRESSION: 1. Septic shock. 2. Renal failure. 3. Atrial fibrillation. 4. Diabetes. PLAN: No change in program at this time and continue to follow with intensive medicine. MMODL / IJN: [id number] /
--- NOTE | 2017-12-27 21:49 | PN ---
PROGRESS NOTE DATE OF SERVICE: 12/26/2017 CHIEF COMPLAINT: Septic shock, renal failure, diabetes. HISTORY OF PRESENT ILLNESS: This gentleman is about the same. He still remains somewhat lethargic and in renal failure. PHYSICAL EXAM: He is pale. Cardiac exam is unchanged with atrial fibrillation and the chest demonstrates occasional rales. Abdomen is soft, nontender. Extremities the same. IMPRESSIONS: 1. Septic shock. 2. Venous ulcerations of the lower extremities. 3. Atrial fibrillation. 4. Cardiomyopathy. 5. Renal failure. PLAN: Continue supportive care. Prognosis remains poor. MMODL / IJN: [id number] /
[2017-12-28] MEDS: INSULIN ASPART 100 UNIT/ML 1 ML 10 ML VIAL SQ SCH ×5 (02:09→23:16)
[2017-12-28 02:13] LABS: Glucose,Whole Blood 105 mg/dL (75-99)
[2017-12-28 05:59] LABS: Glucose,Whole Blood 73 mg/dL (75-99)
[2017-12-28] MEDS: PANTOPRAZOLE 40 MG TABLET PO SCH ×2 (06:30→16:54)
[2017-12-28] MEDS: MIDODRINE 5 MG TAB PO SCH ×3 (06:30→16:54)
[2017-12-28 07:40] LABS: Calcium 8.8 mg/dL (8.4-10.2); Potassium 5.7 mmol/L (3.5-5.1)
--- NOTE | 2017-12-28 07:45 | XR ---
EXAMINATION TYPE: XR chest 1V portable DATE OF EXAM: 12/28/2017 COMPARISON: Prior chest x-ray 12/25/2017 HISTORY: Congestive heart failure TECHNIQUE: Single frontal view of the chest is obtained. FINDINGS: The heart is enlarged. Patient is rotated and there are overlying cardiac leads. Interstit ium is increased, there is perihilar vascular indistinctness. No evident pneumothorax. The aorta is d ense. Basilar increased density persists. IMPRESSION: Findings suggestive of congestive heart failure with pulmonary edema. Cardiomegaly.
--- NOTE | 2017-12-28 07:56 | PN ---
PROGRESS NOTE DATE OF SERVICE: 12/27/2017 CHIEF COMPLAINT: Septic shock. HISTORY OF PRESENT ILLNESS: This patient is stable, but not improving. He remains essentially patient. He is oriented, but weak. PHYSICAL EXAM: Cardiac exam is unchanged with atrial fibrillation. Chest demonstrates occasional and scattered rales and rhonchi. Abdomen is soft. Extremities are normal. IMPRESSION: 1. Septic shock. 2. Infected ulcerations of the legs. 3. Type 2 diabetes mellitus. 4. Congestive heart failure. 5. Cardiomyopathy. 6. Alcoholism. 7. Drug abuse. PLAN: Continue supportive efforts and start working forward to a discharge plan. MMODL / IJN: [id number] /
--- NOTE | 2017-12-28 08:24 | PN ---
PROGRESS NOTE This patient has a history of cardiomyopathy. The patient came with GI bleeding and low hemoglobin. Patient is in atrial fibrillation with moderately rapid ventricular response. The patient is feeling about the same. He does feel a little short of breath and he is a cachectic. The patient is afebrile. Heart rate is 100 to 105 per minute, blood pressure is 100/68 mmHg. Respiratory rate is 20. First and second heart sounds are normal. Lungs reveal bilateral basal rales. Abdomen is soft. The patient's hemoglobin remained stable at 9. The patient's electrolytes are normal. BUN is 71 and creatinine is 2.63. The patient does have a chronic renal failure. Patient's hypernatremia is improved. We will give him 1 dose of IV Lasix. MMCRYSTALL / OLYN: [id number] /
[2017-12-28] MEDS: METOPROLOL TARTRATE 12.5 MG TAB PO SCH ×2 (08:25→22:07)
[2017-12-28] MEDS: SILVER sulfADIAZINE Cream 400 GM 1 APPLIC APPLIC TOPICAL SCH ×2 (08:25→22:11)
[2017-12-28] MEDS: AMIODARONE 200 MG TAB PO SCH ×3 (08:27→22:09)
[2017-12-28] MEDS: SODIUM BICARBONATE TAB 650 MG TAB PO SCH ×2 (08:27→22:09)
[2017-12-28] MEDS: DAPTOmycin 500 MG in SODIUM CHLORIDE 0.9% 50 ML IVPB SCH (08:29)
[2017-12-28] MEDS ORDERED: FUROSEMIDE 10 MG/ML 4 ML VIAL IV STA (10:33)
[2017-12-28 11:18] LABS: Glucose,Whole Blood 84 mg/dL (75-99)
[2017-12-28 12:20] LABS: Anisocytosis Slight; Basophils # (A) 0.1 k/uL (0-0.2); Basophils % (A) 0 %; Eosinophils # (A) 0.2 k/uL (0-0.7); Eosinophils % (A) 2 %; HCT 27.7 % (39.0-53.0); HGB 8.1 gm/dL (13.0-17.5); Hypochromasia Marked; Lymphocytes % (A) 6 %; MCH 28.2 pg (25.0-35.0); MCHC 29.2 g/dL (31.0-37.0); MCV 96.6 fL (80.0-100.0); Macrocytosis Slight; Mean Platelet Volume 9.1; Monocytes # (A) 0.9 k/uL (0-1.0); Monocytes % (A) 6 %; Neutrophils # (A) 13.3 k/uL (1.3-7.7); Neutrophils % (A) 84 %; Platelet Count 302 k/uL (150-450); Poikilocytosis Slight; RBC 2.87 m/uL (4.30-5.90); RDW 17.3 % (11.5-15.5); WBC 15.8 k/uL (3.8-10.6)
--- NOTE | 2017-12-28 12:31 | P.PN ---
Subjective Progress Note Date: 12/28/17 Principal diagnosis: Acute septic shock, profound anemia and GI bleeding This is a 67-year-old white male with history of multiple medical problems including chronic atrial fibrillation, COPD, congestive heart failure, diabetes , patient was brought in by his caregiver who is a friend of his, and he has been noticing significant decline in his status. Patient has been very secretive about his overall health condition, does not share his health issues with any of his friends or family members. Apparently he normally sees Dr. Oconnell and has been treated recently with doxycycline for what seems to be significant areas of cellulitis involving both legs. Patient was brought into the ER mostly with chief complaint of altered mental status, and has been noticing dark colored stools for the last 5 weeks. Patient is normally on Naprosyn for gout, and has been taking doxycycline for ulcers involving his legs. The patient himself is a very poor historian, much of the information was obtained from the chart. Upon arrival to the ER, patient was noted to be hypotensive, his lactic acid was elevated, and his hemoglobin was only 4. Patient was given so far at least 4 units of packed RBCs, and his hemoglobin now is 7.8. He was also given significant amount of fluid boluses, and his lactic acid came down from 8-0.8 to this morning. His renal profile is showing slight improvement with BUN coming down from 176-161 and his creatinine coming down from 3.60-3.30. Patient was empirically placed on antibiotics by Dr. Cartagena, and his urine was positive for cocaine. Chest x-ray showed no evidence of active disease. Patient was also noted to have atrial fibrillation with RVR , hypotensive on 20 g of norepinephrine, he was seen by cardiology, and his echocardiogram showed a significantly impaired left ventricle, ejection fraction of less than 20%. His atrial fibrillation is being treated with amiodarone. Nephrology was consulted for his renal failure. The patient himself is a very poor historian, and he seems to be quite slow with definite altered mental status. Patient was reevaluated today on 12/21/2017, seems to be more awake and more appropriate today. Hemodynamically stable, he was earlier on 5 g of norepinephrine, and I would likely discontinue the norepinephrine today since the blood pressure is holding and his main is in the high 70s. Urine output is excellent. Renal functioning is improving. BUN is down to 138 creatinine is down to 2.90 patient continues to have non-anion gap hyperchloremic metabolic acidosis. He is receiving bicarb orally. WBC count is down to 18.8 hemoglobin is holding at 7.4. Had few episodes of coffee-ground emesis, vaccine manager following, may consider endoscopy today. Patient is presently nothing by mouth. He did receive a total of 4 units of packed RBCs for low hemoglobin on presentation. Blood cultures are negative so far, however his urine culture was positive for group D enterococcus. And his wound cultures are negative for gram-negative bacilli. Patient is presently on daptomycin and on cefepime which is appropriate coverage for what we have so far. Patient is definitely more appropriate today, and he seems to be oriented 3. Patient was placed on lactated Ringer's at 100 mL/h, continues to have excellent urine output, and he is not developing any congestive heart failure findings although his ejection fraction was noted to be quite low. Ultrasound of the right and left kidney was noted. Seems to be consistent with underlying medical renal disease. On 12/22/2017, patient is basically about the same, however we have noticed a drop in his hemoglobin today, and the patient is now receiving a fifth unit of packed RBCs since admission. Hemoglobin this morning was 6.9, gastroenterology is planning EGD on this patient sometime today. Patient is complaining of being thirsty, otherwise he denies any specific complaints. No nausea no vomiting no abdominal pain no chest pain no shortness of breath. All his labs were reviewed, sodium is elevated, 149, potassium is 4.0 bicarb remains low at 15, BUN is improving down to 110 and creatinine is down to 2.30, and that is all being addressed by nephrology on the case. Patient was reevaluated today on 12/23/2017, scheduled to undergo EGD today, for some reason it was not done yesterday mostly because of his A. fib/RVR according to the vaccine manager on the case. Patient is nothing by mouth for today, and would likely have endoscopy done around 1 PM today. Patient is relatively asymptomatic, doing well overall compared to how he presented. Hemoglobin is holding at 7.9. Patient received a total of 5 units of packed RBCs since admission. His sodium was noted to be elevated, and his bicarb was correcting nicely, hence I have discontinued his bicarb drip. Patient denies any shortness of breath no cough no wheezing. Although her chest x-ray did show cardiomegaly and interstitial edema, right lower lobe infiltrate is not entirely ruled out. Patient was reevaluated today on , underwent EGD yesterday, and he was found to have a gastric ulcer, biopsies done, was not actively bleeding. Patient is a selective overflow in the ICU today, doing well overall, no active GI bleeding, mentation seems to be slightly improving, but remains overall slow which is probably his baseline. Renal functioning seems to be improving, creatinine is down to 1.8. Sodium remains elevated at 150, being addressed by nephrology on the case. Patient denies any cough no wheezing no shortness of breath, no chest pain, and he is tolerating oral feeding well. Patient was reevaluated today on 12/25/2017, seems to be doing much better, he is still a selective overflow. His hemoglobin is stable, his renal functioning is improving, it is 1.68 creatinine today. And global is 8.4 today. He is ready on full liquid diet, sodium is down to 147, and he remains on D5W at 1 25 mL per hour. I ordered a chest x-ray since the patient is known to have LV dysfunction with ejection fraction of 20%, but he is maintained on room air, and O2 saturation is in the 90s. He is in atrial fibrillation with RVR which is being addressed by cardiology on the case. Chest x-ray is showing improved congestive heart failure, questionable infiltrate noted in the right lower lobe , but I am suspecting that it is mostly fluid related, and pulmonary edema related. Echo dated to systolic congestive heart failure. Reevaluated today on 12/26/2017, patient is basically about the same, blood pressure remains marginal, patient does have atrial fibrillation, and he does have cardiomyopathy with LV dysfunction, ejection fraction of 20%. Labs today showed improved sodium, down to 143. His creatinine seems to be a bit worse today, probably related to his low blood pressure and cardiorenal syndrome with poor LV function. This is being addressed by nephrology on the case, patient remains on D5W at 100 mL per hour. Chest x-ray from yesterday showed cardiomegaly, and mild congestive heart failure changes. The right lower lobe opacity may represent atelectasis or infiltrate. However the patient remains on antibiotics. Reevaluated today on 12/27/2017, patient is relatively asymptomatic, denies any shortness of breath, no cough, no wheezing, labs were reviewed, continues to have significant renal abnormality, improved compared to baseline, and continues to be followed by nephrology. Continues to have leukocytosis of 19.2 , hemoglobin is 9.1. And continues to have abnormal chest x-ray suggestive of mild congestive heart failure and questionable right lower lobe infiltrate. Or atelectasis. The patient is seen today 12/28/2017 in follow-up on the selective care unit. He is currently awake and alert in no acute distress. He is maintaining O2 saturations in the mid 90s on 3 L/m per nasal cannula. Currently afebrile. Blood culture reveals no growth. Wound culture reveals no growth. Urine culture was positive for Enterococcus faecalis. He is currently on daptomycin and cefepime. He remains on Lasix 40 mg IV push every 8 hours. White count 15.8. Hemoglobin 8.1. Creatinine 3.29. Objective - Vital Signs Vital signs: Vital Signs Temp 96.9 F L 12/28/17 08:00 Pulse 106 H 12/28/17 12:00 Resp 16 12/28/17 12:00 BP 98/66 12/28/17 12:00 Pulse Ox 96 12/28/17 12:00 Intake & Output 12/27/17 12/28/17 12/28/17 18:59 06:59 18:59 Intake Total 460 120 Output Total 425 Balance 35 120 Weight 79.5 kg Intake: Oral 460 120 Output: Urine 425 Other: Voiding Method Urinal Urinal Urinal Diaper Diaper Diaper # Voids 200 # Bowel Movements 2 ABP, PAP, CO, CI - Last Documented Arterial Blood Pressure 102/51 - Exam GEN. APPEARANCE: Physical exam revealed a 67-year-old male in no distress, appropriate, . HEAD EXAM: atraumatic, normocephalic, normal inspection EYE EXAM: Positive for pallor. No icterus. PERRLA, EOMI. ENT EXAM: Mucous membranes dry NECK EXAM: normal inspection. Absent: tenderness, meningismus, full ROM, no evidence of lymphadenopathy. RESPIRATORY EXAM: normal lung sounds bilaterally. Diminished breath sounds at the bases, minimal fine crackles at the right base. CARDIOVASCULAR EXAM: Tachycardia. Irregular irregular rhythm Normal S1 and S2, 2/6 systolic murmur throughout the precordium. GI/ABDOMINAL EXAM: soft, normal bowel sounds. Absent: distended, tenderness, guarding, rebound, rigid EXTREMITIES EXAM: Bilateral lower extremities ulcers in various stages of healing , right side worse than left. All wrapped with sterile dressings. NEUROLOGICAL EXAM: Alert oriented 3, but seems to be quite slow. - Labs CBC & Chem 7: 12/26/17 04:28 12/28/17 06:58 Labs: Abnormal Lab Results - Last 24 Hours (Table) 12/27/17 12/27/17 12/28/17 Range/Units 16:08 20:56 02:03 Sodium (137-145) mmol/L Potassium (3.5-5.1) mmol/L Chloride (98-107) mmol/L Carbon Dioxide (22-30) mmol/L BUN (9-20) mg/dL Creatinine (0.66-1.25) mg/dL Glucose (74-99) mg/dL POC Glucose (mg/dL) 147 H 105 H 105 H (75-99) mg/dL 12/28/17 12/28/17 Range/Units 05:58 06:58 Sodium 136 L (137-145) mmol/L Potassium 5.7 H (3.5-5.1) mmol/L Chloride 108 H (98-107) mmol/L Carbon Dioxide 16 L (22-30) mmol/L BUN 78 H (9-20) mg/dL Creatinine 3.29 H (0.66-1.25) mg/dL Glucose 70 L (74-99) mg/dL POC Glucose (mg/dL) 73 L (75-99) mg/dL Assessment and Plan Assessment: Impression: 1 acute septic shock, most likely source is his cellulitis. Could also be from urinary tract infection secondary to Enterococcus faecalis. 2 chronic cellulitis, and lower extremities ulcers, cultures are nondiagnostic since there was evidence of multi-microbial growth. 3 acute non-anion gap hyperchloremic metabolic acidosis secondary to sepsis. And secondary to septic shock. 4 acute kidney injury secondary to sepsis and suspect acute tubular necrosis. Renal functioning seems to be steadily improving. 5 severe cardiomyopathy and LV dysfunction 6 atrial fibrillation with RVR, rate seems to be better controlled, and the patient is hemodynamically stable, off norepinephrine 7 acute GI bleeding, secondary to antral gastric ulcer. Status post EGD 8 history of diabetes. Plan: The patient was seen and evaluated by Dr. Gonzalez. Chest x-ray and labs were reviewed. He does continue with congestive heart failure and some pulmonary edema. We will continue with his current treatment plan. We'll continue to follow. I, the cosigning physician, performed a history & physical examination of the patient. Lungs sounds with crackles in posterior bases. Maintaining good O2 saturations in the 90s on 3 L/m per nasal cannula. I discussed the assessment and plan of care with my nurse practitioner, Char Petersen. I attest to the above note as dictated by her.
[2017-12-28 13:15] LABS: Crenated RBC Present; Polychromasia Present; Toxic Granulation Present
--- NOTE | 2017-12-28 13:29 | P.PN ---
Subjective Mr. Miller is a pleasant 67-year-old male past medical history significant for atrial fibrillation, cardiomyopathy, COPD, diabetes mellitus, hypertension and chronic kidney disease. He initially presented to the hospital with significant anemia secondary to acute GI bleeding. His heart rate has continued to be elevated 100-120 range. He is hypotensive and tachpneic. He has been receiving IV lasix, amidarone, midodrine and lopressor. Chest xray this morning reveals pulmonary edema. Laboratory data reviewed, sodium 136, potassium 5.7, creatinine 3.29. Blood pressure 89/72 heart rate 110 afebrile maintaining oxygen saturation on nasal cannula 2 L. Denies symptoms of chest pain, palpitations or dizziness. States he is having a hard time catching his breath. Objective - Vital Signs Vital signs: Vital Signs Temp 96.9 F L 12/28/17 08:00 Pulse 110 H 12/28/17 08:00 Resp 16 12/28/17 11:15 BP 89/72 12/28/17 08:00 Pulse Ox 96 12/28/17 08:00 Intake & Output 12/27/17 12/28/17 12/28/17 18:59 06:59 18:59 Intake Total 460 120 Output Total 425 Balance 35 120 Weight 79.5 kg Intake: Oral 460 120 Output: Urine 425 Other: Voiding Method Urinal Urinal Urinal Diaper Diaper Diaper # Voids 200 # Bowel Movements 2 ABP, PAP, CO, CI - Last Documented Arterial Blood Pressure 102/51 - Exam GENERAL: Sitting upright sleeping in no acute distress. NECK: Supple without JVD or thyromegaly. LUNGS: Breath sounds clear to auscultation bilaterally. Respiration equal and unlabored. No wheezes, rales or rhonchi. Diminished bilaterally. HEART: Irregular rate and rhythm with murmur at the base, no rubs or gallops. S1 and S2 heard. EXTREMITIES: Peripheral pulses intact. Chronic lower extremity wounds with 2+ bilateral lower extremity edema noted. - Labs CBC & Chem 7: 12/28/17 06:58 12/28/17 06:58 Labs: Abnormal Lab Results - Last 24 Hours (Table) 12/27/17 12/27/17 12/27/17 Range/Units 11:47 16:08 20:56 Sodium (137-145) mmol/L Potassium (3.5-5.1) mmol/L Chloride (98-107) mmol/L Carbon Dioxide (22-30) mmol/L BUN (9-20) mg/dL Creatinine (0.66-1.25) mg/dL Glucose (74-99) mg/dL POC Glucose (mg/dL) 114 H 147 H 105 H (75-99) mg/dL 12/28/17 12/28/17 12/28/17 Range/Units 02:03 05:58 06:58 Sodium 136 L (137-145) mmol/L Potassium 5.7 H (3.5-5.1) mmol/L Chloride 108 H (98-107) mmol/L Carbon Dioxide 16 L (22-30) mmol/L BUN 78 H (9-20) mg/dL Creatinine 3.29 H (0.66-1.25) mg/dL Glucose 70 L (74-99) mg/dL POC Glucose (mg/dL) 105 H 73 L (75-99) mg/dL Assessment and Plan Assessment: ASSESSMENT Acute on chronic systolic heart failure ejection fraction less than 20% Severe mitral regurgitation Pulmonary hypertension Chronic persistent atrial fibrillation with rapid ventricular response Acute GI bleeding secondary to gastric ulcer status post EGD Chronic cellulitis and lower extremity ulceration Acute septic shock Acute kidney injury, creatinine 3.29 Hyperkalemia Hypotension PLAN Repeat CBC today and in the morning. Follow kidney function and electrolytes daily. Continue current medical regimen. Hold IV lasix. Recommendations from nephrology regarding diuretic therapy. Prognosis guarded. Nurse Practitioner note has been reviewed, I agree with a documented findings and plan of care. Patient was seen and examined.
[2017-12-28] MEDS ORDERED: FUROSEMIDE 10 MG/ML 4 ML VIAL IV SCH (16:00)
--- NOTE | 2017-12-28 16:00 | PN ---
PROGRESS NOTE The patient was seen this morning. He is comfortable. He states he is feeling tired and he is mildly short of breath. He is not in any acute distress. Blood pressure was 98/66, it has been ranging between 89-99 per minute for systolic blood pressure. Heart rate about 110-106 per minute. Patient is afebrile. Examination of the heart S1, S2. Examination lungs bilateral breath sounds are heard. Decreased breath sounds at the bases. Basal crackles are heard. Abdomen is soft, nontender. Examination of lower extremities shows edema 2+ bilaterally. He has edema noted in the upper extremities as well. Bruising is noted in the lower extremities. HR ASSOCIATE exam is grossly intact. LAB: Shows sodium 136, potassium 5.7, chloride 108, CO2 16, BUN 78, serum creatinine 3.29, hemoglobin 8.1 g/dL. ASSESSMENT: 1. Acute kidney injury with worsening renal function. The blood pressure remains on the lower side. The patient's ejection fraction is less than 20%. He is currently not on any pressors or inotropic agents. Patient is maintained on oral midodrine. He had been on Lasix previously. Currently, Lasix is on hold. I will resume IV diuretics. Urine output has picked up with this morning's dose of Lasix. The patient will need to be started on dobutamine given his significantly low ejection fraction if the renal function continues to worsen. 2. Hyperkalemia associated with worsening renal failure. Expect improvement with diuresis. We will continue with the Lasix for now. 3. Severe cardiomyopathy, ejection fraction less than 20%. 4. Severe mitral regurgitation. 5. Acute on top of chronic heart failure, mainly systolic. 6. Chronic cellulitis of lower extremities. 7. Gastrointestinal bleed this admission from gastric ulcer status post EGD. PLAN: Resume the Lasix and if renal function continues to worsen, start dobutamine. MMODL / IJN: [id number] /
--- NOTE | 2017-12-28 16:33 | PN ---
PROGRESS NOTE DATE OF SERVICE: 12/28/2017 CHIEF COMPLAINT: Septic shock and renal failure. HISTORY OF PRESENT ILLNESS: This gentleman is just about the same. Numbers improved slightly, but not a great deal. White count 37067, hemoglobin 9.1. BUN 64, the creatinine 2.004. EXAM: Remains pale. Breath sounds demonstrate scattered rales. Cardiac exam demonstrates tachycardia. Abdomen is soft and extremities unchanged. IMPRESSION: 1. Sepsis. 2. Infected ulcerations, lower legs. 3. Congestive heart failure. 4. Cardiomyopathy. 5. Renal failure. PLAN: Continue with supportive care. We will have to start considering discharge arrangements soon. MMODL / IJN: [id number] /
[2017-12-28] MEDS: FUROSEMIDE 10 MG/ML 4 ML VIAL IV SCH ×2 (16:54→22:42)
[2017-12-28 17:37] LABS: Glucose,Whole Blood 87 mg/dL (75-99)
[2017-12-28 18:36] LABS: Potassium 5.8 mmol/L (3.5-5.1)
[2017-12-28 20:29] LABS: Glucose,Whole Blood 72 mg/dL (75-99)
[2017-12-28] MEDS: HYDROcodone/APAP 5-325MG 1 EACH TAB PO PRN (22:09)
[2017-12-28] MEDS: CEFEPIME 2 GM in SODIUM CHLORIDE 0.9% 50 ML IVPB SCH (22:23)
[2017-12-28 22:57] LABS: Glucose,Whole Blood 86 mg/dL (75-99)
[2017-12-29 05:44] LABS: Glucose,Whole Blood 105 mg/dL (75-99)
[2017-12-29] MEDS: INSULIN ASPART 100 UNIT/ML 1 ML 10 ML VIAL SQ SCH ×3 (05:45→18:05)
[2017-12-29] MEDS: PANTOPRAZOLE 40 MG TABLET PO SCH ×2 (05:54→18:13)
[2017-12-29] MEDS: MIDODRINE 5 MG TAB PO SCH ×3 (05:54→18:13)
[2017-12-29 07:43] LABS: Anisocytosis Slight; HCT 28.4 % (39.0-53.0); HGB 8.4 gm/dL (13.0-17.5); Hypochromasia Marked; MCH 27.6 pg (25.0-35.0); MCHC 29.5 g/dL (31.0-37.0); MCV 93.5 fL (80.0-100.0); Mean Platelet Volume 7.5; Platelet Count 351 k/uL (150-450); Poikilocytosis Slight; RBC 3.04 m/uL (4.30-5.90); RDW 17.4 % (11.5-15.5)
[2017-12-29 07:49] LABS: Calcium 8.7 mg/dL (8.4-10.2); Potassium 5.1 mmol/L (3.5-5.1)
[2017-12-29] MEDS: METOPROLOL TARTRATE 12.5 MG TAB PO SCH ×3 (09:06→23:19)
[2017-12-29] MEDS: SODIUM BICARBONATE TAB 650 MG TAB PO SCH ×2 (09:06→23:23)
[2017-12-29] MEDS: FUROSEMIDE 10 MG/ML 4 ML VIAL IV SCH ×2 (09:06→18:13)
[2017-12-29] MEDS: DAPTOmycin 500 MG in SODIUM CHLORIDE 0.9% 50 ML IVPB SCH (09:06)
[2017-12-29] MEDS: AMIODARONE 200 MG TAB PO SCH ×3 (09:06→23:23)
[2017-12-29] MEDS: SILVER sulfADIAZINE Cream 400 GM 1 APPLIC APPLIC TOPICAL SCH ×2 (09:14→23:23)
--- NOTE | 2017-12-29 11:56 | P.PN ---
Subjective Progress Note Date: 12/29/17 Principal diagnosis: Acute septic shock, profound anemia and GI bleeding This is a 67-year-old white male with history of multiple medical problems including chronic atrial fibrillation, COPD, congestive heart failure, diabetes , patient was brought in by his caregiver who is a friend of his, and he has been noticing significant decline in his status. Patient has been very secretive about his overall health condition, does not share his health issues with any of his friends or family members. Apparently he normally sees Dr. Oconnell and has been treated recently with doxycycline for what seems to be significant areas of cellulitis involving both legs. Patient was brought into the ER mostly with chief complaint of altered mental status, and has been noticing dark colored stools for the last 5 weeks. Patient is normally on Naprosyn for gout, and has been taking doxycycline for ulcers involving his legs. The patient himself is a very poor historian, much of the information was obtained from the chart. Upon arrival to the ER, patient was noted to be hypotensive, his lactic acid was elevated, and his hemoglobin was only 4. Patient was given so far at least 4 units of packed RBCs, and his hemoglobin now is 7.8. He was also given significant amount of fluid boluses, and his lactic acid came down from 8-0.8 to this morning. His renal profile is showing slight improvement with BUN coming down from 176-161 and his creatinine coming down from 3.60-3.30. Patient was empirically placed on antibiotics by Dr. Cartagena, and his urine was positive for cocaine. Chest x-ray showed no evidence of active disease. Patient was also noted to have atrial fibrillation with RVR , hypotensive on 20 g of norepinephrine, he was seen by cardiology, and his echocardiogram showed a significantly impaired left ventricle, ejection fraction of less than 20%. His atrial fibrillation is being treated with amiodarone. Nephrology was consulted for his renal failure. The patient himself is a very poor historian, and he seems to be quite slow with definite altered mental status. Patient was reevaluated today on 12/21/2017, seems to be more awake and more appropriate today. Hemodynamically stable, he was earlier on 5 g of norepinephrine, and I would likely discontinue the norepinephrine today since the blood pressure is holding and his main is in the high 70s. Urine output is excellent. Renal functioning is improving. BUN is down to 138 creatinine is down to 2.90 patient continues to have non-anion gap hyperchloremic metabolic acidosis. He is receiving bicarb orally. WBC count is down to 18.8 hemoglobin is holding at 7.4. Had few episodes of coffee-ground emesis, tester sound following, may consider endoscopy today. Patient is presently nothing by mouth. He did receive a total of 4 units of packed RBCs for low hemoglobin on presentation. Blood cultures are negative so far, however his urine culture was positive for group D enterococcus. And his wound cultures are negative for gram-negative bacilli. Patient is presently on daptomycin and on cefepime which is appropriate coverage for what we have so far. Patient is definitely more appropriate today, and he seems to be oriented 3. Patient was placed on lactated Ringer's at 100 mL/h, continues to have excellent urine output, and he is not developing any congestive heart failure findings although his ejection fraction was noted to be quite low. Ultrasound of the right and left kidney was noted. Seems to be consistent with underlying medical renal disease. On 12/22/2017, patient is basically about the same, however we have noticed a drop in his hemoglobin today, and the patient is now receiving a fifth unit of packed RBCs since admission. Hemoglobin this morning was 6.9, gastroenterology is planning EGD on this patient sometime today. Patient is complaining of being thirsty, otherwise he denies any specific complaints. No nausea no vomiting no abdominal pain no chest pain no shortness of breath. All his labs were reviewed, sodium is elevated, 149, potassium is 4.0 bicarb remains low at 15, BUN is improving down to 110 and creatinine is down to 2.30, and that is all being addressed by nephrology on the case. Patient was reevaluated today on 12/23/2017, scheduled to undergo EGD today, for some reason it was not done yesterday mostly because of his A. fib/RVR according to the tester sound on the case. Patient is nothing by mouth for today, and would likely have endoscopy done around 1 PM today. Patient is relatively asymptomatic, doing well overall compared to how he presented. Hemoglobin is holding at 7.9. Patient received a total of 5 units of packed RBCs since admission. His sodium was noted to be elevated, and his bicarb was correcting nicely, hence I have discontinued his bicarb drip. Patient denies any shortness of breath no cough no wheezing. Although her chest x-ray did show cardiomegaly and interstitial edema, right lower lobe infiltrate is not entirely ruled out. Patient was reevaluated today on , underwent EGD yesterday, and he was found to have a gastric ulcer, biopsies done, was not actively bleeding. Patient is a selective overflow in the ICU today, doing well overall, no active GI bleeding, mentation seems to be slightly improving, but remains overall slow which is probably his baseline. Renal functioning seems to be improving, creatinine is down to 1.8. Sodium remains elevated at 150, being addressed by nephrology on the case. Patient denies any cough no wheezing no shortness of breath, no chest pain, and he is tolerating oral feeding well. Patient was reevaluated today on 12/25/2017, seems to be doing much better, he is still a selective overflow. His hemoglobin is stable, his renal functioning is improving, it is 1.68 creatinine today. And global is 8.4 today. He is ready on full liquid diet, sodium is down to 147, and he remains on D5W at 1 25 mL per hour. I ordered a chest x-ray since the patient is known to have LV dysfunction with ejection fraction of 20%, but he is maintained on room air, and O2 saturation is in the 90s. He is in atrial fibrillation with RVR which is being addressed by cardiology on the case. Chest x-ray is showing improved congestive heart failure, questionable infiltrate noted in the right lower lobe , but I am suspecting that it is mostly fluid related, and pulmonary edema related. Echo dated to systolic congestive heart failure. Reevaluated today on 12/26/2017, patient is basically about the same, blood pressure remains marginal, patient does have atrial fibrillation, and he does have cardiomyopathy with LV dysfunction, ejection fraction of 20%. Labs today showed improved sodium, down to 143. His creatinine seems to be a bit worse today, probably related to his low blood pressure and cardiorenal syndrome with poor LV function. This is being addressed by nephrology on the case, patient remains on D5W at 100 mL per hour. Chest x-ray from yesterday showed cardiomegaly, and mild congestive heart failure changes. The right lower lobe opacity may represent atelectasis or infiltrate. However the patient remains on antibiotics. Reevaluated today on 12/27/2017, patient is relatively asymptomatic, denies any shortness of breath, no cough, no wheezing, labs were reviewed, continues to have significant renal abnormality, improved compared to baseline, and continues to be followed by nephrology. Continues to have leukocytosis of 19.2 , hemoglobin is 9.1. And continues to have abnormal chest x-ray suggestive of mild congestive heart failure and questionable right lower lobe infiltrate. Or atelectasis. The patient is seen today 12/28/2017 in follow-up on the selective care unit. He is currently awake and alert in no acute distress. He is maintaining O2 saturations in the mid 90s on 3 L/m per nasal cannula. Currently afebrile. Blood culture reveals no growth. Wound culture reveals no growth. Urine culture was positive for Enterococcus faecalis. He is currently on daptomycin and cefepime. He remains on Lasix 40 mg IV push every 8 hours. White count 15.8. Hemoglobin 8.1. Creatinine 3.29. On 12/29/2017 patient seen in follow-up on selective care unit. Patient has just completed a bedside sponge bath with assistance of multiple nurses aides. Seems a bit winded right now, recovering from exertion, currently on 3 L per nasal cannula pulse ox is 99%, is afebrile, hemodynamically stable. Lung sounds is for bilateral crackles, no chest x-rays today, yesterday's chest x- ray suggestive of congestive heart failure with pulmonary edema. Patient remains on IV diuretics, at 40 mg IV every 8 hours. Nephrology is following, patient still has significant amount of bilateral lower extremity edema. Labs today show WBC of 17.0, hemoglobin is 8.4, sodium is 138, potassium is 5.1, chloride is improving, down to 108, CO2 is 17, BUN 84, and creatinine is 3.39. Urine culture showed enterococcus faecalis, ED service is following, patient is on a combination of daptomycin and cefepime. Patient is receiving Silvadene cream to bilateral lower extremity ulcerations. Objective - Vital Signs Vital signs: Vital Signs Temp 97.8 F 12/29/17 08:00 Pulse 94 12/29/17 08:00 Resp 16 12/29/17 08:00 BP 93/50 12/29/17 08:00 Pulse Ox 99 12/29/17 08:00 Intake & Output 12/28/17 12/29/17 12/29/17 18:59 06:59 18:59 Intake Total 360 50 90 Output Total 905 1300 500 Balance -545 -9939 -410 Weight 79.5 kg 75 kg Intake: IV 20 50 Cefepime 2 gm In Sodium 50 Chloride 0.9% 50 ml @ 100 mls/hr IVPB DAILY@1999 [facility] Rx#:[id number] Invasive Line 7 20 Oral 340 90 Output: Urine 905 1300 500 Other: Voiding Method Indwelling Catheter Indwelling Catheter Indwelling Catheter # Bowel Movements 1 1 ABP, PAP, CO, CI - Last Documented Arterial Blood Pressure 102/51 - Exam GEN. APPEARANCE: Physical exam revealed a 67-year-old -[place] male mildly short of breath, after a bed bath. HEAD EXAM: atraumatic, normocephalic, normal inspection EYE EXAM: Positive for pallor. No icterus. PERRLA, EOMI. ENT EXAM: Mucous membranes dry NECK EXAM: normal inspection. Absent: tenderness, meningismus, full ROM, no evidence of lymphadenopathy. RESPIRATORY EXAM: normal lung sounds bilaterally. Diminished breath sounds at the bases, minimal fine crackles at the right base. CARDIOVASCULAR EXAM: Tachycardia. Irregular irregular rhythm Normal S1 and S2, 2/6 systolic murmur throughout the precordium. GI/ABDOMINAL EXAM: soft, normal bowel sounds. Absent: distended, tenderness, guarding, rebound, rigid EXTREMITIES EXAM: Bilateral lower extremities ulcers in various stages of healing , right side worse than left. All wrapped with sterile dressings. NEUROLOGICAL EXAM: Alert oriented 3, but seems to be quite slow. - Labs CBC & Chem 7: 12/29/17 06:29 12/29/17 06:29 Labs: Abnormal Lab Results - Last 24 Hours (Table) 12/28/17 12/28/17 12/28/17 Range/Units 06:58 17:32 20:26 WBC 15.8 H (3.8-10.6) k/uL RBC 2.87 L (4.30-5.90) m/uL Hgb 8.1 L (13.0-17.5) gm/dL Hct 27.7 L (39.0-53.0) % MCHC 29.2 L (31.0-37.0) g/dL RDW 17.3 H (11.5-15.5) % Neutrophils # 13.3 H (1.3-7.7) k/uL Potassium 5.8 H (3.5-5.1) mmol/L Chloride 112 H (98-107) mmol/L Carbon Dioxide 13 L (22-30) mmol/L BUN (9-20) mg/dL Creatinine (0.66-1.25) mg/dL POC Glucose (mg/dL) 72 L (75-99) mg/dL 12/29/17 12/29/17 12/29/17 Range/Units 05:42 06:29 06:29 WBC 17.0 H (3.8-10.6) k/uL RBC 3.04 L (4.30-5.90) m/uL Hgb 8.4 L (13.0-17.5) gm/dL Hct 28.4 L (39.0-53.0) % MCHC 29.5 L (31.0-37.0) g/dL RDW 17.4 H (11.5-15.5) % Neutrophils # (1.3-7.7) k/uL Potassium (3.5-5.1) mmol/L Chloride 108 H (98-107) mmol/L Carbon Dioxide 17 L (22-30) mmol/L BUN 84 H (9-20) mg/dL Creatinine 3.39 H (0.66-1.25) mg/dL POC Glucose (mg/dL) 105 H (75-99) mg/dL Assessment and Plan Plan: Assessment: 1 acute septic shock, most likely source is his cellulitis. Could also be from urinary tract infection secondary to Enterococcus faecalis. 2 chronic cellulitis, and lower extremities ulcers, cultures are nondiagnostic since there was evidence of multi-microbial growth. 3 acute non-anion gap hyperchloremic metabolic acidosis secondary to sepsis. And secondary to septic shock. 4 acute kidney injury secondary to sepsis and suspect acute tubular necrosis. Renal functioning seems to be steadily improving. 5 severe cardiomyopathy and LV dysfunction 6 atrial fibrillation with RVR, rate seems to be better controlled, and the patient is hemodynamically stable, off norepinephrine 7 acute GI bleeding, secondary to antral gastric ulcer. Status post EGD 8 history of diabetes. Plan: Current medical treatment, IV diuresis per nephrology, IV ABT per ID service. Hemodynamics are stable, patient is afebrile, he is being treated for urinary tract infection secondary to Enterococcus faecalis, and cellulitis of bilateral lower extremities. We will follow the patient on as needed basis. Overall prognosis is guarded in view of comorbidities, and overall general medical debility. I performed a history & physical examination of the patient and discussed their management with my nurse practitioner, Shila Pleitez. I reviewed the nurse practitioner's note and agree with the documented findings and plan of care. Lung sounds are positive for fine rales at bilateral bases. The findings and the impression was discussed with the patient. I attest to the documentation by the nurse practitioner. Time with Patient: Less than 30
[2017-12-29 13:14] LABS: Glucose,Whole Blood 114 mg/dL (75-99)
--- NOTE | 2017-12-29 15:53 | PN ---
PROGRESS NOTE CHIEF COMPLAINT: Septic shock, renal failure. HISTORY OF PRESENT ILLNESS: This gentleman is about the same. BUN and creatinine are fairly stable and not dropping significantly. He seems a little bit more alert today. PHYSICAL EXAM: She remains pale and asthenic. Breath sounds are diminished throughout. Cardiac exam demonstrates atrial fibrillation. Abdomen is soft. Extremities are unchanged. IMPRESSION: 1. Septic shock. 2. Infected stasis ulcers lower extremities. 3. Congestive heart failure. 4. Cardiomyopathy. 5. Alcoholism. 6. Substance abuse. 7. Renal failure. PLAN: Continue with his current program. It is not clear where he will go when he is discharged. MMODL / IJN: [id number] /
--- NOTE | 2017-12-29 16:26 | P.PN ---
Subjective Progress Note Date: 12/29/17 History patient is a pleasant 59-year-old -[place] male with past medical history significant for atrial fibrillation, cardiomyopathy, COPD, diabetes, hypertension and chronic kidney disease. He initially presented to the hospital with significant anemia secondary to acute GI bleeding. Was found to have a gastric ulcer which was cauterized. Patient continues to have significant edema and shortness of breath. He is on amiodarone and Lopressor for heart rate control. He is being followed by nephrology and receiving IV Lasix 40 mg every 8 hours. Upon examination, patient is sitting up in a chair. He is quite drowsy as he just worked with physical therapy. He is a poor historian and much information was gathered from the chart. He feels his breathing is stable compared to yesterday. However has a difficult time remembering how he felt yesterday. Objective - Vital Signs Vital signs: Vital Signs Temp 97.6 F 12/29/17 16:05 Pulse 103 H 12/29/17 16:05 Resp 28 H 12/29/17 16:05 BP 80/51 12/29/17 16:05 Pulse Ox 94 L 12/29/17 16:05 Intake & Output 12/28/17 12/29/17 12/29/17 18:59 06:59 18:59 Intake Total 360 50 370 Output Total 905 1300 500 Balance -545 -1250 -130 Weight 79.5 kg 75 kg Intake: IV 20 50 Cefepime 2 gm In Sodium 50 Chloride 0.9% 50 ml @ 100 mls/hr IVPB DAILY@1999 [facility] Rx#:[id number] Invasive Line 7 20 Oral 340 370 Output: Urine 905 1300 500 Other: Voiding Method Indwelling Catheter Indwelling Catheter Indwelling Catheter # Bowel Movements 1 1 ABP, PAP, CO, CI - Last Documented Arterial Blood Pressure 102/51 - Exam PHYSICAL EXAMINATION: HEENT: [Head is atraumatic, normocephalic. Pupils equal, round. Neck is supple. There is no elevated jugular venous pressure.] HEART EXAMINATION: [Heart sounds irregularly irregular, S1 and S2 with a systolic murmur at the base.] CHEST EXAMINATION:[ Lungs are clear to auscultation and precussion. No chest wall tenderness is noted on palpation or with deep breathing.] ABDOMEN: [ Soft, nontender. Bowel sounds are heard. No organomegaly noted]. EXTREMITIES:[ 2+ peripheral pulses with chronic lower extremity wounds with 2+ bilateral lower extremity edema noted.]. . - Labs CBC & Chem 7: 12/29/17 06:29 12/29/17 06:29 Labs: Abnormal Lab Results - Last 24 Hours (Table) 12/28/17 12/28/17 12/29/17 Range/Units 17:32 20:26 05:42 WBC (3.8-10.6) k/uL RBC (4.30-5.90) m/uL Hgb (13.0-17.5) gm/dL Hct (39.0-53.0) % MCHC (31.0-37.0) g/dL RDW (11.5-15.5) % Potassium 5.8 H (3.5-5.1) mmol/L Chloride 112 H (98-107) mmol/L Carbon Dioxide 13 L (22-30) mmol/L BUN (9-20) mg/dL Creatinine (0.66-1.25) mg/dL POC Glucose (mg/dL) 72 L 105 H (75-99) mg/dL 12/29/17 12/29/17 12/29/17 Range/Units 06:29 06:29 13:12 WBC 17.0 H (3.8-10.6) k/uL RBC 3.04 L (4.30-5.90) m/uL Hgb 8.4 L (13.0-17.5) gm/dL Hct 28.4 L (39.0-53.0) % MCHC 29.5 L (31.0-37.0) g/dL RDW 17.4 H (11.5-15.5) % Potassium (3.5-5.1) mmol/L Chloride 108 H (98-107) mmol/L Carbon Dioxide 17 L (22-30) mmol/L BUN 84 H (9-20) mg/dL Creatinine 3.39 H (0.66-1.25) mg/dL POC Glucose (mg/dL) 114 H (75-99) mg/dL Assessment and Plan Assessment: #1 acute on chronic systolic congestive heart failure, ejection fraction less than 20% #2 severe mitral regurgitation #3 pulmonary hypertension #4 chronic atrial fibrillation with rapid ventricular response, currently on amiodarone and metoprolol #5 GI bleeding secondary to gastric ulcer status post EGD #6 acute kidney injury on chronic kidney failure #7 acute septic shock #8 chronic cellulitis and lower extremity ulcerations #9 hyperkalemia #10 hypotension Plan: From cardiology's perspective, we will continue current medications. Continue to follow nephrology's recommendations regarding Lasix. Patient's prognosis remains guarded. We will continue to follow the patient right further recommendations accordingly. PRESIDENT AND CMO note has been reviewed, I agree with a documented findings and plan of care. Patient was seen and examined.
[2017-12-29 18:13] LABS: Glucose,Whole Blood 87 mg/dL (75-99)
[2017-12-29 20:45] LABS: Glucose,Whole Blood 125 mg/dL (75-99)
--- NOTE | 2017-12-29 22:39 | P.PN ---
Subjective Progress Note Date: 12/29/17 67-year-old male who has altered mental status is brought to the emergency center by a caregiver who apparently has a friend because of the significant declining status that was noted. The caregiver relates that he's been secretive about his overall health. The patient however does follow with a primary care physician Dr. Oconnell and was evaluated in the office on 2017 antibiotic therapy with doxycycline was given for the problems to his legs. No evidence of any topical therapy can be found in the bags of medicine that were brought to hospital. The patient himself is agitated and has difficulty answering questions. He however on direct questioning denies headache, denies chest pain, denies abdominal pain, denies dysuria, denies diarrhea but does complain of pain to his legs. The patient's sister is present relates that although she does see her brother occasionally she does not know much about his medical history. 12/20/2017 patient is improved today after the 4 units of PRBC some GI bleeding is noted and has been by gastroenterology. Once he is his vasopressor therapy will be taking the endoscopy suite for evaluation of therapeutic intervention. The patient is much more comfortable today. 2 sisters are present, relate that they do not know much about his health care because he does not relate to them. Patient is educated about his current level of the extensive illness including profound anemia, as well as shock that he has a infectious component to it. His response to this was " when do I get to go home.' 12/22/2017 the patient is being evaluated by gastroenterology and potentially will have endoscopy tomorrow to evaluate the gastrointestinal bleeding. He had extensive symptomatic gastric intestinal bleeding admission complicated by sepsis. He seems to be doing somewhat better at this time and hopefully will tolerate the procedure well in the morning. 12/29/2017 patient has improved but still very weak and chronically ill, plans for placement in progress. Endoscopy did real large non bleeding ulcer H Pylori was negative. e Legs are less painful and does not guard them as he did prior evaluations. Objective - Vital Signs Vital signs: Vital Signs Temp 96.9 F L 12/29/17 17:53 Pulse 97 12/29/17 17:53 Resp 28 H 12/29/17 17:53 BP 98/81 12/29/17 17:53 Pulse Ox 97 12/29/17 17:53 Intake & Output 12/29/17 12/29/17 12/30/17 06:59 18:59 06:59 Intake Total 50 370 Output Total 1300 900 Balance -1250 -530 Weight 75 kg Intake: IV 50 Cefepime 2 gm In Sodium 50 Chloride 0.9% 50 ml @ 100 mls/hr IVPB DAILY@1999 [facility] Rx#:[id number] Oral 370 Output: Urine 1300 900 Other: Voiding Method Indwelling Catheter Indwelling Catheter # Bowel Movements 1 1 ABP, PAP, CO, CI - Last Documented Arterial Blood Pressure 102/51 - Exam HEENT: Anicteric conjunctiva are less pale, improvement of the general pallor. No oral lesions or thrush but dentition is very poor Neck: The neck is supple without significant lymphadenopathy or thyromegaly. Lungs: There is symmetrical air entry with expiratory wheezes scattered no leah bronchial sounds no dullness Heart: Very tachycardic with a rate of 141 no abnormal sounds were detected Abdomen: Positive bowel sounds soft and nontender without palpable masses or organomegaly. There was no guarding or rebound. Extremities: Upper extremities are intact without lesions. Lower extremities show evidence of the chronic bilateral lower extremity edema, evidence of some dried bulla especially on the left leg are seen. Some ulcerations are seen on the right lower extremity. Nursing photography will further help define locations. There is some minimal drainage to the right leg. The legs are very tender. Neuro: The patient is awake and alert attempts to answer questions but is agitated and does not answer questions well. He overs able to easily move all extremities at this time but is guarding to his legs because they give him pain. - Labs CBC & Chem 7: 12/29/17 06:29 12/29/17 06:29 Labs: Abnormal Lab Results - Last 24 Hours (Table) 12/29/17 12/29/17 12/29/17 Range/Units 05:42 06:29 06:29 WBC 17.0 H (3.8-10.6) k/uL RBC 3.04 L (4.30-5.90) m/uL Hgb 8.4 L (13.0-17.5) gm/dL Hct 28.4 L (39.0-53.0) % MCHC 29.5 L (31.0-37.0) g/dL RDW 17.4 H (11.5-15.5) % Chloride 108 H (98-107) mmol/L Carbon Dioxide 17 L (22-30) mmol/L BUN 84 H (9-20) mg/dL Creatinine 3.39 H (0.66-1.25) mg/dL POC Glucose (mg/dL) 105 H (75-99) mg/dL 12/29/17 12/29/17 Range/Units 13:12 20:44 WBC (3.8-10.6) k/uL RBC (4.30-5.90) m/uL Hgb (13.0-17.5) gm/dL Hct (39.0-53.0) % MCHC (31.0-37.0) g/dL RDW (11.5-15.5) % Chloride (98-107) mmol/L Carbon Dioxide (22-30) mmol/L BUN (9-20) mg/dL Creatinine (0.66-1.25) mg/dL POC Glucose (mg/dL) 114 H 125 H (75-99) mg/dL Assessment and Plan (1) Septic shock Narrative/Plan: 67-year-old male presents to Hospital with prompting of a caregiver because of altered mental status. Upon arrival to the hospital patient is evidence of hypothermia, leukocytosis, hemoglobin of 4 and evidence of shock. There is concerns of septic shock given the patient's leukocytosis and open wounds to the lower extremities. The patient's hypotension and lactic acidosis can also be complicated by his profound anemia, with hemoglobin of 4 the patient likely has some component of chronic anemia to be able to be functional at this time. Local wound care will be utilized with Silvadene cream and wraps that can be done twice a day over this will be soothing and improve his level of discomfort Critical care is following and is receiving blood transfusions to improve his oxygen transport and has hypotension Antibiotic therapy will be addressed. He has evidence of acute renal failure with his creatinine of 4.2 at admission. Would avoid further vancomycin therapy and will change to daptomycin for now. He does need gram-negative therapy and with the current profound anemia would avoid piperacillin tazobactam given the difficulties with hematochezia anemia can be caused, utilize cefepime for now . Multiple cultures are already in process will further help direct therapy. The patient was on doxycycline therapy as an outpatient. Patient does have some laboratories from earlier this month the reveal evidence of hemoglobin 11.7 and a creatinine as low as 2.05 Consequently there is evidence of acute on chronic renal failure at this time. The patient has a heart rate of 141 which appears to be directly related to his septic shock. With fluid resuscitation and further blood transfusion should improve. Patient's sister relates that there is a history of alcohol use and must be monitored closely. 12/20/2017 reveals the patient to be improved from yesterday. Has received 4 units of packed red cells and this is allowing an improvement of his functional status. His profound pallor is improved. His energy level is also improved. Did have evidence of shock with sepsis as well as acute blood loss anemia. Antibiotic therapy has been utilize this point in time we'll cultures are in process and there is evidence of the gram-negative bacilli at the ulcer, and evidence of enterococcus in the urine for which current antibiotic therapy should be effective while we await the final susceptibility data. Continue with local wound care to the lower extremities with Silvadene wrap for now When he is more stable will be taken to the endoscopy suite for evaluation of gastrointestinal bleed Cultures are being monitored, leukocytosis has increased on the bases of significant cellulitis and sepsis in the lower extremities. 12/22/2017 the patient is improved. He has received the packed red cell transfusions and his hemoglobin is now stable around 8. He's been noticed to have some coffee-ground emesis and melanotic stool. He's been seen by gastroenterology and endoscopy is planned for the morning. The renal failure has stabilized and his leukocytosis has improved. Wound culture had several pathogens including gram-negative bacilli and urine culture has Enterococcus faecalis. Continue antibiotic therapy and monitor progress after the endoscopy. 12/29/2017 patient is showing some improvement, hemoglobin is stable no further Transfusions have been required. He has been seen by gastroenterology and endoscopy revealed evidence of a large gastric ulceration that was cratered but was not actively bleeding. Follow-up endoscopy will be arranged in the future. He is very weak and requires assistance even for his bed bath. Overall though his profound pallor has improved but is still somewhat of a poor historian. the enterococcus urinary tract infection and wounds to the legs have shown improvement and will transition antibiotics in near future. Current Visit: Yes Status: Acute Code(s): A41.9 - SEPSIS, UNSPECIFIED ORGANISM; R65.21 - SEVERE SEPSIS WITH SEPTIC SHOCK SNOMED Code(s): 41864826 (2) Acute on chronic blood loss anemia Current Visit: Yes Status: Acute Code(s): D60.0 - CHRONIC ACQUIRED PURE RED CELL APLASIA SNOMED Code(s): 944295834 (3) Venous stasis ulcer of both lower extremities without varicose veins Current Visit: Yes Status: Acute Code(s): I87.2 - VENOUS INSUFFICIENCY ( CHRONIC) (PERIPHERAL); L97.919 - NON-PRS CHRONIC ULC UNSP PRT OF R LOW LEG W UNSP SEVERITY; L97.929 - NON-PRS CHRONIC ULC UNSP PRT OF L LOW LEG W UNSP SEVERITY SNOMED Code(s): 643742252
[2017-12-29] MEDS: CEFEPIME 2 GM in SODIUM CHLORIDE 0.9% 50 ML IVPB SCH (23:23)
[2017-12-29 23:43] LABS: Glucose,Whole Blood 160 mg/dL (75-99)
[2017-12-29] MEDS: DIGOXIN 125 MCG TAB PO SCH (23:43)
[2017-12-30] MEDS: FUROSEMIDE 10 MG/ML 4 ML VIAL IV SCH ×3 (00:45→14:18)
[2017-12-30] MEDS: INSULIN ASPART 100 UNIT/ML 1 ML 10 ML VIAL SQ SCH ×4 (01:48→17:09)
[2017-12-30 06:03] LABS: Glucose,Whole Blood 109 mg/dL (75-99)
[2017-12-30] MEDS: PANTOPRAZOLE 40 MG TABLET PO SCH ×2 (06:52→17:11)
[2017-12-30] MEDS: MIDODRINE 5 MG TAB PO SCH ×3 (06:52→17:11)
[2017-12-30] MEDS: SODIUM BICARBONATE TAB 650 MG TAB PO SCH ×2 (09:19→20:21)
--- NOTE | 2017-12-30 10:50 | P.PN ---
Subjective Patient is seen in follow-up for acute kidney injury. Renal function worsened with creatinine up to 3.39 which is related to hypotension and cardiorenal. Patient's blood pressure was in the systolic 80s this morning. Patient underwent EGD in December 23 which revealed antral ulcers that were biopsied. He is on a renal diet now. Currently maintained on Lasix 40 mg IV 3 times daily. He is nonoliguric. Urine output has been greater than 2 L in a 24 -hour period. Vital signs are stable. General: The patient appeared well nourished and normally developed. HEENT: Head exam is unremarkable. Neck is without jugular venous distension. LUNGS: Breath sounds decreased. HEART: Rate and Rhythm are regular. First and second heart sounds normal. No murmurs, rubs or gallops. ABDOMEN: Abdominal exam reveals normal bowel sounds. Non-tender and non- distended. No evidence of peritonitis. EXTREMITITES: 1+ edema. Objective - Vital Signs Vital signs: Vital Signs Temp 96.8 F L 12/30/17 08:00 Pulse 86 12/30/17 08:00 Resp 18 12/30/17 08:00 BP 85/62 12/30/17 08:00 Pulse Ox 98 12/30/17 08:00 Intake & Output 12/29/17 12/30/17 12/30/17 18:59 06:59 18:59 Intake Total 370 118 Output Total 900 600 Balance -530 -600 118 Weight 75.3 kg 75.3 kg Intake: Oral 370 118 Output: Urine 900 600 Other: Voiding Method Indwelling Catheter Indwelling Catheter Indwelling Catheter # Bowel Movements 1 1 ABP, PAP, CO, CI - Last Documented Arterial Blood Pressure 102/51 - Labs CBC & Chem 7: 12/29/17 06:29 12/29/17 06:29 Labs: Abnormal Lab Results - Last 24 Hours (Table) 12/29/17 12/29/17 12/29/17 Range/Units 13:12 20:44 23:41 POC Glucose (mg/dL) 114 H 125 H 160 H (75-99) mg/dL 12/30/17 Range/Units 06:00 POC Glucose (mg/dL) 109 H (75-99) mg/dL Assessment and Plan Plan: assessmen 1. Nonoliguric acute kidney injury secondary to ATN secondary to hypotension and . cardiorenal syndrome Renal function worse with creatinine up to 3.39 yesterday. Labs from today pending. 2. Metabolic acidosis secondary to RM. 3. Hypernatremia secondary to lack of oral water intake. Resolved. 4. Systolic CHF with ejection fraction of less than 20% with severe mitral regurgitation and pulmonary hypertension. 5. Acute anemia secondary to GI bleed status post EGD on December 23 which revealed antral ulcers that were biopsied. 6. Atrial fibrillation maintained on oral amiodarone and Lopressor. 7. Chronic kidney disease. Creatinine was 2 in 2013 and 3 in 2017. Etiology is nephrosclerosis and cardiorenal syndrome. He does have cortical thinning noted on renal ultrasound suggestive of underlying chronic kidney disease. 8. Hypotension related to underlying cardiac status maintained on midodrine 10 mg 3 times daily. Plan: Continue Lasix 40 mg IV 3 times daily. Avoid nephrotoxic agents and hypotensive episodes. Maintain bicarb to 1300 mg bid. Adding dobutamine discussed with cardiology. At this time will hold off due to his severely impaired cardiac function and risk of arrhythmias.
[2017-12-30] MEDS: SILVER sulfADIAZINE Cream 400 GM 1 APPLIC APPLIC TOPICAL SCH (10:53)
[2017-12-30 11:14] LABS: Calcium 8.8 mg/dL (8.4-10.2); Potassium 4.6 mmol/L (3.5-5.1)
[2017-12-30 11:40] LABS: Glucose,Whole Blood 121 mg/dL (75-99)
--- NOTE | 2017-12-30 11:45 | PN ---
PROGRESS NOTE DATE OF SERVICE: 12/30/2017 CHIEF COMPLAINT: Septic shock, renal failure, congestive heart failure, cardiomyopathy, alcoholism and ulcers of the lower extremities. HISTORY OF PRESENT ILLNESS: This patient seems to be relatively stable. He still is a little bit lethargic and renal failure is just about the same. PHYSICAL EXAM: Cardiac exam is unchanged with atrial fibrillation. Chest is fairly clear. Abdomen is soft. IMPRESSION: 1. Septic shock. 2. Renal failure. 3. Cardiomyopathy. 4. Congestive heart failure. PLAN: Patient is stabilized and may need to start looking for discharge plan and location. MMODL / IJN: [id number] /
--- NOTE | 2017-12-30 12:37 | P.PN ---
Subjective Progress Note Date: 12/30/17 Principal diagnosis: Acute septic shock, profound anemia and GI bleeding This is a 67-year-old white male with history of multiple medical problems including chronic atrial fibrillation, COPD, congestive heart failure, diabetes , patient was brought in by his caregiver who is a friend of his, and he has been noticing significant decline in his status. Patient has been very secretive about his overall health condition, does not share his health issues with any of his friends or family members. Apparently he normally sees Dr. Oconnell and has been treated recently with doxycycline for what seems to be significant areas of cellulitis involving both legs. Patient was brought into the ER mostly with chief complaint of altered mental status, and has been noticing dark colored stools for the last 5 weeks. Patient is normally on Naprosyn for gout, and has been taking doxycycline for ulcers involving his legs. The patient himself is a very poor historian, much of the information was obtained from the chart. Upon arrival to the ER, patient was noted to be hypotensive, his lactic acid was elevated, and his hemoglobin was only 4. Patient was given so far at least 4 units of packed RBCs, and his hemoglobin now is 7.8. He was also given significant amount of fluid boluses, and his lactic acid came down from 8-0.8 to this morning. His renal profile is showing slight improvement with BUN coming down from 176-161 and his creatinine coming down from 3.60-3.30. Patient was empirically placed on antibiotics by Dr. Cartagena, and his urine was positive for cocaine. Chest x-ray showed no evidence of active disease. Patient was also noted to have atrial fibrillation with RVR , hypotensive on 20 g of norepinephrine, he was seen by cardiology, and his echocardiogram showed a significantly impaired left ventricle, ejection fraction of less than 20%. His atrial fibrillation is being treated with amiodarone. Nephrology was consulted for his renal failure. The patient himself is a very poor historian, and he seems to be quite slow with definite altered mental status. Patient was reevaluated today on 12/21/2017, seems to be more awake and more appropriate today. Hemodynamically stable, he was earlier on 5 g of norepinephrine, and I would likely discontinue the norepinephrine today since the blood pressure is holding and his main is in the high 70s. Urine output is excellent. Renal functioning is improving. BUN is down to 138 creatinine is down to 2.90 patient continues to have non-anion gap hyperchloremic metabolic acidosis. He is receiving bicarb orally. WBC count is down to 18.8 hemoglobin is holding at 7.4. Had few episodes of coffee-ground emesis, fish fryer following, may consider endoscopy today. Patient is presently nothing by mouth. He did receive a total of 4 units of packed RBCs for low hemoglobin on presentation. Blood cultures are negative so far, however his urine culture was positive for group D enterococcus. And his wound cultures are negative for gram-negative bacilli. Patient is presently on daptomycin and on cefepime which is appropriate coverage for what we have so far. Patient is definitely more appropriate today, and he seems to be oriented 3. Patient was placed on lactated Ringer's at 100 mL/h, continues to have excellent urine output, and he is not developing any congestive heart failure findings although his ejection fraction was noted to be quite low. Ultrasound of the right and left kidney was noted. Seems to be consistent with underlying medical renal disease. On 12/22/2017, patient is basically about the same, however we have noticed a drop in his hemoglobin today, and the patient is now receiving a fifth unit of packed RBCs since admission. Hemoglobin this morning was 6.9, gastroenterology is planning EGD on this patient sometime today. Patient is complaining of being thirsty, otherwise he denies any specific complaints. No nausea no vomiting no abdominal pain no chest pain no shortness of breath. All his labs were reviewed, sodium is elevated, 149, potassium is 4.0 bicarb remains low at 15, BUN is improving down to 110 and creatinine is down to 2.30, and that is all being addressed by nephrology on the case. Patient was reevaluated today on 12/23/2017, scheduled to undergo EGD today, for some reason it was not done yesterday mostly because of his A. fib/RVR according to the fish fryer on the case. Patient is nothing by mouth for today, and would likely have endoscopy done around 1 PM today. Patient is relatively asymptomatic, doing well overall compared to how he presented. Hemoglobin is holding at 7.9. Patient received a total of 5 units of packed RBCs since admission. His sodium was noted to be elevated, and his bicarb was correcting nicely, hence I have discontinued his bicarb drip. Patient denies any shortness of breath no cough no wheezing. Although her chest x-ray did show cardiomegaly and interstitial edema, right lower lobe infiltrate is not entirely ruled out. Patient was reevaluated today on , underwent EGD yesterday, and he was found to have a gastric ulcer, biopsies done, was not actively bleeding. Patient is a selective overflow in the ICU today, doing well overall, no active GI bleeding, mentation seems to be slightly improving, but remains overall slow which is probably his baseline. Renal functioning seems to be improving, creatinine is down to 1.8. Sodium remains elevated at 150, being addressed by nephrology on the case. Patient denies any cough no wheezing no shortness of breath, no chest pain, and he is tolerating oral feeding well. Patient was reevaluated today on 12/25/2017, seems to be doing much better, he is still a selective overflow. His hemoglobin is stable, his renal functioning is improving, it is 1.68 creatinine today. And global is 8.4 today. He is ready on full liquid diet, sodium is down to 147, and he remains on D5W at 1 25 mL per hour. I ordered a chest x-ray since the patient is known to have LV dysfunction with ejection fraction of 20%, but he is maintained on room air, and O2 saturation is in the 90s. He is in atrial fibrillation with RVR which is being addressed by cardiology on the case. Chest x-ray is showing improved congestive heart failure, questionable infiltrate noted in the right lower lobe , but I am suspecting that it is mostly fluid related, and pulmonary edema related. Echo dated to systolic congestive heart failure. Reevaluated today on 12/26/2017, patient is basically about the same, blood pressure remains marginal, patient does have atrial fibrillation, and he does have cardiomyopathy with LV dysfunction, ejection fraction of 20%. Labs today showed improved sodium, down to 143. His creatinine seems to be a bit worse today, probably related to his low blood pressure and cardiorenal syndrome with poor LV function. This is being addressed by nephrology on the case, patient remains on D5W at 100 mL per hour. Chest x-ray from yesterday showed cardiomegaly, and mild congestive heart failure changes. The right lower lobe opacity may represent atelectasis or infiltrate. However the patient remains on antibiotics. Reevaluated today on 12/27/2017, patient is relatively asymptomatic, denies any shortness of breath, no cough, no wheezing, labs were reviewed, continues to have significant renal abnormality, improved compared to baseline, and continues to be followed by nephrology. Continues to have leukocytosis of 19.2 , hemoglobin is 9.1. And continues to have abnormal chest x-ray suggestive of mild congestive heart failure and questionable right lower lobe infiltrate. Or atelectasis. The patient is seen today 12/28/2017 in follow-up on the selective care unit. He is currently awake and alert in no acute distress. He is maintaining O2 saturations in the mid 90s on 3 L/m per nasal cannula. Currently afebrile. Blood culture reveals no growth. Wound culture reveals no growth. Urine culture was positive for Enterococcus faecalis. He is currently on daptomycin and cefepime. He remains on Lasix 40 mg IV push every 8 hours. White count 15.8. Hemoglobin 8.1. Creatinine 3.29. On 12/29/2017 patient seen in follow-up on selective care unit. Patient has just completed a bedside sponge bath with assistance of multiple nurses aides. Seems a bit winded right now, recovering from exertion, currently on 3 L per nasal cannula pulse ox is 99%, is afebrile, hemodynamically stable. Lung sounds is for bilateral crackles, no chest x-rays today, yesterday's chest x- ray suggestive of congestive heart failure with pulmonary edema. Patient remains on IV diuretics, at 40 mg IV every 8 hours. Nephrology is following, patient still has significant amount of bilateral lower extremity edema. Labs today show WBC of 17.0, hemoglobin is 8.4, sodium is 138, potassium is 5.1, chloride is improving, down to 108, CO2 is 17, BUN 84, and creatinine is 3.39. Urine culture showed enterococcus faecalis, ED service is following, patient is on a combination of daptomycin and cefepime. Patient is receiving Silvadene cream to bilateral lower extremity ulcerations. The patient is seen today 12/30/2017 in follow-up on the selective care unit. He is currently resting comfortably in bed. He is awake and alert. He is currently maintaining good O2 saturations in the upper 90s on 3 L/m per nasal cannula. He is afebrile. He remains on cefepime and daptomycin. There is Enterococcus faecalis in the urine. Huang catheter remains in place. He is currently in a negative balance. His creatinine remains high at 3.51. He's been on Lasix 40 mg every 8 hours. Nephrology is on the case. White count 17.0. Hemoglobin 8.4. Objective - Vital Signs Vital signs: Vital Signs Temp 96.8 F L 12/30/17 08:00 Pulse 86 12/30/17 08:00 Resp 18 12/30/17 08:00 BP 85/62 12/30/17 08:00 Pulse Ox 98 12/30/17 08:00 Intake & Output 12/29/17 12/30/17 12/30/17 18:59 06:59 18:59 Intake Total 370 118 Output Total 900 600 Balance -530 -600 118 Weight 75.3 kg 75.3 kg Intake: Oral 370 118 Output: Urine 900 600 Other: Voiding Method Indwelling Catheter Indwelling Catheter Indwelling Catheter # Bowel Movements 1 1 ABP, PAP, CO, CI - Last Documented Arterial Blood Pressure 102/51 - Exam GEN. APPEARANCE: Physical exam revealed a 67-year-old male in no distress, appropriate, . HEAD EXAM: atraumatic, normocephalic, normal inspection EYE EXAM: Positive for pallor. No icterus. PERRLA, EOMI. ENT EXAM: Mucous membranes dry NECK EXAM: normal inspection. Absent: tenderness, meningismus, full ROM, no evidence of lymphadenopathy. RESPIRATORY EXAM: normal lung sounds bilaterally. Diminished breath sounds at the bases, minimal fine crackles at the right base. CARDIOVASCULAR EXAM: Tachycardia. Irregular irregular rhythm Normal S1 and S2, 2/6 systolic murmur throughout the precordium. GI/ABDOMINAL EXAM: soft, normal bowel sounds. Absent: distended, tenderness, guarding, rebound, rigid EXTREMITIES EXAM: Bilateral lower extremities ulcers in various stages of healing , right side worse than left. All wrapped with sterile dressings. NEUROLOGICAL EXAM: Alert oriented 3, but seems to be quite slow. - Labs CBC & Chem 7: 12/29/17 06:29 12/30/17 10:35 Labs: Abnormal Lab Results - Last 24 Hours (Table) 12/29/17 12/29/17 12/29/17 Range/Units 13:12 20:44 23:41 Chloride (98-107) mmol/L Carbon Dioxide (22-30) mmol/L BUN (9-20) mg/dL Creatinine (0.66-1.25) mg/dL Glucose (74-99) mg/dL POC Glucose (mg/dL) 114 H 125 H 160 H (75-99) mg/dL 12/30/17 12/30/17 12/30/17 Range/Units 06:00 10:35 11:17 Chloride 110 H (98-107) mmol/L Carbon Dioxide 21 L (22-30) mmol/L BUN 87 H (9-20) mg/dL Creatinine 3.51 H (0.66-1.25) mg/dL Glucose 115 H (74-99) mg/dL POC Glucose (mg/dL) 109 H 121 H (75-99) mg/dL Assessment and Plan Assessment: Impression: 1 acute septic shock, most likely source is his cellulitis. Could also be from urinary tract infection secondary to Enterococcus faecalis. 2 chronic cellulitis, and lower extremities ulcers, cultures are nondiagnostic since there was evidence of multi-microbial growth. 3 acute non-anion gap hyperchloremic metabolic acidosis secondary to sepsis. And secondary to septic shock. 4 acute kidney injury secondary to sepsis and suspect acute tubular necrosis. Renal functioning seems to be steadily improving. 5 severe cardiomyopathy and LV dysfunction 6 atrial fibrillation with RVR, rate seems to be better controlled, and the patient is hemodynamically stable, off norepinephrine 7 acute GI bleeding, secondary to antral gastric ulcer. Status post EGD 8 history of diabetes. Plan: The patient was seen and evaluated by Dr. Palm. He did speak with both nephrology and cardiology. Rate control has been issue We will continue with his current treatment plan. We'll continue to follow. I, the cosigning physician, performed a history & physical examination of the patient. Lungs sounds with crackles in posterior bases. Maintaining good O2 saturations in the 90s on 3 L/m per nasal cannula. I discussed the assessment and plan of care with my nurse practitioner, Char Petersen. I attest to the above note as dictated by her.
[2017-12-30] MEDS: AMIODARONE 200 MG TAB PO SCH ×3 (14:17→20:21)
[2017-12-30] MEDS: METOPROLOL TARTRATE 12.5 MG TAB PO SCH ×3 (14:17→20:19)
--- NOTE | 2017-12-30 14:42 | PN ---
PROGRESS NOTE Mr. Miller is a gentleman with significant comorbid conditions. He came with sepsis, he has atrial fibrillation and also has ejection fraction that is quite low. His renal function is worse and urine output has also decreased substantially. Prognosis is quite poor for this patient. Consideration was being given for dobutamine but I believe this may not help him in his situation with an increase in heart rate that may happen. I would recommend that we continue supportive care and seek further input from Nephrology. Cardiac-hubbard, no intervention. Same medical regimen, prognosis is poor. Vital signs are stable. Blood pressure is 96/60, pulse rate is about 90-100, irregular. JVD is 1 cm. No carotid bruit. S1-S2 heard normally, short systolic murmur with irregular rhythm noted. Lungs revealed diminished air entry. Abdomen and lower extremity exam is unchanged. Prognosis remains poor. MMCRYSTALL / IJN: [id number] /
[2017-12-30 16:17] LABS: Glucose,Whole Blood 138 mg/dL (75-99)
[2017-12-30 20:16] LABS: Glucose,Whole Blood 108 mg/dL (75-99)
[2017-12-30] MEDS: CEFEPIME 2 GM in SODIUM CHLORIDE 0.9% 50 ML IVPB SCH (20:20)
[2017-12-30] MEDS: HYDROcodone/APAP 5-325MG 1 EACH TAB PO PRN (20:21)
[2017-12-31] MEDS: SILVER sulfADIAZINE Cream 400 GM 1 APPLIC APPLIC TOPICAL SCH ×2 (00:52→08:38)
[2017-12-31] MEDS: FUROSEMIDE 10 MG/ML 4 ML VIAL IV SCH ×3 (00:53→21:17)
[2017-12-31] MEDS: INSULIN ASPART 100 UNIT/ML 1 ML 10 ML VIAL SQ SCH ×4 (00:54→17:56)
[2017-12-31 06:06] LABS: Glucose,Whole Blood 104 mg/dL (75-99)
[2017-12-31 06:22] LABS: Calcium 8.8 mg/dL (8.4-10.2); Potassium 4.1 mmol/L (3.5-5.1)
[2017-12-31] MEDS: MIDODRINE 5 MG TAB PO SCH ×3 (07:27→16:25)
[2017-12-31] MEDS: PANTOPRAZOLE 40 MG TABLET PO SCH ×2 (07:27→16:25)
[2017-12-31] MEDS: METOPROLOL TARTRATE 12.5 MG TAB PO SCH ×4 (08:14→22:30)
[2017-12-31] MEDS: SODIUM BICARBONATE TAB 650 MG TAB PO SCH ×2 (08:16→21:18)
[2017-12-31] MEDS: AMIODARONE 200 MG TAB PO SCH ×3 (08:16→21:18)
[2017-12-31] MEDS: DAPTOmycin 500 MG in SODIUM CHLORIDE 0.9% 50 ML IVPB SCH (08:20)
[2017-12-31 11:36] LABS: Glucose,Whole Blood 84 mg/dL (75-99)
--- NOTE | 2017-12-31 12:03 | P.PN ---
Subjective Progress Note Date: 12/31/17 Principal diagnosis: Acute septic shock, profound anemia and GI bleeding This is a 67-year-old white male with history of multiple medical problems including chronic atrial fibrillation, COPD, congestive heart failure, diabetes , patient was brought in by his caregiver who is a friend of his, and he has been noticing significant decline in his status. Patient has been very secretive about his overall health condition, does not share his health issues with any of his friends or family members. Apparently he normally sees Dr. Oconnell and has been treated recently with doxycycline for what seems to be significant areas of cellulitis involving both legs. Patient was brought into the ER mostly with chief complaint of altered mental status, and has been noticing dark colored stools for the last 5 weeks. Patient is normally on Naprosyn for gout, and has been taking doxycycline for ulcers involving his legs. The patient himself is a very poor historian, much of the information was obtained from the chart. Upon arrival to the ER, patient was noted to be hypotensive, his lactic acid was elevated, and his hemoglobin was only 4. Patient was given so far at least 4 units of packed RBCs, and his hemoglobin now is 7.8. He was also given significant amount of fluid boluses, and his lactic acid came down from 8-0.8 to this morning. His renal profile is showing slight improvement with BUN coming down from 176-161 and his creatinine coming down from 3.60-3.30. Patient was empirically placed on antibiotics by Dr. Cartagena, and his urine was positive for cocaine. Chest x-ray showed no evidence of active disease. Patient was also noted to have atrial fibrillation with RVR , hypotensive on 20 g of norepinephrine, he was seen by cardiology, and his echocardiogram showed a significantly impaired left ventricle, ejection fraction of less than 20%. His atrial fibrillation is being treated with amiodarone. Nephrology was consulted for his renal failure. The patient himself is a very poor historian, and he seems to be quite slow with definite altered mental status. Patient was reevaluated today on 12/21/2017, seems to be more awake and more appropriate today. Hemodynamically stable, he was earlier on 5 g of norepinephrine, and I would likely discontinue the norepinephrine today since the blood pressure is holding and his main is in the high 70s. Urine output is excellent. Renal functioning is improving. BUN is down to 138 creatinine is down to 2.90 patient continues to have non-anion gap hyperchloremic metabolic acidosis. He is receiving bicarb orally. WBC count is down to 18.8 hemoglobin is holding at 7.4. Had few episodes of coffee-ground emesis, windows desktop support following, may consider endoscopy today. Patient is presently nothing by mouth. He did receive a total of 4 units of packed RBCs for low hemoglobin on presentation. Blood cultures are negative so far, however his urine culture was positive for group D enterococcus. And his wound cultures are negative for gram-negative bacilli. Patient is presently on daptomycin and on cefepime which is appropriate coverage for what we have so far. Patient is definitely more appropriate today, and he seems to be oriented 3. Patient was placed on lactated Ringer's at 100 mL/h, continues to have excellent urine output, and he is not developing any congestive heart failure findings although his ejection fraction was noted to be quite low. Ultrasound of the right and left kidney was noted. Seems to be consistent with underlying medical renal disease. On 12/22/2017, patient is basically about the same, however we have noticed a drop in his hemoglobin today, and the patient is now receiving a fifth unit of packed RBCs since admission. Hemoglobin this morning was 6.9, gastroenterology is planning EGD on this patient sometime today. Patient is complaining of being thirsty, otherwise he denies any specific complaints. No nausea no vomiting no abdominal pain no chest pain no shortness of breath. All his labs were reviewed, sodium is elevated, 149, potassium is 4.0 bicarb remains low at 15, BUN is improving down to 110 and creatinine is down to 2.30, and that is all being addressed by nephrology on the case. Patient was reevaluated today on 12/23/2017, scheduled to undergo EGD today, for some reason it was not done yesterday mostly because of his A. fib/RVR according to the windows desktop support on the case. Patient is nothing by mouth for today, and would likely have endoscopy done around 1 PM today. Patient is relatively asymptomatic, doing well overall compared to how he presented. Hemoglobin is holding at 7.9. Patient received a total of 5 units of packed RBCs since admission. His sodium was noted to be elevated, and his bicarb was correcting nicely, hence I have discontinued his bicarb drip. Patient denies any shortness of breath no cough no wheezing. Although her chest x-ray did show cardiomegaly and interstitial edema, right lower lobe infiltrate is not entirely ruled out. Patient was reevaluated today on , underwent EGD yesterday, and he was found to have a gastric ulcer, biopsies done, was not actively bleeding. Patient is a selective overflow in the ICU today, doing well overall, no active GI bleeding, mentation seems to be slightly improving, but remains overall slow which is probably his baseline. Renal functioning seems to be improving, creatinine is down to 1.8. Sodium remains elevated at 150, being addressed by nephrology on the case. Patient denies any cough no wheezing no shortness of breath, no chest pain, and he is tolerating oral feeding well. Patient was reevaluated today on 12/25/2017, seems to be doing much better, he is still a selective overflow. His hemoglobin is stable, his renal functioning is improving, it is 1.68 creatinine today. And global is 8.4 today. He is ready on full liquid diet, sodium is down to 147, and he remains on D5W at 1 25 mL per hour. I ordered a chest x-ray since the patient is known to have LV dysfunction with ejection fraction of 20%, but he is maintained on room air, and O2 saturation is in the 90s. He is in atrial fibrillation with RVR which is being addressed by cardiology on the case. Chest x-ray is showing improved congestive heart failure, questionable infiltrate noted in the right lower lobe , but I am suspecting that it is mostly fluid related, and pulmonary edema related. Echo dated to systolic congestive heart failure. Reevaluated today on 12/26/2017, patient is basically about the same, blood pressure remains marginal, patient does have atrial fibrillation, and he does have cardiomyopathy with LV dysfunction, ejection fraction of 20%. Labs today showed improved sodium, down to 143. His creatinine seems to be a bit worse today, probably related to his low blood pressure and cardiorenal syndrome with poor LV function. This is being addressed by nephrology on the case, patient remains on D5W at 100 mL per hour. Chest x-ray from yesterday showed cardiomegaly, and mild congestive heart failure changes. The right lower lobe opacity may represent atelectasis or infiltrate. However the patient remains on antibiotics. Reevaluated today on 12/27/2017, patient is relatively asymptomatic, denies any shortness of breath, no cough, no wheezing, labs were reviewed, continues to have significant renal abnormality, improved compared to baseline, and continues to be followed by nephrology. Continues to have leukocytosis of 19.2 , hemoglobin is 9.1. And continues to have abnormal chest x-ray suggestive of mild congestive heart failure and questionable right lower lobe infiltrate. Or atelectasis. The patient is seen today 12/28/2017 in follow-up on the selective care unit. He is currently awake and alert in no acute distress. He is maintaining O2 saturations in the mid 90s on 3 L/m per nasal cannula. Currently afebrile. Blood culture reveals no growth. Wound culture reveals no growth. Urine culture was positive for Enterococcus faecalis. He is currently on daptomycin and cefepime. He remains on Lasix 40 mg IV push every 8 hours. White count 15.8. Hemoglobin 8.1. Creatinine 3.29. On 12/29/2017 patient seen in follow-up on selective care unit. Patient has just completed a bedside sponge bath with assistance of multiple nurses aides. Seems a bit winded right now, recovering from exertion, currently on 3 L per nasal cannula pulse ox is 99%, is afebrile, hemodynamically stable. Lung sounds is for bilateral crackles, no chest x-rays today, yesterday's chest x- ray suggestive of congestive heart failure with pulmonary edema. Patient remains on IV diuretics, at 40 mg IV every 8 hours. Nephrology is following, patient still has significant amount of bilateral lower extremity edema. Labs today show WBC of 17.0, hemoglobin is 8.4, sodium is 138, potassium is 5.1, chloride is improving, down to 108, CO2 is 17, BUN 84, and creatinine is 3.39. Urine culture showed enterococcus faecalis, ED service is following, patient is on a combination of daptomycin and cefepime. Patient is receiving Silvadene cream to bilateral lower extremity ulcerations. The patient is seen today 12/30/2017 in follow-up on the selective care unit. He is currently resting comfortably in bed. He is awake and alert. He is currently maintaining good O2 saturations in the upper 90s on 3 L/m per nasal cannula. He is afebrile. He remains on cefepime and daptomycin. There is Enterococcus faecalis in the urine. Huang catheter remains in place. He is currently in a negative balance. His creatinine remains high at 3.51. He's been on Lasix 40 mg every 8 hours. Nephrology is on the case. White count 17.0. Hemoglobin 8.4. The patient is seen again today 12/31/2017 in follow-up on the selective care unit. He remains awake and alert in no acute distress. He is maintaining good O2 saturations in the 90s on 3 L/m per nasal cannula. He's been afebrile. Creatinine 3.33. He remains on cefepime and daptomycin. He is continued on Lasix 40 mg IV push every 12 hours. He is currently in a negative balance. Objective - Vital Signs Vital signs: Vital Signs Temp 97.9 F 12/31/17 08:00 Pulse 86 12/31/17 11:52 Resp 16 12/31/17 11:52 BP 95/67 12/31/17 08:00 Pulse Ox 96 12/31/17 08:00 Intake & Output 12/30/17 12/31/17 12/31/17 18:59 06:59 18:59 Intake Total 354 50 Output Total 1000 1100 Balance -646 -1050 Weight 75.3 kg 75.5 kg Intake: IV 50 Cefepime 2 gm In Sodium 50 Chloride 0.9% 50 ml @ 100 mls/hr IVPB DAILY@2000 [facility] Rx#:[id number] Oral 354 Output: Urine 1000 1100 Other: Voiding Method Indwelling Catheter Indwelling Catheter Indwelling Catheter # Bowel Movements 1 ABP, PAP, CO, CI - Last Documented Arterial Blood Pressure 102/51 - Exam GEN. APPEARANCE: Physical exam revealed a 67-year-old male in no distress, appropriate, . HEAD EXAM: atraumatic, normocephalic, normal inspection EYE EXAM: Positive for pallor. No icterus. PERRLA, EOMI. ENT EXAM: Mucous membranes dry NECK EXAM: normal inspection. Absent: tenderness, meningismus, full ROM, no evidence of lymphadenopathy. RESPIRATORY EXAM: normal lung sounds bilaterally. Diminished breath sounds at the bases, minimal fine crackles at the right base. CARDIOVASCULAR EXAM: Tachycardia. Irregular irregular rhythm Normal S1 and S2, 2/6 systolic murmur throughout the precordium. GI/ABDOMINAL EXAM: soft, normal bowel sounds. Absent: distended, tenderness, guarding, rebound, rigid EXTREMITIES EXAM: Bilateral lower extremities ulcers in various stages of healing , right side worse than left. All wrapped with sterile dressings. NEUROLOGICAL EXAM: Alert oriented 3, but seems to be quite slow. - Labs CBC & Chem 7: 12/29/17 06:29 12/31/17 05:37 Labs: Abnormal Lab Results - Last 24 Hours (Table) 12/30/17 12/30/17 12/31/17 Range/Units 16:13 20:15 05:37 Chloride 109 H (98-107) mmol/L Carbon Dioxide 21 L (22-30) mmol/L BUN 80 H (9-20) mg/dL Creatinine 3.33 H (0.66-1.25) mg/dL POC Glucose (mg/dL) 138 H 108 H (75-99) mg/dL 12/31/17 Range/Units 06:03 Chloride (98-107) mmol/L Carbon Dioxide (22-30) mmol/L BUN (9-20) mg/dL Creatinine (0.66-1.25) mg/dL POC Glucose (mg/dL) 104 H (75-99) mg/dL Assessment and Plan Assessment: Impression: 1 acute septic shock, most likely source is his cellulitis. Could also be from urinary tract infection secondary to Enterococcus faecalis. 2 chronic cellulitis, and lower extremities ulcers, cultures are nondiagnostic since there was evidence of multi-microbial growth. 3 acute non-anion gap hyperchloremic metabolic acidosis secondary to sepsis. And secondary to septic shock. 4 acute kidney injury secondary to sepsis and suspect acute tubular necrosis. Renal functioning seems to be steadily improving. 5 severe cardiomyopathy and LV dysfunction 6 atrial fibrillation with RVR, rate seems to be better controlled, and the patient is hemodynamically stable, off norepinephrine 7 acute GI bleeding, secondary to antral gastric ulcer. Status post EGD 8 history of diabetes. Plan: The patient was seen and evaluated by Dr. Palm. Repeat chest x-ray. Creatinine remains high but stable. Bicarbonate 21. Continue diuretics per nephrology. Rate control per cardiology. We'll continue to follow. I, the cosigning physician, performed a history & physical examination of the patient. Lungs sounds with crackles in posterior bases. Maintaining good O2 saturations in the 90s on 3 L/m per nasal cannula. I discussed the assessment and plan of care with my nurse practitioner, Char Petersen. I attest to the above note as dictated by her.
--- NOTE | 2017-12-31 14:42 | P.PN ---
Subjective Progress Note Date: 12/31/17 History patient is a pleasant 59-year-old -[place] male with past medical history significant for atrial fibrillation, cardiomyopathy, COPD, diabetes, hypertension and chronic kidney disease. He initially presented to the hospital with significant anemia secondary to acute GI bleeding. Was found to have a gastric ulcer which was cauterized. Patient continues to have significant edema and shortness of breath. He is on amiodarone and Lopressor for heart rate control. He is being followed by nephrology and receiving IV Lasix 40 mg every 8 hours. Upon examination, patient is sitting up in a chair. He is quite drowsy as he just worked with physical therapy. He feels his breathing is somewhat improved compared to yesterday but is still short at times. Objective - Vital Signs Vital signs: Vital Signs Temp 98.4 F 12/31/17 12:00 Pulse 82 12/31/17 12:00 Resp 16 12/31/17 12:00 BP 97/71 12/31/17 12:00 Pulse Ox 96 12/31/17 12:00 Intake & Output 12/30/17 12/31/17 12/31/17 18:59 06:59 18:59 Intake Total 354 50 150 Output Total 1000 1100 Balance -646 -1050 150 Weight 75.3 kg 75.5 kg Intake: IV 50 Cefepime 2 gm In Sodium 50 Chloride 0.9% 50 ml @ 100 mls/hr IVPB DAILY@2000 [facility] Rx#:[id number] Oral 354 150 Output: Urine 1000 1100 Other: Voiding Method Indwelling Catheter Indwelling Catheter Indwelling Catheter # Bowel Movements 1 ABP, PAP, CO, CI - Last Documented Arterial Blood Pressure 102/51 1 tablet - Exam PHYSICAL EXAMINATION: HEENT: [Head is atraumatic, normocephalic. Pupils equal, round. Neck is supple. There is no elevated jugular venous pressure.] HEART EXAMINATION: [Heart sounds regular, S1 and S2 with a systolic murmur at the base.] CHEST EXAMINATION:[ Lungs reveal faint crackles bilateral bases. No chest wall tenderness is noted on palpation or with deep breathing.] ABDOMEN: [ Soft, nontender. Bowel sounds are heard. No organomegaly noted]. EXTREMITIES:2+ peripheral pulses with chronic lower extremity wounds with 1-2+ bilateral lower extremity edema noted. . - Labs CBC & Chem 7: 12/29/17 06:29 12/31/17 05:37 Labs: Abnormal Lab Results - Last 24 Hours (Table) 12/30/17 12/30/17 12/31/17 Range/Units 16:13 20:15 05:37 Chloride 109 H (98-107) mmol/L Carbon Dioxide 21 L (22-30) mmol/L BUN 80 H (9-20) mg/dL Creatinine 3.33 H (0.66-1.25) mg/dL POC Glucose (mg/dL) 138 H 108 H (75-99) mg/dL 12/31/17 Range/Units 06:03 Chloride (98-107) mmol/L Carbon Dioxide (22-30) mmol/L BUN (9-20) mg/dL Creatinine (0.66-1.25) mg/dL POC Glucose (mg/dL) 104 H (75-99) mg/dL Assessment and Plan Assessment: #1 acute on chronic systolic congestive heart failure, ejection fraction less than 20% #2 severe mitral regurgitation #3 pulmonary hypertension #4 chronic atrial fibrillation with rapid ventricular response, currently on amiodarone and metoprolol #5 GI bleeding secondary to gastric ulcer status post EGD #6 acute kidney injury on chronic kidney failure #7 acute septic shock #8 chronic cellulitis and lower extremity ulcerations #9 hyperkalemia #10 hypotension Plan: From cardiology's perspective, we will decrease IV Lasix to 40 mg every 12 hours. Patient's prognosis remains guarded. Avoid dobutamine at this time due to episodes of atrial fibrillation with rapid ventricular response. We will continue to follow the patient right further recommendations accordingly. [employer] note has been reviewed, I agree with a documented findings and plan of care. Patient was seen and examined.
--- NOTE | 2017-12-31 14:52 | PN ---
PROGRESS NOTE Patient is seen for followup for acute kidney injury, CHF and volume overload. He is currently maintained on IV Lasix. Renal function has been improving and patient's volume status is also better. PHYSICAL EXAMINATION: Blood pressure was 95/67, heart rate 83 per minute. He is afebrile. Examination of the heart, S1, S2. Examination of the lungs, bilateral breath sounds are heard. Decreased breath sounds at bases. Abdomen is soft, nontender. Examination of the lower extremities shows chronic skin changes edema to 1+ bilaterally. 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 LAB: Show sodium 139, potassium 4.1, BUN 80, serum creatinine 3.3. ASSESSMENT: 1. Acute kidney injury mainly cardiorenal, currently improved and stable. Continue with current dose of Lasix. 2. Congestive heart failure, volume overload, systolic, acute on top of chronic, improved. 3. Metabolic acidosis secondary to renal failure. 4. Chronic kidney disease stage III secondary to nephrosclerosis and cardiorenal syndrome. 5. Anemia secondary to gastrointestinal bleed, status post EGD which showed antral ulcers. PLAN: Continue with the IV Lasix. Repeat labs in a.m. I will likely add Zaroxolyn based on his urine output tomorrow. MMODL / IJN: [id number] /
[2017-12-31] MEDS: HYDROcodone/APAP 5-325MG 1 EACH TAB PO PRN ×2 (16:24→21:16)
[2017-12-31] MEDS: DIGOXIN 125 MCG TAB PO SCH (16:25)
[2017-12-31 16:58] LABS: Glucose,Whole Blood 69 mg/dL (75-99)
--- NOTE | 2017-12-31 18:16 | PN ---
PROGRESS NOTE CHIEF COMPLAINT: Septic shock. HISTORY OF PRESENT ILLNESS: This gentleman is just about the same. He seems a little bit more lethargic today. PHYSICAL EXAM: Breath sounds are heard on both sides and cardiac demonstrates his arrhythmia. The abdomen was soft and the extremities were exposed and ulcers are healing. IMPRESSION: 1. Septic shock. 2. Renal failure. 3. Cardiomyopathy. 4. Congestive heart failure. 5. Alcoholism. 6. Diabetes. 7. Lower extremity ulcerations. PLAN: No change in program. His discharge will be difficult. MMODL / IJN: [id number] /
--- NOTE | 2017-12-31 19:20 | P.PN ---
Subjective Progress Note Date: 12/31/17 67-year-old male who has altered mental status is brought to the emergency center by a caregiver who apparently has a friend because of the significant declining status that was noted. The caregiver relates that he's been secretive about his overall health. The patient however does follow with a primary care physician Dr. Oconnell and was evaluated in the office on 2017 antibiotic therapy with doxycycline was given for the problems to his legs. No evidence of any topical therapy can be found in the bags of medicine that were brought to hospital. The patient himself is agitated and has difficulty answering questions. He however on direct questioning denies headache, denies chest pain, denies abdominal pain, denies dysuria, denies diarrhea but does complain of pain to his legs. The patient's sister is present relates that although she does see her brother occasionally she does not know much about his medical history. 12/20/2017 patient is improved today after the 4 units of PRBC some GI bleeding is noted and has been by gastroenterology. Once he is his vasopressor therapy will be taking the endoscopy suite for evaluation of therapeutic intervention. The patient is much more comfortable today. 2 sisters are present, relate that they do not know much about his health care because he does not relate to them. Patient is educated about his current level of the extensive illness including profound anemia, as well as shock that he has a infectious component to it. His response to this was " when do I get to go home.' 12/22/2017 the patient is being evaluated by gastroenterology and potentially will have endoscopy tomorrow to evaluate the gastrointestinal bleeding. He had extensive symptomatic gastric intestinal bleeding admission complicated by sepsis. He seems to be doing somewhat better at this time and hopefully will tolerate the procedure well in the morning. 12/29/2017 patient has improved but still very weak and chronically ill, plans for placement in progress. Endoscopy did real large non bleeding ulcer H Pylori was negative. e Legs are less painful and does not guard them as he did prior evaluations. December 31 2017 patient is sitting upright complains of pain to his legs but otherwise is more comfortable. His sister and mother are present and his behavior is calm. Discussion occurs of the family about him going to rehabilitation after his hospitalization to increase his strength. I again inquire as to local wound care to his legs. He relates he wants them to dry out. We discussed moist wound healing and wraps which he refuses. Objective - Vital Signs Vital signs: Vital Signs Temp 98.4 F 12/31/17 16:00 Pulse 84 12/31/17 16:00 Resp 14 12/31/17 16:00 BP 99/73 12/31/17 16:00 Pulse Ox 96 12/31/17 16:00 Intake & Output 12/30/17 12/31/17 12/31/17 18:59 06:59 18:59 Intake Total 409 08 1032 Output Total 1000 1100 Balance -646 -1050 1190 Weight 75.3 kg 75.5 kg Intake: IV 50 Cefepime 2 gm In Sodium 50 Chloride 0.9% 50 ml @ 100 mls/hr IVPB DAILY@2000 [facility] Rx#:[id number] Intake, IV Titration 90 Amount DAPTOmycin 500 mg In 50 Sodium Chloride 0.9% 50 ml @ 100 mls/hr IVPB Q48H [facility] Rx#:[id number] IV Fluid Continuation 1, 40 000 ml @ 0 mls/hr IV .K -MED ONE Rx#:[id number] Oral 354 1100 Output: Urine 1000 1100 Other: Voiding Method Indwelling Catheter Indwelling Catheter Indwelling Catheter # Bowel Movements 1 ABP, PAP, CO, CI - Last Documented Arterial Blood Pressure 102/51 - Exam HEENT: Anicteric conjunctiva are less pale, improvement of the general pallor. No oral lesions or thrush but dentition is very poor Neck: The neck is supple without significant lymphadenopathy or thyromegaly. Lungs: There is symmetrical air entry with expiratory wheezes scattered no leah bronchial sounds no dullness Heart: Very tachycardic with a rate of 141 no abnormal sounds were detected Abdomen: Positive bowel sounds soft and nontender without palpable masses or organomegaly. There was no guarding or rebound. Extremities: Upper extremities are intact without lesions. Lower extremities show evidence of the chronic bilateral lower extremity edema, evidence christa the ulcerations left leg are seen. persistent ulcerations are seen on the right lower extremity, especially laterally which has some drainage. Remains tender to touch. Nursing photography will further help define locations. Neuro: The patient is awake and alert attempts to answer questions but is agitated and does not answer questions well. He overs able to easily move all extremities at this time but is guarding to his legs because they give him pain. - Labs CBC & Chem 7: 12/29/17 06:29 12/31/17 05:37 Labs: Abnormal Lab Results - Last 24 Hours (Table) 12/30/17 12/31/17 12/31/17 Range/Units 20:15 05:37 06:03 Chloride 109 H (98-107) mmol/L Carbon Dioxide 21 L (22-30) mmol/L BUN 80 H (9-20) mg/dL Creatinine 3.33 H (0.66-1.25) mg/dL POC Glucose (mg/dL) 108 H 104 H (75-99) mg/dL 12/31/17 Range/Units 16:46 Chloride (98-107) mmol/L Carbon Dioxide (22-30) mmol/L BUN (9-20) mg/dL Creatinine (0.66-1.25) mg/dL POC Glucose (mg/dL) 69 L (75-99) mg/dL Laboratory Results WBC 17.0 k/uL (3.8-10.6) H 12/29/17 06:29 RBC 3.04 m/uL (4.30-5.90) L 12/29/17 06:29 Hgb 8.4 gm/dL (13.0-17.5) L 12/29/17 06:29 Hct 28.4 % (39.0-53.0) L 12/29/17 06:29 MCV 93.5 fL (80.0-100.0) 12/29/17 06:29 MCH 27.6 pg (25.0-35.0) 12/29/17 06:29 MCHC 29.5 g/dL (31.0-37.0) L 12/29/17 06:29 RDW 17.4 % (11.5-15.5) H 12/29/17 06:29 Plt Count 351 k/uL (150-450) 12/29/17 06:29 Neutrophils % 84 % 12/28/17 06:58 Lymphocytes % 6 % 12/28/17 06:58 Monocytes % 6 % 12/28/17 06:58 Eosinophils % 2 % 12/28/17 06:58 Basophils % 0 % 12/28/17 06:58 Neutrophils # 13.3 k/uL (1.3-7.7) H 12/28/17 06:58 Lymphocytes # 1.0 k/uL (1.0-4.8) 12/28/17 06:58 Monocytes # 0.9 k/uL (0-1.0) 12/28/17 06:58 Eosinophils # 0.2 k/uL (0-0.7) 12/28/17 06:58 Basophils # 0.1 k/uL (0-0.2) 12/28/17 06:58 Manual Slide Review Performed 12/28/17 06:58 Toxic Granulation Present 12/28/17 06:58 Polychromasia Present 12/28/17 06:58 Hypochromasia Marked 12/29/17 06:29 Poikilocytosis Slight 12/29/17 06:29 Anisocytosis Slight 12/29/17 06:29 Macrocytosis Slight 12/28/17 06:58 Crenated Cell Present 12/28/17 06:58 Retic Count 4.1 % (0.5-2.0) H 12/23/17 05:20 PT 12.6 sec (9.0-12.0) H 12/20/17 05:10 INR 1.3 (<1.2) H 12/20/17 05:10 APTT 24.0 sec (22.0-30.0) 12/20/17 05:10 Sodium 139 mmol/L (137-145) 12/31/17 05:37 Potassium 4.1 mmol/L (3.5-5.1) 12/31/17 05:37 Chloride 109 mmol/L (98-107) H 12/31/17 05:37 Carbon Dioxide 21 mmol/L (22-30) L 12/31/17 05:37 Anion Gap 9 mmol/L 12/31/17 05:37 BUN 80 mg/dL (9-20) H 12/31/17 05:37 Creatinine 3.33 mg/dL (0.66-1.25) H 12/31/17 05:37 Est GFR (CKD-EPI)AfAm 21 (>60 ml/min/1.73 sqM) 12/31/17 05:37 Est GFR (CKD-EPI)NonAf 18 (>60 ml/min/1.73 sqM) 12/31/17 05:37 Glucose 98 mg/dL (74-99) 12/31/17 05:37 POC Glucose (mg/dL) 69 mg/dL (75-99) L 12/31/17 16:46 POC Glu Barge Master ID Megha Krishna 12/31/17 16:[address] Glu mg/dL 103 12/19/17 17:22 Hemoglobin A1c 5.2 % (4.0-6.0) 12/19/17 17:22 Lactic Ac Sepsis Rflx Y 12/19/17 12:23 Plasma Lactic Acid [place] 0.8 mmol/L (0.7-2.0) 12/19/17 22:29 Calcium 8.8 mg/dL (8.4-10.2) 12/31/17 05:37 Phosphorus 3.4 mg/dL (2.5-4.5) 12/26/17 04:28 Magnesium 2.6 mg/dL (1.6-2.3) H 12/26/17 04:28 Total Bilirubin 1.2 mg/dL (0.2-1.3) 12/24/17 04:26 AST 105 U/L (17-59) H 12/24/17 04:26 ALT 63 U/L (21-72) 12/24/17 04:26 Alkaline Phosphatase 119 U/L (38-126) 12/24/17 04:26 Total Creatine Kinase <20 U/L (55-170) L 12/19/17 11:50 CK-MB (CK-2) 1.7 ng/mL (0.0-2.4) 12/19/17 11:50 CK-MB (CK-2) Rel Index 12/19/17 11:50 Troponin I <0.012 ng/mL (0.000-0.034) 12/19/17 11:50 Total Protein 5.8 g/dL (6.3-8.2) L 12/24/17 04:26 Albumin 2.5 g/dL (3.5-5.0) L 12/24/17 04:26 Vitamin B12 713.0 pg/mL (200.0-944.0) 12/23/17 05:20 Folate 6.0 ng/mL 12/23/17 05:20 Urine Color Yellow 12/19/17 12:07 Urine Appearance Cloudy (Clear) 12/19/17 12:07 Urine pH 5.0 (5.0-8.0) 12/19/17 12:07 Ur Specific [place] 1.012 (1.001-1.035) 12/19/17 12:07 Urine Protein Negative (Negative) 12/19/17 12:07 Urine Glucose (UA) Negative (Negative) 12/19/17 12:07 Urine Ketones Negative (Negative) 12/19/17 12:07 Urine Blood Negative (Negative) 12/19/17 12:07 Urine Nitrite Negative (Negative) 12/19/17 12:07 Urine Bilirubin Negative (Negative) 12/19/17 12:07 Urine Urobilinogen <2.0 mg/dL (<2.0) 12/19/17 12:07 Ur Leukocyte Esterase Negative (Negative) 12/19/17 12:07 Urine RBC 1 /hpf (0-5) 12/19/17 12:07 Ur Squamous Epith Cells 1 /hpf (0-4) 12/19/17 12:07 Urine Bacteria Rare /hpf (None) H 12/19/17 12:07 Urine Mucus Rare /hpf (None) H 12/19/17 12:07 Stool Occult Blood Positive (Negative) 12/19/17 12:15 Urine Opiates Screen Not Detected (NotDetected) 12/19/17 18:50 Ur Oxycodone Screen Not Detected (NotDetected) 12/19/17 18:50 Urine Methadone Screen Not Detected (NotDetected) 12/19/17 18:50 Ur Propoxyphene Screen Not Detected (NotDetected) 12/19/17 18:50 Ur Barbiturates Screen Not Detected (NotDetected) 12/19/17 18:50 U Tricyclic Antidepress Not Detected (NotDetected) 12/19/17 18:50 Ur Phencyclidine Scrn Not Detected (NotDetected) 12/19/17 18:50 Ur Amphetamines Screen Not Detected (NotDetected) 12/19/17 18:50 U Methamphetamines Scrn Not Detected (NotDetected) 12/19/17 18:50 U Benzodiazepines Scrn Not Detected (NotDetected) 12/19/17 18:50 Urine Cocaine Screen Detected (NotDetected) H 12/19/17 18:50 U Marijuana (THC) Screen Not Detected (NotDetected) 12/19/17 18:50 Blood Type O Positive 12/19/17 11:50 Blood Type Recheck No 12/19/17 11:50 Antibody Screen NEGATIVE 12/19/17 11:50 Crossmatch See Detail 12/19/17 11:50 Spec Expiration Date 12/22/2017 - 234912/19/17 11:50 Microbiology 12/19/17 11:50 Blood Blood Culture - Final No Growth after 144 hours 12/19/17 12:07 Urine,Catheterized Urine Culture - Final Enterococcus faecalis 12/19/17 11:48 Foot - Right Gram Stain - Final 12/19/17 11:48 Foot - Right Wound Culture - Final Assessment and Plan (1) Septic shock Narrative/Plan: 67-year-old male presents to Hospital with prompting of a caregiver because of altered mental status. Upon arrival to the hospital patient is evidence of hypothermia, leukocytosis, hemoglobin of 4 and evidence of shock. There is concerns of septic shock given the patient's leukocytosis and open wounds to the lower extremities. The patient's hypotension and lactic acidosis can also be complicated by his profound anemia, with hemoglobin of 4 the patient likely has some component of chronic anemia to be able to be functional at this time. Local wound care will be utilized with Silvadene cream and wraps that can be done twice a day over this will be soothing and improve his level of discomfort Critical care is following and is receiving blood transfusions to improve his oxygen transport and has hypotension Antibiotic therapy will be addressed. He has evidence of acute renal failure with his creatinine of 4.2 at admission. Would avoid further vancomycin therapy and will change to daptomycin for now. He does need gram-negative therapy and with the current profound anemia would avoid piperacillin tazobactam given the difficulties with hematochezia anemia can be caused, utilize cefepime for now . Multiple cultures are already in process will further help direct therapy. The patient was on doxycycline therapy as an outpatient. Patient does have some laboratories from earlier this month the reveal evidence of hemoglobin 11.7 and a creatinine as low as 2.05 Consequently there is evidence of acute on chronic renal failure at this time. The patient has a heart rate of 141 which appears to be directly related to his septic shock. With fluid resuscitation and further blood transfusion should improve. Patient's sister relates that there is a history of alcohol use and must be monitored closely. 12/20/2017 reveals the patient to be improved from yesterday. Has received 4 units of packed red cells and this is allowing an improvement of his functional status. His profound pallor is improved. His energy level is also improved. Did have evidence of shock with sepsis as well as acute blood loss anemia. Antibiotic therapy has been utilize this point in time we'll cultures are in process and there is evidence of the gram-negative bacilli at the ulcer, and evidence of enterococcus in the urine for which current antibiotic therapy should be effective while we await the final susceptibility data. Continue with local wound care to the lower extremities with Silvadene wrap for now When he is more stable will be taken to the endoscopy suite for evaluation of gastrointestinal bleed Cultures are being monitored, leukocytosis has increased on the bases of significant cellulitis and sepsis in the lower extremities. 12/22/2017 the patient is improved. He has received the packed red cell transfusions and his hemoglobin is now stable around 8. He's been noticed to have some coffee-ground emesis and melanotic stool. He's been seen by gastroenterology and endoscopy is planned for the morning. The renal failure has stabilized and his leukocytosis has improved. Wound culture had several pathogens including gram-negative bacilli and urine culture has Enterococcus faecalis. Continue antibiotic therapy and monitor progress after the endoscopy. 12/29/2017 patient is showing some improvement, hemoglobin is stable no further Transfusions have been required. He has been seen by gastroenterology and endoscopy revealed evidence of a large gastric ulceration that was cratered but was not actively bleeding. Follow-up endoscopy will be arranged in the future. He is very weak and requires assistance even for his bed bath. Overall though his profound pallor has improved but is still somewhat of a poor historian. the enterococcus urinary tract infection and wounds to the legs have shown improvement and will transition antibiotics in near future. December 31, 2017 the patient does have some further improvement. Hemodynamically stable. Proceed no further blood transfusions. Continues to be resistant therapies in the lower extremities. He believes that letting them dry out will make them better, and does not really want local care to the legs or wraps. Patient is recovered from his sepsis in the cephapirin will be discontinued and would continue 48 hours further of daptomycin and then can consider transition to further oral agents. Current Visit: Yes Status: Acute Code(s): A41.9 - SEPSIS, UNSPECIFIED ORGANISM; R65.21 - SEVERE SEPSIS WITH SEPTIC SHOCK SNOMED Code(s): 77331883 (2) Acute on chronic blood loss anemia Current Visit: Yes Status: Acute Code(s): D60.0 - CHRONIC ACQUIRED PURE RED CELL APLASIA SNOMED Code(s): 251459236 (3) Venous stasis ulcer of both lower extremities without varicose veins Current Visit: Yes Status: Acute Code(s): I87.2 - VENOUS INSUFFICIENCY ( CHRONIC) (PERIPHERAL); L97.919 - NON-PRS CHRONIC ULC UNSP PRT OF R LOW LEG W UNSP SEVERITY; L97.929 - NON-PRS CHRONIC ULC UNSP PRT OF L LOW LEG W UNSP SEVERITY SNOMED Code(s): 652242594
[2017-12-31 21:11] LABS: Glucose,Whole Blood 110 mg/dL (75-99)
[2018-01-01 05:36] LABS: Glucose,Whole Blood 88 mg/dL (75-99)
[2018-01-01] MEDS: FUROSEMIDE 10 MG/ML 4 ML VIAL IV SCH ×2 (05:53→22:25)
[2018-01-01] MEDS: SILVER sulfADIAZINE Cream 400 GM 1 APPLIC APPLIC TOPICAL SCH ×2 (05:58→08:22)
[2018-01-01] MEDS: INSULIN ASPART 100 UNIT/ML 1 ML 10 ML VIAL SQ SCH ×4 (06:01→17:45)
--- NOTE | 2018-01-01 07:06 | XR ---
EXAMINATION TYPE: XR chest 1V portable DATE OF EXAM: 01/01/2018 HISTORY: CHF. REFERENCE: Previous study dated 12/28/2017. FINDINGS: The heart remains enlarged. There is a worsening right-sided effusion. Pleural spaces appea r clear. IMPRESSION: 1. CARDIOMEGALY. 2. WORSENING RIGHT-SIDED OPACITY MAY REFLECT CONFLUENT EDEMA OR PNEUMONIA.
[2018-01-01] MEDS: SODIUM BICARBONATE TAB 650 MG TAB PO SCH ×2 (08:54→22:26)
[2018-01-01] MEDS: MIDODRINE 5 MG TAB PO SCH ×3 (08:54→18:25)
[2018-01-01] MEDS: METOPROLOL TARTRATE 12.5 MG TAB PO SCH ×4 (08:54→22:26)
[2018-01-01] MEDS: AMIODARONE 200 MG TAB PO SCH ×3 (08:55→22:26)
[2018-01-01] MEDS: PANTOPRAZOLE 40 MG TABLET PO SCH ×2 (08:55→18:24)
[2018-01-01 09:11] LABS: Anisocytosis Slight; Basophils # (A) 0.1 k/uL (0-0.2); Basophils % (A) 1 %; Eosinophils # (A) 0.1 k/uL (0-0.7); Eosinophils % (A) 1 %; HCT 29.5 % (39.0-53.0); HGB 8.5 gm/dL (13.0-17.5); Hypochromasia Marked; Lymphocytes # (A) 0.6 k/uL (1.0-4.8); Lymphocytes % (A) 3 %; MCH 27.1 pg (25.0-35.0); MCHC 28.8 g/dL (31.0-37.0); MCV 94.3 fL (80.0-100.0); Macrocytosis Slight; Mean Platelet Volume 7.2; Monocytes # (A) 0.8 k/uL (0-1.0); Monocytes % (A) 5 %; Neutrophils # (A) 14.3 k/uL (1.3-7.7); Neutrophils % (A) 89 %; Platelet Count 417 k/uL (150-450); Poikilocytosis Moderate; RBC 3.13 m/uL (4.30-5.90); RDW 17.9 % (11.5-15.5); WBC 16.1 k/uL (3.8-10.6)
[2018-01-01 09:20] LABS: Albumin 2.7 g/dL (3.5-5.0); Calcium 9.1 mg/dL (8.4-10.2); Potassium 4.8 mmol/L (3.5-5.1); Total Bilirubin 1.3 mg/dL (0.2-1.3); Total Protein 6.4 g/dL (6.3-8.2)
[2018-01-01] MEDS: HYDROcodone/APAP 5-325MG 1 EACH TAB PO PRN ×2 (11:09→18:38)
--- NOTE | 2018-01-01 12:07 | P.PN ---
Subjective Progress Note Date: 01/01/18 History patient is a pleasant 59-year-old -[place] male with past medical history significant for atrial fibrillation, cardiomyopathy, COPD, diabetes, hypertension and chronic kidney disease. He initially presented to the hospital with significant anemia secondary to acute GI bleeding. Was found to have a gastric ulcer which was cauterized. Patient continues to have significant edema and shortness of breath. He is on amiodarone and Lopressor for heart rate control. He is being followed by nephrology and receiving IV Lasix 40 mg every 8 hours. Upon examination, patient is sitting up in a chair. The patient this morning is quite tachypneic, drowsy and currently on BiPAP. He is apparently refusing care from nursing staff at times. Objective - Vital Signs Vital signs: Vital Signs Temp 99.0 F 01/01/18 11:00 Pulse 88 01/01/18 11:00 Resp 40 H 01/01/18 11:00 BP 102/68 01/01/18 11:00 Pulse Ox 100 01/01/18 06:13 Intake & Output 12/31/17 01/01/18 01/01/18 18:59 06:59 18:59 Intake Total 1190 800 Output Total 4975 Balance 1190 -4175 Weight 75 kg Intake: Intake, IV Titration 90 Amount DAPTOmycin 500 mg In 50 Sodium Chloride 0.9% 50 ml @ 100 mls/hr IVPB Q48H [facility] Rx#:[id number] IV Fluid Continuation 1, 40 000 ml @ 0 mls/hr IV .STK -[facility] Rx#:[id number] Oral 1100 800 Output: Urine 4975 Other: Voiding Method Indwelling Catheter Indwelling Catheter Indwelling Catheter # Voids 1 ABP, PAP, CO, CI - Last Documented Arterial Blood Pressure 102/51 - Exam PHYSICAL EXAMINATION: HEENT: [Head is atraumatic, normocephalic. Pupils equal, round. Neck is supple. There is no elevated jugular venous pressure.] HEART EXAMINATION: [Heart sounds irregularly irregular, S1 and S2 with a systolic murmur at the base.] CHEST EXAMINATION:[ Lungs reveal Diminished air entry and faint crackles bilateral bases. No chest wall tenderness is noted on palpation or with deep breathing.] ABDOMEN: [ Soft, nontender. Bowel sounds are heard. No organomegaly noted]. EXTREMITIES:2+ peripheral pulses with chronic lower extremity wounds with 1-2+ bilateral lower extremity edema noted. . - Labs CBC & Chem 7: 01/01/18 08:44 01/01/18 08:44 Labs: Abnormal Lab Results - Last 24 Hours (Table) 12/31/17 12/31/17 01/01/18 Range/Units 16:46 20:59 08:44 WBC 16.1 H (3.8-10.6) k/uL RBC 3.13 L (4.30-5.90) m/uL Hgb 8.5 L (13.0-17.5) gm/dL Hct 29.5 L (39.0-53.0) % MCHC 28.8 L (31.0-37.0) g/dL RDW 17.9 H (11.5-15.5) % Neutrophils # 14.3 H (1.3-7.7) k/uL Lymphocytes # 0.6 L (1.0-4.8) k/uL Chloride (98-107) mmol/L Carbon Dioxide (22-30) mmol/L BUN (9-20) mg/dL Creatinine (0.66-1.25) mg/dL POC Glucose (mg/dL) 69 L 110 H (75-99) mg/dL Alkaline Phosphatase (38-126) U/L Albumin (3.5-5.0) g/dL 01/01/18 Range/Units 08:44 WBC (3.8-10.6) k/uL RBC (4.30-5.90) m/uL Hgb (13.0-17.5) gm/dL Hct (39.0-53.0) % MCHC (31.0-37.0) g/dL RDW (11.5-15.5) % Neutrophils # (1.3-7.7) k/uL Lymphocytes # (1.0-4.8) k/uL Chloride 110 H (98-107) mmol/L Carbon Dioxide 20 L (22-30) mmol/L BUN 76 H (9-20) mg/dL Creatinine 3.56 H (0.66-1.25) mg/dL POC Glucose (mg/dL) (75-99) mg/dL Alkaline Phosphatase 200 H (38-126) U/L Albumin 2.7 L (3.5-5.0) g/dL Assessment and Plan Assessment: #1 acute on chronic systolic congestive heart failure, ejection fraction less than 20% #2 severe mitral regurgitation #3 pulmonary hypertension #4 chronic atrial fibrillation with rapid ventricular response, currently on amiodarone and metoprolol #5 GI bleeding secondary to gastric ulcer status post EGD #6 acute kidney injury on chronic kidney failure #7 acute septic shock #8 chronic cellulitis and lower extremity ulcerations #9 hyperkalemia #10 hypotension Plan: From cardiology's perspective, medications were reviewed and we will continue the same. At this time we would encourage a hospice consult for this patient as prognosis is poor and treatment options are limited. MANAGER CABLE note has been reviewed, I agree with a documented findings and plan of care. Patient was seen and examined.
[2018-01-01 12:13] LABS: Glucose,Whole Blood 98 mg/dL (75-99)
--- NOTE | 2018-01-01 12:24 | P.PN ---
Subjective Progress Note Date: 01/01/18 Principal diagnosis: Acute septic shock, profound anemia and GI bleeding This is a 67-year-old white male with history of multiple medical problems including chronic atrial fibrillation, COPD, congestive heart failure, diabetes , patient was brought in by his caregiver who is a friend of his, and he has been noticing significant decline in his status. Patient has been very secretive about his overall health condition, does not share his health issues with any of his friends or family members. Apparently he normally sees Dr. Oconnell and has been treated recently with doxycycline for what seems to be significant areas of cellulitis involving both legs. Patient was brought into the ER mostly with chief complaint of altered mental status, and has been noticing dark colored stools for the last 5 weeks. Patient is normally on Naprosyn for gout, and has been taking doxycycline for ulcers involving his legs. The patient himself is a very poor historian, much of the information was obtained from the chart. Upon arrival to the ER, patient was noted to be hypotensive, his lactic acid was elevated, and his hemoglobin was only 4. Patient was given so far at least 4 units of packed RBCs, and his hemoglobin now is 7.8. He was also given significant amount of fluid boluses, and his lactic acid came down from 8-0.8 to this morning. His renal profile is showing slight improvement with BUN coming down from 176-161 and his creatinine coming down from 3.60-3.30. Patient was empirically placed on antibiotics by Dr. Cartagena, and his urine was positive for cocaine. Chest x-ray showed no evidence of active disease. Patient was also noted to have atrial fibrillation with RVR , hypotensive on 20 g of norepinephrine, he was seen by cardiology, and his echocardiogram showed a significantly impaired left ventricle, ejection fraction of less than 20%. His atrial fibrillation is being treated with amiodarone. Nephrology was consulted for his renal failure. The patient himself is a very poor historian, and he seems to be quite slow with definite altered mental status. Patient was reevaluated today on 12/21/2017, seems to be more awake and more appropriate today. Hemodynamically stable, he was earlier on 5 g of norepinephrine, and I would likely discontinue the norepinephrine today since the blood pressure is holding and his main is in the high 70s. Urine output is excellent. Renal functioning is improving. BUN is down to 138 creatinine is down to 2.90 patient continues to have non-anion gap hyperchloremic metabolic acidosis. He is receiving bicarb orally. WBC count is down to 18.8 hemoglobin is holding at 7.4. Had few episodes of coffee-ground emesis, engraver steel plate following, may consider endoscopy today. Patient is presently nothing by mouth. He did receive a total of 4 units of packed RBCs for low hemoglobin on presentation. Blood cultures are negative so far, however his urine culture was positive for group D enterococcus. And his wound cultures are negative for gram-negative bacilli. Patient is presently on daptomycin and on cefepime which is appropriate coverage for what we have so far. Patient is definitely more appropriate today, and he seems to be oriented 3. Patient was placed on lactated Ringer's at 100 mL/h, continues to have excellent urine output, and he is not developing any congestive heart failure findings although his ejection fraction was noted to be quite low. Ultrasound of the right and left kidney was noted. Seems to be consistent with underlying medical renal disease. On 12/22/2017, patient is basically about the same, however we have noticed a drop in his hemoglobin today, and the patient is now receiving a fifth unit of packed RBCs since admission. Hemoglobin this morning was 6.9, gastroenterology is planning EGD on this patient sometime today. Patient is complaining of being thirsty, otherwise he denies any specific complaints. No nausea no vomiting no abdominal pain no chest pain no shortness of breath. All his labs were reviewed, sodium is elevated, 149, potassium is 4.0 bicarb remains low at 15, BUN is improving down to 110 and creatinine is down to 2.30, and that is all being addressed by nephrology on the case. Patient was reevaluated today on 12/23/2017, scheduled to undergo EGD today, for some reason it was not done yesterday mostly because of his A. fib/RVR according to the engraver steel plate on the case. Patient is nothing by mouth for today, and would likely have endoscopy done around 1 PM today. Patient is relatively asymptomatic, doing well overall compared to how he presented. Hemoglobin is holding at 7.9. Patient received a total of 5 units of packed RBCs since admission. His sodium was noted to be elevated, and his bicarb was correcting nicely, hence I have discontinued his bicarb drip. Patient denies any shortness of breath no cough no wheezing. Although her chest x-ray did show cardiomegaly and interstitial edema, right lower lobe infiltrate is not entirely ruled out. Patient was reevaluated today on , underwent EGD yesterday, and he was found to have a gastric ulcer, biopsies done, was not actively bleeding. Patient is a selective overflow in the ICU today, doing well overall, no active GI bleeding, mentation seems to be slightly improving, but remains overall slow which is probably his baseline. Renal functioning seems to be improving, creatinine is down to 1.8. Sodium remains elevated at 150, being addressed by nephrology on the case. Patient denies any cough no wheezing no shortness of breath, no chest pain, and he is tolerating oral feeding well. Patient was reevaluated today on 12/25/2017, seems to be doing much better, he is still a selective overflow. His hemoglobin is stable, his renal functioning is improving, it is 1.68 creatinine today. And global is 8.4 today. He is ready on full liquid diet, sodium is down to 147, and he remains on D5W at 1 25 mL per hour. I ordered a chest x-ray since the patient is known to have LV dysfunction with ejection fraction of 20%, but he is maintained on room air, and O2 saturation is in the 90s. He is in atrial fibrillation with RVR which is being addressed by cardiology on the case. Chest x-ray is showing improved congestive heart failure, questionable infiltrate noted in the right lower lobe , but I am suspecting that it is mostly fluid related, and pulmonary edema related. Echo dated to systolic congestive heart failure. Reevaluated today on 12/26/2017, patient is basically about the same, blood pressure remains marginal, patient does have atrial fibrillation, and he does have cardiomyopathy with LV dysfunction, ejection fraction of 20%. Labs today showed improved sodium, down to 143. His creatinine seems to be a bit worse today, probably related to his low blood pressure and cardiorenal syndrome with poor LV function. This is being addressed by nephrology on the case, patient remains on D5W at 100 mL per hour. Chest x-ray from yesterday showed cardiomegaly, and mild congestive heart failure changes. The right lower lobe opacity may represent atelectasis or infiltrate. However the patient remains on antibiotics. Reevaluated today on 12/27/2017, patient is relatively asymptomatic, denies any shortness of breath, no cough, no wheezing, labs were reviewed, continues to have significant renal abnormality, improved compared to baseline, and continues to be followed by nephrology. Continues to have leukocytosis of 19.2 , hemoglobin is 9.1. And continues to have abnormal chest x-ray suggestive of mild congestive heart failure and questionable right lower lobe infiltrate. Or atelectasis. The patient is seen today 12/28/2017 in follow-up on the selective care unit. He is currently awake and alert in no acute distress. He is maintaining O2 saturations in the mid 90s on 3 L/m per nasal cannula. Currently afebrile. Blood culture reveals no growth. Wound culture reveals no growth. Urine culture was positive for Enterococcus faecalis. He is currently on daptomycin and cefepime. He remains on Lasix 40 mg IV push every 8 hours. White count 15.8. Hemoglobin 8.1. Creatinine 3.29. On 12/29/2017 patient seen in follow-up on selective care unit. Patient has just completed a bedside sponge bath with assistance of multiple nurses aides. Seems a bit winded right now, recovering from exertion, currently on 3 L per nasal cannula pulse ox is 99%, is afebrile, hemodynamically stable. Lung sounds is for bilateral crackles, no chest x-rays today, yesterday's chest x- ray suggestive of congestive heart failure with pulmonary edema. Patient remains on IV diuretics, at 40 mg IV every 8 hours. Nephrology is following, patient still has significant amount of bilateral lower extremity edema. Labs today show WBC of 17.0, hemoglobin is 8.4, sodium is 138, potassium is 5.1, chloride is improving, down to 108, CO2 is 17, BUN 84, and creatinine is 3.39. Urine culture showed enterococcus faecalis, ED service is following, patient is on a combination of daptomycin and cefepime. Patient is receiving Silvadene cream to bilateral lower extremity ulcerations. The patient is seen today 12/30/2017 in follow-up on the selective care unit. He is currently resting comfortably in bed. He is awake and alert. He is currently maintaining good O2 saturations in the upper 90s on 3 L/m per nasal cannula. He is afebrile. He remains on cefepime and daptomycin. There is Enterococcus faecalis in the urine. Huang catheter remains in place. He is currently in a negative balance. His creatinine remains high at 3.51. He's been on Lasix 40 mg every 8 hours. Nephrology is on the case. White count 17.0. Hemoglobin 8.4. The patient is seen again today 12/31/2017 in follow-up on the selective care unit. He remains awake and alert in no acute distress. He is maintaining good O2 saturations in the 90s on 3 L/m per nasal cannula. He's been afebrile. Creatinine 3.33. He remains on cefepime and daptomycin. He is continued on Lasix 40 mg IV push every 12 hours. He is currently in a negative balance. The patient is seen again today 01/01/2018 in follow-up on the selective care unit. He does seem more short of breath today as compared to yesterday. His chest x-ray shows worsening right-sided opacity as well as evidence of cardiomegaly. He is now requiring some BiPAP support with 50% FiO2 to maintain O2 saturations in the 90s. Temperature 99.0 axillary. White count 16.1. Hemoglobin 8.5. Creatinine 3.56. He remains on daptomycin. He did receive IV Lasix again this morning. He is in a -3 L balance. Objective - Vital Signs Vital signs: Vital Signs Temp 99.0 F 01/01/18 11:00 Pulse 88 01/01/18 11:00 Resp 40 H 01/01/18 11:00 BP 102/68 01/01/18 11:00 Pulse Ox 100 01/01/18 06:13 Intake & Output 12/31/17 01/01/18 01/01/18 18:59 06:59 18:59 Intake Total 1190 800 Output Total 4975 Balance 1190 -4175 Weight 75 kg Intake: Intake, IV Titration 90 Amount DAPTOmycin 500 mg In 50 Sodium Chloride 0.9% 50 ml @ 100 mls/hr IVPB Q48H [facility] Rx#:[id number] IV Fluid Continuation 1, 40 000 ml @ 0 mls/hr IV .[facility] Rx#:[id number] Oral 1100 800 Output: Urine 4975 Other: Voiding Method Indwelling Catheter Indwelling Catheter Indwelling Catheter # Voids 1 ABP, PAP, CO, CI - Last Documented Arterial Blood Pressure 102/51 - Exam GEN. APPEARANCE: Physical exam revealed a 67-year-old male in mild respiratory distress. HEAD EXAM: atraumatic, normocephalic, normal inspection EYE EXAM: Positive for pallor. No icterus. PERRLA, EOMI. ENT EXAM: Mucous membranes dry NECK EXAM: normal inspection. Absent: tenderness, meningismus, full ROM, no evidence of lymphadenopathy. RESPIRATORY EXAM: Diminished breath sounds at the bases, minimal fine crackles at the right base. CARDIOVASCULAR EXAM: Tachycardia. Irregular irregular rhythm Normal S1 and S2, 2/6 systolic murmur throughout the precordium. GI/ABDOMINAL EXAM: soft, normal bowel sounds. Absent: distended, tenderness, guarding, rebound, rigid EXTREMITIES EXAM: Bilateral lower extremities ulcers in various stages of healing , right side worse than left. All wrapped with sterile dressings. NEUROLOGICAL EXAM: Less alert, seems to be quite slow. - Labs CBC & Chem 7: 01/01/18 08:44 01/01/18 08:44 Labs: Abnormal Lab Results - Last 24 Hours (Table) 12/31/17 12/31/17 01/01/18 Range/Units 16:46 20:59 08:44 WBC 16.1 H (3.8-10.6) k/uL RBC 3.13 L (4.30-5.90) m/uL Hgb 8.5 L (13.0-17.5) gm/dL Hct 29.5 L (39.0-53.0) % MCHC 28.8 L (31.0-37.0) g/dL RDW 17.9 H (11.5-15.5) % Neutrophils # 14.3 H (1.3-7.7) k/uL Lymphocytes # 0.6 L (1.0-4.8) k/uL Chloride (98-107) mmol/L Carbon Dioxide (22-30) mmol/L BUN (9-20) mg/dL Creatinine (0.66-1.25) mg/dL POC Glucose (mg/dL) 69 L 110 H (75-99) mg/dL Alkaline Phosphatase (38-126) U/L Albumin (3.5-5.0) g/dL 01/01/18 Range/Units 08:44 WBC (3.8-10.6) k/uL RBC (4.30-5.90) m/uL Hgb (13.0-17.5) gm/dL Hct (39.0-53.0) % MCHC (31.0-37.0) g/dL RDW (11.5-15.5) % Neutrophils # (1.3-7.7) k/uL Lymphocytes # (1.0-4.8) k/uL Chloride 110 H (98-107) mmol/L Carbon Dioxide 20 L (22-30) mmol/L BUN 76 H (9-20) mg/dL Creatinine 3.56 H (0.66-1.25) mg/dL POC Glucose (mg/dL) (75-99) mg/dL Alkaline Phosphatase 200 H (38-126) U/L Albumin 2.7 L (3.5-5.0) g/dL Assessment and Plan Assessment: Impression: 1 acute septic shock, most likely source is his cellulitis. Could also be from urinary tract infection secondary to Enterococcus faecalis. 2 chronic cellulitis, and lower extremities ulcers, cultures are nondiagnostic since there was evidence of multi-microbial growth. 3 acute non-anion gap hyperchloremic metabolic acidosis secondary to sepsis. And secondary to septic shock. 4 acute kidney injury secondary to sepsis and suspect acute tubular necrosis. Current creatinine 3.56. 5 severe cardiomyopathy and LV dysfunction 6 atrial fibrillation with RVR, rate seems to be better controlled, and the patient is hemodynamically stable, off norepinephrine 7 acute GI bleeding, secondary to antral gastric ulcer. Status post EGD 8 history of diabetes. 9 acute hypoxic respiratory failure secondary to severe cardiomyopathy, congestive heart failure, developing right base infiltrate. Plan: The patient was seen and evaluated by Dr. Palm. Chest x-ray and labs were reviewed. The patient's overall prognosis remains quite poor at this point. He is a DO NOT RESUSCITATE/DO NOT INTUBATE CODE STATUS. We have actually recommend a hospice referral. In the interim, we'll continue full supportive care. I, the cosigning physician, performed a history & physical examination of the patient. Lungs sounds with crackles in posterior bases. Maintaining O2 saturations in the 90s on 50% FiO2 via BiPAP. I discussed the assessment and plan of care with my nurse practitioner, Char Petersen. I attest to the above note as dictated by her.
[2018-01-01 17:48] LABS: Glucose,Whole Blood 95 mg/dL (75-99)
--- NOTE | 2018-01-01 21:20 | PN ---
PROGRESS NOTE The patient is seen for followup for acute kidney injury, volume overload. The patient has been maintained on IV diuretics. Serum creatinine is slightly higher today as compared to yesterday; however, it is mostly ranging between 3.3 and 3.5 mg/dL. The patient has had good urine output. 24-hour output charted at 4.9 L. PHYSICAL EXAMINATION: Blood pressure was 102/68, heart rate of 88 per minute. Patient is afebrile. HEENT: Atraumatic, normocephalic. Pupils are equal, round. JVP is elevated. Lymph nodes are not palpable. Thyroid is not enlarged. HEART: S1, S2. LUNGS: Decreased breath sounds at the bases. Abdomen is soft, nontender. Lower extremities show chronic skin changes. Edema 1+ bilaterally. LABS: Show sodium 144, potassium 4.8, BUN 76, serum creatinine 3.56. Hemoglobin 8.5 g/dL. ASSESSMENT: 1. Acute kidney injury, mainly cardiorenal, fairly stable with serum creatinine staying between 3.3 and 3.5 mg/dL. The patient has diuresed very well. He remains on IV Lasix. I will hold off on the Zaroxolyn since he has had good urine output. 2. Congestive heart failure, systolic, acute on top of chronic. 3. Chronic kidney disease stage 3 secondary to nephrosclerosis and cardiorenal syndrome. 4. Cardiomyopathy with ejection fraction less than 20% and severe global hypokinesis of left ventricle with severely dilated left atrium. 5. Atrial fibrillation, currently with controlled ventricular response, maintained on digoxin and amiodarone. 6. Metabolic acidosis, controlled, maintained on oral sodium bicarb. PLAN: Continue current medications. Hold off on Zaroxolyn for now. I will also check iron studies, given his anemia. No active bleeding noted. Previously, patient did have a GI bleed. MMODL / IJN: [id number] /
[2018-01-01 21:29] LABS: Glucose,Whole Blood 136 mg/dL (75-99)
--- NOTE | 2018-01-01 22:11 | PN ---
PROGRESS NOTE DATE OF SERVICE: 01/01/2018 CHIEF COMPLAINT: Sepsis, congestive heart failure, renal failure, and encephalopathy. HISTORY OF PRESENT ILLNESS: This gentleman is continuing to slowly fail. Pulmonology feels that there is nothing further that can be offered and he refuses to be transferred to a tertiary hospital. PHYSICAL EXAM: He is pale, weak and short of breath. On physical exam breath sounds are poor. Cardiac exam is unchanged with his murmur and atrial fibrillation. IMPRESSION: 1. Septicemia. 2. Congestive heart failure. 3. Cardiomyopathy. 4. Renal failure. PLAN: Patient was explained that nothing further can be done to help him and that resuscitation would be futile. Hospice was discussed and he agreed to consult and this will be arranged. MMCRYSTALL / IJN: [id number] /
[2018-01-02] MEDS: SILVER sulfADIAZINE Cream 400 GM 1 APPLIC APPLIC TOPICAL SCH ×3 (04:45→20:15)
[2018-01-02] MEDS: HYDROcodone/APAP 5-325MG 1 EACH TAB PO PRN ×2 (04:46→20:28)
[2018-01-02] MEDS: MIDODRINE 5 MG TAB PO SCH ×3 (06:59→17:14)
[2018-01-02] MEDS: PANTOPRAZOLE 40 MG TABLET PO SCH ×2 (07:00→17:14)
[2018-01-02] MEDS: INSULIN ASPART 100 UNIT/ML 1 ML 10 ML VIAL SQ SCH ×4 (07:01→17:12)
[2018-01-02 07:17] LABS: Glucose,Whole Blood 95 mg/dL (75-99)
[2018-01-02] MEDS: DAPTOmycin 500 MG in SODIUM CHLORIDE 0.9% 50 ML IVPB SCH (09:17)
[2018-01-02] MEDS: METOPROLOL TARTRATE 12.5 MG TAB PO SCH ×4 (09:17→21:43)
[2018-01-02] MEDS: SODIUM BICARBONATE TAB 650 MG TAB PO SCH ×2 (09:17→20:15)
[2018-01-02] MEDS: AMIODARONE 200 MG TAB PO SCH ×3 (09:18→21:43)
[2018-01-02 10:04] LABS: Calcium 8.8 mg/dL (8.4-10.2); Potassium 4.5 mmol/L (3.5-5.1)
[2018-01-02 11:38] LABS: Glucose,Whole Blood 124 mg/dL (75-99)
[2018-01-02] MEDS: FUROSEMIDE 10 MG/ML 4 ML VIAL IV SCH (12:09)
--- NOTE | 2018-01-02 13:13 | PN ---
PROGRESS NOTE CHIEF COMPLAINT: Septic shock, renal failure, cardiomyopathy and congestive heart failure. HISTORY OF PRESENT ILLNESS: This patient's condition is just about the same. He is a little short of breath. He is to be seen by Hospice. PHYSICAL EXAM: Breath sounds are diminished bilaterally. Cardiac exam is normal with his atrial fibrillation and the abdomen and extremities are the same. IMPRESSION: 1. Septic shock. 2. Renal failure. 3. Cardiomyopathy. 4. Alcoholism. 5. History of substance abuse. PLAN: Await hospice evaluation and continue with current treatment in the meantime. MMODL / IJN: [id number] /
--- NOTE | 2018-01-02 14:04 | PN ---
PROGRESS NOTE Patient is seen for followup for acute kidney injury. Apparently, patient has been declining most of the care. There are plans for hospice meeting. Volume status has improved. Urine output 24 hours was 4.9 L. PHYSICAL EXAMINATION: On examination today, patient is comfortable. Blood pressure 97/74, heart rate 75 per minute. He is afebrile. Examination of the heart: S1, S2. Examination of the lungs: Bilateral breath sounds are heard. Abdomen is soft, nontender. Examination of lower extremities shows chronic skin changes. Edema is significantly improved. LABS: Show sodium 142, potassium 4.5, chloride 108, BUN 82, serum creatinine 3.99. ASSESSMENT: 1. Acute kidney injury mainly cardiorenal. Renal function had improved. Serum creatinine is slightly higher today as of yesterday I will decrease the Lasix. Volume status has improved significantly. 2. Hypervolemia/volume overload, currently improved. 3. Congestive heart failure, acute on top of chronic, mainly systolic. 4. Cardiomyopathy, ejection fraction less than 20% with severe global hypokinesis of left ventricle and severely dilated left atrium, currently better. 5. Atrial fibrillation with controlled ventricular response maintained on digoxin and amiodarone. 6. Metabolic acidosis. Maintained on oral sodium bicarb. PLAN: DC IV Lasix, switched to p.o. Lasix starting tonight. Repeat labs in a.m. Overall prognosis is guarded. There has been consideration for hospice care. MMCRYSTALL / OLYN: [id number] /
[2018-01-02 17:12] LABS: Glucose,Whole Blood 98 mg/dL (75-99)
[2018-01-02] MEDS: DIGOXIN 125 MCG TAB PO SCH (17:14)
[2018-01-02] MEDS: FUROSEMIDE 40 MG TAB PO SCH (17:16)
[2018-01-02 21:19] LABS: Glucose,Whole Blood 71 mg/dL (75-99)
[2018-01-03 00:39] LABS: Glucose,Whole Blood 121 mg/dL (75-99)
[2018-01-03] MEDS: INSULIN ASPART 100 UNIT/ML 1 ML 10 ML VIAL SQ SCH ×4 (01:05→17:37)
[2018-01-03 06:13] LABS: Glucose,Whole Blood 121 mg/dL (75-99)
[2018-01-03] MEDS: MIDODRINE 5 MG TAB PO SCH ×3 (06:33→17:34)
[2018-01-03] MEDS: PANTOPRAZOLE 40 MG TABLET PO SCH ×2 (06:34→17:35)
[2018-01-03 06:46] LABS: Anisocytosis Slight; Basophils # (A) 0.1 k/uL (0-0.2); Basophils % (A) 1 %; Eosinophils # (A) 0.2 k/uL (0-0.7); Eosinophils % (A) 2 %; HCT 27.8 % (39.0-53.0); Hypochromasia Marked; Lymphocytes # (A) 0.9 k/uL (1.0-4.8); Lymphocytes % (A) 10 %; MCH 27.1 pg (25.0-35.0); MCV 93.5 fL (80.0-100.0); Mean Platelet Volume 6.9; Monocytes # (A) 0.5 k/uL (0-1.0); Monocytes % (A) 6 %; Neutrophils # (A) 7.4 k/uL (1.3-7.7); Neutrophils % (A) 79 %; Platelet Count 406 k/uL (150-450); Poikilocytosis Moderate; RBC 2.97 m/uL (4.30-5.90); RDW 17.9 % (11.5-15.5); WBC 9.5 k/uL (3.8-10.6)
[2018-01-03 06:59] LABS: Calcium 8.8 mg/dL (8.4-10.2); Potassium 4.6 mmol/L (3.5-5.1)
[2018-01-03] MEDS: FUROSEMIDE 40 MG TAB PO SCH ×2 (08:58→17:34)
[2018-01-03] MEDS: AMIODARONE 200 MG TAB PO SCH ×3 (08:58→20:56)
[2018-01-03] MEDS: METOPROLOL TARTRATE 12.5 MG TAB PO SCH ×4 (08:59→20:56)
[2018-01-03] MEDS: SILVER sulfADIAZINE Cream 400 GM 1 APPLIC APPLIC TOPICAL SCH ×2 (08:59→19:39)
[2018-01-03] MEDS: SODIUM BICARBONATE TAB 650 MG TAB PO SCH ×2 (09:00→19:45)
[2018-01-03 09:48] LABS: Iron Saturation 7.52 (15.00-50.00)
[2018-01-03 11:16] LABS: Glucose,Whole Blood 136 mg/dL (75-99)
--- NOTE | 2018-01-03 15:02 | PN ---
PROGRESS NOTE Patient is seen for followup for acute kidney injury. His diuretics were decreased yesterday. Renal function had worsened today. The creatinine is up to 4.0 from 3.9. Urine output for 24 hours was about 2.5 L. Patient is currently comfortable. He denies any complaints. He had been refusing treatments and there was discussion for hospice yesterday. PHYSICAL EXAMINATION: Blood pressure was 111/75, heart rate 76 per minute. Patient is afebrile. Examination of the heart S1, S2. Examination of lungs, bilateral breath sounds are heard. Decreased breath sounds at the bases. Examination of the lower extremities, chronic skin changes. Edema 1+ bilaterally. Superficial wounds are noted. LABS: Show sodium 141, potassium 4.6, chloride 108, BUN 80, serum creatinine 4.01, hemoglobin 8.0 g/dL. ASSESSMENT: 1. Acute kidney injury, cardiorenal, renal function had stabilized and slightly improved. However, last 2 days Serum creatinine is high secondary to diuretics and Lasix was decreased yesterday. Patient continues to have good urine output. I will continue the current dose of Lasix. 2. Hypervolemia, volume overload, currently improved. 3. Congestive heart failure, acute on top of chronic, mainly systolic. 4. Cardiomyopathy, ejection fraction less than 20% with global hypokinesis and severely dilated left atrium. 5. Atrial fibrillation with controlled ventricular response, maintained on digoxin and amiodarone. 6. Metabolic acidosis, fairly stable. Patient is maintained on sodium bicarb orally, which we will continue. 7. Hypotension, currently on midodrine. PLAN: Continue the oral Lasix for now. Repeat labs in a.m. Continue with Huang catheter. MMODL / IJN: [id number] /
[2018-01-03 16:25] LABS: Glucose,Whole Blood 109 mg/dL (75-99)
--- NOTE | 2018-01-03 18:56 | PN ---
PROGRESS NOTE DATE OF SERVICE: 01/03/2018 CHIEF COMPLAINT: Septic shock, congestive heart failure, cardiomyopathy, COPD, diabetes, and renal failure. HISTORY OF PRESENT ILLNESS: This gentleman is getting weaker. He is now DNR and he is going to be talking to hospice, but reluctantly. PHYSICAL EXAM: Breath sounds are diminished. He has scattered rales and rhonchi. Cardiac exam demonstrates atrial fibrillation with tachycardia. IMPRESSION: 1. Septic shock. 2. Congestive heart failure. 3. Renal failure. 4. Diabetes. PLAN: Continue with comfort measures. MMODL / IJN: [id number] /
--- NOTE | 2018-01-03 21:45 | P.PN ---
Subjective Progress Note Date: 01/03/18 67-year-old male who has altered mental status is brought to the emergency center by a caregiver who apparently has a friend because of the significant declining status that was noted. The caregiver relates that he's been secretive about his overall health. The patient however does follow with a primary care physician Dr. Oconnell and was evaluated in the office on 2017 antibiotic therapy with doxycycline was given for the problems to his legs. No evidence of any topical therapy can be found in the bags of medicine that were brought to hospital. The patient himself is agitated and has difficulty answering questions. He however on direct questioning denies headache, denies chest pain, denies abdominal pain, denies dysuria, denies diarrhea but does complain of pain to his legs. The patient's sister is present relates that although she does see her brother occasionally she does not know much about his medical history. 12/20/2017 patient is improved today after the 4 units of PRBC some GI bleeding is noted and has been by gastroenterology. Once he is his vasopressor therapy will be taking the endoscopy suite for evaluation of therapeutic intervention. The patient is much more comfortable today. 2 sisters are present, relate that they do not know much about his health care because he does not relate to them. Patient is educated about his current level of the extensive illness including profound anemia, as well as shock that he has a infectious component to it. His response to this was " when do I get to go home.' 12/22/2017 the patient is being evaluated by gastroenterology and potentially will have endoscopy tomorrow to evaluate the gastrointestinal bleeding. He had extensive symptomatic gastric intestinal bleeding admission complicated by sepsis. He seems to be doing somewhat better at this time and hopefully will tolerate the procedure well in the morning. 12/29/2017 patient has improved but still very weak and chronically ill, plans for placement in progress. Endoscopy did real large non bleeding ulcer H Pylori was negative. e Legs are less painful and does not guard them as he did prior evaluations. December 31 2017 patient is sitting upright complains of pain to his legs but otherwise is more comfortable. His sister and mother are present and his behavior is calm. Discussion occurs of the family about him going to rehabilitation after his hospitalization to increase his strength. I again inquire as to local wound care to his legs. He relates he wants them to dry out. We discussed moist wound healing and wraps which he refuses. 01/03/2018 patient is without new complaints. Ulcerations remained tender. Has generalized weakness. Does not like for his legs to be wrapped. Objective - Vital Signs Vital signs: Vital Signs Temp 98.9 F 01/03/18 19:42 Pulse 82 01/03/18 19:42 Resp 27 H 01/03/18 15:45 BP 103/72 01/03/18 19:42 Pulse Ox 94 L 01/03/18 19:42 Intake & Output 01/03/18 01/03/18 01/04/18 06:59 18:59 06:59 Intake Total 250 Output Total 2540 1999 475 Balance -229 -1999 -475 Weight 76 kg Intake: Oral 250 Output: Urine 2540 1999 475 Straight 440 1000 475 Other: Voiding Method Indwelling Catheter Indwelling Catheter # Voids 2 ABP, PAP, CO, CI - Last Documented Arterial Blood Pressure 102/51 - Exam HEENT: Anicteric conjunctiva are less pale, improvement of the general pallor. No oral lesions or thrush but dentition is very poor Neck: The neck is supple without significant lymphadenopathy or thyromegaly. Lungs: There is symmetrical air entry with expiratory wheezes scattered no leah bronchial sounds no dullness Heart: Very tachycardic with a rate of 141 no abnormal sounds were detected Abdomen: Positive bowel sounds soft and nontender without palpable masses or organomegaly. There was no guarding or rebound. Extremities: Upper extremities are intact without lesions. Lower extremities show evidence of the chronic bilateral lower extremity edema, evidence christa the ulcerations left leg are seen. persistent ulcerations are seen on the right lower extremity, especially laterally which has some drainage. Remains tender to touch. Nursing photography will further help define locations. Neuro: The patient is awake and alert attempts to answer questions but is agitated and does not answer questions well. He overs able to easily move all extremities at this time but is guarding to his legs because they give him pain. - Labs CBC & Chem 7: 01/03/18 05:54 01/03/18 05:54 Labs: Abnormal Lab Results - Last 24 Hours (Table) 01/01/18 01/03/18 01/03/18 Range/Units 08:44 00:37 05:54 RBC 2.97 L (4.30-5.90) m/uL Hgb 8.0 L (13.0-17.5) gm/dL Hct 27.8 L (39.0-53.0) % MCHC 29.0 L (31.0-37.0) g/dL RDW 17.9 H (11.5-15.5) % Lymphocytes # 0.9 L (1.0-4.8) k/uL Chloride (98-107) mmol/L BUN (9-20) mg/dL Creatinine (0.66-1.25) mg/dL POC Glucose (mg/dL) 121 H (75-99) mg/dL Iron 17 L (65-175) ug/dL TIBC 226 L (228-460) ug/dL Iron Saturation 7.52 L (15.00-50.00) 01/03/18 01/03/18 01/03/18 Range/Units 05:54 06:11 11:12 RBC (4.30-5.90) m/uL Hgb (13.0-17.5) gm/dL Hct (39.0-53.0) % MCHC (31.0-37.0) g/dL RDW (11.5-15.5) % Lymphocytes # (1.0-4.8) k/uL Chloride 108 H (98-107) mmol/L BUN 80 H (9-20) mg/dL Creatinine 4.01 H (0.66-1.25) mg/dL POC Glucose (mg/dL) 121 H 136 H (75-99) mg/dL Iron (65-175) ug/dL TIBC (228-460) ug/dL Iron Saturation (15.00-50.00) 01/03/18 Range/Units 16:10 RBC (4.30-5.90) m/uL Hgb (13.0-17.5) gm/dL Hct (39.0-53.0) % MCHC (31.0-37.0) g/dL RDW (11.5-15.5) % Lymphocytes # (1.0-4.8) k/uL Chloride (98-107) mmol/L BUN (9-20) mg/dL Creatinine (0.66-1.25) mg/dL POC Glucose (mg/dL) 109 H (75-99) mg/dL Iron (65-175) ug/dL TIBC (228-460) ug/dL Iron Saturation (15.00-50.00) Laboratory Results WBC 9.5 k/uL (3.8-10.6) 01/03/18 05:54 RBC 2.97 m/uL (4.30-5.90) L 01/03/18 05:54 Hgb 8.0 gm/dL (13.0-17.5) L 01/03/18 05:54 Hct 27.8 % (39.0-53.0) L 01/03/18 05:54 MCV 93.5 fL (80.0-100.0) 01/03/18 05:54 MCH 27.1 pg (25.0-35.0) 01/03/18 05:54 MCHC 29.0 g/dL (31.0-37.0) L 01/03/18 05:54 RDW 17.9 % (11.5-15.5) H 01/03/18 05:54 Plt Count 406 k/uL (150-450) 01/03/18 05:54 Neutrophils % 79 % 01/03/18 05:54 Lymphocytes % 10 % 01/03/18 05:54 Monocytes % 6 % 01/03/18 05:54 Eosinophils % 2 % 01/03/18 05:54 Basophils % 1 % 01/03/18 05:54 Neutrophils # 7.4 k/uL (1.3-7.7) 01/03/18 05:54 Lymphocytes # 0.9 k/uL (1.0-4.8) L 01/03/18 05:54 Monocytes # 0.5 k/uL (0-1.0) 01/03/18 05:54 Eosinophils # 0.2 k/uL (0-0.7) 01/03/18 05:54 Basophils # 0.1 k/uL (0-0.2) 01/03/18 05:54 Manual Slide Review Performed 12/28/17 06:58 Toxic Granulation Present 12/28/17 06:58 Polychromasia Present 12/28/17 06:58 Hypochromasia Marked 01/03/18 05:54 Poikilocytosis Moderate 01/03/18 05:54 Anisocytosis Slight 01/03/18 05:54 Macrocytosis Slight 01/01/18 08:44 Crenated Cell Present 12/28/17 06:58 Retic Count 4.1 % (0.5-2.0) H 12/23/17 05:20 PT 12.6 sec (9.0-12.0) H 12/20/17 05:10 INR 1.3 (<1.2) H 12/20/17 05:10 APTT 24.0 sec (22.0-30.0) 12/20/17 05:10 Sodium 141 mmol/L (137-145) 01/03/18 05:54 Potassium 4.6 mmol/L (3.5-5.1) 01/03/18 05:54 Chloride 108 mmol/L (98-107) H 01/03/18 05:54 Carbon Dioxide 22 mmol/L (22-30) 01/03/18 05:54 Anion Gap 11 mmol/L 01/03/18 05:54 BUN 80 mg/dL (9-20) H 01/03/18 05:54 Creatinine 4.01 mg/dL (0.66-1.25) H 01/03/18 05:54 Est GFR (CKD-EPI)AfAm 17 (>60 ml/min/1.73 sqM) 01/03/18 05:54 Est GFR (CKD-EPI)NonAf 14 (>60 ml/min/1.73 sqM) 01/03/18 05:54 Glucose 85 mg/dL (74-99) 01/03/18 05:54 POC Glucose (mg/dL) 109 mg/dL (75-99) H 01/03/18 16:10 POC Glu [employer]er ID Jessa Germain 01/03/18 16:[address] Glu mg/dL 103 12/19/17 17:22 Hemoglobin A1c 5.2 % (4.0-6.0) 12/19/17 17:22 Lactic Ac Sepsis Rflx Y 12/19/17 12:23 Plasma Lactic Acid [place] 0.8 mmol/L (0.7-2.0) 12/19/17 22:29 Calcium 8.8 mg/dL (8.4-10.2) 01/03/18 05:54 Phosphorus 3.4 mg/dL (2.5-4.5) 12/26/17 04:28 Magnesium 2.6 mg/dL (1.6-2.3) H 12/26/17 04:28 Iron 17 ug/dL (65-175) L 01/01/18 08:44 TIBC 226 ug/dL (228-460) L 01/01/18 08:44 Iron Saturation 7.52 (15.00-50.00) L 01/01/18 08:44 Total Bilirubin 1.3 mg/dL (0.2-1.3) 01/01/18 08:44 AST 51 U/L (17-59) 01/01/18 08:44 ALT 50 U/L (21-72) 01/01/18 08:44 Alkaline Phosphatase 200 U/L (38-126) H 01/01/18 08:44 Total Creatine Kinase <20 U/L (55-170) L 12/19/17 11:50 CK-MB (CK-2) 1.7 ng/mL (0.0-2.4) 12/19/17 11:50 CK-MB (CK-2) Rel Index 12/19/17 11:50 Troponin I <0.012 ng/mL (0.000-0.034) 12/19/17 11:50 Total Protein 6.4 g/dL (6.3-8.2) 01/01/18 08:44 Albumin 2.7 g/dL (3.5-5.0) L 01/01/18 08:44 Vitamin B12 713.0 pg/mL (200.0-944.0) 12/23/17 05:20 Folate 6.0 ng/mL 12/23/17 05:20 Urine Color Yellow 12/19/17 12:07 Urine Appearance Cloudy (Clear) 12/19/17 12:07 Urine pH 5.0 (5.0-8.0) 12/19/17 12:07 Ur Specific [place] 1.012 (1.001-1.035) 12/19/17 12:07 Urine Protein Negative (Negative) 12/19/17 12:07 Urine Glucose (UA) Negative (Negative) 12/19/17 12:07 Urine Ketones Negative (Negative) 12/19/17 12:07 Urine Blood Negative (Negative) 12/19/17 12:07 Urine Nitrite Negative (Negative) 12/19/17 12:07 Urine Bilirubin Negative (Negative) 12/19/17 12:07 Urine Urobilinogen <2.0 mg/dL (<2.0) 12/19/17 12:07 Ur Leukocyte Esterase Negative (Negative) 12/19/17 12:07 Urine RBC 1 /hpf (0-5) 12/19/17 12:07 Ur Squamous Epith Cells 1 /hpf (0-4) 12/19/17 12:07 Urine Bacteria Rare /hpf (None) H 12/19/17 12:07 Urine Mucus Rare /hpf (None) H 12/19/17 12:07 Stool Occult Blood Positive (Negative) 12/19/17 12:15 Urine Opiates Screen Not Detected (NotDetected) 12/19/17 18:50 Ur Oxycodone Screen Not Detected (NotDetected) 12/19/17 18:50 Urine Methadone Screen Not Detected (NotDetected) 12/19/17 18:50 Ur Propoxyphene Screen Not Detected (NotDetected) 12/19/17 18:50 Ur Barbiturates Screen Not Detected (NotDetected) 12/19/17 18:50 U Tricyclic Antidepress Not Detected (NotDetected) 12/19/17 18:50 Ur Phencyclidine Scrn Not Detected (NotDetected) 12/19/17 18:50 Ur Amphetamines Screen Not Detected (NotDetected) 12/19/17 18:50 U Methamphetamines Scrn Not Detected (NotDetected) 12/19/17 18:50 U Benzodiazepines Scrn Not Detected (NotDetected) 12/19/17 18:50 Urine Cocaine Screen Detected (NotDetected) H 12/19/17 18:50 U Marijuana (THC) Screen Not Detected (NotDetected) 12/19/17 18:50 Blood Type O Positive 12/19/17 11:50 Blood Type Recheck No 12/19/17 11:50 Antibody Screen NEGATIVE 12/19/17 11:50 Crossmatch See Detail 12/19/17 11:50 Spec Expiration Date 12/22/2017 - 7323 12/19/17 11:50 Microbiology 12/19/17 11:50 Blood Blood Culture - Final No Growth after 144 hours 12/19/17 12:07 Urine,Catheterized Urine Culture - Final Enterococcus faecalis 12/19/17 11:48 Foot - Right Gram Stain - Final 12/19/17 11:48 Foot - Right Wound Culture - Final Assessment and Plan (1) Septic shock Narrative/Plan: 67-year-old male presents to Hospital with prompting of a caregiver because of altered mental status. Upon arrival to the hospital patient is evidence of hypothermia, leukocytosis, hemoglobin of 4 and evidence of shock. There is concerns of septic shock given the patient's leukocytosis and open wounds to the lower extremities. The patient's hypotension and lactic acidosis can also be complicated by his profound anemia, with hemoglobin of 4 the patient likely has some component of chronic anemia to be able to be functional at this time. Local wound care will be utilized with Silvadene cream and wraps that can be done twice a day over this will be soothing and improve his level of discomfort Critical care is following and is receiving blood transfusions to improve his oxygen transport and has hypotension Antibiotic therapy will be addressed. He has evidence of acute renal failure with his creatinine of 4.2 at admission. Would avoid further vancomycin therapy and will change to daptomycin for now. He does need gram-negative therapy and with the current profound anemia would avoid piperacillin tazobactam given the difficulties with hematochezia anemia can be caused, utilize cefepime for now . Multiple cultures are already in process will further help direct therapy. The patient was on doxycycline therapy as an outpatient. Patient does have some laboratories from earlier this month the reveal evidence of hemoglobin 11.7 and a creatinine as low as 2.05 Consequently there is evidence of acute on chronic renal failure at this time. The patient has a heart rate of 141 which appears to be directly related to his septic shock. With fluid resuscitation and further blood transfusion should improve. Patient's sister relates that there is a history of alcohol use and must be monitored closely. 12/20/2017 reveals the patient to be improved from yesterday. Has received 4 units of packed red cells and this is allowing an improvement of his functional status. His profound pallor is improved. His energy level is also improved. Did have evidence of shock with sepsis as well as acute blood loss anemia. Antibiotic therapy has been utilize this point in time we'll cultures are in process and there is evidence of the gram-negative bacilli at the ulcer, and evidence of enterococcus in the urine for which current antibiotic therapy should be effective while we await the final susceptibility data. Continue with local wound care to the lower extremities with Silvadene wrap for now When he is more stable will be taken to the endoscopy suite for evaluation of gastrointestinal bleed Cultures are being monitored, leukocytosis has increased on the bases of significant cellulitis and sepsis in the lower extremities. 12/22/2017 the patient is improved. He has received the packed red cell transfusions and his hemoglobin is now stable around 8. He's been noticed to have some coffee-ground emesis and melanotic stool. He's been seen by gastroenterology and endoscopy is planned for the morning. The renal failure has stabilized and his leukocytosis has improved. Wound culture had several pathogens including gram-negative bacilli and urine culture has Enterococcus faecalis. Continue antibiotic therapy and monitor progress after the endoscopy. 12/29/2017 patient is showing some improvement, hemoglobin is stable no further Transfusions have been required. He has been seen by gastroenterology and endoscopy revealed evidence of a large gastric ulceration that was cratered but was not actively bleeding. Follow-up endoscopy will be arranged in the future. He is very weak and requires assistance even for his bed bath. Overall though his profound pallor has improved but is still somewhat of a poor historian. the enterococcus urinary tract infection and wounds to the legs have shown improvement and will transition antibiotics in near future. December 31, 2017 the patient does have some further improvement. Hemodynamically stable. Proceed no further blood transfusions. Continues to be resistant therapies in the lower extremities. He believes that letting them dry out will make them better, and does not really want local care to the legs or wraps. Patient is recovered from his sepsis in the cephapirin will be discontinued and would continue 48 hours further of daptomycin and then can consider transition to further oral agents. 01/03/2018 patient is showing some further improvement but slowly. We'll transition his intravenous antibiotic therapy to oral Augmentin dose appropriate for his creatinine of 4. Continue local wound care as he allows. Elevate the limbs at rest. Discharge planning working on placement. There is a possibility we'll transition his care to hospice. Current Visit: Yes Status: Acute Code(s): A41.9 - SEPSIS, UNSPECIFIED ORGANISM; R65.21 - SEVERE SEPSIS WITH SEPTIC SHOCK SNOMED Code(s): 83590242 (2) Acute on chronic blood loss anemia Current Visit: Yes Status: Acute Code(s): D60.0 - CHRONIC ACQUIRED PURE RED CELL APLASIA SNOMED Code(s): 593773162 (3) Venous stasis ulcer of both lower extremities without varicose veins Current Visit: Yes Status: Acute Code(s): I87.2 - VENOUS INSUFFICIENCY ( CHRONIC) (PERIPHERAL); L97.919 - NON-PRS CHRONIC ULC UNSP PRT OF R LOW LEG W UNSP SEVERITY; L97.929 - NON-PRS CHRONIC ULC UNSP PRT OF L LOW LEG W UNSP SEVERITY SNOMED Code(s): 397486901
[2018-01-04 00:05] LABS: Glucose,Whole Blood 121 mg/dL (75-99)
[2018-01-04] MEDS: INSULIN ASPART 100 UNIT/ML 1 ML 10 ML VIAL SQ SCH ×3 (01:11→12:32)
[2018-01-04 06:53] LABS: Glucose,Whole Blood 76 mg/dL (75-99)
[2018-01-04] MEDS ORDERED: AMOXIC-POT CLAV 500-125 MG 1 EACH TAB PO SCH (09:00)
[2018-01-04] MEDS: SODIUM BICARBONATE TAB 650 MG TAB PO SCH (09:20)
[2018-01-04] MEDS: AMIODARONE 200 MG TAB PO SCH (09:21)
[2018-01-04] MEDS: FUROSEMIDE 40 MG TAB PO SCH (09:21)
[2018-01-04] MEDS: PANTOPRAZOLE 40 MG TABLET PO SCH (09:22)
[2018-01-04] MEDS: MIDODRINE 5 MG TAB PO SCH ×2 (09:22→12:22)
[2018-01-04] MEDS: METOPROLOL TARTRATE 12.5 MG TAB PO SCH ×2 (09:24→12:21)
[2018-01-04 10:00] VITALS: BMI 22.7
[2018-01-04] MEDS: SILVER sulfADIAZINE Cream 400 GM 1 APPLIC APPLIC TOPICAL SCH (10:26)
[2018-01-04 11:03] LABS: Glucose,Whole Blood 109 mg/dL (75-99)
[2018-01-04] MEDS ORDERED: LORazepam 1 MG TAB PO PRN (12:13)
[2018-01-04 12:31] VITALS: BP 111/81; PULSE 88; RESP 35; TEMP 97.4
[2018-01-04] MEDS ORDERED: ATROPINE OPHTH SOLN 1% 5ML BTL BOTH EYES SCH (13:00)
[2018-01-04] MEDS ORDERED: MORPHINE CONC SOLN 10mg/0.5mL ORAL SYRG PO SCH (16:00)
--- NOTE | 2018-01-04 18:00 | DS ---
DISCHARGE SUMMARY CHIEF COMPLAINT: Septic shock. HISTORY OF PRESENT ILLNESS AND PHYSICAL EXAMINATION: Details of this man's history and physical can be found in the initial workup. LABORATORY STUDIES: While he was in the hospital he had laboratory studies, details of which can be found in the laboratory section of his chart. COURSE IN THE HOSPITAL: He was placed in the intensive care unit and started on septic protocol. He was seen and followed by Intensive Care Medicine, Cardiology, Pulmonology, Infectious Disease and Nephrology. He responded somewhat, but renal function never significantly improved, and he continued to have lethargy and weakness. He was unable to walk. His cardiomyopathy and cardiac function were deemed to be end-stage and he continued to slowly deteriorate. As he became more lethargic, other plans were discussed such as transferring him to a [facility] hospital, which he refused. Initially he refused hospice but eventually agreed to go into their care. Arrangements were made for him to be transferred to a hospice facility on January 04. FINAL DIAGNOSES: 1. Septic shock. 2. Infected ischemic ulcers of the lower extremity. 3. Renal failure. 4. Cardiomyopathy. 5. Congestive heart failure. 6. Substance abuse. 7. Chronic alcoholism. OPERATIONS: None. CONSULTATIONS: 1. Intensive Medicine. 2. Cardiology. 3. Nephrology. 4. Infectious Disease. 5. Hospice. He is not improved. ADDENDUM: He will go to hospice on: 1. Roxanol 20 mg per mL to be given 5 mg every 4 hours p.r.n. 2. Ativan 1 mg orally q.4 hours p.r.n. 3. Atropine 1% eyedrops 2 drops sublingually every 4 hours p.r.n. excessive secretions. MMODL / IJN: [id number] /
--- NOTE | 2018-01-04 22:08 | PN ---
PROGRESS NOTE Patient is seen for followup for acute kidney injury. Patient has chronic CHF and volume overload as well. He is maintained on diuretics. He has been refusing treatments and [facility] Patient denies any significant complaints this morning. On examination blood pressure was 111/81, heart rate 88 per minute. He is afebrile. EXAMINATION OF THE HEART: S1, S2. EXAMINATION OF LUNGS: Decreased breath sounds in the bases. ABDOMEN: Soft, non-tender. Examination of lower extremities shows edema 1+ bilaterally. Chronic skin changes are noted. Labs from yesterday showed serum creatinine 4.01. Urine output for 24 hours was about 3.3 L. ASSESSMENT: 1. Acute kidney injury, mainly cardiorenal. Serum creatinine was slightly higher yesterday. Patient continues on diuretics, which were decreased. No repeat labs, as there are plans for hospice care. Continue with Huang catheter. Continue with current dose of Lasix. 2. Congestive heart failure, acute on top of chronic, mainly systolic. 3. Cardiomyopathy, ejection fraction less than 20%, with global hypokinesis and severely dilated left atrium. 4. Atrial fibrillation with controlled ventricular response. PLAN: Continue current dose of Lasix. Respect patient's decision regarding hospice care. We will sign off. MMODL / IJN: [id number] /
== END 2018-01-04 15:05 | disposition hospice, inpatient (51) | DRG 871 ==
LOC: EC 11:26 → 6ICU 15:29 → 6SEL 12-26 05:49 → 3SUR 12-29 11:18 → 6SEL 12-29 17:45 → 5MS5E 01-03 22:49
PROVIDERS: ADMIT Family Medicine; ATTEND Family Medicine
PROC: 02HV33Z Insertion of Infusion Device into Superior Vena Cava, Percutaneous Approach (ICD-10-PCS; principal; 2017-12-19)
PROC: 30233N1 Transfusion of Nonautologous Red Blood Cells into Peripheral Vein, Percutaneous Approach (ICD-10-PCS; 2017-12-19)
PROC: 0DB68ZX Excision of Stomach, Via Natural or Artificial Opening Endoscopic, Diagnostic (ICD-10-PCS; 2017-12-23)
PROC: 5A09457 Assistance with Respiratory Ventilation, 24-96 Consecutive Hours, Continuous Positive Airway Pressure (ICD-10-PCS; 2018-01-01)
DX: A41.9 Sepsis, unspecified organism (principal); R65.21 Severe sepsis with septic shock; N17.0 Acute kidney failure with tubular necrosis; E43 Unspecified severe protein-calorie malnutrition; K25.4 Chronic or unspecified gastric ulcer with hemorrhage; I50.23 Acute on chronic systolic (congestive) heart failure; J96.01 Acute respiratory failure with hypoxia; G93.40 Encephalopathy, unspecified; I13.0 Hypertensive heart and chronic kidney disease with heart failure and stage 1 through stage 4 chronic kidney disease, or unspecified chronic kidney disease; D62 Acute posthemorrhagic anemia; E87.2 Acidosis; L97.229 Non-pressure chronic ulcer of left calf with unspecified severity; L97.219 Non-pressure chronic ulcer of right calf with unspecified severity; L97.129 Non-pressure chronic ulcer of left thigh with unspecified severity; L97.119 Non-pressure chronic ulcer of right thigh with unspecified severity; I42.6 Alcoholic cardiomyopathy; L03.116 Cellulitis of left lower limb; L03.115 Cellulitis of right lower limb; E87.0 Hyperosmolality and hypernatremia; R64 Cachexia; J98.11 Atelectasis; N39.0 Urinary tract infection, site not specified; Z66 Do not resuscitate; Z51.5 Encounter for palliative care; I48.2 Chronic atrial fibrillation; E11.622 Type 2 diabetes mellitus with other skin ulcer; I27.20 Pulmonary hypertension, unspecified; E87.5 Hyperkalemia; I83.019 Varicose veins of right lower extremity with ulcer of unspecified site; I83.029 Varicose veins of left lower extremity with ulcer of unspecified site; I08.1 Rheumatic disorders of both mitral and tricuspid valves; N18.3 Chronic kidney disease, stage 3 (moderate); B95.2 Enterococcus as the cause of diseases classified elsewhere; K44.9 Diaphragmatic hernia without obstruction or gangrene; J44.9 Chronic obstructive pulmonary disease, unspecified; I87.2 Venous insufficiency (chronic) (peripheral); F10.20 Alcohol dependence, uncomplicated; F14.10 Cocaine abuse, uncomplicated; D63.1 Anemia in chronic kidney disease; D50.0 Iron deficiency anemia secondary to blood loss (chronic); I44.7 Left bundle-branch block, unspecified; R26.2 Difficulty in walking, not elsewhere classified; M1A.9XX1 Chronic gout, unspecified, with tophus (tophi); Z68.22 Body mass index [BMI] 22.0-22.9, adult; Z71.3 Dietary counseling and surveillance; Z79.1 Long term (current) use of non-steroidal anti-inflammatories (NSAID); Z79.899 Other long term (current) drug therapy; Z86.79 Personal history of other diseases of the circulatory system; Z87.891 Personal history of nicotine dependence; Z90.49 Acquired absence of other specified parts of digestive tract; Z83.3 Family history of diabetes mellitus
CPT/HCPCS: 36415; 36556; 43239; 70450; 71045; 71046; 76770; 80048; 80051; 80053; 80306; 81001; 82272; 82550; 82553; 82607; 82746; 83036; 83540; 83550; 83605; 83735; 84100; 84295; 84484; 85025; 85027; 85045; 85610; 85730; 86850; 86900; 86901; 86920; 87040; 87070; 87077; 87086; 87186; 87205; 88305; 93005; 93306; 94660; 94760; 96361; 96365; 96366; 96368; 96372; 96375; 99291